=== PATIENT | female | born 1940 | race Caucasian/White ===

== ENCOUNTER 2018-02-16 17:36 | Emergency (ER) | payer MEDICARE, OTHER ==
--- NOTE | 2018-02-16 17:48 | EDM.PDOC ---
ED HPI GENERAL MEDICAL PROBLEM - General Chief Complaint: General Stated Complaint: FELL AND INJURED RT WRIST Time Seen by Provider: 02/16/18 17:40 Source of Information: Reports: Patient History Limitations: Reports: No Limitations - History of Present Illness INITIAL COMMENTS - FREE TEXT/NARRATIVE: Alicia comes into [facility] ED for examination of a painful R wrist following an injury this afternoon. She apparently slipped and fell onto outstretched L hand , injury to L wrist. There is minimal swelling, no discoloration, but some tenderness at the radial-carpal junction. There is no numbness or loss of function. She has taken no meds. - Related Data Allergies Allergy/AdvReac Type Severity Reaction Status Date / Time Sulfa (Sulfonamide Allergy Rash Verified 02/16/18 17:53 Antibiotics) Home Meds: Home Meds Acetaminophen [Tylenol] 325 mg PO ASDIRECTED PRN 06/23/13 [History] Aspirin [Halfprin] 81 mg PO BEDTIME 06/23/13 [History] Cyanocobalamin (Vitamin B-12) [Cyanocobalamin] 1 gm MC DAILY 06/23/13 [History] Flaxseed Oil [Flax Oil] 1,000 mg PO BID 06/23/13 [History] Gabapentin [Neurontin] 600 mg PO 14 06/23/13 [History] Lutein 20 mg PO DAILY 06/23/13 [History] Omeprazole [Prilosec] 20 mg PO BEDTIME 06/23/13 [History] Polyvinyl Alcohol/Povidone [Refresh] 1 each EYEBOTH ASDIRECTED PRN 06/23/13 [ History] Triamcinolone Acetonide [Kenalog 0.1% Crm] 15 gm TOP BID PRN 06/23/13 [History] cycloSPORINE [Restasis] 1 drop EYEBOTH BID PRN 06/23/13 [History] Ascorbic Acid [Vitamin C] 500 mg PO DAILY 06/24/13 [History] Cholecalciferol (Vitamin D3) [Vitamin D3] 1,000 units PO DAILY 06/24/13 [History ] Citalopram Hydrobromide [Celexa] 10 mg PO BEDTIME 06/24/13 [History] Fish Oil/[place]-3 Fatty Acids [Fish Oil 1,000 MG] 1 each PO BID 06/24/13 [History ] Multivitamin [Multi-Vitamin Daily] 1 each PO DAILY 06/24/13 [History] Ibuprofen 600 mg PO ASDIRECTED PRN 08/12/13 [History] Review of Systems - Review of Systems Review Of Systems: ROS reveals no pertinent complaints other than HPI. ED EXAM, GENERAL - Physical Exam Exam: See Below Exam Limited By: No Limitations General Appearance: Alert, WD/WN, No Apparent Distress Head: Atraumatic, Normocephalic Neck: Normal Inspection, Supple Respiratory/Chest: Lungs Clear Cardiovascular: Regular Rate, Rhythm Back Exam: Normal Inspection Extremities: Limited Range of Motion (L wrist: some guarding along radial carpal junction, no laine swelling some some limited tenderness near scaphoid; no deformity) Neurological: Alert, Oriented, CN II-XII Intact, Normal Gait, No Motor/Sensory Deficits Psychiatric: Normal Affect, Normal Mood Skin Exam: Warm, Dry, Intact Lymphatic: No Adenopathy Course - Vital Signs Text/Narrative:: Following assessment at the [facility] ED, I obtained x rays of the R wrist neg for fx. 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 A wrist splint was applied. - Orders/Labs/Meds Orders: Active Orders 24 hr Category Date Time Status Wrist Comp Min 3V Rt [CR] Stat Exams 02/16/18 17:43 Taken Departure - Departure Time of Disposition: 18:23 Disposition: Home, Self-Care 01 Condition: Fair Clinical Impression: Sprain of right wrist - Discharge Information Referrals: Isidoro Flores MD [Primary Care Provider] - Forms: ED Department Discharge - Problem List & Annotations (1) Sprain of right wrist SNOMED Code(s): 18328836 Code(s): S63.501A - UNSPECIFIED SPRAIN OF RIGHT WRIST, INITIAL ENCOUNTER Status: Acute Annotation/Comment:: Wrist splint for comfort, begin AROM in 2 days, and advance activity as tolerated; NSAIDs or Tylenol for analgesics. - Problem List Review Problem List Initiated/Reviewed/Updated: Yes - My Orders Last 24 Hours: My Active Orders 02/16/18 17:43 Wrist Comp Min 3V Rt [CR] Stat - Assessment/Plan Last 24 Hours: My Active Orders 02/16/18 17:43 Wrist Comp Min 3V Rt [CR] Stat Plan: Follow up with PCP if needed.
[2018-02-16 20:04] VITALS: BP 137/61
--- NOTE | 2018-02-18 12:17 | CR ---
INDICATION: Rule out wrist fracture, after falling on outstretched hand, tenderness with minimal swelling along radiocarpal junction near scaphoid. RIGHT WRIST: Three views of the right wrist were obtained. No comparisons were available. There is an irregular longitudinal fracture through the mediodorsal aspect of the distal radial metaphysis with approximately 2.5 to 3 mm dorsal offset of the large chip fracture fragment. It is comminuted with the fracture line extending more proximally into the metaphysis along the dorsal aspect of the radius. Additionally noted is very severe osteoarthritic change, most likely post traumatic type, at the first metacarpocarpal joint. Very minimal deviation of the volar fat pad is noted, suggesting a minimal wrist joint effusion. IMPRESSION: 1. Comminuted large chip fracture fragments off the dorsal aspect of the distal radial metaphysis, including only a small portion of the joint surface along its medial aspect for the most part. 2. 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 3. Small wrist joint effusion may be present. Report was called to Dr. Wilson for Dr. Guan at 1131 hours on 02/18/2018. JANE
== END 2018-02-16 18:50 | disposition home or self-care (01) ==
LOC: FB.ED 17:36
DX: S63.501A Unspecified sprain of right wrist, initial encounter (principal); Z88.2 Allergy status to sulfonamides; Z79.899 Other long term (current) drug therapy; W01.0XXA Fall on same level from slipping, tripping and stumbling without subsequent striking against object, initial encounter
CPT/HCPCS: 29125; 73110-RT; 99283

== ENCOUNTER 2019-05-07 08:09 | Day surgery (SDC) | payer MEDICARE, OTHER ==
[2019-05-07] MEDS ORDERED: Propofol 200 MG/20 ML SDV IV ONE (08:10)
[2019-05-07] MEDS ORDERED: Glycopyrrolate 0.2 MG/ML 5 ML MDV IV ONE (08:10)
[2019-05-07] MEDS ORDERED: Lidocaine 2% 5 ML SDV INJECT ONE ×2 (08:10)
[2019-05-07] MEDS ORDERED: Lactated Ringers 1,000 ML IV SCH (08:15)
[2019-05-07] MEDS ORDERED: Sodium Chloride 0.9% 10 ML Syringe FLUSH PRN (08:15)
--- NOTE | 2019-05-07 09:54 | PCM.OPNOTE ---
- General Post-Op/Procedure Note Date of Surgery/Procedure: 05/07/19 Operative Procedure(s): c scope with random biospies Findings: normal exam Pre Op Diagnosis: hx of colitis Post-Op Diagnosis: Same Anesthesia Technique: MAC Primary Surgeon: Tony Srivastava Anesthesia Provider: Ema Amaya Pathology: random colon biopsies Complications: None Condition: Good Free Text/Narrative:: see dictation
[2019-05-07 11:17] VITALS: BP 119/75
--- NOTE | 2019-05-07 11:21 | OR ---
DATE OF OPERATION: 05/07/2019 SURGEON: Tony Srivastava MD PROCEDURE PERFORMED: Colonoscopy with random biopsies. PREOPERATIVE DIAGNOSIS: Personal history of colitis. POSTOPERATIVE DIAGNOSIS: Grossly normal colon. INDICATIONS FOR PROCEDURE: This is a 79-year-old white female who presents for followup endoscopy. She has a personal history of colitis, really is without complaints. She was offered and accepted colonoscopy. DESCRIPTION OF OPERATION: After an excellent IV sedation was administered, digital rectal exam was performed. No marked abnormality was noted. Flexible colonoscope inserted, advanced to cecum. Prep was excellent. Following findings were noted. Ascending colon, unremarkable. Random biopsies were taken. Transverse colon, unremarkable. Random biopsies were taken. Descending colon, unremarkable. Random biopsies were taken. Sigmoid and rectum, unremarkable. Random biopsies were taken. Colon was deflated. The scope was removed. The patient tolerated the procedure well. Results by letter. /[id number] /MODL
== END 2019-05-07 11:16 | disposition home or self-care (01) ==
LOC: FB.SDS 08:09
PROVIDERS: ATTEND Surgery
DX: Z12.11 Encounter for screening for malignant neoplasm of colon (principal); K21.9 Gastro-esophageal reflux disease without esophagitis; F32.9 Major depressive disorder, single episode, unspecified; E66.9 Obesity, unspecified; Z90.49 Acquired absence of other specified parts of digestive tract; Z87.19 Personal history of other diseases of the digestive system; Z79.2 Long term (current) use of antibiotics; Z79.82 Long term (current) use of aspirin; Z88.2 Allergy status to sulfonamides; Z68.29 Body mass index [BMI] 29.0-29.9, adult
CPT/HCPCS: 45380; J2001; J2704; J3490; J7120; 88305; 88342

== ENCOUNTER 2019-11-14 11:20 | Inpatient (IN) | payer MEDICARE, OTHER ==
[2019-11-14] MEDS: Sodium Chloride 0.9% 1,000 ML IV SCH ×2 (11:45→17:39)
[2019-11-14] MEDS ORDERED: Iopamidol 755 Mg/ML 100 ML Bottle IV ONE (12:17)
[2019-11-14] MEDS: Sodium Chloride 0.9% 10 ML Syringe FLUSH PRN (12:26)
[2019-11-14] MEDS ORDERED: Morphine 2 MG/ML SYRINGE IVPUSH ONE (13:44)
--- NOTE | 2019-11-14 14:26 | CT ---
INDICATION: Right lower quadrant/left lower quadrant tenderness. CT ABDOMEN AND PELVIS WITH CONTRAST: Spiral 3.75 mm axial sections were obtained through the abdomen and pelvis with 75 mL Isovue 370 at 2 mL/sec, with sagittal and coronal reconstructions, 11/14/19 - no comparisons. Total exam DLP was 379.50 mGy-cm. The lower lung solis and pleural spaces visualized showed evidence of small bilateral pleural effusions with some mild emphysematous changes. Heavy markings at the lung bases make it difficult to entirely exclude minimal patchy bronchopneumonia and pleuritis with this appearance. The heart appears to be at the upper limits of normal in size to slightly enlarged. No pericardial effusion was seen. Coronary artery calcifications are suggested. The gallbladder is absent compatible with history of its removal. The liver is slightly prominent and decreased in density compatible with fatty liver. There are some areas of relative normal density suggesting areas of fatty sparing. No ductal dilatation was seen, including the common bile duct. Clips are noted at the cystic duct area compatible with cholecystectomy. The adrenal glands appeared normal. The kidneys appeared normal except for what looks like a tiny simple cyst in the lateral cortex of the midpole of the left kidney. The spleen and the pancreas appeared normal. No definite gastric abnormality was seen. There is thickening of the wall of the [id number] transverse colon, descending colon, and sigmoid colon, which is fairly redundant. Some thickening of the wall of the rectosigmoid and rectum may also be present. This appearance raises question of ulcerative colitis. These portions of the bowel are filled with fluid with air-fluid levels. This raises question of a paralytic ileus. There is fluid extending into the rectum suggesting that if an obstructive process of a mechanical nature is present, it is of partial nature. It certainly cannot be entirely excluded in the area of the distal sigmoid - rectosigmoid. The appendix appeared normal visualized on coronal images 22-31. The ascending colon appeared relatively normal as did the proximal transverse colon, although somewhat distended. No retroperitoneal mass was seen. The uterus is absent compatible with history of its removal. The urinary bladder was slightly distended but otherwise unremarkable with ureteral jets of contrast suggested bilaterally. No other organomegaly, mass lesions or definite free fluid collections were identified. However, there may be a very minimal amount of free fluid in the posterior cul-de-sac area. Hypertrophic degenerative changes and disk disease are noted in the lumbosacral spine with degenerative disk disease additionally felt to be present at L2-3, L3 -4. There also appears to be some bulging of disk centrally at L4-5 with very minimal anterolisthesis at that level. Calcifications are noted in the abdominal aorta, iliac and femoral arteries. No evidence of free air was identified. IMPRESSION: 1. Fluid-filled [id number] large bowel with thickened wall, the appearance raising question of colitis, possibly due to ulcerative colitis, although infection could also be present. This should be correlated clinically. The bowel is also somewhat dilated down to the level of the distal sigmoid - rectosigmoid where there is a relative prominent area of narrowing, which could be a contraction, or possibly a stricture, best seen on axial image 91. This could be producing a partially obstructive process as there is fluid in the more distal colon - distal rectosigmoid and rectum. Colonoscopy may be helpful for further evaluation in that regard. 2. Post hysterectomy. 3. Post appendectomy. 4. Degenerative changes and disk disease lumbosacral spine. 5. Appendix appears normal. 6. ASD/ASHD. 7. Fatty liver. 8. Bibasilar pleural parenchymal changes may represent minimal pneumonia and pleuritis. The report was called to Dr. Flores at 13:04 hours. [facility]
[2019-11-14] MEDS ORDERED: cefTRIAXone 1 GM Vial IM ONE (14:50)
--- NOTE | 2019-11-14 15:02 | CR ---
INDICATION: Cough. CHEST, 1 VIEW: A single, AP upright portable view of the chest was obtained - no comparisons except for CT of the abdomen and pelvis with contrast of 11/14/19, which does show the lower lung solis. There is blunting of the left costophrenic angle compatible with a small pleural effusion. There is indistinctness of the diaphragm leaves bilaterally, which could be on the basis of minimal pleural parenchymal change - pneumonia and pleuritis, which was suggested on the CT abdomen and pelvis, which included the lower chest area. No gross consolidating pneumonia was seen. The heart appears enlarged to a mild degree. Aorta is tortuous with calcification in the arch. The lungs appear to be somewhat hyperaerated raising question of COPD - correlate clinically. IMPRESSION: 1. Somewhat indistinct lung bases compatible with the findings on CT showing minimal infiltrate and effusion compatible with pneumonia and pleuritis at the lung bases. 2. Probable ASHD. 3. Probable COPD. MTDD
[2019-11-14] MEDS ORDERED: cefTRIAXone 1 GM in Sodium Chloride 0.9% 50 ML IV ONE (15:13)
[2019-11-14] MEDS ORDERED: Ondansetron 4 MG/2 ML SDV IVPUSH PRN (17:17)
[2019-11-14] MEDS ORDERED: Acetaminophen 325 MG Supp RECTAL PRN (17:19)
--- NOTE | 2019-11-14 17:32 | PCM.HP.2 ---
H&P History of Present Illness - General Date of Service: 11/14/19 Admit Problem/Dx: Admission Diagnosis/Problem Admission Diagnosis/Problem Partial bowel obstruction Source of Information: Patient, Family, Provider - History of Present Illness Initial Comments - Free Text/Narative: Alicia has been having abdominal pain for a few weeks, first had some diarrhea with bloody stools. She states the blood was present on the stool and not in the toilet. She started Iron and then became constipated so stopped and diarrhea started again. She states pain in mainly in the lower part of her belly , no nausea or vomiting. Has been more confused per her son from when he saw her on Sunday. She was seen at [facility] today by Dr Srivastava and he called and sent her to ER for evaluation. CT abdomen/pelvis showed sigmoid colitis, partial small bowel obstruction and UA showed UTI. She denies any fevers, chills, sore throat or cough. No shortness of breath, chest pain. No dysuria, frequency or hematuria. No joint pain. No edema. Patient denies any surgeries but chart notes hysterectomy, cholecystectomy, appy for abdominal surgeries, see below for full list. Complaining of dry mouth, licking her lips and they are sticking together making it difficult for her to talk. - Related Data Allergies/Adverse Reactions: Allergies Allergy/AdvReac Type Severity Reaction Status Date / Time Sulfa (Sulfonamide Allergy Rash Verified 11/14/19 11:45 Antibiotics) Home Medications: Home Meds Aspirin [Halfprin] 81 mg PO BEDTIME 06/23/13 [History] Cyanocobalamin (Vitamin B-12) [Cyanocobalamin] 1 gm PO DAILY 06/23/13 [History] Flaxseed Oil [Flax Oil] 1,000 mg PO DAILY 06/23/13 [History] Lutein 20 mg PO DAILY 06/23/13 [History] Omeprazole [Prilosec] 20 mg PO BEDTIME 06/23/13 [History] Polyvinyl Alcohol/Povidone [Refresh] 1 each EYEBOTH ASDIRECTED PRN 06/23/13 [ History] Triamcinolone Acetonide [Kenalog 0.1% Crm] 15 gm TOP BID PRN 06/23/13 [History] cycloSPORINE [Restasis] 1 drop EYEBOTH BID PRN 06/23/13 [History] Cholecalciferol (Vitamin D3) [Vitamin D3] 1,000 units PO DAILY 06/24/13 [History ] Citalopram Hydrobromide [Celexa] 10 mg PO BEDTIME 06/24/13 [History] Fish Oil/[place]-3 Fatty Acids [Fish Oil 1,000 MG] 1,000 mg PO BID 06/24/13 [ History] Multivitamin [Multi-Vitamin Daily] 1 each PO DAILY 06/24/13 [History] Alendronate Sodium [Fosamax] 70 mg PO Q7D 05/06/19 [History] Calcium Carbonate/Vitamin D3 [Os-Meng 500+D] 1 each PO BID 05/06/19 [History] Ferrous Sulfate [Iron] 325 mg PO DAILY 05/06/19 [History] Glucosamine Sulfate/Msm [Glucosamine-MSM 500-400 MG] 2 cap PO DAILY 05/06/19 [ History] Vitamin E 400 unit PO DAILY 05/06/19 [History] Past Medical History HEENT History: Reports: Cataract, Hard of Hearing, Impaired Vision, Other (See Below) Other HEENT History: dry eyes Cardiovascular History: Reports: None, Other (See Below) Other Cardiovascular History: 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 CARPAL TUNNEL SYNDROME Psychiatric History: Reports: Depression Endocrine/Metabolic History: Reports: Obesity/BMI 30+ Hematologic History: Reports: None Immunologic History: Reports: None Oncologic (Cancer) History: Reports: None Dermatologic History: Reports: Eczema, Other (See Below) Other Dermatologic History: CONTACT DERMATITIS - Infectious Disease History Infectious Disease History: Reports: Chicken Pox, Measles, Mumps - Past Surgical History Head Surgeries/Procedures: Reports: None HEENT Surgical History: Reports: Cataract Surgery Cardiovascular Surgical History: Reports: None Respiratory Surgical History: Reports: None GI Surgical History: Reports: Appendectomy, Cholecystectomy, Colonoscopy Female Surgical History: Reports: Hysterectomy Endocrine Surgical History: Reports: None Neurological Surgical History: Reports: Discectomy, Laminectomy, Other (See Below) Other Neurological Surgeries/Procedures: L3-4 Musculoskeletal Surgical History: Reports: Other (See Below) Other Musculoskeletal Surgeries/Procedures:: TRIGGER FINGER RELEASE, TRIGGER FINGER INJECTION Oncologic Surgical History: Reports: None Social & Family History - Family History Family Medical History: Noncontributory - Tobacco Use Smoking Status *Q: Never Smoker - Caffeine Use Caffeine Use: Reports: Coffee, Tea - Alcohol Use Alcohol Use History: Yes Alcohol Use Frequency: Monthly - Living Situation & Occupation Living situation: Reports: , Alone Occupation: Retired H&P Review of Systems - Review of Systems: Review Of Systems: Comprehensive ROS is negative, except as noted in HPI. Exam - Exam Exam: See Below - Exam General: Alert, Oriented (x3), Cooperative, Mild Distress, Lethargic HEENT: PERRLA, Conjunctiva Clear, EOMI, Hearing Intact, Nares Patent, Normal Nasal Septum, Posterior Pharynx Clear, TMs Clear, Other (very dry tacky mucus membranes) Neck: Supple, Trachea Midline. No: Lymphadenopathy Lungs: Clear to Auscultation, Normal Respiratory Effort Cardiovascular: Regular Rate, Regular Rhythm, Normal S1, Normal S2, Systolic Murmur GI/Abdominal Exam: Soft, Guarding, Tender (LLQ>RLQ), Abnormal Bowel Sounds ( hypoactive). No: Rigid, Rebound (Female) Exam: Deferred Rectal (Female) Exam: Deferred Extremities: Pedal Edema (trace) Peripheral Pulses: 2+: Radial (L), Radial (R), Posterior Tibial (L), Posterior Tibial (R), Dorsalis Pedis (L), Dorsalis Pedis (R) Skin: Warm, Dry, Intact - Patient Data Lab Results Last 24 hrs: Laboratory Results - last 24 hr 11/14/19 11/14/19 11/14/19 Range/Units 11:45 11:45 11:45 WBC 7.5 (4.5-12.0) X10-3/uL RBC 3.57 (3.23-5.20) x10(6)uL Hgb 11.0 L (11.5-15.5) g/dL Hct 32.7 (30.0-51.3) % MCV 91.6 (80-96) fL MCH 30.8 (27.7-33.6) pg MCHC 33.7 (32.2-35.4) g/dL RDW 12.6 (11.5-15.5) % Plt Count 373 H (125-369) X10(3)uL MPV 6.6 L (7.4-10.4) fL Add Manual Diff Yes Neutrophils % (Manual) 47 (46-82) % Band Neutrophils % 18 H* (0-6) % Lymphocytes % (Manual) 28 (13-37) % Monocytes % (Manual) 6 (4-12) % Eosinophils % (Manual) 1 (0-5) % Toxic Granulation Few H (NOT SEEN) Sodium 139 (135-145) mmol/L Potassium 2.3 L* (3.5-5.3) mmol/L Chloride 101 (100-110) mmol/L Carbon Dioxide 31 (21-32) mmol/L BUN 10 (7-18) mg/dL Creatinine 0.9 (0.55-1.02) mg/dL Est Cr Clr Drug Dosing TNP Estimated GFR (MDRD) > 60 (>60) BUN/Creatinine Ratio 11.1 (9-20) Glucose 102 (80-116) mg/dL Lactic Acid (0.4-2.0) mmol/L Calcium 7.5 L (8.6-10.2) mg/dL Total Bilirubin 0.7 (0.1-1.3) mg/dL AST 43 H (5-25) IU/L ALT 43 H (12-36) U/L Alkaline Phosphatase 124 H (56-112) IU/L Total Protein 5.7 L (6.0-8.0) g/dL Albumin 1.7 L* (3.2-4.6) g/dL Globulin 4.0 g/dL Albumin/Globulin Ratio 0.4 Amylase 15 L (25-115) U/L Lipase 35 L (73-393) U/L Urine Color (YELLOW) Urine Appearance (CLEAR) Urine pH (5.0-6.5) Ur Specific [place] (1.010-1.025) Urine Protein (NEGATIVE) mg/dL Urine Glucose (UA) (NORMAL) mg/dL Urine Ketones (NEGATIVE) mg/dL Urine Occult Blood (NEGATIVE) Urine Nitrite (NEGATIVE) Urine Bilirubin (NEGATIVE) Urine Urobilinogen (NEGATIVE) mg/dL Ur Leukocyte Esterase (NEGATIVE) Urine WBC (0-5) 11/14/19 11/14/19 Range/Units 13:29 13:50 WBC (4.5-12.0) X10-3/uL RBC (3.23-5.20) x10(6)uL Hgb (11.5-15.5) g/dL Hct (30.0-51.3) % MCV (80-96) fL MCH (27.7-33.6) pg MCHC (32.2-35.4) g/dL RDW (11.5-15.5) % Plt Count (125-369) X10(3)uL MPV (7.4-10.4) fL Add Manual Diff Neutrophils % (Manual) (46-82) % Band Neutrophils % (0-6) % Lymphocytes % (Manual) (13-37) % Monocytes % (Manual) (4-12) % Eosinophils % (Manual) (0-5) % Toxic Granulation (NOT SEEN) Sodium (135-145) mmol/L Potassium (3.5-5.3) mmol/L Chloride (100-110) mmol/L Carbon Dioxide (21-32) mmol/L BUN (7-18) mg/dL Creatinine (0.55-1.02) mg/dL Est Cr Clr Drug Dosing Estimated GFR (MDRD) (>60) BUN/Creatinine Ratio (9-20) Glucose (80-116) mg/dL Lactic Acid 1.4 (0.4-2.0) mmol/L Calcium (8.6-10.2) mg/dL Total Bilirubin (0.1-1.3) mg/dL AST (5-25) IU/L ALT (12-36) U/L Alkaline Phosphatase (56-112) IU/L Total Protein (6.0-8.0) g/dL Albumin (3.2-4.6) g/dL Globulin g/dL Albumin/Globulin Ratio Amylase (25-115) U/L Lipase (73-393) U/L Urine Color Yellow (YELLOW) Urine Appearance Cloudy (CLEAR) Urine pH 7.0 H (5.0-6.5) Ur Specific [place] 1.005 L (1.010-1.025) Urine Protein Trace (NEGATIVE) mg/dL Urine Glucose (UA) Normal (NORMAL) mg/dL Urine Ketones Negative (NEGATIVE) mg/dL Urine Occult Blood Moderate H (NEGATIVE) Urine Nitrite Positive H (NEGATIVE) Urine Bilirubin Negative (NEGATIVE) Urine Urobilinogen Normal (NEGATIVE) mg/dL Ur Leukocyte Esterase Large H (NEGATIVE) Urine WBC Packed H (0-5) Result Diagrams: 11/14/19 11:45 11/14/19 11:45 Sepsis Event Note - Evaluation Current Stage of Sepsis: Ruled Out Reason for Ruling Out Sepsis: Afebrile, normal white count, normal blood pressure, normal lactic acid. - Problem List (1) Partial bowel obstruction SNOMED Code(s): 99149402956395062 ICD Code: K56.600 - PARTIAL INTESTINAL OBSTRUCTION, UNSPECIFIED TO CAUSE Status: Acute Current Visit: Yes (2) Colitis SNOMED Code(s): 19546275 ICD Code: K52.9 - NONINFECTIVE GASTROENTERITIS AND COLITIS, UNSPECIFIED Status: Acute Current Visit: Yes (3) UTI (urinary tract infection) SNOMED Code(s): 96511395 ICD Code: N39.0 - URINARY TRACT INFECTION, SITE NOT SPECIFIED Status: Acute Current Visit: Yes (4) Dehydration SNOMED Code(s): 59619679 ICD Code: E86.0 - DEHYDRATION Status: Acute Current Visit: Yes (5) Hypokalemia SNOMED Code(s): 30414646 ICD Code: E87.6 - HYPOKALEMIA Status: Acute Current Visit: Yes (6) Osteoporosis SNOMED Code(s): 73239107 ICD Code: M81.0 - AGE-RELATED OSTEOPOROSIS W/O CURRENT PATHOLOGICAL FRACTURE Status: Chronic Current Visit: Yes (7) Depression SNOMED Code(s): 38447268 ICD Code: F32.9 - MAJOR DEPRESSIVE DISORDER, SINGLE EPISODE, UNSPECIFIED Status: Chronic Current Visit: Yes Problem List Initiated/Reviewed/Updated: Yes Orders Last 24hrs: Active Orders 24 hr Category Date Time Status Admission Status [Patient Status] [ADT] Routine ADT 11/14/19 17:02 Active Antiembolic Devices [RC] .Routine Care 11/14/19 17:24 Ordered Oxygen Therapy [RC] PRN Care 11/14/19 17:24 Ordered Up to Chair [RC] ASDIRECTED Care 11/14/19 17:24 Ordered VTE/DVT Education [RC] Per Unit Routine Care 11/14/19 17:24 Ordered Vital Signs [RC] Q4H Care 11/14/19 17:24 Ordered Nothing per Oral Now Diet [DIET] Diet 11/14/19 Dinner Ordered BASIC METABOLIC PANEL,BMP [CHEM] Routine Lab 11/15/19 06:00 Ordered CULTURE BLOOD [BC] Urgent Lab 11/14/19 13:50 Received CULTURE BLOOD [BC] Urgent Lab 11/14/19 13:50 Received CULTURE URINE [RM] Stat Lab 11/14/19 13:29 Received OCCULT BLOOD SCREEN [OP] Routine Lab 11/14/19 17:20 Ordered Acetaminophen [Tylenol] Med 11/14/19 17:19 Ordered 325 mg RECTAL Q4H PRN Morphine Med 11/14/19 17:18 Ordered 1 mg IVPUSH Q2H PRN Ondansetron [Zofran] Med 11/14/19 17:17 Ordered 4 mg IVPUSH Q6H PRN Potassium Chloride [KCL 20 MEQ in Water 100 ML] 100 ml Med 11/14/19 18:00 Active IV Q2H Potassium Chloride [KCL 20 MEQ in Water 100 ML] 20 meq Med 11/14/19 18:00 Ordered Premix Bag 2 bag IV Q2H Sodium Chloride 0.9% [Normal Saline] 1,000 ml Med 11/14/19 11:45 Active IV ASDIRECTED Sodium Chloride 0.9% [Saline Flush] Med 11/14/19 11:37 Active 10 ml FLUSH ASDIRECTED PRN cefTRIAXone [Rocephin] Med 11/15/19 15:15 Ordered 1 gm IVPUSH Q24H Antiembolic Hose [OM.PC] Per Unit Routine Oth 11/14/19 17:24 Ordered Blood Culture x2 Reflex Set [OM.PC] Urgent Oth 11/14/19 13:30 Ordered Oral Care [OM.PC] Routine Oth 11/14/19 17:19 Ordered Saline Lock Insert [OM.PC] Routine Oth 11/14/19 11:37 Ordered Code Status [Resuscitation Status] Routine Resus Stat 11/14/19 17:19 Ordered Medication Orders Acetaminophen (Tylenol) 325 mg RECTAL Q4H PRN PRN Reason: Fever Ceftriaxone Sodium (Rocephin) 1 gm IVPUSH Q24H [facility] Sodium Chloride (Normal Saline) 1,000 mls @ 100 mls/hr IV ASDIRECTED [facility] Last Admin: 11/14/19 11:45 Dose: 999 mls/hr Potassium Chloride 20 meq/ (Premix) 0 mls @ 50 mls/hr IV Q2H [facility] Morphine Sulfate (Morphine) 1 mg IVPUSH Q2H PRN PRN Reason: Pain Ondansetron HCl (Zofran) 4 mg IVPUSH Q6H PRN PRN Reason: Nausea/Vomiting Sodium Chloride (Saline Flush) 10 ml FLUSH ASDIRECTED PRN PRN Reason: Keep Vein Open Last Admin: 11/14/19 12:26 Dose: 10 ml Assessment/Plan Comment:: 1. Admit for inpatient for partial bowel obstruction, sigmoid colitis and UTI. 2. Rocephin 1 Gram IV q24h, Urine culture pending. BC pending. Normal WBC. 3. NPO except water and ice chips. Oral cares prn. 4. Morphine 1 mg IV q2h prn pain, Tylenol suppository 325 mg q4h prn fever. 5. Hold all home medications. 6. GI prophylaxis: Protonix 40 mg IV daily. 7. DVT prophylaxis: TEDS, ambulate. 8. Up to chair. 9. CODE STATUS: FULL, does have living will but doesn't remember and does not have it with her. - Mortality Measure Prognosis:: Good
[2019-11-14] MEDS: cefTRIAXone 1 GM Vial IVPUSH SCH (17:39)
[2019-11-14] MEDS: Potassium Chloride 100 ML IV SCH ×2 (17:43→20:06)
[2019-11-14] MEDS ORDERED: Potassium Chloride 20 MEQ in Premix Bag 2 BAG IV SCH (18:00)
[2019-11-15] MEDS: Sodium Chloride 0.9% 1,000 ML IV SCH ×2 (05:00→15:41)
[2019-11-15] MEDS: Morphine 2 MG/ML SYRINGE IVPUSH PRN ×2 (05:30→17:25)
--- NOTE | 2019-11-15 09:51 | PCM.PN ---
- General Info Date of Service: 11/15/19 Subjective Update: Alicia describes pain more achy, still a little sleepy this morning but not as lethargic as yesterday. Mouth states is dry but not as bad, wants to drink water. Advised she has water & ice chips ordered but she is also getting IV fluids. Has not received anything for pain overnight. Had diarrhea stool, fecal occult was negative, some blood when she wiped. Urine culture still pending. No nausea or vomiting. - Patient Data Vitals - Most Recent: Last Vital Signs Temp 98.1 F 11/15/19 03:30 Pulse 90 11/14/19 23:30 Resp 16 11/15/19 03:30 BP 115/60 11/15/19 03:30 Pulse Ox 88 L 11/15/19 03:30 Weight - Most Recent: 139 lb 1.6 oz I&O - Last 24 Hours: Intake & Output 11/14/19 11/15/19 11/15/19 22:59 06:59 14:59 Intake Total 946 Output Total 450 Balance 496 Lab Results Last 24 Hours: Laboratory Results - last 24 hr 11/14/19 11/14/19 11/14/19 Range/Units 11:45 11:45 11:45 WBC 7.5 (4.5-12.0) X10-3/uL RBC 3.57 (3.23-5.20) x10(6)uL Hgb 11.0 L (11.5-15.5) g/dL Hct 32.7 (30.0-51.3) % MCV 91.6 (80-96) fL MCH 30.8 (27.7-33.6) pg MCHC 33.7 (32.2-35.4) g/dL RDW 12.6 (11.5-15.5) % Plt Count 373 H (125-369) X10(3)uL MPV 6.6 L (7.4-10.4) fL Add Manual Diff Yes Neutrophils % (Manual) 47 (46-82) % Band Neutrophils % 18 H* (0-6) % Lymphocytes % (Manual) 28 (13-37) % Monocytes % (Manual) 6 (4-12) % Eosinophils % (Manual) 1 (0-5) % Toxic Granulation Few H (NOT SEEN) Sodium 139 (135-145) mmol/L Potassium 2.3 L* (3.5-5.3) mmol/L Chloride 101 (100-110) mmol/L Carbon Dioxide 31 (21-32) mmol/L BUN 10 (7-18) mg/dL Creatinine 0.9 (0.55-1.02) mg/dL Est Cr Clr Drug Dosing TNP Estimated GFR (MDRD) > 60 (>60) BUN/Creatinine Ratio 11.1 (9-20) Glucose 102 (80-116) mg/dL Lactic Acid (0.4-2.0) mmol/L Calcium 7.5 L (8.6-10.2) mg/dL Magnesium (1.8-2.5) mg/dL Total Bilirubin 0.7 (0.1-1.3) mg/dL AST 43 H (5-25) IU/L ALT 43 H (12-36) U/L Alkaline Phosphatase 124 H (56-112) IU/L Total Protein 5.7 L (6.0-8.0) g/dL Albumin 1.7 L* (3.2-4.6) g/dL Globulin 4.0 g/dL Albumin/Globulin Ratio 0.4 Amylase 15 L (25-115) U/L Lipase 35 L (73-393) U/L Urine Color (YELLOW) Urine Appearance (CLEAR) Urine pH (5.0-6.5) Ur Specific [place] (1.010-1.025) Urine Protein (NEGATIVE) mg/dL Urine Glucose (UA) (NORMAL) mg/dL Urine Ketones (NEGATIVE) mg/dL Urine Occult Blood (NEGATIVE) Urine Nitrite (NEGATIVE) Urine Bilirubin (NEGATIVE) Urine Urobilinogen (NEGATIVE) mg/dL Ur Leukocyte Esterase (NEGATIVE) Urine WBC (0-5) 11/14/19 11/14/19 11/15/19 Range/Units 13:29 13:50 06:25 WBC (4.5-12.0) X10-3/uL RBC (3.23-5.20) x10(6)uL Hgb (11.5-15.5) g/dL Hct (30.0-51.3) % MCV (80-96) fL MCH (27.7-33.6) pg MCHC (32.2-35.4) g/dL RDW (11.5-15.5) % Plt Count (125-369) X10(3)uL MPV (7.4-10.4) fL Add Manual Diff Neutrophils % (Manual) (46-82) % Band Neutrophils % (0-6) % Lymphocytes % (Manual) (13-37) % Monocytes % (Manual) (4-12) % Eosinophils % (Manual) (0-5) % Toxic Granulation (NOT SEEN) Sodium 143 (135-145) mmol/L Potassium 2.3 L* (3.5-5.3) mmol/L Chloride 107 D (100-110) mmol/L Carbon Dioxide 27 (21-32) mmol/L BUN 8 (7-18) mg/dL Creatinine 0.7 (0.55-1.02) mg/dL Est Cr Clr Drug Dosing 52.39 Estimated GFR (MDRD) > 60 (>60) BUN/Creatinine Ratio 11.4 (9-20) Glucose 84 (80-116) mg/dL Lactic Acid 1.4 (0.4-2.0) mmol/L Calcium 7.0 L (8.6-10.2) mg/dL Magnesium (1.8-2.5) mg/dL Total Bilirubin (0.1-1.3) mg/dL AST (5-25) IU/L ALT (12-36) U/L Alkaline Phosphatase (56-112) IU/L Total Protein (6.0-8.0) g/dL Albumin (3.2-4.6) g/dL Globulin g/dL Albumin/Globulin Ratio Amylase (25-115) U/L Lipase (73-393) U/L Urine Color Yellow (YELLOW) Urine Appearance Cloudy (CLEAR) Urine pH 7.0 H (5.0-6.5) Ur Specific [place] 1.005 L (1.010-1.025) Urine Protein Trace (NEGATIVE) mg/dL Urine Glucose (UA) Normal (NORMAL) mg/dL Urine Ketones Negative (NEGATIVE) mg/dL Urine Occult Blood Moderate H (NEGATIVE) Urine Nitrite Positive H (NEGATIVE) Urine Bilirubin Negative (NEGATIVE) Urine Urobilinogen Normal (NEGATIVE) mg/dL Ur Leukocyte Esterase Large H (NEGATIVE) Urine WBC Packed H (0-5) 11/14/ Range/Units 06:50 WBC (4.5-12.0) X10-3/uL RBC (3.23-5.20) x10(6)uL Hgb (11.5-15.5) g/dL Hct (30.0-51.3) % MCV (80-96) fL MCH (27.7-33.6) pg MCHC (32.2-35.4) g/dL RDW (11.5-15.5) % Plt Count (125-369) X10(3)uL MPV (7.4-10.4) fL Add Manual Diff Neutrophils % (Manual) (46-82) % Band Neutrophils % (0-6) % Lymphocytes % (Manual) (13-37) % Monocytes % (Manual) (4-12) % Eosinophils % (Manual) (0-5) % Toxic Granulation (NOT SEEN) Sodium (135-145) mmol/L Potassium (3.5-5.3) mmol/L Chloride (100-110) mmol/L Carbon Dioxide (21-32) mmol/L BUN (7-18) mg/dL Creatinine (0.55-1.02) mg/dL Est Cr Clr Drug Dosing Estimated GFR (MDRD) (>60) BUN/Creatinine Ratio (9-20) Glucose (80-116) mg/dL Lactic Acid (0.4-2.0) mmol/L Calcium (8.6-10.2) mg/dL Magnesium 1.7 L (1.8-2.5) mg/dL Total Bilirubin (0.1-1.3) mg/dL AST (5-25) IU/L ALT (12-36) U/L Alkaline Phosphatase (56-112) IU/L Total Protein (6.0-8.0) g/dL Albumin (3.2-4.6) g/dL Globulin g/dL Albumin/Globulin Ratio Amylase (25-115) U/L Lipase (73-393) U/L Urine Color (YELLOW) Urine Appearance (CLEAR) Urine pH (5.0-6.5) Ur Specific [place] (1.010-1.025) Urine Protein (NEGATIVE) mg/dL Urine Glucose (UA) (NORMAL) mg/dL Urine Ketones (NEGATIVE) mg/dL Urine Occult Blood (NEGATIVE) Urine Nitrite (NEGATIVE) Urine Bilirubin (NEGATIVE) Urine Urobilinogen (NEGATIVE) mg/dL Ur Leukocyte Esterase (NEGATIVE) Urine WBC (0-5) Rodolfo Results Last 24 Hours: Microbiology 11/14/19 11:35 Occult Blood - Final Stool / Feces Med Orders - Current: Current Medications Acetaminophen (Tylenol) 325 mg RECTAL Q4H PRN PRN Reason: Fever Ceftriaxone Sodium (Rocephin) 1 gm IVPUSH Q24H [facility] Last Admin: 11/14/19 17:39 Dose: 1 gm Hydrocortisone (Hydrocortisone 2.5% Crm) 0 gm TOP QID PRN PRN Reason: Hemorrhoids Sodium Chloride (Normal Saline) 1,000 mls @ 100 mls/hr IV ASDIRECTED [facility] Last Admin: 11/15/19 05:00 Dose: 100 mls/hr Potassium Chloride (Kcl 20 Meq In Water 100 Ml) 100 mls @ 50 mls/hr IV Q2H [facility] Stop: 11/15/19 12:59 Morphine Sulfate (Morphine) 1 mg IVPUSH Q2H PRN PRN Reason: Pain Last Admin: 11/15/19 05:30 Dose: 1 mg Ondansetron HCl (Zofran) 4 mg IVPUSH Q6H PRN PRN Reason: Nausea/Vomiting Sodium Chloride (Saline Flush) 10 ml FLUSH ASDIRECTED PRN PRN Reason: Keep Vein Open Last Admin: 11/14/19 12:26 Dose: 10 ml Discontinued Medications Ceftriaxone Sodium (Rocephin) 1 gm IM ONETIME ONE Stop: 11/14/19 14:51 Last Admin: 11/14/19 21:27 Dose: Not Given Ceftriaxone Sodium (Rocephin) 2 gm IVPUSH Q24H [facility] Potassium Chloride (Kcl 20 Meq In Water 100 Ml) 100 mls @ 50 mls/hr IV Q2H [facility] Stop: 11/14/19 21:59 Last Admin: 11/14/19 20:06 Dose: 50 mls/hr Magnesium Sulfate 1 gm/ (Dextrose/Water) 52 mls @ 100 mls/hr IV ONETIME ONE Stop: 11/15/19 09:18 Iopamidol (Isovue-370 (76%)) 75 ml IV . DIRECTED ONE Stop: 11/14/19 12:18 Last Admin: 11/14/19 12:35 Dose: 75 ml Morphine Sulfate (Morphine) 2 mg IVPUSH ONETIME ONE Stop: 11/14/19 13:45 Last Admin: 11/14/19 13:57 Dose: 2 mg - Exam General: Alert, Oriented, Cooperative, No Acute Distress Lungs: Clear to Auscultation, Normal Respiratory Effort Cardiovascular: Regular Rate, Regular Rhythm GI/Abdominal Exam: Soft, No Distention, Guarding, Tender, Abnormal Bowel Sounds (normal in upper quadrants, hypoactive in lower quadrants). No: Rigid, Rebound Sepsis Event Note - Evaluation Sepsis Screening Result: No Definite Risk - Focused Exam Vital Signs: Vital Signs Temp Pulse Resp BP Pulse Ox 11/15/19 03:30 98.1 F 16 115/60 88 L 11/14/19 23:30 98 F 90 16 111/56 L 96 Date Exam was Performed: 11/15/19 Time Exam was Performed: 09:45 - Problem List & Annotations (1) Partial bowel obstruction SNOMED Code(s): 46628106470322536 Code(s): K56.600 - PARTIAL INTESTINAL OBSTRUCTION, UNSPECIFIED TO CAUSE Status: Acute Current Visit: Yes (2) Colitis SNOMED Code(s): 02639766 Code(s): K52.9 - NONINFECTIVE GASTROENTERITIS AND COLITIS, UNSPECIFIED Status: Acute Current Visit: Yes (3) UTI (urinary tract infection) SNOMED Code(s): 54022179 Code(s): N39.0 - URINARY TRACT INFECTION, SITE NOT SPECIFIED Status: Acute Current Visit: Yes (4) Dehydration SNOMED Code(s): 74272615 Code(s): E86.0 - DEHYDRATION Status: Acute Current Visit: Yes (5) Hypokalemia SNOMED Code(s): 28705255 Code(s): E87.6 - HYPOKALEMIA Status: Acute Current Visit: Yes (6) Osteoporosis SNOMED Code(s): 63646708 Code(s): M81.0 - AGE-RELATED OSTEOPOROSIS W/O CURRENT PATHOLOGICAL FRACTURE Status: Chronic Current Visit: Yes (7) Depression SNOMED Code(s): 06925965 Code(s): F32.9 - MAJOR DEPRESSIVE DISORDER, SINGLE EPISODE, UNSPECIFIED Status: Chronic Current Visit: Yes - Problem List Review Problem List Initiated/Reviewed/Updated: Yes - My Orders Last 24 Hours: My Active Orders 11/14/19 17:02 Admission Status [Patient Status] [ADT] Routine 11/14/19 17:17 Ondansetron [Zofran] 4 mg IVPUSH Q6H PRN 11/14/19 17:18 Morphine 1 mg IVPUSH Q2H PRN 11/14/19 17:19 Acetaminophen [Tylenol] 325 mg RECTAL Q4H PRN Oral Care [OM.PC] Routine Code Status [Resuscitation Status] Routine 11/14/19 17:24 Antiembolic Devices [RC] .Routine Oxygen Therapy [RC] PRN Up to Chair [RC] ASDIRECTED Vital Signs [RC] 00,04,08,12,16,20 Antiembolic Hose [OM.PC] Per Unit Routine 11/14/19 18:00 cefTRIAXone [Rocephin] 1 gm IVPUSH Q24H 11/14/19 Dinner Nothing per Oral Now Diet [DIET] 11/15/19 08:14 Hydrocortisone [Hydrocortisone 2.5% Crm] 0 gm TOP QID PRN 11/15/19 09:00 Potassium Chloride [KCL 20 MEQ in Water 100 ML] 100 ml IV Q2H 11/16/19 06:00 COMPREHENSIVE METABOLIC PN,CMP [CHEM] Routine MAGNESIUM [CHEM] Routine - Plan Plan:: 1. Day 2 Rocephin 1 Gram IV q24h, Urine culture pending. BC pending. Normal WBC. 2. Potassium still same at 2.3, Magnesium came back at 1.7, magnesium 1 gram IV x 1 and repeat Potassium 20 mEq IV q2h x 2 bags, repeat labs in morning. 3. Continue bowel rest. NPO except water. Oral cares as needed. 4. Morphine 1 mg IV q2h as needed pain, Tylenol suppository 325 mg q4h as needed fever. 5. Hydrocortisone 2.5% to perianal area after each bowel movement up to 4 times a day as needed. 6. GI prophylaxis: Protonix 40 mg IV daily. 7. DVT prophylaxis: TEDS, ambulate. 8. Up to chair.
[2019-11-15] MEDS ORDERED: Magnesium Sulfate/Water 50 ML IV ONE (11:00)
[2019-11-15] MEDS: Potassium Chloride 100 ML IV SCH ×2 (12:33→15:41)
[2019-11-15] MEDS ORDERED: cefTRIAXone 2 GM Vial IVPUSH SCH (15:15)
[2019-11-15] MEDS ORDERED: Potassium Chloride 100 ML ONE (15:38)
[2019-11-15] MEDS: Sodium Chloride 0.9% 10 ML Syringe FLUSH PRN ×3 (17:26→18:09)
[2019-11-15] MEDS: cefTRIAXone 1 GM Vial IVPUSH SCH (18:07)
[2019-11-16] MEDS: Sodium Chloride 0.9% 1,000 ML IV SCH (02:17)
[2019-11-16] MEDS: Dextrose 5%-0.225% NaCl w/KCl 1,000 ML IV SCH ×2 (11:48→22:19)
--- NOTE | 2019-11-16 14:05 | PCM.PN ---
- General Info Date of Service: 11/16/19 Subjective Update: Alicia is up in the chair, seems more alert but states feels foggy. Is hungry and would like to try to eat. Has been having more loose stools. No blood in stool. Some blood initially when she wiped but nothing this morning. Seems tired , states she didn't sleep well. Pain is now when she moves, more achy. Not requesting anything for pain. No vomiting. Tolerated water and ice chips. No fevers. - Patient Data Vitals - Most Recent: Last Vital Signs Temp 97.8 F 11/16/19 12:00 Pulse 84 11/16/19 12:00 Resp 12 11/16/19 12:00 BP 126/66 11/16/19 12:00 Pulse Ox 96 11/16/19 12:00 Weight - Most Recent: 139 lb 1.6 oz I&O - Last 24 Hours: Intake & Output 11/15/19 11/16/19 11/16/19 22:59 06:59 14:59 Intake Total 1800 704 420 Output Total 525 400 Balance 1275 704 20 Lab Results Last 24 Hours: Laboratory Results - last 24 hr 11/16/19 Range/Units 06:30 Sodium 143 (135-145) mmol/L Potassium 2.3 L* (3.5-5.3) mmol/L Chloride 108 (100-110) mmol/L Carbon Dioxide 25 (21-32) mmol/L BUN 8 (7-18) mg/dL Creatinine 0.7 (0.55-1.02) mg/dL Est Cr Clr Drug Dosing 52.39 mL/min Estimated GFR (MDRD) > 60 (>60) BUN/Creatinine Ratio 11.4 (9-20) Glucose 76 L (80-116) mg/dL Calcium 6.6 L (8.6-10.2) mg/dL Magnesium 2.0 (1.8-2.5) mg/dL Total Bilirubin 0.5 (0.1-1.3) mg/dL AST 41 H (5-25) IU/L ALT 37 H D (12-36) U/L Alkaline Phosphatase 124 H (56-112) IU/L Total Protein 4.9 L (6.0-8.0) g/dL Albumin 1.3 L* (3.2-4.6) g/dL Globulin 3.6 g/dL Albumin/Globulin Ratio 0.4 Rodolfo Results Last 24 Hours: Microbiology 11/14/19 13:29 Urine Culture - Preliminary Urine, Clean Catch Gram Negative Rods 11/14/19 13:50 Aerobic Blood Culture - Preliminary Blood - Venous NO GROWTH AFTER 1 DAY Anaerobic Blood Culture - Preliminary NO GROWTH AFTER 1 DAY 11/14/19 13:50 Aerobic Blood Culture - Preliminary Blood - Venous - Lab Draw NO GROWTH AFTER 1 DAY Anaerobic Blood Culture - Preliminary NO GROWTH AFTER 1 DAY Med Orders - Current: Current Medications Acetaminophen (Tylenol) 325 mg RECTAL Q4H PRN PRN Reason: Fever Ceftriaxone Sodium (Rocephin) 1 gm IVPUSH Q24H [facility] Last Admin: 11/15/19 18:07 Dose: 1 gm Hydrocortisone (Hydrocortisone 2.5% Crm) 0 gm TOP QID PRN PRN Reason: Hemorrhoids Potassium Chloride/Dextrose/Sod Cl (D5 1/4 Ns With 20 Meq Kcl) 1,000 mls @ 100 mls/hr IV ASDIRECTED [facility] Last Admin: 11/16/19 11:48 Dose: 100 mls/hr Morphine Sulfate (Morphine) 1 mg IVPUSH Q2H PRN PRN Reason: Pain Last Admin: 11/15/19 17:25 Dose: 1 mg Ondansetron HCl (Zofran) 4 mg IVPUSH Q6H PRN PRN Reason: Nausea/Vomiting Sodium Chloride (Saline Flush) 10 ml FLUSH ASDIRECTED PRN PRN Reason: Keep Vein Open Last Admin: 11/15/19 18:09 Dose: 10 ml Discontinued Medications Ceftriaxone Sodium (Rocephin) 1 gm IM ONETIME ONE Stop: 11/14/19 14:51 Last Admin: 11/14/19 21:27 Dose: Not Given Ceftriaxone Sodium (Rocephin) 2 gm IVPUSH Q24H [facility] Sodium Chloride (Normal Saline) 1,000 mls @ 100 mls/hr IV ASDIRECTED [facility] Last Admin: 11/16/19 02:17 Dose: 100 mls/hr Potassium Chloride (Kcl 20 Meq In Water 100 Ml) 100 mls @ 50 mls/hr IV Q2H [facility] Stop: 11/14/19 21:59 Last Admin: 11/14/19 20:06 Dose: 50 mls/hr Potassium Chloride (Kcl 20 Meq In Water 100 Ml) 100 mls @ 50 mls/hr IV Q2H [facility] Stop: 11/15/19 12:59 Last Admin: 11/15/19 15:41 Dose: 50 mls/hr Magnesium Sulfate (Magnesium Sulfate In Water Premix) 25 mls @ 50 mls/hr IV ONETIME ONE Stop: 11/15/19 11:29 Last Admin: 11/15/19 11:08 Dose: 50 mls/hr Potassium Chloride (Kcl 20 Meq In Water 100 Ml) Confirm Administered Dose 100 mls @ as directed .ROUTE .STK-MED ONE Stop: 11/15/19 15:39 Last Admin: 11/15/19 15:41 Dose: Not Given Iopamidol (Isovue-370 (76%)) 75 ml IV . DIRECTED ONE Stop: 11/14/19 12:18 Last Admin: 11/14/19 12:35 Dose: 75 ml Morphine Sulfate (Morphine) 2 mg IVPUSH ONETIME ONE Stop: 11/14/19 13:45 Last Admin: 11/14/19 13:57 Dose: 2 mg - Exam General: Alert, Oriented, Cooperative, No Acute Distress (tired, almost falls asleep while talking to her in the chair.) Lungs: Clear to Auscultation, Normal Respiratory Effort Cardiovascular: Regular Rate, Regular Rhythm GI/Abdominal Exam: Normal Bowel Sounds (BUQ), Soft, No Distention, Guarding (LLL ), Tender, Abnormal Bowel Sounds (hypoactive BLQ). No: Rigid, Rebound Extremities: Pedal Edema (1+ Bilateral feet) Peripheral Pulses: 2+: Radial (L), Radial (R) Neurological: Normal Speech Sepsis Event Note - Evaluation Sepsis Screening Result: No Definite Risk - Focused Exam Vital Signs: Vital Signs Temp Pulse Resp BP Pulse Ox 11/16/19 12:00 97.8 F 84 12 126/66 96 11/16/19 04:00 98.5 F 89 18 125/68 99 Date Exam was Performed: 11/16/19 Time Exam was Performed: 14:00 - Problem List & Annotations (1) Partial bowel obstruction SNOMED Code(s): 39508481896743027 Code(s): K56.600 - PARTIAL INTESTINAL OBSTRUCTION, UNSPECIFIED TO CAUSE Status: Acute Current Visit: Yes (2) Colitis SNOMED Code(s): 11890684 Code(s): K52.9 - NONINFECTIVE GASTROENTERITIS AND COLITIS, UNSPECIFIED Status: Acute Current Visit: Yes (3) UTI (urinary tract infection) SNOMED Code(s): 51907855 Code(s): N39.0 - URINARY TRACT INFECTION, SITE NOT SPECIFIED Status: Acute Current Visit: Yes (4) Dehydration SNOMED Code(s): 22131200 Code(s): E86.0 - DEHYDRATION Status: Acute Current Visit: Yes (5) Hypokalemia SNOMED Code(s): 00098943 Code(s): E87.6 - HYPOKALEMIA Status: Acute Current Visit: Yes (6) Osteoporosis SNOMED Code(s): 35799063 Code(s): M81.0 - AGE-RELATED OSTEOPOROSIS W/O CURRENT PATHOLOGICAL FRACTURE Status: Chronic Current Visit: Yes (7) Depression SNOMED Code(s): 17471500 Code(s): F32.9 - MAJOR DEPRESSIVE DISORDER, SINGLE EPISODE, UNSPECIFIED Status: Chronic Current Visit: Yes (8) Hypomagnesemia SNOMED Code(s): 551262813 Code(s): E83.42 - HYPOMAGNESEMIA Status: Resolved Current Visit: Yes Annotation/Comment:: corrected. - Problem List Review Problem List Initiated/Reviewed/Updated: Yes - My Orders Last 24 Hours: My Active Orders 11/16/19 09:45 Dextrose 5%-0.225% NaCl w/KCl [D5 1/4 NS with 20 mEq KCl] 1,000 ml IV ASDIRECTED 11/16/19 Lunch Clear Liquid Diet [DIET] 11/17/19 06:00 CBC WITH AUTO DIFF [HEME] Routine COMPREHENSIVE METABOLIC PN,CMP [CHEM] Routine - Plan Plan:: 1. Day 3 Rocephin 1 Gram IV q24h, Urine culture gram negative rods. BC no growth to date. 2. Potassium still same at 2.3, Magnesium came back at 2.0, change fluids to D51 /4NS with KCL at 100 ml/hr. Most likely due to her persistent diarrhea. 3. Advance to clear liquids. Oral cares as needed. 4. Hydrocortisone 2.5% to perianal area after each bowel movement up to 4 times a day as needed. 5. GI prophylaxis: Protonix 40 mg IV daily. 6. DVT prophylaxis: TEDS, ambulate.
[2019-11-16] MEDS: Pantoprazole 40 MG Vial IVPUSH SCH (15:30)
--- NOTE | 2019-11-16 15:40 | EDM.PDOC ---
ED HPI GENERAL MEDICAL PROBLEM - General Chief Complaint: Gastrointestinal Problem Stated Complaint: DEHYDRATION Time Seen by Provider: 11/14/19 11:20 Source of Information: Reports: Patient, Family, Provider History Limitations: Reports: No Limitations - History of Present Illness INITIAL COMMENTS - FREE TEXT/NARRATIVE: Patient presented to the ED because of abdominal pain over the LLQ for 2-3 days and some dark looking stools which patient is not sure of whether it's bloody or not. The pain is sharp,6/10, denies having any N/V/. There is no fever or chills. she was referred to the ED by Dr Malone because of the abdominal pain. LOWER LEFT ABD Pain Score (Numeric/FACES): 9 - Related Data Allergies Allergy/AdvReac Type Severity Reaction Status Date / Time Sulfa (Sulfonamide Allergy Rash Verified 11/14/19 11:45 Antibiotics) Home Meds: Home Meds Aspirin [Halfprin] 81 mg PO BEDTIME 06/23/13 [History] Cyanocobalamin (Vitamin B-12) [Cyanocobalamin] 1 gm PO DAILY 06/23/13 [History] Flaxseed Oil [Flax Oil] 1,000 mg PO DAILY 06/23/13 [History] Lutein 20 mg PO DAILY 06/23/13 [History] Omeprazole [Prilosec] 20 mg PO BEDTIME 06/23/13 [History] Polyvinyl Alcohol/Povidone [Refresh] 1 each EYEBOTH ASDIRECTED PRN 06/23/13 [ History] Triamcinolone Acetonide [Kenalog 0.1% Crm] 15 gm TOP BID PRN 06/23/13 [History] cycloSPORINE [Restasis] 1 drop EYEBOTH BID PRN 06/23/13 [History] Cholecalciferol (Vitamin D3) [Vitamin D3] 1,000 units PO DAILY 06/24/13 [History ] Citalopram Hydrobromide [Celexa] 10 mg PO BEDTIME 06/24/13 [History] Fish Oil/[place]-3 Fatty Acids [Fish Oil 1,000 MG] 1,000 mg PO BID 06/24/13 [ History] Multivitamin [Multi-Vitamin Daily] 1 each PO DAILY 06/24/13 [History] Alendronate Sodium [Fosamax] 70 mg PO Q7D 05/06/19 [History] Calcium Carbonate/Vitamin D3 [Os-Meng 500+D] 1 each PO BID 05/06/19 [History] Ferrous Sulfate [Iron] 325 mg PO DAILY 05/06/19 [History] Glucosamine Sulfate/Msm [Glucosamine-MSM 500-400 MG] 2 cap PO DAILY 05/06/19 [ History] Vitamin E 400 unit PO DAILY 05/06/19 [History] Past Medical History HEENT History: Reports: Cataract, Hard of Hearing, Impaired Vision, Other (See Below) Other HEENT History: dry eyes Cardiovascular History: Reports: None, Other (See Below) Other Cardiovascular History: 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 CARPAL TUNNEL SYNDROME Psychiatric History: Reports: Depression Endocrine/Metabolic History: Reports: Obesity/BMI 30+ Hematologic History: Reports: None Immunologic History: Reports: None Oncologic (Cancer) History: Reports: None Dermatologic History: Reports: Eczema, Other (See Below) Other Dermatologic History: CONTACT DERMATITIS - Infectious Disease History Infectious Disease History: Reports: Chicken Pox, Measles, Mumps - Past Surgical History Head Surgeries/Procedures: Reports: None HEENT Surgical History: Reports: Cataract Surgery Cardiovascular Surgical History: Reports: None Respiratory Surgical History: Reports: None GI Surgical History: Reports: Appendectomy, Cholecystectomy, Colonoscopy Female Surgical History: Reports: Hysterectomy Endocrine Surgical History: Reports: None Neurological Surgical History: Reports: Discectomy, Laminectomy, Other (See Below) Other Neurological Surgeries/Procedures: L3-4 Musculoskeletal Surgical History: Reports: Other (See Below) Other Musculoskeletal Surgeries/Procedures:: TRIGGER FINGER RELEASE, TRIGGER FINGER INJECTION Oncologic Surgical History: Reports: None Social & Family History - Family History Family Medical History: Noncontributory - Tobacco Use Smoking Status *Q: Never Smoker - Caffeine Use Caffeine Use: Reports: Coffee, Tea - Recreational Drug Use Recreational Drug Use: No - Living Situation & Occupation Living situation: Reports: , Alone Occupation: Retired ED ROS GENERAL - Review of Systems Review Of Systems: See Below Constitutional: Reports: No Symptoms HEENT: Reports: No Symptoms Respiratory: Reports: No Symptoms Cardiovascular: Reports: No Symptoms Endocrine: Reports: No Symptoms GI/Abdominal: Reports: Abdominal Pain, Black Stool : Reports: No Symptoms Musculoskeletal: Reports: No Symptoms Skin: Reports: No Symptoms Neurological: Reports: No Symptoms, Change in Speech ED EXAM, GI/ABD - Physical Exam Exam: See Below Exam Limited By: No Limitations General Appearance: Alert, No Apparent Distress Ears: Normal External Exam, Normal Canal, Hearing Grossly Normal Nose: Normal Inspection, Normal Mucosa Throat/Mouth: Normal Inspection, Normal Lips Head: Atraumatic, Normocephalic Neck: Normal Inspection, Supple Respiratory/Chest: No Respiratory Distress Cardiovascular: Normal Peripheral Pulses, Regular Rate, Rhythm, No Edema GI/Abdominal Exam: Normal Bowel Sounds, Soft, Non-Tender, No Organomegaly, Other (tenderness over the LLQ) (Female) Exam: Normal External Exam, Normal Speculum Exam Course - Vital Signs Text/Narrative:: Labs/abd and pelvis CT was discussed with patient and verbalized full understanding. NS 1 L bolus zofran 4 mg IV Morphine 2 mg IV x1 Rocephine 1 gm IV x1 Case was discussed with Dr Santo and agreed with the above plan of care Last Recorded V/S: Last Vital Signs Temp 36.6 C 11/16/19 12:00 Pulse 84 11/16/19 12:00 Resp 12 11/16/19 12:00 BP 126/66 11/16/19 12:00 Pulse Ox 96 11/16/19 12:00 - Orders/Labs/Meds Orders: Medication Orders Acetaminophen (Tylenol) 325 mg RECTAL Q4H PRN PRN Reason: Fever Ceftriaxone Sodium (Rocephin) 1 gm IVPUSH Q24H [facility] Last Admin: 11/15/19 18:07 Dose: 1 gm Admin: 11/14/19 17:39 Dose: 1 gm Hydrocortisone (Hydrocortisone 2.5% Crm) 0 gm TOP QID PRN PRN Reason: Hemorrhoids Potassium Chloride/Dextrose/Sod Cl (D5 1/4 Ns With 20 Meq Kcl) 1,000 mls @ 100 mls/hr IV ASDIRECTED [facility] Last Admin: 11/16/19 11:48 Dose: 100 mls/hr Morphine Sulfate (Morphine) 1 mg IVPUSH Q2H PRN PRN Reason: Pain Last Admin: 11/15/19 17:25 Dose: 1 mg Admin: 11/15/19 05:30 Dose: 1 mg Ondansetron HCl (Zofran) 4 mg IVPUSH Q6H PRN PRN Reason: Nausea/Vomiting Pantoprazole Sodium (Protonix Iv) 40 mg IVPUSH DAILY [facility] Last Admin: 11/16/19 15:30 Dose: 40 mg Sodium Chloride (Saline Flush) 10 ml FLUSH ASDIRECTED PRN PRN Reason: Keep Vein Open Last Admin: 11/15/19 18:09 Dose: 10 ml Admin: 11/15/19 17:28 Dose: 10 ml Admin: 11/15/19 17:26 Dose: 10 ml Admin: 11/14/19 12:26 Dose: 10 ml Labs: Laboratory Tests 11/14/19 11/14/19 11/14/19 Range/Units 11:45 11:45 11:45 WBC 7.5 (4.5-12.0) X10-3/uL RBC 3.57 (3.23-5.20) x10(6)uL Hgb 11.0 L (11.5-15.5) g/dL Hct 32.7 (30.0-51.3) % MCV 91.6 (80-96) fL MCH 30.8 (27.7-33.6) pg MCHC 33.7 (32.2-35.4) g/dL RDW 12.6 (11.5-15.5) % Plt Count 373 H (125-369) X10(3)uL MPV 6.6 L (7.4-10.4) fL Add Manual Diff Yes Neutrophils % (Manual) 47 (46-82) % Band Neutrophils % 18 H* (0-6) % Lymphocytes % (Manual) 28 (13-37) % Monocytes % (Manual) 6 (4-12) % Eosinophils % (Manual) 1 (0-5) % Toxic Granulation Few H (NOT SEEN) Sodium 139 (135-145) mmol/L Potassium 2.3 L* (3.5-5.3) mmol/L Chloride 101 (100-110) mmol/L Carbon Dioxide 31 (21-32) mmol/L BUN 10 (7-18) mg/dL Creatinine 0.9 (0.55-1.02) mg/dL Est Cr Clr Drug Dosing TNP Estimated GFR (MDRD) > 60 (>60) BUN/Creatinine Ratio 11.1 (9-20) Glucose 102 (80-116) mg/dL Lactic Acid (0.4-2.0) mmol/L Calcium 7.5 L (8.6-10.2) mg/dL Total Bilirubin 0.7 (0.1-1.3) mg/dL AST 43 H (5-25) IU/L ALT 43 H (12-36) U/L Alkaline Phosphatase 124 H (56-112) IU/L Total Protein 5.7 L (6.0-8.0) g/dL Albumin 1.7 L* (3.2-4.6) g/dL Globulin 4.0 g/dL Albumin/Globulin Ratio 0.4 Amylase 15 L (25-115) U/L Lipase 35 L (73-393) U/L Urine Color (YELLOW) Urine Appearance (CLEAR) Urine pH (5.0-6.5) Ur Specific [place] (1.010-1.025) Urine Protein (NEGATIVE) mg/dL Urine Glucose (UA) (NORMAL) mg/dL Urine Ketones (NEGATIVE) mg/dL Urine Occult Blood (NEGATIVE) Urine Nitrite (NEGATIVE) Urine Bilirubin (NEGATIVE) Urine Urobilinogen (NEGATIVE) mg/dL Ur Leukocyte Esterase (NEGATIVE) Urine WBC (0-5) 11/14/19 11/14/19 Range/Units 13:29 13:50 WBC (4.5-12.0) X10-3/uL RBC (3.23-5.20) x10(6)uL Hgb (11.5-15.5) g/dL Hct (30.0-51.3) % MCV (80-96) fL MCH (27.7-33.6) pg MCHC (32.2-35.4) g/dL RDW (11.5-15.5) % Plt Count (125-369) X10(3)uL MPV (7.4-10.4) fL Add Manual Diff Neutrophils % (Manual) (46-82) % Band Neutrophils % (0-6) % Lymphocytes % (Manual) (13-37) % Monocytes % (Manual) (4-12) % Eosinophils % (Manual) (0-5) % Toxic Granulation (NOT SEEN) Sodium (135-145) mmol/L Potassium (3.5-5.3) mmol/L Chloride (100-110) mmol/L Carbon Dioxide (21-32) mmol/L BUN (7-18) mg/dL Creatinine (0.55-1.02) mg/dL Est Cr Clr Drug Dosing Estimated GFR (MDRD) (>60) BUN/Creatinine Ratio (9-20) Glucose (80-116) mg/dL Lactic Acid 1.4 (0.4-2.0) mmol/L Calcium (8.6-10.2) mg/dL Total Bilirubin (0.1-1.3) mg/dL AST (5-25) IU/L ALT (12-36) U/L Alkaline Phosphatase (56-112) IU/L Total Protein (6.0-8.0) g/dL Albumin (3.2-4.6) g/dL Globulin g/dL Albumin/Globulin Ratio Amylase (25-115) U/L Lipase (73-393) U/L Urine Color Yellow (YELLOW) Urine Appearance Cloudy (CLEAR) Urine pH 7.0 H (5.0-6.5) Ur Specific [place] 1.005 L (1.010-1.025) Urine Protein Trace (NEGATIVE) mg/dL Urine Glucose (UA) Normal (NORMAL) mg/dL Urine Ketones Negative (NEGATIVE) mg/dL Urine Occult Blood Moderate H (NEGATIVE) Urine Nitrite Positive H (NEGATIVE) Urine Bilirubin Negative (NEGATIVE) Urine Urobilinogen Normal (NEGATIVE) mg/dL Ur Leukocyte Esterase Large H (NEGATIVE) Urine WBC Packed H (0-5) Meds: Medications Generic Name Dose Route Start Last Admin Trade Name Freq PRN Reason Stop Dose Admin Acetaminophen 325 mg 11/14/19 17:19 Tylenol RECTAL Q4H PRN Fever Ceftriaxone Sodium 1 gm 11/14/19 18:00 11/15/19 18:07 Rocephin IVPUSH 1 gm Q24H [facility] Administration Hydrocortisone 0 gm 11/15/19 08:14 Hydrocortisone 2.5% Crm TOP QID PRN Hemorrhoids Potassium Chloride/Dextrose/Sod Cl 1,000 mls @ 100 mls/hr 11/16/19 09:45 11:48 D5 1/4 Ns With 20 Meq Kcl IV 100 mls/hr ASDIRECTED [facility] Administration Morphine Sulfate 1 mg 11/14/19 17:18 11/15/19 17:25 Morphine IVPUSH 1 mg Q2H PRN Administration Pain Ondansetron HCl 4 mg 11/14/19 17:17 Zofran IVPUSH Q6H PRN Nausea/Vomiting Pantoprazole Sodium 40 mg 11/16/19 14:08 11/16/19 15:30 Protonix Iv IVPUSH 40 mg DAILY [facility] Administration Sodium Chloride 10 ml 11/14/19 11:37 11/15/19 18:09 Saline Flush FLUSH 10 ml ASDIRECTED PRN Administration Keep Vein Open Discontinued Medications Generic Name Dose Route Start Last Admin Trade Name Freq PRN Reason Stop Dose Admin Ceftriaxone Sodium 1 gm 11/14/19 14:50 11/14/19 21:27 Rocephin IM 11/14/19 14:51 Not Given ONETIME ONE Ceftriaxone Sodium 2 gm 11/15/19 15:15 Rocephin IVPUSH Q24H [facility] Sodium Chloride 1,000 mls @ 100 mls/hr 11/14/19 11:45 11/16/19 02:17 Normal Saline IV 100 mls/hr ASDIRECTED [facility] Administration Potassium Chloride 100 mls @ 50 mls/hr 11/14/19 18:00 11/14/19 20:06 Kcl 20 Meq In Water 100 Ml IV 11/14/19 21:59 50 mls/hr Q2H [facility] Administration Potassium Chloride 100 mls @ 50 mls/hr 11/15/19 09:00 11/15/19 15:41 Kcl 20 Meq In Water 100 Ml IV 11/15/19 12:59 50 mls/hr Q2H [facility] Administration Magnesium Sulfate 25 mls @ 50 mls/hr 11/15/19 11:00 11/15/19 11:08 Magnesium Sulfate In Water Premix IV 11/15/19 11:29 50 mls/hr ONETIME ONE Administration Potassium Chloride Confirm 11/15/19 15:38 11/15/19 15:41 Kcl 20 Meq In Water 100 Ml Administered 11/15/19 15:39 Not Given Dose 100 mls @ as directed .ROUTE .STK-MED ONE Iopamidol 75 ml 11/14/19 12:17 11/14/19 12:35 Isovue-370 (76%) IV 11/14/19 12:18 75 ml . DIRECTED ONE Administration Morphine Sulfate 2 mg 11/14/19 13:44 11/14/19 13:57 Morphine IVPUSH 11/14/19 13:45 2 mg ONETIME ONE Administration Departure - Departure Time of Disposition: 08:00 Disposition: Admitted As Inpatient 67 Condition: Good (Colitis) Clinical Impression: Colitis, Dehydration, UTI (urinary tract infection), Partial bowel obstruction , Hypokalemia - Discharge Information Sepsis Event Note - Evaluation Sepsis Screening Result: No Definite Risk
[2019-11-16] MEDS: Morphine 2 MG/ML SYRINGE IVPUSH PRN (15:44)
[2019-11-16] MEDS: cefTRIAXone 1 GM Vial IVPUSH SCH (18:02)
[2019-11-17] MEDS: Morphine 2 MG/ML SYRINGE IVPUSH PRN ×3 (02:08→22:15)
[2019-11-17] MEDS: Dextrose 5%-0.225% NaCl w/KCl 1,000 ML IV SCH (07:58)
--- NOTE | 2019-11-17 09:12 | PCM.PN ---
- General Info Date of Service: 11/17/19 Subjective Update: Alicia slept better last night but had more loose stools. Achy pain on left lower abdomen this morning. Tried clear liquids yesterday and had worsening pain so back to NPO except ice chips & sips of water. NO fevers, chills, shortness of breath, chest pain. No nausea or vomiting. She doesn't feel like her thoughts are "foggy" today, much clearer cognition this morning. - Patient Data Vitals - Most Recent: Last Vital Signs Temp 97.4 F 11/17/19 04:00 Pulse 101 H 11/17/19 04:00 Resp 16 11/17/19 04:00 BP 118/63 11/17/19 04:00 Pulse Ox 97 11/17/19 04:00 Weight - Most Recent: 139 lb 1.6 oz I&O - Last 24 Hours: Intake & Output 11/16/19 11/17/19 11/17/19 22:59 06:59 14:59 Intake Total 742 795 Balance 742 795 Lab Results Last 24 Hours: Laboratory Results - last 24 hr 11/17/19 11/17/19 Range/Units 05:45 05:45 WBC 6.9 (4.5-12.0) X10-3/uL RBC 3.17 L (3.23-5.20) x10(6)uL Hgb 9.6 L (11.5-15.5) g/dL Hct 28.7 L (30.0-51.3) % MCV 90.6 (80-96) fL MCH 30.3 (27.7-33.6) pg MCHC 33.5 (32.2-35.4) g/dL RDW 13.1 (11.5-15.5) % Plt Count 288 (125-369) X10(3)uL MPV 6.6 L (7.4-10.4) fL Add Manual Diff Yes Neutrophils % (Manual) 66 (46-82) % Band Neutrophils % 8 H (0-6) % Lymphocytes % (Manual) 19 (13-37) % Monocytes % (Manual) 7 (4-12) % Toxic Granulation Few H (NOT SEEN) Sodium 139 (135-145) mmol/L Potassium 2.3 L* (3.5-5.3) mmol/L Chloride 105 (100-110) mmol/L Carbon Dioxide 26 (21-32) mmol/L BUN 4 L (7-18) mg/dL Creatinine 0.7 (0.55-1.02) mg/dL Est Cr Clr Drug Dosing 52.39 mL/min Estimated GFR (MDRD) > 60 (>60) BUN/Creatinine Ratio 5.7 L (9-20) Glucose 157 H D (80-116) mg/dL Calcium 6.4 L* (8.6-10.2) mg/dL Total Bilirubin 0.5 (0.1-1.3) mg/dL AST 31 H D (5-25) IU/L ALT 32 D (12-36) U/L Alkaline Phosphatase 113 H (56-112) IU/L Total Protein 4.5 L (6.0-8.0) g/dL Albumin 1.2 L* (3.2-4.6) g/dL Globulin 3.3 g/dL Albumin/Globulin Ratio 0.4 Rodolfo Results Last 24 Hours: Microbiology 11/14/19 13:29 Urine Culture - Final Urine, Clean Catch Escherichia Coli 11/14/19 13:50 Aerobic Blood Culture - Preliminary Blood - Venous - Lab Draw NO GROWTH AFTER 2 DAYS Anaerobic Blood Culture - Preliminary NO GROWTH AFTER 2 DAYS 11/14/19 13:50 Aerobic Blood Culture - Preliminary Blood - Venous NO GROWTH AFTER 2 DAYS Anaerobic Blood Culture - Preliminary NO GROWTH AFTER 2 DAYS Med Orders - Current: Current Medications Acetaminophen (Tylenol) 325 mg RECTAL Q4H PRN PRN Reason: Fever Ceftriaxone Sodium (Rocephin) 1 gm IVPUSH Q24H [facility] Last Admin: 11/16/19 18:02 Dose: 1 gm Hydrocortisone (Hydrocortisone 2.5% Crm) 0 gm TOP QID PRN PRN Reason: Hemorrhoids Potassium Chloride/Dextrose/Sod Cl (D5 1/4 Ns With 20 Meq Kcl) 1,000 mls @ 100 mls/hr IV ASDIRECTED [facility] Last Admin: 11/17/19 07:58 Dose: 100 mls/hr Morphine Sulfate (Morphine) 1 mg IVPUSH Q2H PRN PRN Reason: Pain Last Admin: 11/17/19 02:08 Dose: 1 mg Ondansetron HCl (Zofran) 4 mg IVPUSH Q6H PRN PRN Reason: Nausea/Vomiting Pantoprazole Sodium (Protonix Iv) 40 mg IVPUSH DAILY [facility] Last Admin: 11/16/19 15:30 Dose: 40 mg Sodium Chloride (Saline Flush) 10 ml FLUSH ASDIRECTED PRN PRN Reason: Keep Vein Open Last Admin: 11/15/19 18:09 Dose: 10 ml Discontinued Medications Ceftriaxone Sodium (Rocephin) 1 gm IM ONETIME ONE Stop: 11/14/19 14:51 Last Admin: 11/14/19 21:27 Dose: Not Given Ceftriaxone Sodium (Rocephin) 2 gm IVPUSH Q24H [facility] Sodium Chloride (Normal Saline) 1,000 mls @ 100 mls/hr IV ASDIRECTED [facility] Last Admin: 11/16/19 02:17 Dose: 100 mls/hr Potassium Chloride (Kcl 20 Meq In Water 100 Ml) 100 mls @ 50 mls/hr IV Q2H [facility] Stop: 11/14/19 21:59 Last Admin: 11/14/19 20:06 Dose: 50 mls/hr Potassium Chloride (Kcl 20 Meq In Water 100 Ml) 100 mls @ 50 mls/hr IV Q2H [facility] Stop: 11/15/19 12:59 Last Admin: 11/15/19 15:41 Dose: 50 mls/hr Magnesium Sulfate (Magnesium Sulfate In Water Premix) 25 mls @ 50 mls/hr IV ONETIME ONE Stop: 11/15/19 11:29 Last Admin: 11/15/19 11:08 Dose: 50 mls/hr Potassium Chloride (Kcl 20 Meq In Water 100 Ml) Confirm Administered Dose 100 mls @ as directed .ROUTE .STK-MED ONE Stop: 11/15/19 15:39 Last Admin: 11/15/19 15:41 Dose: Not Given Iopamidol (Isovue-370 (76%)) 75 ml IV . DIRECTED ONE Stop: 11/14/19 12:18 Last Admin: 11/14/19 12:35 Dose: 75 ml Morphine Sulfate (Morphine) 2 mg IVPUSH ONETIME ONE Stop: 11/14/19 13:45 Last Admin: 11/14/19 13:57 Dose: 2 mg - Exam General: Alert, Oriented, Cooperative, No Acute Distress Lungs: Clear to Auscultation, Normal Respiratory Effort Cardiovascular: Regular Rate, Regular Rhythm GI/Abdominal Exam: Normal Bowel Sounds (BUQ), Soft, Guarding, Tender (LLQ>RLQ), Abnormal Bowel Sounds (BLQ). No: Rigid, Rebound Extremities: Pedal Edema (1+ RLE, none LLE) Sepsis Event Note - Evaluation Sepsis Screening Result: No Definite Risk - Focused Exam Vital Signs: Vital Signs Temp Pulse Resp BP Pulse Ox 11/17/19 04:00 97.4 F 101 H 16 118/63 97 11/17/19 00:00 97.8 F 93 16 112/66 98 Date Exam was Performed: 11/17/19 Time Exam was Performed: 10:15 - Problem List & Annotations (1) Partial bowel obstruction SNOMED Code(s): 64482851005333284 Code(s): K56.600 - PARTIAL INTESTINAL OBSTRUCTION, UNSPECIFIED TO CAUSE Status: Acute Current Visit: Yes (2) Colitis SNOMED Code(s): 36650969 Code(s): K52.9 - NONINFECTIVE GASTROENTERITIS AND COLITIS, UNSPECIFIED Status: Acute Current Visit: Yes (3) UTI (urinary tract infection) SNOMED Code(s): 97966977 Code(s): N39.0 - URINARY TRACT INFECTION, SITE NOT SPECIFIED Status: Acute Current Visit: Yes (4) Dehydration SNOMED Code(s): 10342176 Code(s): E86.0 - DEHYDRATION Status: Acute Current Visit: Yes (5) Hypokalemia SNOMED Code(s): 72179080 Code(s): E87.6 - HYPOKALEMIA Status: Acute Current Visit: Yes (6) Osteoporosis SNOMED Code(s): 59112516 Code(s): M81.0 - AGE-RELATED OSTEOPOROSIS W/O CURRENT PATHOLOGICAL FRACTURE Status: Chronic Current Visit: Yes (7) Depression SNOMED Code(s): 32427511 Code(s): F32.9 - MAJOR DEPRESSIVE DISORDER, SINGLE EPISODE, UNSPECIFIED Status: Chronic Current Visit: Yes (8) Hypomagnesemia SNOMED Code(s): 197772677 Code(s): E83.42 - HYPOMAGNESEMIA Status: Resolved Current Visit: Yes Annotation/Comment:: corrected. - Problem List Review Problem List Initiated/Reviewed/Updated: Yes - My Orders Last 24 Hours: My Active Orders 11/16/19 09:45 Dextrose 5%-0.225% NaCl w/KCl [D5 1/4 NS with 20 mEq KCl] 1,000 ml IV ASDIRECTED 11/16/19 14:08 Pantoprazole [ProTONIX IV] 40 mg IVPUSH DAILY 11/16/19 14:09 Ambulate [RC] PER UNIT ROUTINE 11/16/19 Lunch Clear Liquid Diet [DIET] 11/17/19 08:20 Abdomen 2V AP Flat Upright [CR] Routine 11/18/19 06:00 BASIC METABOLIC PANEL,BMP [CHEM] Routine - Plan Plan:: 1. Day 3 Rocephin 1 Gram IV q24h, Urine culture gram negative rods. BC no growth to date. 2. Potassium still same at 2.3, D51/4NS with KCL at 40 ml/hr. Most likely due to her persistent diarrhea. 3. AXR to reassess her partial SBO. Had more stools, improved pain. If no improvement of obstruction, will consult Dr Srivastava. 4. NPO except ice with sips of water. Oral cares as needed. 5. Hydrocortisone 2.5% to perianal area after each bowel movement up to 4 times a day as needed. 6. GI prophylaxis: Protonix 40 mg IV daily. 7. DVT prophylaxis: TEDS, ambulate.
[2019-11-17] MEDS: Pantoprazole 40 MG Vial IVPUSH SCH (10:39)
--- NOTE | 2019-11-17 12:37 | CR ---
INDICATION: Followup small bowel obstruction/ileus. ABDOMEN, 2 VIEWS: Four images of the abdomen in supine and upright projections were obtained 11/17/[address] of the abdomen and pelvis dated . There remains distention of the proximal colon - proximal to the descending and mid-transverse colon, with air-fluid level in the area of the ascending colon. There are also some air-fluid levels now in loops of distal ileum. Findings remain compatible with either a paralytic ileus or a partially obstructive process or possibly even an early complete obstructive process in the more distal colon. No other organomegaly or mass lesions were identified. No free air was seen. There appear to be some pleural parenchymal changes at the left lung base, which could be on the basis of pneumonia and pleuritis, but should be correlated clinically. Bibasilar pneumonia and pleuritis was suggested on the previous CT scan. There remains gas in the more distal colon - sigmoid and rectosigmoid area, although no gas is seen at this time in the rectum. IMPRESSION: Findings may be compatible with at least a partially obstructive process in the distal transverse colon with fusiform narrowing at the area of the splenic flexure. Findings could also be on the basis of a paralytic ileus but should be correlated clinically. MTDD
[2019-11-17] MEDS ORDERED: Lidocaine 2% HCl 6 ML JEL.PF.APP SCH (17:00)
[2019-11-17] MEDS: Potassium Chloride 10% 20 MEQ/15 ML Soln 15 ML UD Cup NGTUBE SCH ×2 (17:41→22:16)
[2019-11-17] MEDS: cefTRIAXone 1 GM Vial IVPUSH SCH (18:14)
[2019-11-17] MEDS: Dextrose 5%-Lactated Ringers 1,000 ML IV SCH (18:22)
[2019-11-17] MEDS: Sodium Chloride 0.9% 10 ML Syringe FLUSH PRN (22:17)
[2019-11-18] MEDS: Dextrose 5%-Lactated Ringers 1,000 ML IV SCH ×2 (04:35→17:15)
[2019-11-18] MEDS: Hydrocortisone 2.5% Crm 30 GM Tube TOP PRN (05:02)
[2019-11-18] MEDS ORDERED: Morphine 2 MG/ML SYRINGE IVPUSH PRN (08:08)
[2019-11-18] MEDS: Potassium Chloride 10% 20 MEQ/15 ML Soln 15 ML UD Cup NGTUBE SCH ×3 (09:26→20:42)
[2019-11-18] MEDS: Pantoprazole 40 MG Vial IVPUSH SCH (09:29)
--- NOTE | 2019-11-18 10:56 | PCM.PN ---
- General Info Date of Service: 11/18/19 Subjective Update: Alicia is not liking the NG tube but states her abdomen is feeling better, about 2/10 but pain mostly in upper abdomen, belching more. Potassium has come up with oral replacement down the NG tube. Her weight is up 8 lbs though, decrease rate to 60 ml/hr. NG output little over 300 ml overnight, spoke with Dr Srivastava, would like to leave NG in for another 24 hours and repeat Abdominal x -ray tomorrow. Quite a few loose stools overnight. Has abrasion on right elbow that is tender. Had tape there after blood draw. Bruising on right forearm for IV site that infiltrated, non-tender. No fevers or chills. WBC normal. - Patient Data Vitals - Most Recent: Last Vital Signs Temp 97.0 F 11/18/19 04:48 Pulse 91 11/18/19 04:48 Resp 16 11/18/19 04:48 BP 109/68 11/18/19 04:48 Pulse Ox 96 11/18/19 04:48 Weight - Most Recent: 147 lb 8 oz I&O - Last 24 Hours: Intake & Output 11/17/19 11/18/19 11/18/19 22:59 06:59 14:59 Intake Total 532 752 Output Total 450 600 Balance 82 152 Lab Results Last 24 Hours: Laboratory Results - last 24 hr 11/18/19 11/18/19 Range/Units 06:05 06:05 WBC 6.5 (4.5-12.0) X10-3/uL RBC 3.25 (3.23-5.20) x10(6)uL Hgb 9.7 L (11.5-15.5) g/dL Hct 29.5 L (30.0-51.3) % MCV 90.9 (80-96) fL MCH 30.0 (27.7-33.6) pg MCHC 33.0 (32.2-35.4) g/dL RDW 13.1 (11.5-15.5) % Plt Count 259 (125-369) X10(3)uL MPV 6.6 L (7.4-10.4) fL Neut % (Auto) 72.3 (46-82) % Lymph % (Auto) 23.0 (13-37) % [place] % (Auto) 4.1 (4-12) % Eos % (Auto) 0 L (1.0-5.0) % Baso % (Auto) 0 (0-2) % Neut # (Auto) 4.7 (1.6-8.3) # Lymph # (Auto) 1.5 (0.6-5.0) # [place] # (Auto) 0.3 (0.0-1.3) # Eos # (Auto) 0.0 (0.0-0.8) # Baso # (Auto) 0.0 (0.0-0.2) # Sodium 140 (135-145) mmol/L Potassium 2.5 L* (3.5-5.3) mmol/L Chloride 107 (100-110) mmol/L Carbon Dioxide 26 (21-32) mmol/L BUN 2 L (7-18) mg/dL Creatinine 0.8 (0.55-1.02) mg/dL Est Cr Clr Drug Dosing 45.84 mL/min Estimated GFR (MDRD) > 60 (>60) BUN/Creatinine Ratio 2.5 L (9-20) Glucose 134 H (80-116) mg/dL Calcium 6.6 L (8.6-10.2) mg/dL Rodolfo Results Last 24 Hours: Microbiology 11/14/19 13:50 Aerobic Blood Culture - Preliminary Blood - Venous - Lab Draw NO GROWTH AFTER 3 DAYS Anaerobic Blood Culture - Preliminary NO GROWTH AFTER 3 DAYS 11/14/19 13:50 Aerobic Blood Culture - Preliminary Blood - Venous NO GROWTH AFTER 3 DAYS Anaerobic Blood Culture - Preliminary NO GROWTH AFTER 3 DAYS Med Orders - Current: Current Medications Acetaminophen (Tylenol) 325 mg RECTAL Q4H PRN PRN Reason: Fever Ceftriaxone Sodium (Rocephin) 1 gm IVPUSH Q24H [facility] Stop: 11/18/19 18:01 Last Admin: 11/17/19 18:14 Dose: 1 gm Hydrocortisone (Hydrocortisone 2.5% Crm) 0 gm TOP QID PRN PRN Reason: Hemorrhoids Last Admin: 11/18/19 05:02 Dose: 1 applic Dextrose/Lactated Ringer's (Dextrose 5%-Lactated Ringers) 1,000 mls @ 75 mls/ hr IV ASDIRECTED [facility] Last Admin: 11/18/19 04:35 Dose: 100 mls/hr Lidocaine HCl (Glydo) 10 ml .XX ASDIRECTED [facility] Last Admin: 11/17/19 18:16 Dose: 6 ml Morphine Sulfate (Morphine) 0.5 mg IVPUSH Q2H PRN PRN Reason: Pain Ondansetron HCl (Zofran) 4 mg IVPUSH Q6H PRN PRN Reason: Nausea/Vomiting Pantoprazole Sodium (Protonix Iv) 40 mg IVPUSH DAILY [facility] Last Admin: 11/18/19 09:29 Dose: 40 mg Potassium Chloride (Potassium Chloride Solution) 20 meq NGTUBE TID [facility] Last Admin: 11/18/19 09:26 Dose: 20 meq Sodium Chloride (Saline Flush) 10 ml FLUSH ASDIRECTED PRN PRN Reason: Keep Vein Open Last Admin: 11/17/19 22:17 Dose: 10 ml Discontinued Medications Ceftriaxone Sodium (Rocephin) 1 gm IM ONETIME ONE Stop: 11/14/19 14:51 Last Admin: 11/14/19 21:27 Dose: Not Given Ceftriaxone Sodium (Rocephin) 2 gm IVPUSH Q24H [facility] Sodium Chloride (Normal Saline) 1,000 mls @ 100 mls/hr IV ASDIRECTED [facility] Last Admin: 11/16/19 02:17 Dose: 100 mls/hr Potassium Chloride (Kcl 20 Meq In Water 100 Ml) 100 mls @ 50 mls/hr IV Q2H [facility] Stop: 11/14/19 21:59 Last Admin: 11/14/19 20:06 Dose: 50 mls/hr Potassium Chloride (Kcl 20 Meq In Water 100 Ml) 100 mls @ 50 mls/hr IV Q2H [facility] Stop: 11/15/19 12:59 Last Admin: 11/15/19 15:41 Dose: 50 mls/hr Magnesium Sulfate (Magnesium Sulfate In Water Premix) 25 mls @ 50 mls/hr IV ONETIME ONE Stop: 11/15/19 11:29 Last Admin: 11/15/19 11:08 Dose: 50 mls/hr Potassium Chloride (Kcl 20 Meq In Water 100 Ml) Confirm Administered Dose 100 mls @ as directed .ROUTE .STK-MED ONE Stop: 11/15/19 15:39 Last Admin: 11/15/19 15:41 Dose: Not Given Potassium Chloride/Dextrose/Sod Cl (D5 1/4 Ns With 20 Meq Kcl) 1,000 mls @ 100 mls/hr IV ASDIRECTED [facility] Last Admin: 11/17/19 07:58 Dose: 100 mls/hr Iopamidol (Isovue-370 (76%)) 75 ml IV . DIRECTED ONE Stop: 11/14/19 12:18 Last Admin: 11/14/19 12:35 Dose: 75 ml Morphine Sulfate (Morphine) 2 mg IVPUSH ONETIME ONE Stop: 11/14/19 13:45 Last Admin: 11/14/19 13:57 Dose: 2 mg Morphine Sulfate (Morphine) 1 mg IVPUSH Q2H PRN PRN Reason: Pain Last Admin: 11/17/19 22:15 Dose: 1 mg - Exam General: Alert, Oriented, Cooperative, No Acute Distress Lungs: Clear to Auscultation, Normal Respiratory Effort Cardiovascular: Regular Rate, Regular Rhythm GI/Abdominal Exam: Soft, Tender (BUQ), Abnormal Bowel Sounds (hyperactive BUQ, improved in BLQ). No: Guarding, Rigid, Rebound Extremities: Pedal Edema (1+ BLE) Peripheral Pulses: 2+: Radial (L), Radial (R) Skin: Ecchymosis (right forearm, NT; small abrasion right antecubital fossa.) Sepsis Event Note - Evaluation Sepsis Screening Result: No Definite Risk - Focused Exam Vital Signs: Vital Signs Temp Pulse Resp BP Pulse Ox Pulse Ox 11/18/19 04:48 97.0 F 91 16 109/68 96 11/18/19 01:20 97.4 F 99 16 94/60 96 96 Date Exam was Performed: 11/18/19 Time Exam was Performed: 10:46 - Problem List & Annotations (1) Partial bowel obstruction SNOMED Code(s): 92309410132334251 Code(s): K56.600 - PARTIAL INTESTINAL OBSTRUCTION, UNSPECIFIED TO CAUSE Status: Acute Current Visit: Yes (2) Colitis SNOMED Code(s): 52217252 Code(s): K52.9 - NONINFECTIVE GASTROENTERITIS AND COLITIS, UNSPECIFIED Status: Acute Current Visit: Yes (3) UTI (urinary tract infection) SNOMED Code(s): 66892554 Code(s): N39.0 - URINARY TRACT INFECTION, SITE NOT SPECIFIED Status: Acute Current Visit: Yes Annotation/Comment:: Day 5 rocephin, will get last dose of Rocephin tonight then discontinue. (4) Dehydration SNOMED Code(s): 05239371 Code(s): E86.0 - DEHYDRATION Status: Resolved Current Visit: Yes (5) Hypokalemia SNOMED Code(s): 47376163 Code(s): E87.6 - HYPOKALEMIA Status: Acute Current Visit: Yes Annotation/Comment:: slowly improving. (6) Osteoporosis SNOMED Code(s): 81121716 Code(s): M81.0 - AGE-RELATED OSTEOPOROSIS W/O CURRENT PATHOLOGICAL FRACTURE Status: Chronic Current Visit: Yes (7) Depression SNOMED Code(s): 80467364 Code(s): F32.9 - MAJOR DEPRESSIVE DISORDER, SINGLE EPISODE, UNSPECIFIED Status: Chronic Current Visit: Yes (8) Hypomagnesemia SNOMED Code(s): 149484311 Code(s): E83.42 - HYPOMAGNESEMIA Status: Resolved Current Visit: Yes Annotation/Comment:: corrected. - Problem List Review Problem List Initiated/Reviewed/Updated: Yes - My Orders Last 24 Hours: My Active Orders 11/17/19 14:17 Consult to Physician [CONS] Routine 11/17/19 14:18 Notify Provider Consults [RC] ASDIRECTED 11/17/19 16:38 NG [Gastrointestinal Tube Mgmt] [RC] QSHIFT NG [Nasogastric Orogastric Tube Insertion] [OM.PC] Routine 11/17/19 16:45 Dextrose 5%-Lactated Ringers 1,000 ml IV ASDIRECTED 11/17/19 17:00 Potassium Chloride [Potassium Chloride Solution] 20 meq NGTUBE TID lidocaine HCL [Glydo] 10 ml .XX ASDIRECTED 11/17/19 Lunch NPO [Nothing Per Oral Diet] [DIET] 11/18/19 08:08 Morphine 0.5 mg IVPUSH Q2H PRN 11/18/19 09:26 MAGNESIUM [CHEM] Routine 11/19/19 06:00 BASIC METABOLIC PANEL,BMP [CHEM] Routine 11/19/19 08:00 Abdomen 2V AP Flat Upright [CR] Routine - Plan Plan:: 1. Day 5 Rocephin 1 Gram IV q24h, Urine culture E coli. BC no growth to date. 2. Potassium at 2.5, D5LR @ 40 ml/hr. Liquid KCL 20mEq NG tid. Most likely due to her persistent diarrhea. 3. NG tube keep in place for 24 hours, repeat AXR tomorrow am. Dr Srivastava consulted yesterday. 4. NPO except ice with sips of water. Oral cares as needed. 5. Decrease Morphine 0.5 mg IV q2h as needed, as she gets a little disoriented with 1 mg dose. 6. GI prophylaxis: Protonix 40 mg IV daily. 7. DVT prophylaxis: TEDS, ambulate.
[2019-11-18] MEDS: Magnesium Oxide 400 MG Tab NGTUBE SCH ×2 (12:35→20:35)
[2019-11-18] MEDS: cefTRIAXone 1 GM Vial IVPUSH SCH (17:30)
--- NOTE | 2019-11-19 05:40 | PCM.SN ---
- Free Text/Narrative Note: [facility] Date: 11/19/2019 Time: 0509 to 0515 Dx: Partial SBO - Poor Venous Access Rx: Obtain Peripheral Venous Access Procedure: Placement of Peripheral Venous Access I was called by the floor RN and was asked to obtain a peripheral venous access site. There was numerous attempts by nursing without success. I found a very superficial peripheral vein on her medial lower upper arm. I prepped the area with alcohol wipes X 3. I then inserted and advanced 22 Ga. X 1 In. BD Insyte Autoguard Catheter X 1 attempt. It passed up the vein easily and I could flush it without problems with 20 ml's of normal saline. An Op-Site dressing was applied and she tolerated this very well. Isidoro Bailey CRNA, A
[2019-11-19] MEDS: Potassium Chloride 10% 20 MEQ/15 ML Soln 15 ML UD Cup NGTUBE SCH (08:37)
[2019-11-19] MEDS: Magnesium Oxide 400 MG Tab NGTUBE SCH (08:38)
[2019-11-19] MEDS: Pantoprazole 40 MG Vial IVPUSH SCH (08:49)
[2019-11-19] MEDS: Hydrocortisone 2.5% Crm 30 GM Tube TOP PRN ×2 (09:23→20:48)
--- NOTE | 2019-11-19 09:55 | CR ---
INDICATION: Followup bowel obstruction. NG tube in place. ABDOMEN, TWO VIEW: Four images of the abdomen in supine and upright projections were obtained 11/19/2019 and compared with 11/17/2019. A nasogastric tube is now noted with its tip in the area of the gastric body. The pattern of gas and feces appears almost unchanged from 11/17/2019. No definite free air was identified. Greatest distension of the bowel is in the ascending and transverse colon but there remains gas in the more distal colon including the rectosigmoid area. There is again no gas in the area of the rectum. This would raise suspicion somewhat for either severe paralytic ileus or possibility of a mechanically obstructive process at the level of the distal rectosigmoid or rectum. Findings should be correlated clinically. Additional examination such as barium enema or colonoscopy, may be helpful as felt to be clinically necessary. An appearance of increased density in the pelvis likely is on the basis of distended urinary bladder. MTDD
--- NOTE | 2019-11-19 11:27 | PCM.CONS ---
H&P History of Present Illness - General Date of Service: 11/19/19 Admit Problem/Dx: Admission Diagnosis/Problem Admission Diagnosis/Problem Partial bowel obstruction - History of Present Illness Initial Comments - Free Text/Narative: Pt well known to me as I had been following for what appeared to be a flair up of lymphocytic colitis. Having multiple bowel movements a day. Denies flatus. K been consistently down around 2.5 though did have a level of 2.7 today. NGT was placed several days ago. She has had very minimal output. 30 ml clear with yellow tinge. KUB pattern partial obstruction vs. ileus. She notes that she is hungry. In addition to the low K, she has a low albumin. LOWER LEFT ABD Pain Score (Numeric/FACES): 2 - Related Data Allergies/Adverse Reactions: Allergies Allergy/AdvReac Type Severity Reaction Status Date / Time Sulfa (Sulfonamide Allergy Rash Verified 11/14/19 11:45 Antibiotics) Home Medications: Home Meds Aspirin [Halfprin] 81 mg PO BEDTIME 06/23/13 [History] Cyanocobalamin (Vitamin B-12) [Cyanocobalamin] 1 gm PO DAILY 06/23/13 [History] Flaxseed Oil [Flax Oil] 1,000 mg PO DAILY 06/23/13 [History] Lutein 20 mg PO DAILY 06/23/13 [History] Omeprazole [Prilosec] 20 mg PO BEDTIME 06/23/13 [History] Polyvinyl Alcohol/Povidone [Refresh] 1 each EYEBOTH ASDIRECTED PRN 06/23/13 [ History] Triamcinolone Acetonide [Kenalog 0.1% Crm] 15 gm TOP BID PRN 06/23/13 [History] cycloSPORINE [Restasis] 1 drop EYEBOTH BID PRN 06/23/13 [History] Cholecalciferol (Vitamin D3) [Vitamin D3] 1,000 units PO DAILY 06/24/13 [History ] Citalopram Hydrobromide [Celexa] 10 mg PO BEDTIME 06/24/13 [History] Fish Oil/[place]-3 Fatty Acids [Fish Oil 1,000 MG] 1,000 mg PO BID 06/24/13 [ History] Multivitamin [Multi-Vitamin Daily] 1 each PO DAILY 06/24/13 [History] Alendronate Sodium [Fosamax] 70 mg PO Q7D 05/06/19 [History] Calcium Carbonate/Vitamin D3 [Os-Meng 500+D] 1 each PO BID 05/06/19 [History] Ferrous Sulfate [Iron] 325 mg PO DAILY 05/06/19 [History] Glucosamine Sulfate/Msm [Glucosamine-MSM 500-400 MG] 2 cap PO DAILY 05/06/19 [ History] Vitamin E 400 unit PO DAILY 05/06/19 [History] Past Medical History HEENT History: Reports: Cataract, Hard of Hearing, Impaired Vision, Other (See Below) Other HEENT History: dry eyes Cardiovascular History: Reports: None, Other (See Below) Other Cardiovascular History: 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 CARPAL TUNNEL SYNDROME Psychiatric History: Reports: Depression Endocrine/Metabolic History: Reports: Obesity/BMI 30+ Hematologic History: Reports: None Immunologic History: Reports: None Oncologic (Cancer) History: Reports: None Dermatologic History: Reports: Eczema, Other (See Below) Other Dermatologic History: CONTACT DERMATITIS - Infectious Disease History Infectious Disease History: Reports: Chicken Pox, Measles, Mumps - Past Surgical History Head Surgeries/Procedures: Reports: None HEENT Surgical History: Reports: Cataract Surgery Cardiovascular Surgical History: Reports: None Respiratory Surgical History: Reports: None GI Surgical History: Reports: Appendectomy, Cholecystectomy, Colonoscopy Female Surgical History: Reports: Hysterectomy Endocrine Surgical History: Reports: None Neurological Surgical History: Reports: Discectomy, Laminectomy, Other (See Below) Other Neurological Surgeries/Procedures: L3-4 Musculoskeletal Surgical History: Reports: Other (See Below) Other Musculoskeletal Surgeries/Procedures:: TRIGGER FINGER RELEASE, TRIGGER FINGER INJECTION Oncologic Surgical History: Reports: None Social & Family History - Family History Family Medical History: Noncontributory - Tobacco Use Smoking Status *Q: Never Smoker - Caffeine Use Caffeine Use: Reports: Coffee, Tea - Recreational Drug Use Recreational Drug Use: No - Living Situation & Occupation Living situation: Reports: , Alone Occupation: Retired H&P Review of Systems - Review of Systems: Review Of Systems: See Below General: Reports: No Symptoms Pulmonary: Reports: No Symptoms Cardiovascular: Reports: No Symptoms Gastrointestinal: Reports: Diarrhea. Denies: Flatus Exam - Exam Exam: See Below - Vital Signs Vital Signs: Last Vital Signs Temp 98.1 F 11/19/19 04:00 Pulse 93 11/19/19 04:00 Resp 16 11/19/19 04:00 BP 107/62 11/19/19 04:00 Pulse Ox 97 11/19/19 04:00 Weight: 66.769 kg - Exam General: Alert, Lethargic Lungs: Clear to Auscultation, Normal Respiratory Effort Cardiovascular: Regular Rate, Regular Rhythm GI/Abdominal Exam: Normal Bowel Sounds, Soft, Non-Tender, No Distention - Patient Data Lab Results Last 24 hrs: Laboratory Results - last 24 hr 11/18/19 11/19/19 Range/Units 09:26 07:55 Sodium 142 (135-145) mmol/L Potassium 2.7 L* (3.5-5.3) mmol/L Chloride 109 (100-110) mmol/L Carbon Dioxide 26 (21-32) mmol/L BUN 5 L (7-18) mg/dL Creatinine 0.7 (0.55-1.02) mg/dL Est Cr Clr Drug Dosing 52.39 mL/min Estimated GFR (MDRD) > 60 (>60) BUN/Creatinine Ratio 7.1 L (9-20) Glucose 119 H (80-116) mg/dL Calcium 6.7 L (8.6-10.2) mg/dL Magnesium 1.7 L 1.7 L (1.8-2.5) mg/dL Result Diagrams: 11/18/19 06:05 11/19/19 07:55 Rodolfo Results Last 24 hrs: Microbiology 11/14/19 13:50 Aerobic Blood Culture - Preliminary Blood - Venous NO GROWTH AFTER 4 DAYS Anaerobic Blood Culture - Preliminary NO GROWTH AFTER 4 DAYS 11/14/19 13:50 Aerobic Blood Culture - Preliminary Blood - Venous - Lab Draw NO GROWTH AFTER 4 DAYS Anaerobic Blood Culture - Preliminary NO GROWTH AFTER 4 DAYS Sepsis Event Note - Evaluation Sepsis Screening Result: No Definite Risk - Focused Exam Vital Signs: Vital Signs Temp Pulse Resp BP Pulse Ox Pulse Ox 11/19/19 04:00 98.1 F 93 16 107/62 97 11/19/19 01:30 97.8 F 90 16 113/65 97 97 Date Exam was Performed: 11/19/19 Time Exam was Performed: 11:19 Consult PN Assessment/Plan Procedures: Procedures APPLY FOREARM SPLINT (02/16/18) COLONOSCOPY AND BIOPSY (05/07/19) EGD BIOPSY SINGLE/MULTIPLE (08/12/13) EMERGENCY DEPT VISIT (02/16/18) EXTREMITY STUDY (06/16/14) IMMUNOHISTO ANTB 1ST STAIN (08/12/13) KNEE ARTHROSCOPY/SURGERY (06/23/14) MRI JNT OF LWR EXTRE W/O DYE (05/23/13) SPECIAL STAINS GROUP 1 (08/12/13) SPECIAL STAINS GROUP 2 (08/12/13) TISSUE EXAM BY PATHOLOGIST (08/12/13) X-RAY EXAM OF WRIST (02/16/18) XCAPSL CTRC RMVL W/O ECP (06/24/13) (1) Paralytic ileus SNOMED Code(s): 54094649 Code(s): K56.0 - PARALYTIC ILEUS Current Visit: Yes (2) Colitis SNOMED Code(s): 59064800 Code(s): K52.9 - NONINFECTIVE GASTROENTERITIS AND COLITIS, UNSPECIFIED Current Visit: Yes Problem List Initiated/Reviewed/Updated: Yes Plan: recommendations. agree with need for TPN as oral intake has not been and may not be good. could d/c NGT consider flex sig for tissue dx of colitis.
--- NOTE | 2019-11-19 12:11 | PCM.PN ---
- General Info Date of Service: 11/19/19 Subjective Update: Alicia stated she fell last night but nurses heard a noise and ran down to her room but she was already up. No injuries noted. Minimal output from NG tube, clear. Pain in left lower side, 3-4 bowel movements overnight. AXR unchanged from Sunday. Dr Srivastava saw patient today, refer to his note. - Patient Data Vitals - Most Recent: Last Vital Signs Temp 98.1 F 11/19/19 04:00 Pulse 93 11/19/19 04:00 Resp 16 11/19/19 04:00 BP 107/62 11/19/19 04:00 Pulse Ox 97 11/19/19 04:00 Weight - Most Recent: 147 lb 3.2 oz I&O - Last 24 Hours: Intake & Output 11/18/19 11/19/19 11/19/19 22:59 06:59 14:59 Intake Total 468 368 Output Total 50 Balance 468 318 Lab Results Last 24 Hours: Laboratory Results - last 24 hr 11/19/19 Range/Units 07:55 Sodium 142 (135-145) mmol/L Potassium 2.7 L* (3.5-5.3) mmol/L Chloride 109 (100-110) mmol/L Carbon Dioxide 26 (21-32) mmol/L BUN 5 L (7-18) mg/dL Creatinine 0.7 (0.55-1.02) mg/dL Est Cr Clr Drug Dosing 52.39 mL/min Estimated GFR (MDRD) > 60 (>60) BUN/Creatinine Ratio 7.1 L (9-20) Glucose 119 H (80-116) mg/dL Calcium 6.7 L (8.6-10.2) mg/dL Magnesium 1.7 L (1.8-2.5) mg/dL Rodolfo Results Last 24 Hours: Microbiology 11/14/19 13:50 Aerobic Blood Culture - Preliminary Blood - Venous NO GROWTH AFTER 4 DAYS Anaerobic Blood Culture - Preliminary NO GROWTH AFTER 4 DAYS 11/14/19 13:50 Aerobic Blood Culture - Preliminary Blood - Venous - Lab Draw NO GROWTH AFTER 4 DAYS Anaerobic Blood Culture - Preliminary NO GROWTH AFTER 4 DAYS Med Orders - Current: Current Medications Acetaminophen (Tylenol) 325 mg RECTAL Q4H PRN PRN Reason: Fever Hydrocortisone (Hydrocortisone 2.5% Crm) 0 gm TOP QID PRN PRN Reason: Hemorrhoids Last Admin: 11/19/19 09:23 Dose: 1 applic Dextrose/Lactated Ringer's (Dextrose 5%-Lactated Ringers) 1,000 mls @ 60 mls/ hr IV ASDIRECTED [facility] Last Admin: 11/18/19 17:15 Dose: 60 mls/hr Lidocaine HCl (Glydo) 10 ml .XX ASDIRECTED [facility] Last Admin: 11/17/19 18:16 Dose: 6 ml Morphine Sulfate (Morphine) 0.5 mg IVPUSH Q2H PRN PRN Reason: Pain Ondansetron HCl (Zofran) 4 mg IVPUSH Q6H PRN PRN Reason: Nausea/Vomiting Pantoprazole Sodium (Protonix Iv) 40 mg IVPUSH DAILY [facility] Last Admin: 11/19/19 08:49 Dose: 40 mg Potassium Chloride (Potassium Chloride Solution) 20 meq PO TID [facility] Sodium Chloride (Saline Flush) 10 ml FLUSH ASDIRECTED PRN PRN Reason: Keep Vein Open Last Admin: 11/17/19 22:17 Dose: 10 ml Discontinued Medications Ceftriaxone Sodium (Rocephin) 1 gm IM ONETIME ONE Stop: 11/14/19 14:51 Last Admin: 11/14/19 21:27 Dose: Not Given Ceftriaxone Sodium (Rocephin) 2 gm IVPUSH Q24H [facility] Ceftriaxone Sodium (Rocephin) 1 gm IVPUSH Q24H [facility] Stop: 11/18/19 18:01 Last Admin: 11/18/19 17:30 Dose: 1 gm Sodium Chloride (Normal Saline) 1,000 mls @ 100 mls/hr IV ASDIRECTED [facility] Last Admin: 11/16/19 02:17 Dose: 100 mls/hr Potassium Chloride (Kcl 20 Meq In Water 100 Ml) 100 mls @ 50 mls/hr IV Q2H [facility] Stop: 11/14/19 21:59 Last Admin: 11/14/19 20:06 Dose: 50 mls/hr Potassium Chloride (Kcl 20 Meq In Water 100 Ml) 100 mls @ 50 mls/hr IV Q2H [facility] Stop: 11/15/19 12:59 Last Admin: 11/15/19 15:41 Dose: 50 mls/hr Magnesium Sulfate (Magnesium Sulfate In Water Premix) 25 mls @ 50 mls/hr IV ONETIME ONE Stop: 11/15/19 11:29 Last Admin: 11/15/19 11:08 Dose: 50 mls/hr Potassium Chloride (Kcl 20 Meq In Water 100 Ml) Confirm Administered Dose 100 mls @ as directed .ROUTE .STK-MED ONE Stop: 11/15/19 15:39 Last Admin: 11/15/19 15:41 Dose: Not Given Potassium Chloride/Dextrose/Sod Cl (D5 1/4 Ns With 20 Meq Kcl) 1,000 mls @ 100 mls/hr IV ASDIRECTED [facility] Last Admin: 11/17/19 07:58 Dose: 100 mls/hr Magnesium Sulfate 1 gm/ Sodium (Chloride) 52 mls @ 50 mls/hr IV ONETIME ONE Stop: 11/19/19 09:47 Last Admin: 11/19/19 09:24 Dose: 50 mls/hr Iopamidol (Isovue-370 (76%)) 75 ml IV . DIRECTED ONE Stop: 11/14/19 12:18 Last Admin: 11/14/19 12:35 Dose: 75 ml Magnesium Oxide (Magnesium Oxide) 400 mg NGTUBE BID [facility] Last Admin: 11/19/19 08:38 Dose: 400 mg Morphine Sulfate (Morphine) 2 mg IVPUSH ONETIME ONE Stop: 11/14/19 13:45 Last Admin: 11/14/19 13:57 Dose: 2 mg Morphine Sulfate (Morphine) 1 mg IVPUSH Q2H PRN PRN Reason: Pain Last Admin: 11/17/19 22:15 Dose: 1 mg Potassium Chloride (Potassium Chloride Solution) 20 meq NGTUBE TID [facility] Last Admin: 11/19/19 08:37 Dose: 20 meq - Exam General: Alert, Cooperative, No Acute Distress Lungs: Clear to Auscultation, Normal Respiratory Effort Cardiovascular: Regular Rate, Regular Rhythm GI/Abdominal Exam: Soft, No Distention, Guarding, Tender (LLQ), Abnormal Bowel Sounds (hypoactive x 4). No: Rigid, Rebound Extremities: Pedal Edema (2+ BLE) Peripheral Pulses: 2+: Radial (L), Radial (R) Sepsis Event Note - Evaluation Sepsis Screening Result: No Definite Risk - Focused Exam Vital Signs: Vital Signs Temp Pulse Resp BP Pulse Ox Pulse Ox 11/19/19 04:00 98.1 F 93 16 107/62 97 11/19/19 01:30 97.8 F 90 16 113/65 97 97 Date Exam was Performed: 11/19/19 Time Exam was Performed: 12:06 - Problem List & Annotations (1) Partial bowel obstruction SNOMED Code(s): 02107347790153905 Code(s): K56.600 - PARTIAL INTESTINAL OBSTRUCTION, UNSPECIFIED TO CAUSE Status: Acute Current Visit: Yes (2) Colitis SNOMED Code(s): 56482765 Code(s): K52.9 - NONINFECTIVE GASTROENTERITIS AND COLITIS, UNSPECIFIED Status: Acute Current Visit: Yes (3) Hypokalemia SNOMED Code(s): 58891634 Code(s): E87.6 - HYPOKALEMIA Status: Acute Current Visit: Yes Annotation/Comment:: slowly improving. (4) Hypoalbuminemia due to protein-calorie malnutrition SNOMED Code(s): 60287775778426 Code(s): E88.09 - OTH DISORDERS OF PLASMA-PROTEIN METABOLISM, NEC; E46 - UNSPECIFIED PROTEIN-CALORIE MALNUTRITION Status: Acute Current Visit: Yes (5) Edema due to hypoalbuminemia SNOMED Code(s): 954844561 Code(s): R60.9 - EDEMA, UNSPECIFIED; E88.09 - OTH DISORDERS OF PLASMA- PROTEIN METABOLISM, NEC Status: Acute Current Visit: Yes (6) Hypomagnesemia SNOMED Code(s): 019080593 Code(s): E83.42 - HYPOMAGNESEMIA Status: Resolved Current Visit: Yes Annotation/Comment:: Dropped to 1.7 yesterday, did oral supplementation but stayed at 1.7 so Magnesium sulfate 1 Gram given. (7) Dehydration SNOMED Code(s): 89222051 Code(s): E86.0 - DEHYDRATION Status: Resolved Current Visit: Yes (8) UTI (urinary tract infection) SNOMED Code(s): 21181185 Code(s): N39.0 - URINARY TRACT INFECTION, SITE NOT SPECIFIED Status: Resolved Current Visit: Yes Annotation/Comment:: Completed abx course. (9) Osteoporosis SNOMED Code(s): 98118600 Code(s): M81.0 - AGE-RELATED OSTEOPOROSIS W/O CURRENT PATHOLOGICAL FRACTURE Status: Chronic Current Visit: Yes (10) Depression SNOMED Code(s): 31549590 Code(s): F32.9 - MAJOR DEPRESSIVE DISORDER, SINGLE EPISODE, UNSPECIFIED Status: Chronic Current Visit: Yes - Problem List Review Problem List Initiated/Reviewed/Updated: Yes - My Orders Last 24 Hours: My Active Orders 11/19/19 10:48 NG [Nasogastric Orogastric Tube Removal] [OM.PC] Routine 11/19/19 11:40 PICC Line Insertion [CR] Routine 11/19/19 14:00 Potassium Chloride [Potassium Chloride Solution] 20 meq PO TID 11/21/19 06:00 BASIC METABOLIC PANEL,BMP [CHEM] Routine MAGNESIUM [CHEM] Routine - Plan Plan:: 1. PICC insertion with dual lumen for TPN & blood draws. Flex sig for tomorrow with Dr Srivastava, to assess colitis. Not a complete obstruction. 2. Potassium at 2.7, D5LR @ 40 ml/hr until we get TPN started. Liquid KCL 20mEq NG tid. 3. NG tube discontinue, AXR unchanged. Flex sig for tomorrow. 4. NPO except ice with sips of water. Oral cares as needed. 5. Decrease Morphine 0.5 mg IV q2h as needed. 6. GI prophylaxis: Protonix 40 mg IV daily. 7. DVT prophylaxis: TEDS, ambulate.
[2019-11-19] MEDS: Dextrose 5%-Lactated Ringers 1,000 ML IV SCH (13:00)
[2019-11-19] MEDS: Potassium Chloride 10% 20 MEQ/15 ML Soln 15 ML UD Cup PO SCH ×2 (14:37→20:48)
--- NOTE | 2019-11-19 16:32 | PCM.OPNOTE ---
- General Post-Op/Procedure Note Date of Surgery/Procedure: 11/19/19 Operative Procedure(s): triple lumen central line placement Findings: cxr good placement no pneumo Pre Op Diagnosis: paralytic ileus. poor po intake Post-Op Diagnosis: Same Anesthesia Technique: Local (8 ml 1 % lido with epi) Primary Surgeon: Tony Srivastava Complications: None Condition: Good Free Text/Narrative:: Intake & Output 11/19/19 11/19/19 11/19/19 06:59 14:59 22:59 Intake Total 368 Output Total 50 Balance 318
--- NOTE | 2019-11-19 16:58 | PCM.SN ---
- Free Text/Narrative Note: Informed consent obtained for both a central line and a flex sig. Procedure and risks explained to the pt to include bleeding, infection, injury to bowel, blood vessel as well a pneumothorax. Expressed understanding and asks us to proceed.
--- NOTE | 2019-11-19 16:58 | OR ---
DATE OF OPERATION: 11/19/2019 SURGEON: Tony Srivastava MD PROCEDURE PERFORMED: Left subclavian triple-lumen central line placement. PREOPERATIVE DIAGNOSIS: Paralytic ileus with need for central line access. POSTOPERATIVE DIAGNOSIS: Paralytic ileus with need for central line access. INDICATIONS FOR PROCEDURE: This is a 79-year-old white female. She has issues with what appears to be a paralytic ileus, has poor p.o. intake, and has a low albumin. TPN was thought to be indicated, so central line was requested. DESCRIPTION OF OPERATION: After the area was prepped and draped in the usual sterile manner, grand total of 8 mL was used to infiltrate our area. This area was infiltrated below the left clavicle. The patient was placed in Trendelenburg position. The left subclavian vein was accessed, and using a Seldinger technique, the vein was accessed and a guidewire was applied. Triple- lumen catheter was inserted. All three ports were noted to aspirate and flush freely. It was then sewn into position. It was flushed with heparinized saline. Dressing was applied. Postoperative chest x-ray demonstrated no pneumothorax. The tip of the catheter was in the superior vena cava. /[id number] /KIATL
[2019-11-19] MEDS ORDERED: MVI, Adult with Vitamin K 10 ML in AA 5%/Calcium/D15W/Lytes 1,000 ML IV ONE ×2 (18:00)
[2019-11-19] MEDS: Fat Emulsion 250 ML IV SCH (20:48)
[2019-11-20] MEDS ORDERED: Sodium Phosphate,Monobasic/Sodium Phosphate,Dibasic Enema 133 ML Bottle RECTAL ONE (08:00)
[2019-11-20] MEDS: Sodium Chloride 0.9% 10 ML Syringe FLUSH PRN ×6 (08:20→21:03)
[2019-11-20] MEDS: Heparin Sodium 10 Units/ML 5 ML Syringe FLUSH SCH ×3 (08:29→09:15)
--- NOTE | 2019-11-20 08:33 | PCM.PN ---
- General Info Date of Service: 11/20/19 Subjective Update: Patient had 1 bowel movement overnight, had fleets enema this morning, didn't retain all of it, mostly irritated her skin. Hydrocortisone & Barrier are ordered. Schedule for flex sig today. TPN started last night due to nutritional status, most likely has not been eating well for past couple of months. Family reported she had been doing liquid diet prior to her visit with Dr Srivastava last Sunday without improvement of her symptoms. Slept well. Pain same. Functional Status: Reports: Pain Controlled - Patient Data Vitals - Most Recent: Last Vital Signs Temp 98.0 F 11/20/19 00:00 Pulse 90 11/20/19 00:00 Resp 18 11/20/19 00:00 BP 114/63 11/20/19 00:00 Pulse Ox 97 11/20/19 00:00 Weight - Most Recent: 147 lb 8 oz I&O - Last 24 Hours: Intake & Output 11/19/19 11/20/19 11/20/19 22:59 06:59 14:59 Intake Total 231 487 Balance 231 487 Rodolfo Results Last 24 Hours: Microbiology 11/14/19 13:50 Aerobic Blood Culture - Final Blood - Venous NO GROWTH AFTER 5 DAYS Anaerobic Blood Culture - Final NO GROWTH AFTER 5 DAYS 11/14/19 13:50 Aerobic Blood Culture - Final Blood - Venous - Lab Draw NO GROWTH AFTER 5 DAYS Anaerobic Blood Culture - Final NO GROWTH AFTER 5 DAYS Med Orders - Current: Current Medications Acetaminophen (Tylenol) 325 mg RECTAL Q4H PRN PRN Reason: Fever Heparin Sodium (Porcine) (Heparin Lock Flush 10 Units/Ml) 50 unit FLUSH ASDIRECTED [facility] Hydrocortisone (Hydrocortisone 2.5% Crm) 0 gm TOP QID PRN PRN Reason: Hemorrhoids Last Admin: 11/19/19 20:48 Dose: 1 applic Multivitamins/Minerals 10 ml/Amino Ac/Electrol/Dextrose/Calcium 1,010 mls @ 42 mls/hr IV ONETIME ONE Stop: 11/20/19 18:02 Last Admin: 11/19/19 17:27 Dose: 42 mls/hr Multivitamins/Minerals 10 ml/Amino Ac/Electrol/Dextrose/Calcium 1,010 mls @ 84 mls/hr IV .BY DURATION [facility] Amino Ac/Electrol/Dextrose/Calcium (Clinimix E 01/15) 1,000 mls @ 84 mls/hr IV .BY DURATION [facility] Fat Emulsion Intravenous (Intralipid 20%) 250 mls @ 20 mls/hr IV MoWeFr@2100 [facility] Last Admin: 11/19/19 20:48 Dose: 20 mls/hr Lidocaine HCl (Glydo) 10 ml .XX ASDIRECTED [facility] Last Admin: 11/17/19 18:16 Dose: 6 ml Morphine Sulfate (Morphine) 0.5 mg IVPUSH Q2H PRN PRN Reason: Pain Ondansetron HCl (Zofran) 4 mg IVPUSH Q6H PRN PRN Reason: Nausea/Vomiting Pantoprazole Sodium (Protonix Iv) 40 mg IVPUSH DAILY [facility] Last Admin: 11/19/19 08:49 Dose: 40 mg Potassium Chloride (Potassium Chloride Solution) 20 meq PO TID [facility] Last Admin: 11/19/19 20:48 Dose: 20 meq Sodium Chloride (Saline Flush) 10 ml FLUSH ASDIRECTED PRN PRN Reason: Keep Vein Open Last Admin: 11/17/19 22:17 Dose: 10 ml Discontinued Medications Ceftriaxone Sodium (Rocephin) 1 gm IM ONETIME ONE Stop: 11/14/19 14:51 Last Admin: 11/14/19 21:27 Dose: Not Given Ceftriaxone Sodium (Rocephin) 2 gm IVPUSH Q24H [facility] Ceftriaxone Sodium (Rocephin) 1 gm IVPUSH Q24H [facility] Stop: 11/18/19 18:01 Last Admin: 11/18/19 17:30 Dose: 1 gm Heparin Sodium (Porcine) (Heparin Lock Flush 100 Units/Ml) Confirm Administered Dose 1,500 units .ROUTE .STK-MED ONE Stop: 11/19/19 15:56 Last Admin: 11/19/19 17:12 Dose: Not Given Heparin Sodium (Porcine) (Heparin Lock Flush 100 Units/Ml) 500 units FLUSH ONETIME ONE Stop: 11/19/19 16:01 Last Admin: 11/19/19 17:26 Dose: 500 units Heparin Sodium (Porcine) (Heparin Lock Flush 100 Units/Ml) 500 units FLUSH ONETIME ONE Stop: 11/19/19 16:01 Last Admin: 11/19/19 17:27 Dose: 500 units Heparin Sodium (Porcine) (Heparin Lock Flush 100 Units/Ml) 500 units FLUSH ONETIME ONE Stop: 11/19/19 16:01 Last Admin: 11/19/19 17:27 Dose: 500 units Sodium Chloride (Normal Saline) 1,000 mls @ 100 mls/hr IV ASDIRECTED [facility] Last Admin: 11/16/19 02:17 Dose: 100 mls/hr Potassium Chloride (Kcl 20 Meq In Water 100 Ml) 100 mls @ 50 mls/hr IV Q2H [facility] Stop: 11/14/19 21:59 Last Admin: 11/14/19 20:06 Dose: 50 mls/hr Potassium Chloride (Kcl 20 Meq In Water 100 Ml) 100 mls @ 50 mls/hr IV Q2H [facility] Stop: 11/15/19 12:59 Last Admin: 11/15/19 15:41 Dose: 50 mls/hr Magnesium Sulfate (Magnesium Sulfate In Water Premix) 25 mls @ 50 mls/hr IV ONETIME ONE Stop: 11/15/19 11:29 Last Admin: 11/15/19 11:08 Dose: 50 mls/hr Potassium Chloride (Kcl 20 Meq In Water 100 Ml) Confirm Administered Dose 100 mls @ as directed .ROUTE .STK-MED ONE Stop: 11/15/19 15:39 Last Admin: 11/15/19 15:41 Dose: Not Given Potassium Chloride/Dextrose/Sod Cl (D5 1/4 Ns With 20 Meq Kcl) 1,000 mls @ 100 [facility] Last Admin: 11/17/19 07:58 Dose: 100 mls/hr Dextrose/Lactated Ringer's (Dextrose 5%-Lactated Ringers) 1,000 mls @ 60 mls/ [facility] Last Admin: 11/19/19 13:00 Dose: 60 mls/hr Magnesium Sulfate 1 gm/ Sodium (Chloride) 52 mls @ 50 mls/hr IV ONETIME ONE Stop: 11/19/19 09:47 Last Admin: 11/19/19 09:24 Dose: 50 mls/hr Iopamidol (Isovue-370 (76%)) 75 ml IV . DIRECTED ONE Stop: 11/14/19 12:18 Last Admin: 11/14/19 12:35 Dose: 75 ml Magnesium Oxide (Magnesium Oxide) 400 mg NGTUBE BID [facility] Last Admin: 11/19/19 08:38 Dose: 400 mg Morphine Sulfate (Morphine) 2 mg IVPUSH ONETIME ONE Stop: 11/14/19 13:45 Last Admin: 11/14/19 13:57 Dose: 2 mg Morphine Sulfate (Morphine) 1 mg IVPUSH Q2H PRN PRN Reason: Pain Last Admin: 11/17/19 22:15 Dose: 1 mg Potassium Chloride (Potassium Chloride Solution) 20 meq NGTUBE TID [facility] Last Admin: 11/19/19 08:37 Dose: 20 meq Sodium Biphosphate/Sodium Phosphate (Fleet Enema) 133 ml RECTAL ONETIME ONE Stop: 11/20/19 08:01 Last Admin: 11/20/19 08:04 Dose: 1 enema - Exam General: Alert, Oriented, Cooperative, No Acute Distress Lungs: Clear to Auscultation, Normal Respiratory Effort Cardiovascular: Regular Rate, Regular Rhythm GI/Abdominal Exam: Soft, Guarding, Tender (LLQ), Abnormal Bowel Sounds (high pitched upper quadrants, hypoactive lower quadrants). No: Rigid, Rebound Skin: Other (Pale) Sepsis Event Note - Evaluation Sepsis Screening Result: No Definite Risk - Focused Exam Vital Signs: Vital Signs Temp Pulse Resp BP Pulse Ox Pulse Ox 11/20/19 00:00 98.0 F 90 18 114/63 97 97 Date Exam was Performed: 11/20/19 Time Exam was Performed: 08:28 - Problem List & Annotations (1) Partial bowel obstruction SNOMED Code(s): 96920335909382882 Code(s): K56.600 - PARTIAL INTESTINAL OBSTRUCTION, UNSPECIFIED TO CAUSE Status: Acute Current Visit: Yes Annotation/Comment:: Flex sig for this morning. (2) Colitis SNOMED Code(s): 53319218 Code(s): K52.9 - NONINFECTIVE GASTROENTERITIS AND COLITIS, UNSPECIFIED Status: Acute Current Visit: Yes (3) Hypokalemia SNOMED Code(s): 89420446 Code(s): E87.6 - HYPOKALEMIA Status: Acute Current Visit: Yes Annotation/Comment:: slowly improving. (4) Hypoalbuminemia due to protein-calorie malnutrition SNOMED Code(s): 44843755408107 Code(s): E88.09 - OTH DISORDERS OF PLASMA-PROTEIN METABOLISM, NEC; E46 - UNSPECIFIED PROTEIN-CALORIE MALNUTRITION Status: Acute Current Visit: Yes Annotation/Comment:: TPN started last night, anticipate at least a week. (5) Edema due to hypoalbuminemia SNOMED Code(s): 401872804 Code(s): R60.9 - EDEMA, UNSPECIFIED; E88.09 - OTH DISORDERS OF PLASMA- PROTEIN METABOLISM, NEC Status: Acute Current Visit: Yes (6) Hypomagnesemia SNOMED Code(s): 175996121 Code(s): E83.42 - HYPOMAGNESEMIA Status: Resolved Current Visit: Yes (7) Dehydration SNOMED Code(s): 26070274 Code(s): E86.0 - DEHYDRATION Status: Resolved Current Visit: Yes (8) UTI (urinary tract infection) SNOMED Code(s): 97089310 Code(s): N39.0 - URINARY TRACT INFECTION, SITE NOT SPECIFIED Status: Resolved Current Visit: Yes Annotation/Comment:: Completed abx course. (9) Osteoporosis SNOMED Code(s): 52702845 Code(s): M81.0 - AGE-RELATED OSTEOPOROSIS W/O CURRENT PATHOLOGICAL FRACTURE Status: Chronic Current Visit: Yes (10) Depression SNOMED Code(s): 18935643 Code(s): F32.9 - MAJOR DEPRESSIVE DISORDER, SINGLE EPISODE, UNSPECIFIED Status: Chronic Current Visit: Yes - Problem List Review Problem List Initiated/Reviewed/Updated: Yes - My Orders Last 24 Hours: My Active Orders 11/19/19 10:48 NG [Nasogastric Orogastric Tube Removal] [OM.PC] Routine 11/19/19 14:00 Potassium Chloride [Potassium Chloride Solution] 20 meq PO TID 11/19/19 18:00 MVI, Adult with Vitamin K [Infuvite Adult] 10 ml AA 5%/Calcium/D15W/Lytes [ Clinimix E 5/15] 1,000 ml IV ONETIME 11/19/19 21:00 Fat Emulsion [Intralipid 20%] 250 ml IV MoWeFr@2100 11/20/19 07:54 CBC WITH AUTO DIFF [HEME] Routine 11/20/19 07:55 COMPREHENSIVE METABOLIC PN,CMP [CHEM] Routine 11/20/19 08:01 INR,PT,PROTHROMBIN TIME [COAG] Routine MAGNESIUM [CHEM] Routine 11/20/19 18:00 ALT Order 11/24/19 15:28 COMPREHENSIVE METABOLIC PN,CMP [CHEM] MOTU 11/24/19 15:29 CBC WITH AUTO DIFF [HEME] MO MAGNESIUM [CHEM] MOTH 11/24/19 15:30 INR,PT,PROTHROMBIN TIME [COAG] MO 11/25/19 15:28 COMPREHENSIVE METABOLIC PN,CMP [CHEM] MOTU 11/27/19 15:29 MAGNESIUM [CHEM] MOTH 12/01/19 15:28 COMPREHENSIVE METABOLIC PN,CMP [CHEM] MOTU 12/01/19 15:29 CBC WITH AUTO DIFF [HEME] MO MAGNESIUM [CHEM] MOTH 12/01/19 15:30 INR,PT,PROTHROMBIN TIME [COAG] MO 12/02/19 15:28 COMPREHENSIVE METABOLIC PN,CMP [CHEM] MOTU 12/04/19 15:29 MAGNESIUM [CHEM] MOTH 12/08/19 15:28 COMPREHENSIVE METABOLIC PN,CMP [CHEM] MOTU 12/08/19 15:29 CBC WITH AUTO DIFF [HEME] MO MAGNESIUM [CHEM] MOTH 12/08/19 15:30 INR,PT,PROTHROMBIN TIME [COAG] MO 12/09/19 15:28 COMPREHENSIVE METABOLIC PN,CMP [CHEM] MOTU 12/11/19 15:29 MAGNESIUM [CHEM] MOTH 12/15/19 15:28 COMPREHENSIVE METABOLIC PN,CMP [CHEM] MOTU 12/15/19 15:29 CBC WITH AUTO DIFF [HEME] MO MAGNESIUM [CHEM] MOTH 12/15/19 15:30 INR,PT,PROTHROMBIN TIME [COAG] MO 12/18/19 15:29 MAGNESIUM [CHEM] 12/22/19 15:29 MAGNESIUM [CHEM] 12/22/19 15:30 INR,PT,PROTHROMBIN TIME [COAG] MO 12/29/19 15:30 INR,PT,PROTHROMBIN TIME [COAG] MO 01/05/20 15:30 INR,PT,PROTHROMBIN TIME [COAG] MO - Plan Plan:: 1. Central line for TPN & blood draws. Flex sig for today with Dr Srivastava, to assess colitis. Partial obstruction. 2. CBC, CMP, magnesium, & INR pending. Liquid KCL 20mEq NG tid. 3. Oral cares as needed. 4. Morphine 0.5 mg IV q2h as needed. 6. GI prophylaxis: Protonix 40 mg IV daily. 7. DVT prophylaxis: TEDS, ambulate.
[2019-11-20] MEDS: Pantoprazole 40 MG Vial IVPUSH SCH (09:06)
--- NOTE | 2019-11-20 10:56 | PCM.OPNOTE ---
- General Post-Op/Procedure Note Date of Surgery/Procedure: 11/20/19 Operative Procedure(s): flex sig with bx Findings: colitis in sigmoid and rectum Pre Op Diagnosis: colitis Post-Op Diagnosis: colitis Anesthesia Technique: MAC Primary Surgeon: Tony Srivastava Pathology: biopsy of rectum and sigmoid Complications: None Condition: Good Free Text/Narrative:: Intake & Output 11/19/19 11/20/19 11/20/19 22:59 06:59 14:59 Intake Total 231 487 Balance 231 487 see dictation
[2019-11-20] MEDS: Hydrocortisone 2.5% Crm 30 GM Tube TOP SCH ×4 (11:08→20:03)
[2019-11-20] MEDS: Potassium Chloride 10% 20 MEQ/15 ML Soln 15 ML UD Cup PO SCH (11:16)
[2019-11-20] MEDS ORDERED: cycloSPORINE Ophth Drops U/D Box of 30 EYEBOTH PRN (11:27)
[2019-11-20] MEDS ORDERED: Polyvinyl Alcohol 1.4%/Povidone 0.6% Ophth Soln 0.4 ML Box of 30 EYEBOTH PRN (11:27)
--- NOTE | 2019-11-20 11:31 | CR ---
INDICATION: Central line placement. CHEST: An AP, portable upright view of the chest, 11/19/19, was compared with 11/14/19, now revealing a central line placement from the area of the left subclavian with its tip in the area of the superior vena cava at the level of the wesley. A complicating process was not suggested. There remains some blunting of the left costophrenic angle and heavy markings at the left lung base and, to a lesser extent, the right lung base raising question of minimal pneumonia and possibly pleuritis bilaterally. MTDD
[2019-11-20] MEDS ORDERED: Carboxymethylcellulose Sodium 1% Ophth Gel 0.4 ML UD Box of 30 EYEBOTH PRN (12:15)
[2019-11-20] MEDS: Citalopram 10 MG Tab PO SCH (13:13)
--- NOTE | 2019-11-20 15:18 | OR ---
DATE OF OPERATION: 11/20/2019 SURGEON: Tony Srivastava MD PROCEDURE PERFORMED: Flexible sigmoidoscopy. PREOPERATIVE DIAGNOSIS: Colitis. POSTOPERATIVE DIAGNOSIS: Colitis. INDICATIONS FOR PROCEDURE: This is a 79-year-old white female who has had an issue with loose stools. She has had a previous history of lymphocytic colitis, however, the treatment for this has not been successful. She was offered and accepted a flexible sigmoidoscopy as part of the workup. DESCRIPTION OF OPERATION: After a digital rectal exam was performed with the patient in left lateral position, the flexible colonoscope was inserted and advanced at 30 cm. At this point, we encountered marked inflammation and colitis most severe in the area of the sigmoid, but also involving the rectum. Random biopsies were taken. Specimen was sent to the lab for expeditious processing and pathologic evaluation. The patient tolerated the procedure well, was returned to her room without incident. /[id number] /MODL
[2019-11-20] MEDS: [UNRECOGNIZED DRUG - OTHER] IV SCH ×2 (17:48)
[2019-11-20] MEDS: CALCIUM IV SCH ×2 (17:48)
[2019-11-20] MEDS: MVI IV SCH ×2 (17:48)
[2019-11-20] MEDS: LYTES IV SCH ×2 (17:48)
[2019-11-20] MEDS: CALC IV SCH ×2 (17:48)
[2019-11-21] MEDS: MVI IV SCH ×4 (05:55→18:38)
[2019-11-21] MEDS: LYTES IV SCH ×4 (05:55→18:38)
[2019-11-21] MEDS: CALC IV SCH ×4 (05:55→18:38)
[2019-11-21] MEDS: [UNRECOGNIZED DRUG - OTHER] IV SCH ×4 (05:55→18:38)
[2019-11-21] MEDS: CALCIUM IV SCH ×4 (05:55→18:38)
--- NOTE | 2019-11-21 08:39 | PCM.PN ---
- General Info Date of Service: 11/21/19 Subjective Update: Patient had flex sig yesterday, showed marked inflammation of rectum and sigmoid , pathology pending. Dr Srivastava feels she will need steroids but does not want to start them until we get pathology report. She is wanting to eat, still many loose stools. Left lower quadrant pain. Complains of dry mouth, nothing by mouth except ice chips, & meds. Moisture spray is at bedside but she doesn't like it. Discussed that she is getting nutrition and fluids through her TPN, and that eating right now will make things worse, voiced understanding of this. NO fevers, chills, shortness of breath. No vomiting. - Patient Data Vitals - Most Recent: Last Vital Signs Temp 98.1 F 11/21/19 07:51 Pulse 101 H 11/21/19 07:51 Resp 18 11/21/19 07:51 BP 96/59 L 11/21/19 07:51 Pulse Ox 97 11/21/19 07:51 Weight - Most Recent: 147 lb 4.8 oz I&O - Last 24 Hours: Intake & Output 11/20/19 11/21/19 11/21/19 22:59 06:59 14:59 Intake Total 384 789 Output Total 300 Balance 384 489 Lab Results Last 24 Hours: Laboratory Results - last 24 hr 11/20/19 11/20/19 11/20/19 Range/Units 08:25 08:25 08:25 WBC 6.0 (4.5-12.0) X10-3/uL RBC 3.10 L (3.23-5.20) x10(6)uL Hgb 9.2 L (11.5-15.5) g/dL Hct 27.9 L (30.0-51.3) % MCV 90.0 (80-96) fL MCH 29.6 (27.7-33.6) pg MCHC 32.9 (32.2-35.4) g/dL RDW 13.5 (11.5-15.5) % Plt Count 235 (125-369) X10(3)uL MPV 6.7 L (7.4-10.4) fL Add Manual Diff Yes Neutrophils % (Manual) 68 (46-82) % Band Neutrophils % 3 (0-6) % Lymphocytes % (Manual) 24 (13-37) % Monocytes % (Manual) 5 (4-12) % Toxic Granulation Few H (NOT SEEN) PT 13.1 H (9.0-11.1) sec INR 1.38 H (1.00-1.24) Sodium 140 (135-145) mmol/L Potassium 3.1 L (3.5-5.3) mmol/L Chloride 107 (100-110) mmol/L Carbon Dioxide 27 (21-32) mmol/L BUN 6 L (7-18) mg/dL Creatinine 0.8 (0.55-1.02) mg/dL Est Cr Clr Drug Dosing 45.84 mL/min Estimated GFR (MDRD) > 60 (>60) BUN/Creatinine Ratio 7.5 L (9-20) Glucose 155 H (80-116) mg/dL Calcium 6.6 L (8.6-10.2) mg/dL Magnesium (1.8-2.5) mg/dL Total Bilirubin 0.5 (0.1-1.3) mg/dL AST 35 H D (5-25) IU/L ALT 32 (12-36) U/L Alkaline Phosphatase 106 (56-112) IU/L Total Protein 4.2 L (6.0-8.0) g/dL Albumin 1.1 L* (3.2-4.6) g/dL Globulin 3.1 g/dL Albumin/Globulin Ratio 0.4 // Range/Units 08:25 WBC (4.5-12.0) X10-3/uL RBC (3.23-5.20) x10(6)uL Hgb (11.5-15.5) g/dL Hct (30.0-51.3) % MCV (80-96) fL MCH (27.7-33.6) pg MCHC (32.2-35.4) g/dL RDW (11.5-15.5) % Plt Count (125-369) X10(3)uL MPV (7.4-10.4) fL Add Manual Diff Neutrophils % (Manual) (46-82) % Band Neutrophils % (0-6) % Lymphocytes % (Manual) (13-37) % Monocytes % (Manual) (4-12) % Toxic Granulation (NOT SEEN) PT (9.0-11.1) sec INR (1.00-1.24) Sodium (135-145) mmol/L Potassium (3.5-5.3) mmol/L Chloride (100-110) mmol/L Carbon Dioxide (21-32) mmol/L BUN (7-18) mg/dL Creatinine (0.55-1.02) mg/dL Est Cr Clr Drug Dosing mL/min Estimated GFR (MDRD) (>60) BUN/Creatinine Ratio (9-20) Glucose (80-116) mg/dL Calcium (8.6-10.2) mg/dL Magnesium 1.9 (1.8-2.5) mg/dL Total Bilirubin (0.1-1.3) mg/dL AST (5-25) IU/L ALT (12-36) U/L Alkaline Phosphatase (56-112) IU/L Total Protein (6.0-8.0) g/dL Albumin (3.2-4.6) g/dL Globulin g/dL Albumin/Globulin Ratio Med Orders - Current: Current Medications Acetaminophen (Tylenol) 325 mg RECTAL Q4H PRN PRN Reason: Fever Artificial Tears (Refresh Celluvisc) 1 each EYEBOTH QID PRN PRN Reason: DRY EYES Citalopram Hydrobromide (Celexa) 10 mg PO DAILY [facility] Last Admin: 11/20/19 13:13 Dose: 10 mg Heparin Sodium (Porcine) (Heparin Lock Flush 10 Units/Ml) 50 unit FLUSH ASDIRECTED [facility] Last Admin: 11/20/19 09:15 Dose: 50 unit Hydrocortisone (Hydrocortisone 2.5% Crm) 0 gm TOP QID [facility] Last Admin: 11/20/19 20:03 Dose: 1 applic Multivitamins/Minerals 10 ml/Amino Ac/Electrol/Dextrose/Calcium 1,010 mls @ 84 mls/hr IV .BY DURATION [facility] Last Admin: 11/21/19 05:55 Dose: 84 mls/hr Amino Ac/Electrol/Dextrose/Calcium (Clinimix E 01/15) 1,000 mls @ 84 mls/hr IV .BY DURATION [facility] Last Admin: 11/20/19 17:48 Dose: 84 mls/hr Fat Emulsion Intravenous (Intralipid 20%) 250 mls @ 20 mls/hr IV [id number]@2100 [facility] Last Admin: 11/19/19 20:48 Dose: 20 mls/hr Lidocaine HCl (Glydo) 10 ml .XX ASDIRECTED [facility] Last Admin: 11/17/19 18:16 Dose: 6 ml Morphine Sulfate (Morphine) 0.5 mg IVPUSH Q2H PRN PRN Reason: Pain Last Admin: 11/20/19 21:00 Dose: 0.5 mg Ondansetron HCl (Zofran) 4 mg IVPUSH Q6H PRN PRN Reason: Nausea/Vomiting Pantoprazole Sodium (Protonix Iv) 40 mg IVPUSH DAILY [facility] Last Admin: 11/20/19 09:06 Dose: 40 mg Sodium Chloride (Saline Flush) 10 ml FLUSH ASDIRECTED PRN PRN Reason: Keep Vein Open Last Admin: 11/20/19 21:03 Dose: 10 ml Discontinued Medications Artificial Tears (Refresh) 1 each EYEBOTH QID PRN PRN Reason: Dry Eyes Ceftriaxone Sodium (Rocephin) 1 gm IM ONETIME ONE Stop: 11/14/19 14:51 Last Admin: 11/14/19 21:27 Dose: Not Given Ceftriaxone Sodium (Rocephin) 2 gm IVPUSH Q24H [facility] Ceftriaxone Sodium (Rocephin) 1 gm IVPUSH Q24H [facility] Stop: 11/18/19 18:01 Last Admin: 11/18/19 17:30 Dose: 1 gm Cyclosporine (Restasis) 1 each EYEBOTH BID PRN PRN Reason: Dry Eyes Heparin Sodium (Porcine) (Heparin Lock Flush 100 Units/Ml) Confirm Administered Dose 1,500 units .ROUTE .STK-MED ONE Stop: 11/19/19 15:56 Last Admin: 11/19/19 17:12 Dose: Not Given Heparin Sodium (Porcine) (Heparin Lock Flush 100 Units/Ml) 500 units FLUSH ONETIME ONE Stop: 11/19/19 16:01 Last Admin: 11/19/19 17:26 Dose: 500 units Heparin Sodium (Porcine) (Heparin Lock Flush 100 Units/Ml) 500 units FLUSH ONETIME ONE Stop: 11/19/19 16:01 Last Admin: 11/19/19 17:27 Dose: 500 units Heparin Sodium (Porcine) (Heparin Lock Flush 100 Units/Ml) 500 units FLUSH ONETIME ONE Stop: 11/19/19 16:01 Last Admin: 11/19/19 17:27 Dose: 500 units Hydrocortisone (Hydrocortisone 2.5% Crm) 0 gm TOP QID PRN PRN Reason: Hemorrhoids Last Admin: 11/19/19 20:48 Dose: 1 applic Sodium Chloride (Normal Saline) 1,000 mls @ 100 [facility] Last Admin: 11/16/19 02:17 Dose: 100 mls/hr Potassium Chloride (Kcl 20 Meq In Water 100 Ml) 100 mls @ 50 mls/hr IV Q2H BRANDYN Stop: 11/14/19 21:59 Last Admin: 11/14/19 20:06 Dose: 50 mls/hr Potassium Chloride (Kcl 20 Meq In Water 100 Ml) 100 mls @ 50 mls/hr IV Q2H [facility] Stop: 11/15/19 12:59 Last Admin: 11/15/19 15:41 Dose: 50 mls/hr Magnesium Sulfate (Magnesium Sulfate In Water Premix) 25 mls @ 50 mls/hr IV ONETIME ONE Stop: 11/15/19 11:29 Last Admin: 11/15/19 11:08 Dose: 50 mls/hr Potassium Chloride (Kcl 20 Meq In Water 100 Ml) Confirm Administered Dose 100 mls @ as directed .ROUTE .STK-MED ONE Stop: 11/15/19 15:39 Last Admin: 11/15/19 15:41 Dose: Not Given Potassium Chloride/Dextrose/Sod Cl (D5 1/4 Ns With 20 Meq Kcl) 1,000 mls @ 100 [facility]ls[facility] Last Admin: 11/17/19 07:58 Dose: 100 mls/hr Dextrose/Lactated Ringer's (Dextrose 5%-Lactated Ringers) 1,000 mls @ 60 mls/ [facility] Last Admin: 11/19/19 13:00 Dose: 60 mls/hr Magnesium Sulfate 1 gm/ Sodium (Chloride) 52 mls @ 50 mls/hr IV ONETIME ONE Stop: 11/19/19 09:47 Last Admin: 11/19/19 09:24 Dose: 50 mls/hr Multivitamins/Minerals 10 ml/Amino Ac/Electrol/Dextrose/Calcium 1,010 mls @ 42 mls/hr IV ONETIME ONE Stop: 11/20/19 18:02 Last Admin: 11/19/19 17:27 Dose: 42 mls/hr Iopamidol (Isovue-370 (76%)) 75 ml IV . DIRECTED ONE Stop: 11/14/19 12:18 Last Admin: 11/14/19 12:35 Dose: 75 ml Magnesium Oxide (Magnesium Oxide) 400 mg NGTUBE BID [facility] Last Admin: 11/19/19 08:38 Dose: 400 mg Morphine Sulfate (Morphine) 2 mg IVPUSH ONETIME ONE Stop: 11/14/19 13:45 Last Admin: 11/14/19 13:57 Dose: 2 mg Morphine Sulfate (Morphine) 1 mg IVPUSH Q2H PRN PRN Reason: Pain Last Admin: 11/17/19 22:15 Dose: 1 mg Potassium Chloride (Potassium Chloride Solution) 20 meq NGTUBE TID [facility] Last Admin: 11/19/19 08:37 Dose: 20 meq Potassium Chloride (Potassium Chloride Solution) 20 meq PO TID [facility] Last Admin: 11/20/19 11:16 Dose: Not Given Sodium Biphosphate/Sodium Phosphate (Fleet Enema) 133 ml RECTAL ONETIME ONE Stop: 11/20/19 08:01 Last Admin: 11/20/19 08:04 Dose: 1 enema - Exam General: Alert, Oriented, Cooperative, No Acute Distress HEENT: Other (Mucous membranes dry.) Lungs: Clear to Auscultation, Normal Respiratory Effort Cardiovascular: Regular Rate, Regular Rhythm GI/Abdominal Exam: Normal Bowel Sounds (BUQ), Soft, No Distention, Guarding, Tender (LLQ), Abnormal Bowel Sounds (BLQ). No: Rigid, Rebound Extremities: Pedal Edema (trace) Skin: Ecchymosis (right forearm & antecubital fossa(previous iv sites)) Sepsis Event Note - Evaluation Sepsis Screening Result: No Definite Risk - Focused Exam Vital Signs: Vital Signs Temp Pulse Resp BP Pulse Ox 11/21/19 07:51 98.1 F 101 H 18 96/59 L 97 11/21/19 00:00 16 Date Exam was Performed: 11/21/19 Time Exam was Performed: 08:34 - Problem List & Annotations (1) Partial bowel obstruction SNOMED Code(s): 67140327837451741 Code(s): K56.600 - PARTIAL INTESTINAL OBSTRUCTION, UNSPECIFIED TO CAUSE Status: Acute Current Visit: Yes Annotation/Comment:: Flex sig yesterday showed inflammation of rectum & sigmoid, pathology pending. (2) Colitis SNOMED Code(s): 09442289 Code(s): K52.9 - NONINFECTIVE GASTROENTERITIS AND COLITIS, UNSPECIFIED Status: Acute Current Visit: Yes (3) Hypokalemia SNOMED Code(s): 61595131 Code(s): E87.6 - HYPOKALEMIA Status: Acute Current Visit: Yes Annotation/Comment:: improving. (4) Hypoalbuminemia due to protein-calorie malnutrition SNOMED Code(s): 76778037110094 Code(s): E88.09 - OTH DISORDERS OF PLASMA-PROTEIN METABOLISM, NEC; E46 - UNSPECIFIED PROTEIN-CALORIE MALNUTRITION Status: Acute Current Visit: Yes Annotation/Comment:: TPN started 11/18, repeat labs on Sunday. (5) Edema due to hypoalbuminemia SNOMED Code(s): 424128024 Code(s): R60.9 - EDEMA, UNSPECIFIED; E88.09 - OT DISORDERS OF PLASMA- PROTEIN METABOLISM, NEC Status: Acute Current Visit: Yes (6) Hypomagnesemia SNOMED Code(s): 395786049 Code(s): E83.42 - HYPOMAGNESEMIA Status: Resolved Current Visit: Yes (7) Dehydration SNOMED Code(s): 90807879 Code(s): E86.0 - DEHYDRATION Status: Resolved Current Visit: Yes (8) UTI (urinary tract infection) SNOMED Code(s): 90432429 Code(s): N39.0 - URINARY TRACT INFECTION, SITE NOT SPECIFIED Status: Resolved Current Visit: Yes Annotation/Comment:: Completed abx course. (9) Osteoporosis SNOMED Code(s): 06942459 Code(s): M81.0 - AGE-RELATED OSTEOPOROSIS W/O CURRENT PATHOLOGICAL FRACTURE Status: Chronic Current Visit: Yes (10) Depression SNOMED Code(s): 86864193 Code(s): F32.9 - MAJOR DEPRESSIVE DISORDER, SINGLE EPISODE, UNSPECIFIED Status: Chronic Current Visit: Yes (11) Iron deficiency anemia SNOMED Code(s): 53637513 Code(s): D50.9 - IRON DEFICIENCY ANEMIA, UNSPECIFIED Status: Chronic Current Visit: Yes Qualifiers: Iron deficiency anemia type: inadequate dietary iron intake Qualified Code( s): D50.8 - Other iron deficiency anemias - Problem List Review Problem List Initiated/Reviewed/Updated: Yes - My Orders Last 24 Hours: My Active Orders 11/20/19 09:00 Hydrocortisone [Hydrocortisone 2.5% Crm] 0 gm TOP QID 11/20/19 12:00 Citalopram [Celexa] 10 mg PO DAILY 11/20/19 12:15 Carboxymethylcellulose Sodium [Refresh Celluvisc] 1 each EYEBOTH QID PRN 11/20/19 18:00 ALT Order 11/21/19 07:54 Accu Check [Blood Glucose Check, Bedside] [RC] TIDMEALS 11/24/19 15:28 COMPREHENSIVE METABOLIC PN,CMP [CHEM] MOTU 11/24/19 15:29 CBC WITH AUTO DIFF [HEME] MO MAGNESIUM [CHEM] MOTH 11/24/19 15:30 INR,PT,PROTHROMBIN TIME [COAG] MO 11/25/19 15:28 COMPREHENSIVE METABOLIC PN,CMP [CHEM] MOTU 11/27/19 15:29 MAGNESIUM [CHEM] MOTH 12/01/19 15:28 COMPREHENSIVE METABOLIC PN,CMP [CHEM] MOTU 12/01/19 15:29 CBC WITH AUTO DIFF [HEME] MO MAGNESIUM [CHEM] MOTH 12/01/19 15:30 INR,PT,PROTHROMBIN TIME [COAG] MO 12/02/19 15:28 COMPREHENSIVE METABOLIC PN,CMP [CHEM] MOTU 12/04/19 15:29 MAGNESIUM [CHEM] MOTH 12/08/19 15:28 COMPREHENSIVE METABOLIC PN,CMP [CHEM] MOTU 12/08/19 15:29 CBC WITH AUTO DIFF [HEME] MO MAGNESIUM [CHEM] MOTH 12/08/19 15:30 INR,PT,PROTHROMBIN TIME [COAG] MO 12/09/19 15:28 COMPREHENSIVE METABOLIC PN,CMP [CHEM] MOTU 12/11/19 15:29 MAGNESIUM [CHEM] MOTH 12/15/19 15:28 COMPREHENSIVE METABOLIC PN,CMP [CHEM] MOTU 12/15/19 15:29 CBC WITH AUTO DIFF [HEME] MO MAGNESIUM [CHEM] MOTH 12/15/19 15:30 INR,PT,PROTHROMBIN TIME [COAG] MO 12/18/19 15:29 MAGNESIUM [CHEM] MOTH 12/22/19 15:29 MAGNESIUM [CHEM] MOTH 12/22/19 15:30 INR,PT,PROTHROMBIN TIME [COAG] MO 12/29/19 15:30 INR,PT,PROTHROMBIN TIME [COAG] MO 01/05/20 15:30 INR,PT,PROTHROMBIN TIME [COAG] MO - Plan Plan:: 1. Colitis with secondary partial bowel obstruction. Flex sig yesterday with Dr Srivastava, marked inflammation of rectum & sigmoid. Pathology pending. 2. CBC, CMP, magnesium & INR Sunday. 3. NPO with ice chips. Oral cares as needed. 4. Morphine 0.5 mg IV q2h as needed. 6. GI prophylaxis: Protonix 40 mg IV daily. 7. DVT prophylaxis: TEDS, ambulate. INR 1.38, hold off anticoagulants.
[2019-11-21] MEDS: Hydrocortisone 2.5% Crm 30 GM Tube TOP SCH ×4 (09:26→21:08)
[2019-11-21] MEDS: Citalopram 10 MG Tab PO SCH (09:26)
[2019-11-21] MEDS: Pantoprazole 40 MG Vial IVPUSH SCH (09:26)
[2019-11-21] MEDS: Sodium Chloride 0.9% 10 ML Syringe FLUSH PRN ×2 (09:26→17:50)
--- NOTE | 2019-11-21 12:04 | PCM.SURGPN ---
- General Info Date of Service: 11/21/19 POD#: 1 Functional Status: Reports: Pain Controlled, Ambulating - Review of Systems General: Reports: No Symptoms Gastrointestinal: Reports: No Symptoms - Patient Data Vitals - Most Recent: Last Vital Signs Temp 98.1 F 11/21/19 07:51 Pulse 101 H 11/21/19 07:51 Resp 18 11/21/19 07:51 BP 96/59 L 11/21/19 07:51 Pulse Ox 97 11/21/19 07:51 Weight - Most Recent: 66.814 kg I&O - Last 24 Hours: Intake & Output 11/20/19 11/21/19 11/21/19 22:59 06:59 14:59 Intake Total 384 789 Output Total 300 Balance 384 489 Med Orders - Current: Current Medications Acetaminophen (Tylenol) 325 mg RECTAL Q4H PRN PRN Reason: Fever Artificial Tears (Refresh Celluvisc) 1 each EYEBOTH QID PRN PRN Reason: DRY EYES Citalopram Hydrobromide (Celexa) 10 mg PO DAILY [facility] Last Admin: 11/21/19 09:26 Dose: 10 mg Heparin Sodium (Porcine) (Heparin Lock Flush 10 Units/Ml) 50 unit FLUSH ASDIRECTED [facility] Last Admin: 11/20/19 09:15 Dose: 50 unit Hydrocortisone (Hydrocortisone 2.5% Crm) 0 gm TOP QID [facility] Last Admin: 11/21/19 09:26 Dose: 1 applic Multivitamins/Minerals 10 ml/Amino Ac/Electrol/Dextrose/Calcium 1,010 mls @ 84 mls/hr IV .BY DURATION [facility] Last Admin: 11/21/19 05:55 Dose: 84 mls/hr Amino Ac/Electrol/Dextrose/Calcium (Clinimix E 5/15) 1,000 mls @ 84 mls/hr IV .BY DURATION [facility] Last Admin: 11/20/19 17:48 Dose: 84 mls/hr Fat Emulsion Intravenous (Intralipid 20%) 250 mls @ 20 mls/hr IV [id number] [facility] Last Admin: 11/19/19 20:48 Dose: 20 mls/hr Lidocaine HCl (Glydo) 10 ml .XX ASDIRECTED [facility] Last Admin: 11/17/19 18:16 Dose: 6 ml Morphine Sulfate (Morphine) 0.5 mg IVPUSH Q2H PRN PRN Reason: Pain Last Admin: 11/20/19 21:00 Dose: 0.5 mg Ondansetron HCl (Zofran) 4 mg IVPUSH Q6H PRN PRN Reason: Nausea/Vomiting Pantoprazole Sodium (Protonix Iv) 40 mg IVPUSH DAILY [facility] Last Admin: 11/21/19 09:26 Dose: 40 mg Sodium Chloride (Saline Flush) 10 ml FLUSH ASDIRECTED PRN PRN Reason: Keep Vein Open Last Admin: 11/21/19 09:26 Dose: 10 ml Discontinued Medications Artificial Tears (Refresh) 1 each EYEBOTH QID PRN PRN Reason: Dry Eyes Ceftriaxone Sodium (Rocephin) 1 gm IM ONETIME ONE Stop: 11/14/19 14:51 Last Admin: 11/14/19 21:27 Dose: Not Given Ceftriaxone Sodium (Rocephin) 2 gm IVPUSH Q24H [facility] Ceftriaxone Sodium (Rocephin) 1 gm IVPUSH Q24H [facility] Stop: 11/18/19 18:01 Last Admin: 11/18/19 17:30 Dose: 1 gm Cyclosporine (Restasis) 1 each EYEBOTH BID PRN PRN Reason: Dry Eyes Heparin Sodium (Porcine) (Heparin Lock Flush 100 Units/Ml) Confirm Administered Dose 1,500 units .ROUTE .STK-MED ONE Stop: 11/19/19 15:56 Last Admin: 11/19/19 17:12 Dose: Not Given Heparin Sodium (Porcine) (Heparin Lock Flush 100 Units/Ml) 500 units FLUSH ONETIME ONE Stop: 11/19/19 16:01 Last Admin: 11/19/19 17:26 Dose: 500 units Heparin Sodium (Porcine) (Heparin Lock Flush 100 Units/Ml) 500 units FLUSH ONETIME ONE Stop: 11/19/19 16:01 Last Admin: 11/19/19 17:27 Dose: 500 units Heparin Sodium (Porcine) (Heparin Lock Flush 100 Units/Ml) 500 units FLUSH ONETIME ONE Stop: 11/19/19 16:01 Last Admin: 11/19/19 17:27 Dose: 500 units Hydrocortisone (Hydrocortisone 2.5% Crm) 0 gm TOP QID PRN PRN Reason: Hemorrhoids Last Admin: 11/19/19 20:48 Dose: 1 applic Sodium Chloride (Normal Saline) 1,000 mls @ 100 mls/hr IV ASDIRECTED [facility] Last Admin: 11/16/19 02:17 Dose: 100 mls/hr Potassium Chloride (Kcl 20 Meq In Water 100 Ml) 100 mls @ 50 mls/hr IV Q2H [facility] Stop: 11/14/19 21:59 Last Admin: 11/14/19 20:06 Dose: 50 mls/hr Potassium Chloride (Kcl 20 Meq In Water 100 Ml) 100 mls @ 50 mls/hr IV Q2H [facility] Stop: 11/15/19 12:59 Last Admin: 11/15/19 15:41 Dose: 50 mls/hr Magnesium Sulfate (Magnesium Sulfate In Water Premix) 25 mls @ 50 mls/hr IV ONETIME ONE Stop: 11/15/19 11:29 Last Admin: 11/15/19 11:08 Dose: 50 mls/hr Potassium Chloride (Kcl 20 Meq In Water 100 Ml) Confirm Administered Dose 100 mls @ as directed .ROUTE .STK-MED ONE Stop: 11/15/19 15:39 Last Admin: 11/15/19 15:41 Dose: Not Given Potassium Chloride/Dextrose/Sod Cl (D5 1/4 Ns With 20 Meq Kcl) 1,000 mls @ [facility] Admin: 11/17/19 07:58 Dose: 100 mls/hr Dextrose/Lactated Ringer's (Dextrose 5%-Lactated Ringers) 1,000 mls @ 60 mls/ [facility] Last Admin: 11/19/19 13:00 Dose: 60 mls/hr Magnesium Sulfate 1 gm/ Sodium (Chloride) 52 mls @ 50 mls/hr IV ONETIME ONE Stop: 11/19/19 09:47 Last Admin: 11/19/19 09:24 Dose: 50 mls/hr Multivitamins/Minerals 10 ml/Amino Ac/Electrol/Dextrose/Calcium 1,010 mls @ 42 mls/hr IV ONETIME ONE Stop: 11/20/19 18:02 Last Admin: 11/19/19 17:27 Dose: 42 mls/hr Iopamidol (Isovue-370 (76%)) 75 ml IV . DIRECTED ONE Stop: 11/14/19 12:18 Last Admin: 11/14/19 12:35 Dose: 75 ml Magnesium Oxide (Magnesium Oxide) 400 mg NGTUBE BID [facility] Last Admin: 11/19/19 08:38 Dose: 400 mg Morphine Sulfate (Morphine) 2 mg IVPUSH ONETIME ONE Stop: 11/14/19 13:45 Last Admin: 11/14/19 13:57 Dose: 2 mg Morphine Sulfate (Morphine) 1 mg IVPUSH Q2H PRN PRN Reason: Pain Last Admin: 11/17/19 22:15 Dose: 1 mg Potassium Chloride (Potassium Chloride Solution) 20 meq NGTUBE TID [facility] Last Admin: 11/19/19 08:37 Dose: 20 meq Potassium Chloride (Potassium Chloride Solution) 20 meq PO TID [facility] Last Admin: 11/20/19 11:16 Dose: Not Given Sodium Biphosphate/Sodium Phosphate (Fleet Enema) 133 ml RECTAL ONETIME ONE Stop: 11/20/19 08:01 Last Admin: 11/20/19 08:04 Dose: 1 enema - Exam Lungs: Clear to Auscultation, Normal Respiratory Effort Cardiovascular: Regular Rate, Regular Rhythm GI/Abdominal Exam: Normal Bowel Sounds, Soft, Non-Tender Sepsis Event Note - Evaluation Sepsis Screening Result: No Definite Risk - Focused Exam Vital Signs: Vital Signs Temp Pulse Resp BP Pulse Ox 11/21/19 07:51 98.1 F 101 H 18 96/59 L 97 Date Exam was Performed: 11/21/19 Time Exam was Performed: 12:01 - Problem List & Annotations (1) Paralytic ileus SNOMED Code(s): 55503532 Code(s): K56.0 - PARALYTIC ILEUS Status: Acute Current Visit: Yes (2) Colitis SNOMED Code(s): 52352475 Code(s): K52.9 - NONINFECTIVE GASTROENTERITIS AND COLITIS, UNSPECIFIED Status: Acute Current Visit: Yes - Problem List Review Problem List Initiated/Reviewed/Updated: Yes - My Orders Last 24 Hours: Active Orders 24 hr Category Date Time Status Accu Check [Blood Glucose Check, Bedside] [RC] TIDMEALS Care 11/21/19 07:54 Active CBC WITH AUTO DIFF [HEME] MO Lab 11/24/19 15:29 Ordered CBC WITH AUTO DIFF [HEME] MO Lab 12/01/19 15:29 Ordered CBC WITH AUTO DIFF [HEME] MO Lab 12/08/19 15:29 Ordered CBC WITH AUTO DIFF [HEME] MO Lab 12/15/19 15:29 Ordered COMPREHENSIVE METABOLIC PN,CMP [CHEM] [facility] Lab 11/24/19 15:28 Ordered COMPREHENSIVE METABOLIC PN,CMP [CHEM] [facility] Lab 11/25/19 15:28 Ordered COMPREHENSIVE METABOLIC PN,CMP [CHEM] [facility] Lab 12/01/19 15:28 Ordered COMPREHENSIVE METABOLIC PN,CMP [CHEM] [facility] Lab 12/02/19 15:28 Ordered COMPREHENSIVE METABOLIC PN,CMP [CHEM] [facility] Lab 12/08/19 15:28 Ordered COMPREHENSIVE METABOLIC PN,CMP [CHEM] [facility] Lab 12/09/19 15:28 Ordered COMPREHENSIVE METABOLIC PN,CMP [CHEM] [facility] Lab 12/15/19 15:28 Ordered INR,PT,PROTHROMBIN TIME [COAG] MO Lab 11/24/19 15:30 Ordered INR,PT,PROTHROMBIN TIME [COAG] MO Lab 12/01/19 15:30 Ordered INR,PT,PROTHROMBIN TIME [COAG] MO Lab 12/08/19 15:30 Ordered INR,PT,PROTHROMBIN TIME [COAG] MO Lab 12/15/19 15:30 Ordered INR,PT,PROTHROMBIN TIME [COAG] MO Lab 12/22/19 15:30 Ordered INR,PT,PROTHROMBIN TIME [COAG] MO Lab 12/29/19 15:30 Ordered INR,PT,PROTHROMBIN TIME [COAG] MO Lab 01/05/20 15:30 Ordered MAGNESIUM [CHEM] MOTH Lab 11/24/19 15:29 Ordered MAGNESIUM [CHEM] MOTH Lab 11/27/19 15:29 Ordered MAGNESIUM [CHEM] MOTH Lab 12/01/19 15:29 Ordered MAGNESIUM [CHEM] MOTH Lab 12/04/19 15:29 Ordered MAGNESIUM [CHEM] MOTH Lab 12/08/19 15:29 Ordered MAGNESIUM [CHEM] MOTH Lab 12/11/19 15:29 Ordered MAGNESIUM [CHEM] MOTH Lab 12/15/19 15:29 Ordered MAGNESIUM [CHEM] MOTH Lab 12/18/19 15:29 Ordered MAGNESIUM [CHEM] MOTH Lab 12/22/19 15:29 Ordered ALT Order Med 11/20/19 18:00 Active Carboxymethylcellulose Sodium [Refresh Celluvisc] Med 11/20/19 12:15 Active 1 each EYEBOTH QID PRN Citalopram [Celexa] Med 11/20/19 12:00 Active 10 mg PO DAILY Medication Orders Acetaminophen (Tylenol) 325 mg RECTAL Q4H PRN PRN Reason: Fever Artificial Tears (Refresh Celluvisc) 1 each EYEBOTH QID PRN PRN Reason: DRY EYES Citalopram Hydrobromide (Celexa) 10 mg PO DAILY [facility] Last Admin: 11/21/19 09:26 Dose: 10 mg Admin: 11/20/19 13:13 Dose: 10 mg Heparin Sodium (Porcine) (Heparin Lock Flush 10 Units/Ml) 50 unit FLUSH ASDIRECTED [facility] Last Admin: 11/20/19 09:15 Dose: 50 unit Admin: 11/20/19 08:33 Dose: 50 unit Admin: 11/20/19 08:29 Dose: 50 unit Hydrocortisone (Hydrocortisone 2.5% Crm) 0 gm TOP QID [facility] Last Admin: 11/21/19 09:26 Dose: 1 applic Admin: 11/20/19 20:03 Dose: 1 applic Admin: 11/20/19 17:47 Dose: 1 applic Admin: 11/20/19 13:18 Dose: 1 applic Admin: 11/20/19 11:08 Dose: 1 applic Multivitamins/Minerals 10 ml/Amino Ac/Electrol/Dextrose/Calcium 1,010 mls @ 84 mls/hr IV .BY DURATION [facility] Last Admin: 11/21/19 05:55 Dose: 84 mls/hr Amino Ac/Electrol/Dextrose/Calcium (Clinimix E 5/15) 1,000 mls @ 84 mls/hr IV .BY DURATION [facility] Last Admin: 11/20/19 17:48 Dose: 84 mls/hr Fat Emulsion Intravenous (Intralipid 20%) 250 mls @ 20 mls/hr IV [id number]@2100 [facility] Last Admin: 11/19/19 20:48 Dose: 20 mls/hr Lidocaine HCl (Glydo) 10 ml .XX ASDIRECTED [facility] Last Admin: 11/17/19 18:16 Dose: 6 ml Morphine Sulfate (Morphine) 0.5 mg IVPUSH Q2H PRN PRN Reason: Pain Last Admin: 11/20/19 21:00 Dose: 0.5 mg Ondansetron HCl (Zofran) 4 mg IVPUSH Q6H PRN PRN Reason: Nausea/Vomiting Pantoprazole Sodium (Protonix Iv) 40 mg IVPUSH DAILY [facility] Last Admin: 11/21/19 09:26 Dose: 40 mg Admin: 11/20/19 09:06 Dose: 40 mg Admin: 11/19/19 08:49 Dose: 40 mg Admin: 11/18/19 09:29 Dose: 40 mg Admin: 11/17/19 10:39 Dose: 40 mg Admin: 11/16/19 15:30 Dose: 40 mg Sodium Chloride (Saline Flush) 10 ml FLUSH ASDIRECTED PRN PRN Reason: Keep Vein Open Last Admin: 11/21/19 09:26 Dose: 10 ml Admin: 11/20/19 21:03 Dose: 10 ml Admin: 11/20/19 21:00 Dose: 10 ml Admin: 11/20/19 09:10 Dose: 10 ml Admin: 11/20/19 08:35 Dose: 10 ml Admin: 11/20/19 08:30 Dose: 10 ml Admin: 11/20/19 08:20 Dose: 10 ml Admin: 11/17/19 22:17 Dose: 10 ml Admin: 11/15/19 18:09 Dose: 10 ml Admin: 11/15/19 17:28 Dose: 10 ml Admin: 11/15/19 17:26 Dose: 10 ml Admin: 11/14/19 12:26 Dose: 10 ml - Assessment Assessment (Free Text/Narrative):: stable exam non surgical abdomen - Plan Plan (Free Text/Narrative):: await path results. would continue current rx.
[2019-11-21] MEDS ORDERED: Melatonin 3 MG Tab PO PRN (16:51)
[2019-11-21] MEDS: methylPREDNISolone Sodium Succinate 125 MG/2 ML SDV IVPUSH SCH (17:50)
[2019-11-21] MEDS: Insulin Lispro 100 Unit/ML 3 ML KwikPen SUBCUT SCH (18:38)
[2019-11-21] MEDS: Fat Emulsion 250 ML IV SCH (21:09)
[2019-11-22] MEDS: CALC IV SCH ×4 (06:39→19:17)
[2019-11-22] MEDS: CALCIUM IV SCH ×4 (06:39→19:17)
[2019-11-22] MEDS: MVI IV SCH ×4 (06:39→19:17)
[2019-11-22] MEDS: [UNRECOGNIZED DRUG - OTHER] IV SCH ×4 (06:39→19:17)
[2019-11-22] MEDS: LYTES IV SCH ×4 (06:39→19:17)
[2019-11-22] MEDS: Citalopram 10 MG Tab PO SCH (08:06)
[2019-11-22] MEDS: Pantoprazole 40 MG Vial IVPUSH SCH (08:06)
[2019-11-22] MEDS: methylPREDNISolone Sodium Succinate 125 MG/2 ML SDV IVPUSH SCH (08:06)
[2019-11-22] MEDS: Hydrocortisone 2.5% Crm 30 GM Tube TOP SCH ×4 (08:07→20:57)
[2019-11-22] MEDS: Insulin Lispro 100 Unit/ML 3 ML KwikPen SUBCUT SCH ×3 (08:08→18:26)
[2019-11-22] MEDS ORDERED: Simethicone 80 MG Tab.Chew PO PRN (08:08)
--- NOTE | 2019-11-22 08:17 | PCM.PN ---
- General Info Date of Service: 11/22/19 Subjective Update: Rosaura is feeling better this morning, getting hungry. Having belching but not passing much gas distally. Pathology came back leukocytic colitis. C. diff was negative. SoluMedrol 125 mg IV given yesterday and second dose this morning. Pain is about the same in the left lower side, still having small loose stools. Feeling a little bloated today. More alert and up in the chair today. Slept ok overnight. Not lightheaded or weak when she got up to the bathroom this morning , feeling stronger. Functional Status: Reports: Pain Controlled - Patient Data Vitals - Most Recent: Last Vital Signs Temp 97.7 F 11/22/19 02:30 Pulse 105 H 11/22/19 02:30 Resp 20 11/22/19 02:30 BP 92/65 11/22/19 02:30 Pulse Ox 98 11/22/19 02:30 Weight - Most Recent: 149 lb 12.8 oz I&O - Last 24 Hours: Intake & Output 11/21/19 11/22/19 11/22/19 22:59 06:59 14:59 Intake Total 1287 838 Output Total 200 500 Balance 1087 338 Lab Results Last 24 Hours: Laboratory Results - last 24 hr 11/21/19 11/21/19 11/22/19 Range/Units 12:48 17:50 05:22 POC Glucose 139 H 137 H 253 H D (80-116) mg/dL Rodolfo Results Last 24 Hours: Microbiology 11/21/19 15:50 C. difficile Antigen & Toxins A,B - Final Stool / Feces Med Orders - Current: Current Medications Acetaminophen (Tylenol) 325 mg RECTAL Q4H PRN PRN Reason: Fever Artificial Tears (Refresh Celluvisc) 1 each EYEBOTH QID PRN PRN Reason: DRY EYES Citalopram Hydrobromide (Celexa) 10 mg PO DAILY [facility] Last Admin: 11/22/19 08:06 Dose: 10 mg Heparin Sodium (Porcine) (Heparin Lock Flush 10 Units/Ml) 50 unit FLUSH ASDIRECTED [facility] Last Admin: 11/20/19 09:15 Dose: 50 unit Hydrocortisone (Hydrocortisone 2.5% Crm) 0 gm TOP QID [facility] Last Admin: 11/22/19 08:07 Dose: 1 applic Multivitamins/Minerals 10 ml/Amino Ac/Electrol/Dextrose/Calcium 1,010 mls @ 84 mls/hr IV .BY DURATION [facility] Last Admin: 11/22/19 06:39 Dose: 84 mls/hr Amino Ac/Electrol/Dextrose/Calcium (Clinimix E 5/15) 1,000 mls @ 84 mls/hr IV .BY DURATION [facility] Last Admin: 11/21/19 18:38 Dose: 84 mls/hr Fat Emulsion Intravenous (Intralipid 20%) 250 mls @ 20 mls/hr IV [id number]@2100 [facility] Last Admin: 11/21/19 21:09 Dose: 20 mls/hr Insulin Human Lispro (Humalog) 0 unit SUBCUT TIDMEALS [facility]; Protocol Last Admin: 11/22/19 08:08 Dose: 6 units Lidocaine HCl (Glydo) 10 ml .XX ASDIRECTED [facility] Last Admin: 11/17/19 18:16 Dose: 6 ml Melatonin (Melatonin) 6 mg PO BEDTIME PRN PRN Reason: Insomnia Methylprednisolone Sodium Succinate (Solu-Medrol) 125 mg IVPUSH DAILY [facility] Last Admin: 11/22/19 08:06 Dose: 125 mg Morphine Sulfate (Morphine) 0.5 mg IVPUSH Q2H PRN PRN Reason: Pain Last Admin: 11/20/19 21:00 Dose: 0.5 mg Ondansetron HCl (Zofran) 4 mg IVPUSH Q6H PRN PRN Reason: Nausea/Vomiting Pantoprazole Sodium (Protonix Iv) 40 mg IVPUSH DAILY [facility] Last Admin: 11/22/19 08:06 Dose: 40 mg Simethicone (Simethicone) 80 mg PO TIDPC PRN PRN Reason: Gas Sodium Chloride (Saline Flush) 10 ml FLUSH ASDIRECTED PRN PRN Reason: Keep Vein Open Last Admin: 11/21/19 17:50 Dose: 10 ml Discontinued Medications Artificial Tears (Refresh) 1 each EYEBOTH QID PRN PRN Reason: Dry Eyes Ceftriaxone Sodium (Rocephin) 1 gm IM ONETIME ONE Stop: 11/14/19 14:51 Last Admin: 11/14/19 21:27 Dose: Not Given Ceftriaxone Sodium (Rocephin) 2 gm IVPUSH Q24H [facility] Ceftriaxone Sodium (Rocephin) 1 gm IVPUSH Q24H [facility] Stop: 11/18/19 18:01 Last Admin: 11/18/19 17:30 Dose: 1 gm Cyclosporine (Restasis) 1 each EYEBOTH BID PRN PRN Reason: Dry Eyes Heparin Sodium (Porcine) (Heparin Lock Flush 100 Units/Ml) Confirm Administered Dose 1,500 units .ROUTE .STK-MED ONE Stop: 11/19/19 15:56 Last Admin: 11/19/19 17:12 Dose: Not Given Heparin Sodium (Porcine) (Heparin Lock Flush 100 Units/Ml) 500 units FLUSH ONETIME ONE Stop: 11/19/19 16:01 Last Admin: 11/19/19 17:26 Dose: 500 units Heparin Sodium (Porcine) (Heparin Lock Flush 100 Units/Ml) 500 units FLUSH ONETIME ONE Stop: 11/19/19 16:01 Last Admin: 11/19/19 17:27 Dose: 500 units Heparin Sodium (Porcine) (Heparin Lock Flush 100 Units/Ml) 500 units FLUSH ONETIME ONE Stop: 11/19/19 16:01 Last Admin: 11/19/19 17:27 Dose: 500 units Hydrocortisone (Hydrocortisone 2.5% Crm) 0 gm TOP QID PRN PRN Reason: Hemorrhoids Last Admin: 11/19/19 20:48 Dose: 1 applic Sodium Chloride (Normal Saline) 1,000 mls @ 100 mls/hr IV ASDIRECTED [facility] Last Admin: 11/16/19 02:17 Dose: 100 mls/hr Potassium Chloride (Kcl 20 Meq In Water 100 Ml) 100 mls @ 50 mls/hr IV Q2H [facility] Stop: 11/14/19 21:59 Last Admin: 11/14/19 20:06 Dose: 50 mls/hr Potassium Chloride (Kcl 20 Meq In Water 100 Ml) 100 mls @ 50 mls/hr IV Q2H [facility] Stop: 11/15/19 12:59 Last Admin: 11/15/19 15:41 Dose: 50 mls/hr Magnesium Sulfate (Magnesium Sulfate In Water Premix) 25 mls @ 50 mls/hr IV ONETIME ONE Stop: 11/15/19 11:29 Last Admin: 11/15/19 11:08 Dose: 50 mls/hr Potassium Chloride (Kcl 20 Meq In Water 100 Ml) Confirm Administered Dose 100 mls @ as directed .ROUTE .STK-MED ONE Stop: 11/15/19 15:39 Last Admin: 11/15/19 15:41 Dose: Not Given Potassium Chloride/Dextrose/Sod Cl (D5 1/4 Ns With 20 Meq Kcl) 1,000 mls @ 100 mls/hr IV ASDIRECTED [facility] Last Admin: 11/17/19 07:58 Dose: 100 mls/hr Dextrose/Lactated Ringer's (Dextrose 5%-Lactated Ringers) 1,000 mls @ 60 mls/ hr IV ASDIRECTED [facility] Last Admin: 11/19/19 13:00 Dose: 60 mls/hr Magnesium Sulfate 1 gm/ Sodium (Chloride) 52 mls @ 50 mls/hr IV ONETIME ONE Stop: 11/19/19 09:47 Last Admin: 11/19/19 09:24 Dose: 50 mls/hr Multivitamins/Minerals 10 ml/Amino Ac/Electrol/Dextrose/Calcium 1,010 mls @ 42 mls/hr IV ONETIME ONE Stop: 11/20/19 18:02 Last Admin: 11/19/19 17:27 Dose: 42 mls/hr Iopamidol (Isovue-370 (76%)) 75 ml IV . DIRECTED ONE Stop: 11/14/19 12:18 Last Admin: 11/14/19 12:35 Dose: 75 ml Magnesium Oxide (Magnesium Oxide) 400 mg NGTUBE BID [facility] Last Admin: 11/19/19 08:38 Dose: 400 mg Morphine Sulfate (Morphine) 2 mg IVPUSH ONETIME ONE Stop: 11/14/19 13:45 Last Admin: 11/14/19 13:57 Dose: 2 mg Morphine Sulfate (Morphine) 1 mg IVPUSH Q2H PRN PRN Reason: Pain Last Admin: 11/17/19 22:15 Dose: 1 mg Potassium Chloride (Potassium Chloride Solution) 20 meq NGTUBE TID [facility] Last Admin: 11/19/19 08:37 Dose: 20 meq Potassium Chloride (Potassium Chloride Solution) 20 meq PO TID [facility] Last Admin: 11/20/19 11:16 Dose: Not Given Sodium Biphosphate/Sodium Phosphate (Fleet Enema) 133 ml RECTAL ONETIME ONE Stop: 11/20/19 08:01 Last Admin: 11/20/19 08:04 Dose: 1 enema - Exam General: Alert, Oriented, Cooperative, No Acute Distress Lungs: Clear to Auscultation, Normal Respiratory Effort Cardiovascular: Regular Rate, Regular Rhythm GI/Abdominal Exam: Soft, Distended (upper quadrants), Guarding, Tender (LUQ & LLQ), Abnormal Bowel Sounds (hypoactive). No: Rigid, Rebound Sepsis Event Note - Evaluation Sepsis Screening Result: No Definite Risk - Focused Exam Vital Signs: Vital Signs Temp Pulse Resp BP Pulse Ox 11/22/19 02:30 97.7 F 105 H 20 92/65 98 Date Exam was Performed: 11/22/19 Time Exam was Performed: 08:11 - Problem List & Annotations (1) Partial bowel obstruction SNOMED Code(s): 03068968394716804 Code(s): K56.600 - PARTIAL INTESTINAL OBSTRUCTION, UNSPECIFIED TO CAUSE Status: Acute Current Visit: Yes Annotation/Comment:: Flex sig yesterday showed inflammation of rectum & sigmoid, pathology leukocytic colitis with ulcerations. C. Diff negative. (2) Colitis SNOMED Code(s): 80595661 Code(s): K52.9 - NONINFECTIVE GASTROENTERITIS AND COLITIS, UNSPECIFIED Status: Acute Current Visit: Yes (3) Hypokalemia SNOMED Code(s): 46159093 Code(s): E87.6 - HYPOKALEMIA Status: Acute Current Visit: Yes Annotation/Comment:: improving. (4) Hypoalbuminemia due to protein-calorie malnutrition SNOMED Code(s): 24845954887925 Code(s): E88.09 - OTH DISORDERS OF PLASMA-PROTEIN METABOLISM, NEC; E46 - UNSPECIFIED PROTEIN-CALORIE MALNUTRITION Status: Acute Current Visit: Yes Annotation/Comment:: TPN started 11/18, repeat labs on Sunday. (5) Edema due to hypoalbuminemia SNOMED Code(s): 540212295 Code(s): R60.9 - EDEMA, UNSPECIFIED; E88.09 - OTH DISORDERS OF PLASMA- PROTEIN METABOLISM, NEC Status: Acute Current Visit: Yes (6) Hypomagnesemia SNOMED Code(s): 358733217 Code(s): E83.42 - HYPOMAGNESEMIA Status: Resolved Current Visit: Yes (7) Dehydration SNOMED Code(s): 86169593 Code(s): E86.0 - DEHYDRATION Status: Resolved Current Visit: Yes (8) UTI (urinary tract infection) SNOMED Code(s): 34307262 Code(s): N39.0 - URINARY TRACT INFECTION, SITE NOT SPECIFIED Status: Resolved Current Visit: Yes Annotation/Comment:: Completed abx course. (9) Osteoporosis SNOMED Code(s): 18247047 Code(s): M81.0 - AGE-RELATED OSTEOPOROSIS W/O CURRENT PATHOLOGICAL FRACTURE Status: Chronic Current Visit: Yes (10) Depression SNOMED Code(s): 73994664 Code(s): F32.9 - MAJOR DEPRESSIVE DISORDER, SINGLE EPISODE, UNSPECIFIED Status: Chronic Current Visit: Yes (11) Iron deficiency anemia SNOMED Code(s): 04833510 Code(s): D50.9 - IRON DEFICIENCY ANEMIA, UNSPECIFIED Status: Chronic Current Visit: Yes Qualifiers: Iron deficiency anemia type: inadequate dietary iron intake Qualified Code( s): D50.8 - Other iron deficiency anemias - Problem List Review Problem List Initiated/Reviewed/Updated: Yes - My Orders Last 24 Hours: My Active Orders 11/21/19 07:54 Accu Check [Blood Glucose Check, Bedside] [RC] TIDMEALS 11/21/19 16:45 methylPREDNISolone Sod Succ [Solu-MEDROL] 125 mg IVPUSH DAILY 11/21/19 16:51 Melatonin 6 mg PO BEDTIME PRN 11/21/19 18:00 Insulin Lispro [HumaLOG] See Protocol SUBCUT TIDMEALS 11/22/19 08:08 Simethicone 80 mg PO TIDPC PRN 11/24/19 15:28 COMPREHENSIVE METABOLIC PN,CMP [CHEM] [facility] 11/24/19 15:29 CBC WITH AUTO DIFF [HEME] MO MAGNESIUM [CHEM] MOTH 11/24/19 15:30 INR,PT,PROTHROMBIN TIME [COAG] MO 11/25/19 15:28 COMPREHENSIVE METABOLIC PN,CMP [CHEM] MOTU 11/27/19 15:29 MAGNESIUM [CHEM] MOTH 12/01/19 15:28 COMPREHENSIVE METABOLIC PN,CMP [CHEM] MOTU 12/01/19 15:29 CBC WITH AUTO DIFF [HEME] MO MAGNESIUM [CHEM] MOTH 12/01/19 15:30 INR,PT,PROTHROMBIN TIME [COAG] MO 12/02/19 15:28 COMPREHENSIVE METABOLIC PN,CMP [CHEM] MOTU 12/04/19 15:29 MAGNESIUM [CHEM] MOTH 12/08/19 15:28 COMPREHENSIVE METABOLIC PN,CMP [CHEM] MOTU 12/08/19 15:29 CBC WITH AUTO DIFF [HEME] MO MAGNESIUM [CHEM] MOTH 12/08/19 15:30 INR,PT,PROTHROMBIN TIME [COAG] MO 12/09/19 15:28 COMPREHENSIVE METABOLIC PN,CMP [CHEM] MOTU 12/11/19 15:29 MAGNESIUM [CHEM] 12/15/19 15:28 COMPREHENSIVE METABOLIC PN,CMP [CHEM] MOTU 12/15/19 15:29 CBC WITH AUTO DIFF [HEME] MO MAGNESIUM [CHEM] 12/15/19 15:30 INR,PT,PROTHROMBIN TIME [COAG] MO 12/18/19 15:29 MAGNESIUM [CHEM] 12/22/19 15:29 MAGNESIUM [CHEM] 12/22/19 15:30 INR,PT,PROTHROMBIN TIME [COAG] MO 12/29/19 15:30 INR,PT,PROTHROMBIN TIME [COAG] MO 01/05/20 15:30 INR,PT,PROTHROMBIN TIME [COAG] MO - Plan Plan:: 1. Colitis with secondary partial bowel obstruction. Flex sig with Dr Srivastava, marked inflammation of rectum & sigmoid. Pathology leukocytic colitis. C. Diff negative. SoluMedrol 125 mg IV daily, second dose today. Will continue to monitor and adjust diet based on her response to steroids. Simethicone tid as needed gas. 2. CBC, CMP, magnesium & INR Sunday. 3. NPO with ice chips. Oral cares as needed. 4. Morphine 0.5 mg IV q2h as needed. 6. GI prophylaxis: Protonix 40 mg IV daily. 7. DVT prophylaxis: TEDS, ambulate. INR 1.38, hold off anticoagulants.
--- NOTE | 2019-11-22 09:53 | PCM.SURGPN ---
- General Info Date of Service: 11/22/19 - Review of Systems General: Reports: No Symptoms, Other (hungry, feels energized ) Pulmonary: Reports: No Symptoms Cardiovascular: Reports: No Symptoms Gastrointestinal: Reports: No Symptoms - Patient Data Vitals - Most Recent: Last Vital Signs Temp 97.7 F 11/22/19 02:30 Pulse 105 H 11/22/19 02:30 Resp 20 11/22/19 02:30 BP 92/65 11/22/19 02:30 Pulse Ox 98 11/22/19 02:30 Weight - Most Recent: 67.948 kg I&O - Last 24 Hours: Intake & Output 11/21/19 11/22/19 11/22/19 22:59 06:59 14:59 Intake Total 1287 838 Output Total 200 500 Balance 1087 338 Lab Results Last 24 Hrs: Laboratory Results - last 24 hr 11/21/19 11/21/19 11/22/19 Range/Units 12:48 17:50 05:22 POC Glucose 139 H 137 H 253 H D (80-116) mg/dL Rodolfo Results Last 24 Hrs: Microbiology 11/21/19 15:50 C. difficile Antigen & Toxins A,B - Final Stool / Feces Med Orders - Current: Current Medications Acetaminophen (Tylenol) 325 mg RECTAL Q4H PRN PRN Reason: Fever Artificial Tears (Refresh Celluvisc) 1 each EYEBOTH QID PRN PRN Reason: DRY EYES Citalopram Hydrobromide (Celexa) 10 mg PO DAILY [facility] Last Admin: 11/22/19 08:06 Dose: 10 mg Heparin Sodium (Porcine) (Heparin Lock Flush 10 Units/Ml) 50 unit FLUSH ASDIRECTED [facility] Last Admin: 11/20/19 09:15 Dose: 50 unit Hydrocortisone (Hydrocortisone 2.5% Crm) 0 gm TOP QID [facility] Last Admin: 11/22/19 08:07 Dose: 1 applic Multivitamins/Minerals 10 ml/Amino Ac/Electrol/Dextrose/Calcium 1,010 mls @ 84 mls/hr IV .BY DURATION [facility] Last Admin: 11/22/19 06:39 Dose: 84 mls/hr Amino Ac/Electrol/Dextrose/Calcium (Clinimix E 15) 1,000 mls @ 84 mls/hr IV .BY DURATION [facility] Last Admin: 11/21/19 18:38 Dose: 84 mls/hr Fat Emulsion Intravenous (Intralipid 20%) 250 mls @ 20 mls/hr IV [id number] [facility] Last Admin: 11/21/19 21:09 Dose: 20 mls/hr Insulin Human Lispro (Humalog) 0 unit SUBCUT TIDMEALS [facility]; Protocol Last Admin: 11/22/19 08:08 Dose: 6 units Lidocaine HCl (Glydo) 10 ml .XX ASDIRECTED [facility] Last Admin: 11/17/19 18:16 Dose: 6 ml Melatonin (Melatonin) 6 mg PO BEDTIME PRN PRN Reason: Insomnia Methylprednisolone Sodium Succinate (Solu-Medrol) 125 mg IVPUSH DAILY [facility] Last Admin: 11/22/19 08:06 Dose: 125 mg Morphine Sulfate (Morphine) 0.5 mg IVPUSH Q2H PRN PRN Reason: Pain Last Admin: 11/20/19 21:00 Dose: 0.5 mg Ondansetron HCl (Zofran) 4 mg IVPUSH Q6H PRN PRN Reason: Nausea/Vomiting Pantoprazole Sodium (Protonix Iv) 40 mg IVPUSH DAILY [facility] Last Admin: 11/22/19 08:06 Dose: 40 mg Simethicone (Simethicone) 80 mg PO TIDPC PRN PRN Reason: Gas Sodium Chloride (Saline Flush) 10 ml FLUSH ASDIRECTED PRN PRN Reason: Keep Vein Open Last Admin: 11/21/19 17:50 Dose: 10 ml Discontinued Medications Artificial Tears (Refresh) 1 each EYEBOTH QID PRN PRN Reason: Dry Eyes Ceftriaxone Sodium (Rocephin) 1 gm IM ONETIME ONE Stop: 11/14/19 14:51 Last Admin: 11/14/19 21:27 Dose: Not Given Ceftriaxone Sodium (Rocephin) 2 gm IVPUSH Q24H [facility] Ceftriaxone Sodium (Rocephin) 1 gm IVPUSH Q24H [facility] Stop: 11/18/19 18:01 Last Admin: 11/18/19 17:30 Dose: 1 gm Cyclosporine (Restasis) 1 each EYEBOTH BID PRN PRN Reason: Dry Eyes Heparin Sodium (Porcine) (Heparin Lock Flush 100 Units/Ml) Confirm Administered Dose 1,500 units .ROUTE .STK-MED ONE Stop: 11/19/19 15:56 Last Admin: 11/19/19 17:12 Dose: Not Given Heparin Sodium (Porcine) (Heparin Lock Flush 100 Units/Ml) 500 units FLUSH ONETIME ONE Stop: 11/19/19 16:01 Last Admin: 11/19/19 17:26 Dose: 500 units Heparin Sodium (Porcine) (Heparin Lock Flush 100 Units/Ml) 500 units FLUSH ONETIME ONE Stop: 11/19/19 16:01 Last Admin: 11/19/19 17:27 Dose: 500 units Heparin Sodium (Porcine) (Heparin Lock Flush 100 Units/Ml) 500 units FLUSH ONETIME ONE Stop: 11/19/19 16:01 Last Admin: 11/19/19 17:27 Dose: 500 units Hydrocortisone (Hydrocortisone 2.5% Crm) 0 gm TOP QID PRN PRN Reason: Hemorrhoids Last Admin: 11/19/19 20:48 Dose: 1 applic Sodium Chloride (Normal Saline) 1,000 mls @ 100 mls/hr IV ASDIRECTED [facility] Last Admin: 11/16/19 02:17 Dose: 100 mls/hr Potassium Chloride (Kcl 20 Meq In Water 100 Ml) 100 mls @ 50 mls/hr IV Q2H [facility] Stop: 11/14/19 21:59 Last Admin: 11/14/19 20:06 Dose: 50 mls/hr Potassium Chloride (Kcl 20 Meq In Water 100 Ml) 100 mls @ 50 mls/hr IV Q2H [facility] Stop: 11/15/19 12:59 Last Admin: 11/15/19 15:41 Dose: 50 mls/hr Magnesium Sulfate (Magnesium Sulfate In Water Premix) 25 mls @ 50 mls/hr IV ONETIME ONE Stop: 11/15/19 11:29 Last Admin: 11/15/19 11:08 Dose: 50 mls/hr Potassium Chloride (Kcl 20 Meq In Water 100 Ml) Confirm Administered Dose 100 mls @ as directed .ROUTE .STK-MED ONE Stop: 11/15/19 15:39 Last Admin: 11/15/19 15:41 Dose: Not Given Potassium Chloride/Dextrose/Sod Cl (D5 1/4 Ns With 20 Meq Kcl) 1,000 mls @ 100 mls/hr IV ASDIRECTED [facility] Last Admin: 11/17/19 07:58 Dose: 100 mls/hr Dextrose/Lactated Ringer's (Dextrose 5%-Lactated Ringers) 1,000 mls @ 60 mls/ hr IV ASDIRECTED [facility] Last Admin: 11/19/19 13:00 Dose: 60 mls/hr Magnesium Sulfate 1 gm/ Sodium (Chloride) 52 mls @ 50 mls/hr IV ONETIME ONE Stop: 11/19/19 09:47 Last Admin: 11/19/19 09:24 Dose: 50 mls/hr Multivitamins/Minerals 10 ml/Amino Ac/Electrol/Dextrose/Calcium 1,010 mls @ 42 mls/hr IV ONETIME ONE Stop: 11/20/19 18:02 Last Admin: 11/19/19 17:27 Dose: 42 mls/hr Iopamidol (Isovue-370 (76%)) 75 ml IV . DIRECTED ONE Stop: 11/14/19 12:18 Last Admin: 11/14/19 12:35 Dose: 75 ml Magnesium Oxide (Magnesium Oxide) 400 mg NGTUBE BID [facility] Last Admin: 11/19/19 08:38 Dose: 400 mg Morphine Sulfate (Morphine) 2 mg IVPUSH ONETIME ONE Stop: 11/14/19 13:45 Last Admin: 11/14/19 13:57 Dose: 2 mg Morphine Sulfate (Morphine) 1 mg IVPUSH Q2H PRN PRN Reason: Pain Last Admin: 11/17/19 22:15 Dose: 1 mg Potassium Chloride (Potassium Chloride Solution) 20 meq NGTUBE TID [facility] Last Admin: 11/19/19 08:37 Dose: 20 meq Potassium Chloride (Potassium Chloride Solution) 20 meq PO TID [facility] Last Admin: 11/20/19 11:16 Dose: Not Given Sodium Biphosphate/Sodium Phosphate (Fleet Enema) 133 ml RECTAL ONETIME ONE Stop: 11/20/19 08:01 Last Admin: 11/20/19 08:04 Dose: 1 enema - Exam General: Alert, Oriented, Cooperative, No Acute Distress Lungs: Clear to Auscultation, Normal Respiratory Effort Cardiovascular: Regular Rate, Regular Rhythm GI/Abdominal Exam: Normal Bowel Sounds, Soft, Non-Tender, No Distention Sepsis Event Note - Evaluation Sepsis Screening Result: No Definite Risk - Focused Exam Vital Signs: Vital Signs Temp Pulse Resp BP Pulse Ox 11/22/19 02:30 97.7 F 105 H 20 92/65 98 Date Exam was Performed: 11/22/19 Time Exam was Performed: 09:50 - Problem List & Annotations (1) Paralytic ileus SNOMED Code(s): 46033094 Code(s): K56.0 - PARALYTIC ILEUS Status: Acute Current Visit: Yes (2) Colitis SNOMED Code(s): 01554055 Code(s): K52.9 - NONINFECTIVE GASTROENTERITIS AND COLITIS, UNSPECIFIED Status: Acute Current Visit: Yes - Problem List Review Problem List Initiated/Reviewed/Updated: Yes - My Orders Last 24 Hours: Active Orders 24 hr Category Date Time Status CBC WITH AUTO DIFF [HEME] [facility] 11/24/19 15:29 Ordered CBC WITH AUTO DIFF [HEME] [facility] 12/01/19 15:29 Ordered CBC WITH AUTO DIFF [HEME] [facility] 12/08/19 15:29 Ordered CBC WITH AUTO DIFF [HEME] [facility] 12/15/19 15:29 Ordered COMPREHENSIVE METABOLIC PN,CMP [CHEM] [facility] 11/24/19 15:28 Ordered COMPREHENSIVE METABOLIC PN,CMP [CHEM] [facility] 11/25/19 15:28 Ordered COMPREHENSIVE METABOLIC PN,CMP [CHEM] [facility] 12/01/19 15:28 Ordered COMPREHENSIVE METABOLIC PN,CMP [CHEM] [facility] 12/02/19 15:28 Ordered COMPREHENSIVE METABOLIC PN,CMP [CHEM] [facility] 12/08/19 15:28 Ordered COMPREHENSIVE METABOLIC PN,CMP [CHEM] [facility] 12/09/19 15:28 Ordered COMPREHENSIVE METABOLIC PN,CMP [CHEM] [facility] 12/15/19 15:28 Ordered INR,PT,PROTHROMBIN TIME [COAG] [facility] 11/24/19 15:30 Ordered INR,PT,PROTHROMBIN TIME [COAG] [facility] Lab 12/01/19 15:30 Ordered INR,PT,PROTHROMBIN TIME [COAG] MO Lab 12/08/19 15:30 Ordered INR,PT,PROTHROMBIN TIME [COAG] MO Lab 12/15/19 15:30 Ordered INR,PT,PROTHROMBIN TIME [COAG] MO Lab 12/22/19 15:30 Ordered INR,PT,PROTHROMBIN TIME [COAG] MO Lab 12/29/19 15:30 Ordered INR,PT,PROTHROMBIN TIME [COAG] MO Lab 01/05/20 15:30 Ordered MAGNESIUM [CHEM] [facility] Lab 11/24/19 15:29 Ordered MAGNESIUM [CHEM] MOTH Lab 11/27/19 15:29 Ordered MAGNESIUM [CHEM] MOTH Lab 12/01/19 15:29 Ordered MAGNESIUM [CHEM] MOTH Lab 12/04/19 15:29 Ordered MAGNESIUM [CHEM] MOTH Lab 12/08/19 15:29 Ordered MAGNESIUM [CHEM] MOTH Lab 12/11/19 15:29 Ordered MAGNESIUM [CHEM] MOTH Lab 12/15/19 15:29 Ordered MAGNESIUM [CHEM] MOTH Lab 12/18/19 15:29 Ordered MAGNESIUM [CHEM] MOTH Lab 12/22/19 15:29 Ordered Insulin Lispro [HumaLOG] Med 11/21/19 18:00 Active See Protocol SUBCUT TIDMEALS Melatonin Med 11/21/19 16:51 Active 6 mg PO BEDTIME PRN Simethicone Med 11/22/19 08:08 Active 80 mg PO TIDPC PRN methylPREDNISolone Sod Succ [Solu-MEDROL] Med 11/21/19 16:45 Active 125 mg IVPUSH DAILY Medication Orders Acetaminophen (Tylenol) 325 mg RECTAL Q4H PRN PRN Reason: Fever Artificial Tears (Refresh Celluvisc) 1 each EYEBOTH QID PRN PRN Reason: DRY EYES Citalopram Hydrobromide (Celexa) 10 mg PO DAILY [facility] Last Admin: 11/22/19 08:06 Dose: 10 mg Admin: 11/21/19 09:26 Dose: 10 mg Admin: 11/20/19 13:13 Dose: 10 mg Heparin Sodium (Porcine) (Heparin Lock Flush 10 Units/Ml) 50 unit FLUSH ASDIRECTED [facility] Last Admin: 11/20/19 09:15 Dose: 50 unit Admin: 11/20/19 08:33 Dose: 50 unit Admin: 11/20/19 08:29 Dose: 50 unit Hydrocortisone (Hydrocortisone 2.5% Crm) 0 gm TOP QID [facility] Last Admin: 11/22/19 08:07 Dose: 1 applic Admin: 11/21/19 21:08 Dose: 1 applic Admin: 11/21/19 17:30 Dose: 1 applic Admin: 11/21/19 13:25 Dose: 1 applic Admin: 11/21/19 09:26 Dose: 1 applic Admin: 11/20/19 20:03 Dose: 1 applic Admin: 11/20/19 17:47 Dose: 1 applic Admin: 11/20/19 13:18 Dose: 1 applic Admin: 11/20/19 11:08 Dose: 1 applic Multivitamins/Minerals 10 ml/Amino Ac/Electrol/Dextrose/Calcium 1,010 mls @ 84 mls/hr IV .BY DURATION [facility] Last Admin: 11/22/19 06:39 Dose: 84 mls/hr Infusion: 11/21/19 17:57 Dose: 84 mls/hr Admin: 11/21/19 05:55 Dose: 84 mls/hr Amino Ac/Electrol/Dextrose/Calcium (Clinimix E 01/15) 1,000 mls @ 84 mls/hr IV .BY DURATION [facility] Last Admin: 11/21/19 18:38 Dose: 84 mls/hr Infusion: 11/21/19 05:43 Dose: 84 mls/hr Admin: 11/20/19 17:48 Dose: 84 mls/hr Fat Emulsion Intravenous (Intralipid 20%) 250 mls @ 20 mls/hr IV [id number] [facility] Last Admin: 11/21/19 21:09 Dose: 20 mls/hr Infusion: 11/20/19 09:18 Dose: 20 mls/hr Admin: 11/19/19 20:48 Dose: 20 mls/hr Insulin Human Lispro (Humalog) 0 unit SUBCUT TIDMEALS [facility]; Protocol Last Admin: 11/22/19 08:08 Dose: 6 units Admin: 11/21/19 18:38 Dose: Not Given Lidocaine HCl (Glydo) 10 ml .XX ASDIRECTED [facility] Last Admin: 11/17/19 18:16 Dose: 6 ml Melatonin (Melatonin) 6 mg PO BEDTIME PRN PRN Reason: Insomnia Methylprednisolone Sodium Succinate (Solu-Medrol) 125 mg IVPUSH DAILY [facility] Last Admin: 11/22/19 08:06 Dose: 125 mg Admin: 11/21/19 17:50 Dose: 125 mg Morphine Sulfate (Morphine) 0.5 mg IVPUSH Q2H PRN PRN Reason: Pain Last Admin: 11/20/19 21:00 Dose: 0.5 mg Ondansetron HCl (Zofran) 4 mg IVPUSH Q6H PRN PRN Reason: Nausea/Vomiting Pantoprazole Sodium (Protonix Iv) 40 mg IVPUSH DAILY [facility] Last Admin: 11/22/19 08:06 Dose: 40 mg Admin: 11/21/19 09:26 Dose: 40 mg Admin: 11/20/19 09:06 Dose: 40 mg Admin: 11/19/19 08:49 Dose: 40 mg Admin: 11/18/19 09:29 Dose: 40 mg Admin: 11/17/19 10:39 Dose: 40 mg Admin: 11/16/19 15:30 Dose: 40 mg Simethicone (Simethicone) 80 mg PO TIDPC PRN PRN Reason: Gas Sodium Chloride (Saline Flush) 10 ml FLUSH ASDIRECTED PRN PRN Reason: Keep Vein Open Last Admin: 11/21/19 17:50 Dose: 10 ml Admin: 11/21/19 09:26 Dose: 10 ml Admin: 11/20/19 21:03 Dose: 10 ml Admin: 11/20/19 21:00 Dose: 10 ml Admin: 11/20/19 09:10 Dose: 10 ml Admin: 11/20/19 08:35 Dose: 10 ml Admin: 11/20/19 08:30 Dose: 10 ml Admin: 11/20/19 08:20 Dose: 10 ml Admin: 11/17/19 22:17 Dose: 10 ml Admin: 11/15/19 18:09 Dose: 10 ml Admin: 11/15/19 17:28 Dose: 10 ml Admin: 11/15/19 17:26 Dose: 10 ml Admin: 11/14/19 12:26 Dose: 10 ml - Assessment Assessment (Free Text/Narrative):: clinically stable exam - Plan Plan (Free Text/Narrative):: At this point would considers starting liquid diet on 11/23/19. Otherwise no other recommendations at this time.
[2019-11-23] MEDS: LYTES IV SCH ×4 (07:28→20:06)
[2019-11-23] MEDS: CALCIUM IV SCH ×4 (07:28→20:06)
[2019-11-23] MEDS: MVI IV SCH ×4 (07:28→20:06)
[2019-11-23] MEDS: CALC IV SCH ×4 (07:28→20:06)
[2019-11-23] MEDS: [UNRECOGNIZED DRUG - OTHER] IV SCH ×4 (07:28→20:06)
[2019-11-23] MEDS: Citalopram 10 MG Tab PO SCH (08:11)
[2019-11-23] MEDS: Insulin Lispro 100 Unit/ML 3 ML KwikPen SUBCUT SCH ×3 (08:11→18:45)
[2019-11-23] MEDS: Pantoprazole 40 MG Vial IVPUSH SCH (08:12)
[2019-11-23] MEDS: Hydrocortisone 2.5% Crm 30 GM Tube TOP SCH ×4 (08:12→20:04)
[2019-11-23] MEDS: methylPREDNISolone Sodium Succinate 125 MG/2 ML SDV IVPUSH SCH (08:12)
[2019-11-23] MEDS: Sodium Chloride 0.9% 10 ML Syringe FLUSH PRN (08:16)
--- NOTE | 2019-11-23 08:45 | PCM.SURGPN ---
- General Info Date of Service: 11/23/19 - Review of Systems General: Reports: Other (reports that the pain is getting better. ) Pulmonary: Reports: No Symptoms Cardiovascular: Reports: No Symptoms Gastrointestinal: Reports: Flatus - Patient Data Vitals - Most Recent: Last Vital Signs Temp 97.4 F 11/23/19 00:45 Pulse 84 11/23/19 00:45 Resp 20 11/23/19 00:45 BP 108/70 11/23/19 00:45 Pulse Ox 100 11/23/19 00:45 Weight - Most Recent: 68.447 kg I&O - Last 24 Hours: Intake & Output 11/22/19 11/23/19 11/23/19 22:59 06:59 14:59 Intake Total 137 661 Output Total 100 1000 Balance 37 -339 Lab Results Last 24 Hrs: Laboratory Results - last 24 hr 11/22/19 11/22/19 11/23/19 Range/Units 11:16 17:18 05:53 POC Glucose 205 H 171 H 177 H (80-116) mg/dL Med Orders - Current: Current Medications Acetaminophen (Tylenol) 325 mg RECTAL Q4H PRN PRN Reason: Fever Artificial Tears (Refresh Celluvisc) 1 each EYEBOTH QID PRN PRN Reason: DRY EYES Citalopram Hydrobromide (Celexa) 10 mg PO DAILY [facility] Last Admin: 11/23/19 08:11 Dose: 10 mg Heparin Sodium (Porcine) (Heparin Lock Flush 10 Units/Ml) 50 unit FLUSH ASDIRECTED [facility] Last Admin: 11/20/19 09:15 Dose: 50 unit Hydrocortisone (Hydrocortisone 2.5% Crm) 0 gm TOP QID [facility] Last Admin: 11/23/19 08:12 Dose: 1 applic Multivitamins/Minerals 10 ml/Amino Ac/Electrol/Dextrose/Calcium 1,010 mls @ 84 mls/hr IV .BY DURATION [facility] Last Admin: 11/23/19 07:28 Dose: 84 mls/hr Amino Ac/Electrol/Dextrose/Calcium (Clinimix E 5/15) 1,000 mls @ 84 mls/hr IV .BY DURATION [facility] Last Admin: 11/22/19 19:17 Dose: 84 mls/hr Fat Emulsion Intravenous (Intralipid 20%) 250 mls @ 20 mls/hr IV [id number] [facility] Last Admin: 11/21/19 21:09 Dose: 20 mls/hr Insulin Human Lispro (Humalog) 0 unit SUBCUT TIDMEALS [facility]; Protocol Last Admin: 11/23/19 08:11 Dose: 2 units Lidocaine HCl (Glydo) 10 ml .XX ASDIRECTED [facility] Last Admin: 11/17/19 18:16 Dose: 6 ml Melatonin (Melatonin) 6 mg PO BEDTIME PRN PRN Reason: Insomnia Methylprednisolone Sodium Succinate (Solu-Medrol) 125 mg IVPUSH DAILY [facility] Last Admin: 11/23/19 08:12 Dose: 125 mg Morphine Sulfate (Morphine) 0.5 mg IVPUSH Q2H PRN PRN Reason: Pain Last Admin: 11/20/19 21:00 Dose: 0.5 mg Ondansetron HCl (Zofran) 4 mg IVPUSH Q6H PRN PRN Reason: Nausea/Vomiting Pantoprazole Sodium (Protonix Iv) 40 mg IVPUSH DAILY [facility] Last Admin: 11/23/19 08:12 Dose: 40 mg Simethicone (Simethicone) 80 mg PO TIDPC PRN PRN Reason: Gas Last Admin: 11/23/19 08:12 Dose: 80 mg Sodium Chloride (Saline Flush) 10 ml FLUSH ASDIRECTED PRN PRN Reason: Keep Vein Open Last Admin: 11/23/19 08:16 Dose: 10 ml Discontinued Medications Artificial Tears (Refresh) 1 each EYEBOTH QID PRN PRN Reason: Dry Eyes Ceftriaxone Sodium (Rocephin) 1 gm IM ONETIME ONE Stop: 11/14/19 14:51 Last Admin: 11/14/19 21:27 Dose: Not Given Ceftriaxone Sodium (Rocephin) 2 gm IVPUSH Q24H [facility] Ceftriaxone Sodium (Rocephin) 1 gm IVPUSH Q24H [facility] Stop: 11/18/19 18:01 Last Admin: 11/18/19 17:30 Dose: 1 gm Cyclosporine (Restasis) 1 each EYEBOTH BID PRN PRN Reason: Dry Eyes Heparin Sodium (Porcine) (Heparin Lock Flush 100 Units/Ml) Confirm Administered Dose 1,500 units .ROUTE .STK-MED ONE Stop: 11/19/19 15:56 Last Admin: 03/18/20 17:12 Dose: Not Given Heparin Sodium (Porcine) (Heparin Lock Flush 100 Units/Ml) 500 units FLUSH ONETIME ONE Stop: 11/19/19 16:01 Last Admin: 11/19/19 17:26 Dose: 500 units Heparin Sodium (Porcine) (Heparin Lock Flush 100 Units/Ml) 500 units FLUSH ONETIME ONE Stop: 11/19/19 16:01 Last Admin: 11/19/19 17:27 Dose: 500 units Heparin Sodium (Porcine) (Heparin Lock Flush 100 Units/Ml) 500 units FLUSH ONETIME ONE Stop: 11/19/19 16:01 Last Admin: 11/19/19 17:27 Dose: 500 units Hydrocortisone (Hydrocortisone 2.5% Crm) 0 gm TOP QID PRN PRN Reason: Hemorrhoids Last Admin: 11/19/19 20:48 Dose: 1 applic Sodium Chloride (Normal Saline) 1,000 mls @ 100 mls/hr IV ASDIRECTED [facility] Last Admin: 11/16/19 02:17 Dose: 100 mls/hr Potassium Chloride (Kcl 20 Meq In Water 100 Ml) 100 mls @ 50 mls/hr IV Q2H [facility] Stop: 11/14/19 21:59 Last Admin: 11/14/19 20:06 Dose: 50 mls/hr Potassium Chloride (Kcl 20 Meq In Water 100 Ml) 100 mls @ 50 mls/hr IV Q2H [facility] Stop: 11/15/19 12:59 Last Admin: 11/15/19 15:41 Dose: 50 mls/hr Magnesium Sulfate (Magnesium Sulfate In Water Premix) 25 mls @ 50 mls/hr IV ONETIME ONE Stop: 11/15/19 11:29 Last Admin: 11/15/19 11:08 Dose: 50 mls/hr Potassium Chloride (Kcl 20 Meq In Water 100 Ml) Confirm Administered Dose 100 mls @ as directed .ROUTE .STK-MED ONE Stop: 11/15/19 15:39 Last Admin: 11/15/19 15:41 Dose: Not Given Potassium Chloride/Dextrose/Sod Cl (D5 1/4 Ns With 20 Meq Kcl) 1,000 mls @ 100 mls/hr IV ASDIRECTED [facility] Last Admin: 11/17/19 07:58 Dose: 100 mls/hr Dextrose/Lactated Ringer's (Dextrose 5%-Lactated Ringers) 1,000 mls @ 60 mls/ hr IV ASDIRECTED [facility] Last Admin: 11/19/19 13:00 Dose: 60 mls/hr Magnesium Sulfate 1 gm/ Sodium (Chloride) 52 mls @ 50 mls/hr IV ONETIME ONE Stop: 11/19/19 09:47 Last Admin: 11/19/19 09:24 Dose: 50 mls/hr Multivitamins/Minerals 10 ml/Amino Ac/Electrol/Dextrose/Calcium 1,010 mls @ 42 mls/hr IV ONETIME ONE Stop: 11/20/19 18:02 Last Admin: 11/19/19 17:27 Dose: 42 mls/hr Iopamidol (Isovue-370 (76%)) 75 ml IV . DIRECTED ONE Stop: 11/14/19 12:18 Last Admin: 11/14/19 12:35 Dose: 75 ml Magnesium Oxide (Magnesium Oxide) 400 mg NGTUBE BID [facility] Last Admin: 11/19/19 08:38 Dose: 400 mg Morphine Sulfate (Morphine) 2 mg IVPUSH ONETIME ONE Stop: 11/14/19 13:45 Last Admin: 11/14/19 13:57 Dose: 2 mg Morphine Sulfate (Morphine) 1 mg IVPUSH Q2H PRN PRN Reason: Pain Last Admin: 11/17/19 22:15 Dose: 1 mg Potassium Chloride (Potassium Chloride Solution) 20 meq NGTUBE TID [facility] Last Admin: 11/19/19 08:37 Dose: 20 meq Potassium Chloride (Potassium Chloride Solution) 20 meq PO TID [facility] Last Admin: 11/20/19 11:16 Dose: Not Given Sodium Biphosphate/Sodium Phosphate (Fleet Enema) 133 ml RECTAL ONETIME ONE Stop: 11/20/19 08:01 Last Admin: 11/20/19 08:04 Dose: 1 enema - Exam General: Alert, Oriented, Cooperative Lungs: Clear to Auscultation, Normal Respiratory Effort Cardiovascular: Regular Rate, Regular Rhythm GI/Abdominal Exam: Normal Bowel Sounds, Soft, Non-Tender Sepsis Event Note - Evaluation Sepsis Screening Result: No Definite Risk - Focused Exam Vital Signs: Vital Signs Temp Pulse Resp BP Pulse Ox 11/23/19 00:45 97.4 F 84 20 108/70 100 Date Exam was Performed: 11/23/19 Time Exam was Performed: 08:43 - Problem List & Annotations (1) Paralytic ileus SNOMED Code(s): 13727953 Code(s): K56.0 - PARALYTIC ILEUS Status: Acute Current Visit: Yes (2) Colitis SNOMED Code(s): 68319296 Code(s): K52.9 - NONINFECTIVE GASTROENTERITIS AND COLITIS, UNSPECIFIED Status: Acute Current Visit: Yes - Problem List Review Problem List Initiated/Reviewed/Updated: Yes - My Orders Last 24 Hours: Active Orders 24 hr Category Date Time Status CBC WITH AUTO DIFF [HEME] [facility] 11/24/19 15:29 Ordered CBC WITH AUTO DIFF [HEME] [facility] 12/01/19 15:29 Ordered CBC WITH AUTO DIFF [HEME] [facility] 12/08/19 15:29 Ordered CBC WITH AUTO DIFF [HEME] [facility] 12/15/19 15:29 Ordered COMPREHENSIVE METABOLIC PN,CMP [CHEM] [facility] 11/24/19 15:28 Ordered COMPREHENSIVE METABOLIC PN,CMP [CHEM] [facility] 11/25/19 15:28 Ordered COMPREHENSIVE METABOLIC PN,CMP [CHEM] [facility] 12/01/19 15:28 Ordered COMPREHENSIVE METABOLIC PN,CMP [CHEM] [facility] 12/02/19 15:28 Ordered COMPREHENSIVE METABOLIC PN,CMP [CHEM] [facility] 12/08/19 15:28 Ordered COMPREHENSIVE METABOLIC PN,CMP [CHEM] [facility] 12/09/19 15:28 Ordered COMPREHENSIVE METABOLIC PN,CMP [CHEM] [facility] 12/15/19 15:28 Ordered INR,PT,PROTHROMBIN TIME [COAG] [facility] Lab 11/24/19 15:30 Ordered INR,PT,PROTHROMBIN TIME [COAG] MO Lab 12/01/19 15:30 Ordered INR,PT,PROTHROMBIN TIME [COAG] MO Lab 12/08/19 15:30 Ordered INR,PT,PROTHROMBIN TIME [COAG] MO Lab 12/15/19 15:30 Ordered INR,PT,PROTHROMBIN TIME [COAG] MO Lab 12/22/19 15:30 Ordered INR,PT,PROTHROMBIN TIME [COAG] MO Lab 12/29/19 15:30 Ordered INR,PT,PROTHROMBIN TIME [COAG] MO Lab 01/05/20 15:30 Ordered MAGNESIUM [CHEM] [facility]OTH Lab 11/24/19 15:29 Ordered MAGNESIUM [CHEM] MOTH Lab 11/27/19 15:29 Ordered MAGNESIUM [CHEM] MOTH Lab 12/01/19 15:29 Ordered MAGNESIUM [CHEM] MOTH Lab 12/04/19 15:29 Ordered MAGNESIUM [CHEM] MOTH Lab 12/08/19 15:29 Ordered MAGNESIUM [CHEM] MOTH Lab 12/11/19 15:29 Ordered MAGNESIUM [CHEM] MOTH Lab 12/15/19 15:29 Ordered MAGNESIUM [CHEM] MOTH Lab 12/18/19 15:29 Ordered MAGNESIUM [CHEM] MOTH Lab 12/22/19 15:29 Ordered Simethicone Med 11/22/19 08:08 Active 80 mg PO TIDPC PRN Medication Orders Acetaminophen (Tylenol) 325 mg RECTAL Q4H PRN PRN Reason: Fever Artificial Tears (Refresh Celluvisc) 1 each EYEBOTH QID PRN PRN Reason: DRY EYES Citalopram Hydrobromide (Celexa) 10 mg PO DAILY [facility] Last Admin: 11/23/19 08:11 Dose: 10 mg Admin: 11/22/19 08:06 Dose: 10 mg Admin: 11/21/19 09:26 Dose: 10 mg Admin: 11/20/19 13:13 Dose: 10 mg Heparin Sodium (Porcine) (Heparin Lock Flush 10 Units/Ml) 50 unit FLUSH ASDIRECTED [facility] Last Admin: 11/20/19 09:15 Dose: 50 unit Admin: 11/20/19 08:33 Dose: 50 unit Admin: 11/20/19 08:29 Dose: 50 unit Hydrocortisone (Hydrocortisone 2.5% Crm) 0 gm TOP QID [facility] Last Admin: 11/23/19 08:12 Dose: 1 applic Admin: 11/22/19 20:57 Dose: 1 applic Admin: 11/22/19 17:28 Dose: 1 applic Admin: 11/22/19 13:06 Dose: 1 applic Admin: 11/22/19 08:07 Dose: 1 applic Admin: 11/21/19 21:08 Dose: 1 applic Admin: 11/21/19 17:30 Dose: 1 applic Admin: 11/21/19 13:25 Dose: 1 applic Admin: 11/21/19 09:26 Dose: 1 applic Admin: 11/20/19 20:03 Dose: 1 applic Admin: 11/20/19 17:47 Dose: 1 applic Admin: 11/20/19 13:18 Dose: 1 applic Admin: 11/20/19 11:08 Dose: 1 applic Multivitamins/Minerals 10 ml/Amino Ac/Electrol/Dextrose/Calcium 1,010 mls @ 84 mls/hr IV .BY DURATION [facility] Last Admin: 11/23/19 07:28 Dose: 84 mls/hr Infusion: 11/22/19 18:41 Dose: 84 mls/hr Admin: 11/22/19 06:39 Dose: 84 mls/hr Infusion: 11/21/19 17:57 Dose: 84 mls/hr Admin: 11/21/19 05:55 Dose: 84 mls/hr Amino Ac/Electrol/Dextrose/Calcium (Clinimix E 01/15) 1,000 mls @ 84 mls/hr IV .BY DURATION [facility] Last Admin: 11/22/19 19:17 Dose: 84 mls/hr Infusion: 11/22/19 06:33 Dose: 84 mls/hr Admin: 11/21/19 18:38 Dose: 84 mls/hr Infusion: 11/21/19 05:43 Dose: 84 mls/hr Admin: 11/20/19 17:48 Dose: 84 mls/hr Fat Emulsion Intravenous (Intralipid 20%) 250 mls @ 20 mls/hr IV [id number] [facility] Last Admin: 11/21/19 21:09 Dose: 20 mls/hr Infusion: 11/20/19 09:18 Dose: 20 mls/hr Admin: 11/19/19 20:48 Dose: 20 mls/hr Insulin Human Lispro (Humalog) 0 unit SUBCUT TIDMEALS [facility]; Protocol Last Admin: 11/23/19 08:11 Dose: 2 units Admin: 11/22/19 18:26 Dose: 2 units Admin: 11/22/19 13:04 Dose: 4 units Admin: 11/22/19 08:08 Dose: 6 units Admin: 11/21/19 18:38 Dose: Not Given Lidocaine HCl (Glydo) 10 ml .XX ASDIRECTED [facility] Last Admin: 11/17/19 18:16 Dose: 6 ml Melatonin (Melatonin) 6 mg PO BEDTIME PRN PRN Reason: Insomnia Methylprednisolone Sodium Succinate (Solu-Medrol) 125 mg IVPUSH DAILY [facility] Last Admin: 11/23/19 08:12 Dose: 125 mg Admin: 11/22/19 08:06 Dose: 125 mg Admin: 11/21/19 17:50 Dose: 125 mg Morphine Sulfate (Morphine) 0.5 mg IVPUSH Q2H PRN PRN Reason: Pain Last Admin: 11/20/19 21:00 Dose: 0.5 mg Ondansetron HCl (Zofran) 4 mg IVPUSH Q6H PRN PRN Reason: Nausea/Vomiting Pantoprazole Sodium (Protonix Iv) 40 mg IVPUSH DAILY [facility] Last Admin: 11/23/19 08:12 Dose: 40 mg Admin: 11/22/19 08:06 Dose: 40 mg Admin: 11/21/19 09:26 Dose: 40 mg Admin: 11/20/19 09:06 Dose: 40 mg Admin: 11/19/19 08:49 Dose: 40 mg Admin: 11/18/19 09:29 Dose: 40 mg Admin: 11/17/19 10:39 Dose: 40 mg Admin: 11/16/19 15:30 Dose: 40 mg Simethicone (Simethicone) 80 mg PO TIDPC PRN PRN Reason: Gas Last Admin: 11/23/19 08:12 Dose: 80 mg Sodium Chloride (Saline Flush) 10 ml FLUSH ASDIRECTED PRN PRN Reason: Keep Vein Open Last Admin: 11/23/19 08:16 Dose: 10 ml Admin: 11/21/19 17:50 Dose: 10 ml Admin: 11/21/19 09:26 Dose: 10 ml Admin: 11/20/19 21:03 Dose: 10 ml Admin: 11/20/19 21:00 Dose: 10 ml Admin: 11/20/19 09:10 Dose: 10 ml Admin: 11/20/19 08:35 Dose: 10 ml Admin: 11/20/19 08:30 Dose: 10 ml Admin: 11/20/19 08:20 Dose: 10 ml Admin: 11/17/19 22:17 Dose: 10 ml Admin: 11/15/19 18:09 Dose: 10 ml Admin: 11/15/19 17:28 Dose: 10 ml Admin: 11/15/19 17:26 Dose: 10 ml Admin: 11/14/19 12:26 Dose: 10 ml - Assessment Assessment (Free Text/Narrative):: clinically better exam - Plan Plan (Free Text/Narrative):: Would start clear liquids today.
--- NOTE | 2019-11-23 09:25 | PCM.PN ---
- General Info Date of Service: 11/23/19 Subjective Update: Had a few larger stools yesterday afternoon/evening, this morning more flecks and watery. Pain is improved. No nausea or vomiting. Hungry. - Patient Data Vitals - Most Recent: Last Vital Signs Temp 97.4 F 11/23/19 00:45 Pulse 84 11/23/19 00:45 Resp 20 11/23/19 00:45 BP 108/70 11/23/19 00:45 Pulse Ox 100 11/23/19 00:45 Weight - Most Recent: 150 lb 14.4 oz I&O - Last 24 Hours: Intake & Output 11/22/19 11/23/19 11/23/19 22:59 06:59 14:59 Intake Total 137 661 Output Total 100 1000 Balance 37 -339 Lab Results Last 24 Hours: Laboratory Results - last 24 hr 11/22/19 11/22/19 11/23/19 Range/Units 11:16 17:18 05:53 POC Glucose 205 H 171 H 177 H (80-116) mg/dL Med Orders - Current: Current Medications Acetaminophen (Tylenol) 325 mg RECTAL Q4H PRN PRN Reason: Fever Artificial Tears (Refresh Celluvisc) 1 each EYEBOTH QID PRN PRN Reason: DRY EYES Citalopram Hydrobromide (Celexa) 10 mg PO DAILY [facility] Last Admin: 11/23/19 08:11 Dose: 10 mg Heparin Sodium (Porcine) (Heparin Lock Flush 10 Units/Ml) 50 unit FLUSH ASDIRECTED [facility] Last Admin: 11/20/19 09:15 Dose: 50 unit Hydrocortisone (Hydrocortisone 2.5% Crm) 0 gm TOP QID [facility] Last Admin: 11/23/19 08:12 Dose: 1 applic Multivitamins/Minerals 10 ml/Amino Ac/Electrol/Dextrose/Calcium 1,010 mls @ 84 mls/hr IV .BY DURATION [facility] Last Admin: 11/23/19 07:28 Dose: 84 mls/hr Amino Ac/Electrol/Dextrose/Calcium (Clinimix E 5/15) 1,000 mls @ 84 mls/hr IV .BY DURATION [facility] Last Admin: 11/22/19 19:17 Dose: 84 mls/hr Fat Emulsion Intravenous (Intralipid 20%) 250 mls @ 20 mls/hr IV [id number] [facility] Last Admin: 11/21/19 21:09 Dose: 20 mls/hr Insulin Human Lispro (Humalog) 0 unit SUBCUT TIDMEALS [facility]; Protocol Last Admin: 11/23/19 08:11 Dose: 2 units Lidocaine HCl (Glydo) 10 ml .XX ASDIRECTED [facility] Last Admin: 11/17/19 18:16 Dose: 6 ml Melatonin (Melatonin) 6 mg PO BEDTIME PRN PRN Reason: Insomnia Methylprednisolone Sodium Succinate (Solu-Medrol) 125 mg IVPUSH DAILY [facility] Last Admin: 11/23/19 08:12 Dose: 125 mg Morphine Sulfate (Morphine) 0.5 mg IVPUSH Q2H PRN PRN Reason: Pain Last Admin: 11/20/19 21:00 Dose: 0.5 mg Ondansetron HCl (Zofran) 4 mg IVPUSH Q6H PRN PRN Reason: Nausea/Vomiting Pantoprazole Sodium (Protonix Iv) 40 mg IVPUSH DAILY [facility] Last Admin: 11/23/19 08:12 Dose: 40 mg Simethicone (Simethicone) 80 mg PO TIDPC PRN PRN Reason: Gas Last Admin: 11/23/19 08:12 Dose: 80 mg Sodium Chloride (Saline Flush) 10 ml FLUSH ASDIRECTED PRN PRN Reason: Keep Vein Open Last Admin: 11/23/19 08:16 Dose: 10 ml Discontinued Medications Artificial Tears (Refresh) 1 each EYEBOTH QID PRN PRN Reason: Dry Eyes Ceftriaxone Sodium (Rocephin) 1 gm IM ONETIME ONE Stop: 11/14/19 14:51 Last Admin: 11/14/19 21:27 Dose: Not Given Ceftriaxone Sodium (Rocephin) 2 gm IVPUSH Q24H [facility] Ceftriaxone Sodium (Rocephin) 1 gm IVPUSH Q24H [facility] Stop: 11/18/19 18:01 Last Admin: 11/18/19 17:30 Dose: 1 gm Cyclosporine (Restasis) 1 each EYEBOTH BID PRN PRN Reason: Dry Eyes Heparin Sodium (Porcine) (Heparin Lock Flush 100 Units/Ml) Confirm Administered Dose 1,500 units .ROUTE .STK-MED ONE Stop: 11/19/19 15:56 Last Admin: 11/19/19 17:12 Dose: Not Given Heparin Sodium (Porcine) (Heparin Lock Flush 100 Units/Ml) 500 units FLUSH ONETIME ONE Stop: 11/19/19 16:01 Last Admin: 11/19/19 17:26 Dose: 500 units Heparin Sodium (Porcine) (Heparin Lock Flush 100 Units/Ml) 500 units FLUSH ONETIME ONE Stop: 11/19/19 16:01 Last Admin: 11/19/19 17:27 Dose: 500 units Heparin Sodium (Porcine) (Heparin Lock Flush 100 Units/Ml) 500 units FLUSH ONETIME ONE Stop: 11/19/19 16:01 Last Admin: 11/19/19 17:27 Dose: 500 units Hydrocortisone (Hydrocortisone 2.5% Crm) 0 gm TOP QID PRN PRN Reason: Hemorrhoids Last Admin: 11/19/19 20:48 Dose: 1 applic Sodium Chloride (Normal Saline) 1,000 mls @ 100 mls/hr IV ASDIRECTED [facility] Last Admin: 11/16/19 02:17 Dose: 100 mls/hr Potassium Chloride (Kcl 20 Meq In Water 100 Ml) 100 mls @ 50 mls/hr IV Q2H [facility] Stop: 11/14/19 21:59 Last Admin: 11/14/19 20:06 Dose: 50 mls/hr Potassium Chloride (Kcl 20 Meq In Water 100 Ml) 100 mls @ 50 mls/hr IV Q2H [facility] Stop: 11/15/19 12:59 Last Admin: 11/15/19 15:41 Dose: 50 mls/hr Magnesium Sulfate (Magnesium Sulfate In Water Premix) 25 mls @ 50 mls/hr IV ONETIME ONE Stop: 11/15/19 11:29 Last Admin: 11/15/19 11:08 Dose: 50 mls/hr Potassium Chloride (Kcl 20 Meq In Water 100 Ml) Confirm Administered Dose 100 mls @ as directed .ROUTE .STK-MED ONE Stop: 11/15/19 15:39 Last Admin: 11/15/19 15:41 Dose: Not Given Potassium Chloride/Dextrose/Sod Cl (D5 1/4 Ns With 20 Meq Kcl) 1,000 mls @ 100 mls/hr IV ASDIRECTED [facility] Last Admin: 11/17/19 07:58 Dose: 100 mls/hr Dextrose/Lactated Ringer's (Dextrose 5%-Lactated Ringers) 1,000 mls @ 60 mls/ hr IV ASDIRECTED [facility] Last Admin: 11/19/19 13:00 Dose: 60 mls/hr Magnesium Sulfate 1 gm/ Sodium (Chloride) 52 mls @ 50 mls/hr IV ONETIME ONE Stop: 11/19/19 09:47 Last Admin: 11/19/19 09:24 Dose: 50 mls/hr Multivitamins/Minerals 10 ml/Amino Ac/Electrol/Dextrose/Calcium 1,010 mls @ 42 mls/hr IV ONETIME ONE Stop: 11/20/19 18:02 Last Admin: 11/19/19 17:27 Dose: 42 mls/hr Iopamidol (Isovue-370 (76%)) 75 ml IV . DIRECTED ONE Stop: 11/14/19 12:18 Last Admin: 11/14/19 12:35 Dose: 75 ml Magnesium Oxide (Magnesium Oxide) 400 mg NGTUBE BID [facility] Last Admin: 11/19/19 08:38 Dose: 400 mg Morphine Sulfate (Morphine) 2 mg IVPUSH ONETIME ONE Stop: 11/14/19 13:45 Last Admin: 11/14/19 13:57 Dose: 2 mg Morphine Sulfate (Morphine) 1 mg IVPUSH Q2H PRN PRN Reason: Pain Last Admin: 11/17/19 22:15 Dose: 1 mg Potassium Chloride (Potassium Chloride Solution) 20 meq NGTUBE TID [facility] Last Admin: 11/19/19 08:37 Dose: 20 meq Potassium Chloride (Potassium Chloride Solution) 20 meq PO TID [facility] Last Admin: 11/20/19 11:16 Dose: Not Given Sodium Biphosphate/Sodium Phosphate (Fleet Enema) 133 ml RECTAL ONETIME ONE Stop: 11/20/19 08:01 Last Admin: 11/20/19 08:04 Dose: 1 enema - Exam General: Alert, Oriented, Cooperative, No Acute Distress Lungs: Clear to Auscultation, Normal Respiratory Effort Cardiovascular: Regular Rate, Regular Rhythm GI/Abdominal Exam: Normal Bowel Sounds (improved), Soft, Non-Tender, No Distention Extremities: Pedal Edema (1+ BLE) Sepsis Event Note - Evaluation Sepsis Screening Result: No Definite Risk - Focused Exam Vital Signs: Vital Signs Temp Pulse Resp BP Pulse Ox 11/23/19 00:45 97.4 F 84 20 108/70 100 Date Exam was Performed: 11/23/19 Time Exam was Performed: 09:20 - Problem List & Annotations (1) Partial bowel obstruction SNOMED Code(s): 03170331563409991 Code(s): K56.600 - PARTIAL INTESTINAL OBSTRUCTION, UNSPECIFIED TO CAUSE Status: Acute Current Visit: Yes Annotation/Comment:: Flex sig Thurs showed inflammation of rectum & sigmoid, pathology leukocytic(lymphocytic) colitis with ulcerations. C. Diff negative. SoluMedrol 125 mg daily, day 3 of 7, discussed with Dr Srivastava, would need a slow taper over the next month at least. (2) Colitis SNOMED Code(s): 39699061 Code(s): K52.9 - NONINFECTIVE GASTROENTERITIS AND COLITIS, UNSPECIFIED Status: Acute Current Visit: Yes (3) Hypokalemia SNOMED Code(s): 85746157 Code(s): E87.6 - HYPOKALEMIA Status: Acute Current Visit: Yes Annotation/Comment:: improving. (4) Hypoalbuminemia due to protein-calorie malnutrition SNOMED Code(s): 63377348999518 Code(s): E88.09 - OTH DISORDERS OF PLASMA-PROTEIN METABOLISM, NEC; E46 - UNSPECIFIED PROTEIN-CALORIE MALNUTRITION Status: Acute Current Visit: Yes Annotation/Comment:: TPN started 11/18, repeat labs on Sunday. (5) Edema due to hypoalbuminemia SNOMED Code(s): 536040043 Code(s): R60.9 - EDEMA, UNSPECIFIED; E88.09 - OTH DISORDERS OF PLASMA- PROTEIN METABOLISM, NEC Status: Acute Current Visit: Yes (6) Hypomagnesemia SNOMED Code(s): 462771229 Code(s): E83.42 - HYPOMAGNESEMIA Status: Resolved Current Visit: Yes (7) Dehydration SNOMED Code(s): 39197489 Code(s): E86.0 - DEHYDRATION Status: Resolved Current Visit: Yes (8) UTI (urinary tract infection) SNOMED Code(s): 48589268 Code(s): N39.0 - URINARY TRACT INFECTION, SITE NOT SPECIFIED Status: Resolved Current Visit: Yes Annotation/Comment:: Completed abx course. (9) Osteoporosis SNOMED Code(s): 86317768 Code(s): M81.0 - AGE-RELATED OSTEOPOROSIS W/O CURRENT PATHOLOGICAL FRACTURE Status: Chronic Current Visit: Yes (10) Depression SNOMED Code(s): 64914426 Code(s): F32.9 - MAJOR DEPRESSIVE DISORDER, SINGLE EPISODE, UNSPECIFIED Status: Chronic Current Visit: Yes (11) Iron deficiency anemia SNOMED Code(s): 38072326 Code(s): D50.9 - IRON DEFICIENCY ANEMIA, UNSPECIFIED Status: Chronic Current Visit: Yes Qualifiers: Iron deficiency anemia type: inadequate dietary iron intake Qualified Code( s): D50.8 - Other iron deficiency anemias - Problem List Review Problem List Initiated/Reviewed/Updated: Yes - My Orders Last 24 Hours: My Active Orders 11/24/19 15:28 COMPREHENSIVE METABOLIC PN,CMP [CHEM] MOTU 11/24/19 15:29 CBC WITH AUTO DIFF [HEME] MO MAGNESIUM [CHEM] MOTH 11/24/19 15:30 INR,PT,PROTHROMBIN TIME [COAG] MO 11/25/19 15:28 COMPREHENSIVE METABOLIC PN,CMP [CHEM] MOTU 11/27/19 15:29 MAGNESIUM [CHEM] MOTH 12/01/19 15:28 COMPREHENSIVE METABOLIC PN,CMP [CHEM] MOTU 12/01/19 15:29 CBC WITH AUTO DIFF [HEME] MO MAGNESIUM [CHEM] MOTH 12/01/19 15:30 INR,PT,PROTHROMBIN TIME [COAG] MO 12/02/19 15:28 COMPREHENSIVE METABOLIC PN,CMP [CHEM] MOTU 12/04/19 15:29 MAGNESIUM [CHEM] MOTH 12/08/19 15:28 COMPREHENSIVE METABOLIC PN,CMP [CHEM] MOTU 12/08/19 15:29 CBC WITH AUTO DIFF [HEME] MO MAGNESIUM [CHEM] MOTH 12/08/19 15:30 INR,PT,PROTHROMBIN TIME [COAG] MO 12/09/19 15:28 COMPREHENSIVE METABOLIC PN,CMP [CHEM] MOTU 12/11/19 15:29 MAGNESIUM [CHEM] MOTH 12/15/19 15:28 COMPREHENSIVE METABOLIC PN,CMP [CHEM] MOTU 12/15/19 15:29 CBC WITH AUTO DIFF [HEME] MO MAGNESIUM [CHEM] MOTH 12/15/19 15:30 INR,PT,PROTHROMBIN TIME [COAG] MO 12/18/19 15:29 MAGNESIUM [CHEM] MOTH 12/22/19 15:29 MAGNESIUM [CHEM] MOTH 12/22/19 15:30 INR,PT,PROTHROMBIN TIME [COAG] MO 12/29/19 15:30 INR,PT,PROTHROMBIN TIME [COAG] MO 01/05/20 15:30 INR,PT,PROTHROMBIN TIME [COAG] MO - Plan Plan:: 1. Colitis with secondary partial bowel obstruction. Flex sig with Dr Srivastava, marked inflammation of rectum & sigmoid. Pathology leukocytic colitis. C. Diff negative. SoluMedrol 125 mg IV daily, day 3 of 7, then will switch to oral and do slow taper over next month. Simethicone tid as needed gas. 2. CBC, CMP, magnesium & INR Sunday. 3. Clears. Oral cares as needed. 4. Morphine 0.5 mg IV q2h as needed. 6. GI prophylaxis: Protonix 40 mg IV daily. 7. Plan to transfer to swing bed tomorrow for continued TPN, and PT/OT for strengthening.
[2019-11-24] MEDS: [UNRECOGNIZED DRUG - OTHER] IV SCH ×2 (08:17)
[2019-11-24] MEDS: CALC IV SCH ×2 (08:17)
[2019-11-24] MEDS: LYTES IV SCH ×2 (08:17)
[2019-11-24] MEDS: MVI IV SCH ×2 (08:17)
[2019-11-24] MEDS: CALCIUM IV SCH ×2 (08:17)
[2019-11-24] MEDS: Sodium Chloride 0.9% 10 ML Syringe FLUSH PRN (08:18)
[2019-11-24] MEDS: Citalopram 10 MG Tab PO SCH (08:18)
[2019-11-24] MEDS: Pantoprazole 40 MG Vial IVPUSH SCH (08:18)
[2019-11-24] MEDS: methylPREDNISolone Sodium Succinate 125 MG/2 ML SDV IVPUSH SCH (08:18)
[2019-11-24] MEDS: Hydrocortisone 2.5% Crm 30 GM Tube TOP SCH ×2 (08:18→13:18)
--- NOTE | 2019-11-24 09:29 | PCM.SURGPN ---
- General Info Date of Service: 11/24/19 Functional Status: Reports: Tolerating Diet, Ambulating - Review of Systems Pulmonary: Reports: No Symptoms Cardiovascular: Reports: No Symptoms Gastrointestinal: Reports: No Symptoms - Patient Data Vitals - Most Recent: Last Vital Signs Temp 98 F 11/24/19 02:30 Pulse 72 11/24/19 02:30 Resp 20 11/24/19 02:30 BP 107/53 L 11/24/19 02:30 Pulse Ox 98 11/24/19 02:30 Weight - Most Recent: 69.4 kg I&O - Last 24 Hours: Intake & Output 11/23/19 11/24/19 11/24/19 22:59 06:59 14:59 Intake Total 520 688 Output Total 400 1200 Balance 120 -512 Lab Results Last 24 Hrs: Laboratory Results - last 24 hr 11/23/19 11/23/19 11/24/19 Range/Units 11:49 17:00 07:45 WBC (4.5-12.0) X10-3/uL RBC (3.23-5.20) x10(6)uL Hgb (11.5-15.5) g/dL Hct (30.0-51.3) % MCV (80-96) fL MCH (27.7-33.6) pg MCHC (32.2-35.4) g/dL RDW (11.5-15.5) % Plt Count (125-369) X10(3)uL MPV (7.4-10.4) fL Add Manual Diff Neutrophils % (Manual) (46-82) % Band Neutrophils % (0-6) % Lymphocytes % (Manual) (13-37) % Monocytes % (Manual) (4-12) % PT (9.0-11.1) sec INR (1.00-1.24) Sodium 142 (135-145) mmol/L Potassium 3.3 L (3.5-5.3) mmol/L Chloride 106 (100-110) mmol/L Carbon Dioxide 31 (21-32) mmol/L BUN 17 D (7-18) mg/dL Creatinine 0.6 (0.55-1.02) mg/dL Est Cr Clr Drug Dosing 60.59 mL/min Estimated GFR (MDRD) > 60 (>60) BUN/Creatinine Ratio 28.3 H (9-20) Glucose 138 H (80-116) mg/dL POC Glucose 194 H 172 H (80-116) mg/dL Calcium 7.1 L (8.6-10.2) mg/dL Magnesium (1.8-2.5) mg/dL Total Bilirubin 0.3 (0.1-1.3) mg/dL AST 73 H D (5-25) IU/L ALT 83 H D (12-36) U/L Alkaline Phosphatase 206 H (56-112) IU/L Total Protein 5.3 L (6.0-8.0) g/dL Albumin 1.5 L* (3.2-4.6) g/dL Globulin 3.8 g/dL Albumin/Globulin Ratio 0.4 11/24/19 11/24/19 11/24/19 Range/Units 07:45 07:45 07:45 WBC 6.7 (4.5-12.0) X10-3/uL RBC 3.00 L (3.23-5.20) x10(6)uL Hgb 9.2 L (11.5-15.5) g/dL Hct 27.6 L (30.0-51.3) % MCV 91.9 (80-96) fL MCH 30.6 (27.7-33.6) pg MCHC 33.3 (32.2-35.4) g/dL RDW 14.0 (11.5-15.5) % Plt Count 322 (125-369) X10(3)uL MPV 7.0 L (7.4-10.4) fL Add Manual Diff Yes Neutrophils % (Manual) 68 (46-82) % Band Neutrophils % 2 (0-6) % Lymphocytes % (Manual) 26 (13-37) % Monocytes % (Manual) 4 (4-12) % PT 11.6 H (9.0-11.1) sec INR 1.22 (1.00-1.24) Sodium (135-145) mmol/L Potassium (3.5-5.3) mmol/L Chloride (100-110) mmol/L Carbon Dioxide (21-32) mmol/L BUN (7-18) mg/dL Creatinine (0.55-1.02) mg/dL Est Cr Clr Drug Dosing mL/min Estimated GFR (MDRD) (>60) BUN/Creatinine Ratio (9-20) Glucose (80-116) mg/dL POC Glucose (80-116) mg/dL Calcium (8.6-10.2) mg/dL Magnesium 1.9 (1.8-2.5) mg/dL Total Bilirubin (0.1-1.3) mg/dL AST (5-25) IU/L ALT (12-36) U/L Alkaline Phosphatase (56-112) IU/L Total Protein (6.0-8.0) g/dL Albumin (3.2-4.6) g/dL Globulin g/dL Albumin/Globulin Ratio Med Orders - Current: Current Medications Acetaminophen (Tylenol) 325 mg RECTAL Q4H PRN PRN Reason: Fever Artificial Tears (Refresh Celluvisc) 1 each EYEBOTH QID PRN PRN Reason: DRY EYES Citalopram Hydrobromide (Celexa) 10 mg PO DAILY [facility] Last Admin: 11/24/19 08:18 Dose: 10 mg Heparin Sodium (Porcine) (Heparin Lock Flush 10 Units/Ml) 50 unit FLUSH ASDIRECTED [facility] Last Admin: 11/20/19 09:15 Dose: 50 unit Hydrocortisone (Hydrocortisone 2.5% Crm) 0 gm TOP QID [facility] Last Admin: 11/24/19 08:18 Dose: 1 applic Multivitamins/Minerals 10 ml/Amino Ac/Electrol/Dextrose/Calcium 1,010 mls @ 84 mls/hr IV .BY DURATION [facility] Last Admin: 11/24/19 08:17 Dose: 84 mls/hr Amino Ac/Electrol/Dextrose/Calcium (Clinimix E 15) 1,000 mls @ 84 mls/hr IV .BY DURATION [facility] Last Admin: 11/23/19 20:06 Dose: 84 mls/hr Fat Emulsion Intravenous (Intralipid 20%) 250 mls @ 20 mls/hr IV [id number] [facility] Last Admin: 11/21/19 21:09 Dose: 20 mls/hr Insulin Human Lispro (Humalog) 0 unit SUBCUT TIDMEALS [facility]; Protocol Last Admin: 11/23/19 18:45 Dose: 2 units Lidocaine HCl (Glydo) 10 ml .XX ASDIRECTED [facility] Last Admin: 03/16/20 18:16 Dose: 6 ml Melatonin (Melatonin) 6 mg PO BEDTIME PRN PRN Reason: Insomnia Methylprednisolone Sodium Succinate (Solu-Medrol) 125 mg IVPUSH DAILY [facility] Last Admin: 11/24/19 08:18 Dose: 125 mg Morphine Sulfate (Morphine) 0.5 mg IVPUSH Q2H PRN PRN Reason: Pain Last Admin: 11/20/19 21:00 Dose: 0.5 mg Ondansetron HCl (Zofran) 4 mg IVPUSH Q6H PRN PRN Reason: Nausea/Vomiting Pantoprazole Sodium (Protonix Iv) 40 mg IVPUSH DAILY [facility] Last Admin: 11/24/19 08:18 Dose: 40 mg Simethicone (Simethicone) 80 mg PO TIDPC PRN PRN Reason: Gas Last Admin: 11/23/19 08:12 Dose: 80 mg Sodium Chloride (Saline Flush) 10 ml FLUSH ASDIRECTED PRN PRN Reason: Keep Vein Open Last Admin: 11/24/19 08:18 Dose: 10 ml Discontinued Medications Artificial Tears (Refresh) 1 each EYEBOTH QID PRN PRN Reason: Dry Eyes Ceftriaxone Sodium (Rocephin) 1 gm IM ONETIME ONE Stop: 11/14/19 14:51 Last Admin: 11/14/19 21:27 Dose: Not Given Ceftriaxone Sodium (Rocephin) 2 gm IVPUSH Q24H [facility] Ceftriaxone Sodium (Rocephin) 1 gm IVPUSH Q24H [facility] Stop: 11/18/19 18:01 Last Admin: 11/18/19 17:30 Dose: 1 gm Cyclosporine (Restasis) 1 each EYEBOTH BID PRN PRN Reason: Dry Eyes Heparin Sodium (Porcine) (Heparin Lock Flush 100 Units/Ml) Confirm Administered Dose 1,500 units .ROUTE .STK-MED ONE Stop: 11/19/19 15:56 Last Admin: 11/19/19 17:12 Dose: Not Given Heparin Sodium (Porcine) (Heparin Lock Flush 100 Units/Ml) 500 units FLUSH ONETIME ONE Stop: 11/19/19 16:01 Last Admin: 11/19/19 17:26 Dose: 500 units Heparin Sodium (Porcine) (Heparin Lock Flush 100 Units/Ml) 500 units FLUSH ONETIME ONE Stop: 11/19/19 16:01 Last Admin: 11/19/19 17:27 Dose: 500 units Heparin Sodium (Porcine) (Heparin Lock Flush 100 Units/Ml) 500 units FLUSH ONETIME ONE Stop: 11/19/19 16:01 Last Admin: 11/19/19 17:27 Dose: 500 units Hydrocortisone (Hydrocortisone 2.5% Crm) 0 gm TOP QID PRN PRN Reason: Hemorrhoids Last Admin: 11/19/19 20:48 Dose: 1 applic Sodium Chloride (Normal Saline) 1,000 mls @ 100 mls/hr IV ASDIRECTED [facility] Last Admin: 11/16/19 02:17 Dose: 100 mls/hr Potassium Chloride (Kcl 20 Meq In Water 100 Ml) 100 mls @ 50 mls/hr IV Q2H [facility] Stop: 11/14/19 21:59 Last Admin: 11/14/19 20:06 Dose: 50 mls/hr Potassium Chloride (Kcl 20 Meq In Water 100 Ml) 100 mls @ 50 mls/hr IV Q2H [facility] Stop: 11/15/19 12:59 Last Admin: 11/15/19 15:41 Dose: 50 mls/hr Magnesium Sulfate (Magnesium Sulfate In Water Premix) 25 mls @ 50 mls/hr IV ONETIME ONE Stop: 11/15/19 11:29 Last Admin: 11/15/19 11:08 Dose: 50 mls/hr Potassium Chloride (Kcl 20 Meq In Water 100 Ml) Confirm Administered Dose 100 mls @ as directed .ROUTE .STK-MED ONE Stop: 11/15/19 15:39 Last Admin: 11/15/19 15:41 Dose: Not Given Potassium Chloride/Dextrose/Sod Cl (D5 1/4 Ns With 20 Meq Kcl) 1,000 mls @ 100 mls/hr IV ASDIRECTED [facility] Last Admin: 11/17/19 07:58 Dose: 100 mls/hr Dextrose/Lactated Ringer's (Dextrose 5%-Lactated Ringers) 1,000 mls @ 60 mls/ hr IV ASDIRECTED [facility] Last Admin: 11/19/19 13:00 Dose: 60 mls/hr Magnesium Sulfate 1 gm/ Sodium (Chloride) 52 mls @ 50 mls/hr IV ONETIME ONE Stop: 11/19/19 09:47 Last Admin: 11/19/19 09:24 Dose: 50 mls/hr Multivitamins/Minerals 10 ml/Amino Ac/Electrol/Dextrose/Calcium 1,010 mls @ 42 mls/hr IV ONETIME ONE Stop: 11/20/19 18:02 Last Admin: 11/19/19 17:27 Dose: 42 mls/hr Iopamidol (Isovue-370 (76%)) 75 ml IV . DIRECTED ONE Stop: 11/14/19 12:18 Last Admin: 11/14/19 12:35 Dose: 75 ml Magnesium Oxide (Magnesium Oxide) 400 mg NGTUBE BID [facility] Last Admin: 11/19/19 08:38 Dose: 400 mg Morphine Sulfate (Morphine) 2 mg IVPUSH ONETIME ONE Stop: 11/14/19 13:45 Last Admin: 11/14/19 13:57 Dose: 2 mg Morphine Sulfate (Morphine) 1 mg IVPUSH Q2H PRN PRN Reason: Pain Last Admin: 11/17/19 22:15 Dose: 1 mg Potassium Chloride (Potassium Chloride Solution) 20 meq NGTUBE TID [facility] Last Admin: 11/19/19 08:37 Dose: 20 meq Potassium Chloride (Potassium Chloride Solution) 20 meq PO TID [facility] Last Admin: 11/20/19 11:16 Dose: Not Given Sodium Biphosphate/Sodium Phosphate (Fleet Enema) 133 ml RECTAL ONETIME ONE Stop: 11/20/19 08:01 Last Admin: 11/20/19 08:04 Dose: 1 enema - Exam Lungs: Clear to Auscultation, Normal Respiratory Effort Cardiovascular: Regular Rate, Regular Rhythm GI/Abdominal Exam: Normal Bowel Sounds, Soft, Non-Tender Sepsis Event Note - Evaluation Sepsis Screening Result: No Definite Risk - Focused Exam Vital Signs: Vital Signs Temp Pulse Resp BP Pulse Ox 11/24/19 02:30 98 F 72 20 107/53 L 98 Date Exam was Performed: 11/24/19 Time Exam was Performed: 09:26 - Problem List & Annotations (1) Paralytic ileus SNOMED Code(s): 82171625 Code(s): K56.0 - PARALYTIC ILEUS Status: Acute Current Visit: Yes (2) Colitis SNOMED Code(s): 46702448 Code(s): K52.9 - NONINFECTIVE GASTROENTERITIS AND COLITIS, UNSPECIFIED Status: Acute Current Visit: Yes - Problem List Review Problem List Initiated/Reviewed/Updated: Yes - My Orders Last 24 Hours: Active Orders 24 hr Category Date Time Status OT Evaluation and Treatment [CONS] Routine Cons 11/23/19 16:34 Active PT Evaluation and Treatment [CONS] Routine Cons 11/24/19 16:33 Active Clear Liquid Diet [DIET] Diet 11/23/19 Lunch Active CBC WITH AUTO DIFF [HEME] [facility] 12/01/19 15:29 Ordered CBC WITH AUTO DIFF [HEME] [facility] 12/08/19 15:29 Ordered CBC WITH AUTO DIFF [HEME] [facility] 12/15/19 15:29 Ordered COMPREHENSIVE METABOLIC PN,CMP [CHEM] [facility] 11/25/19 15:28 Ordered COMPREHENSIVE METABOLIC PN,CMP [CHEM] [facility] 12/01/19 15:28 Ordered COMPREHENSIVE METABOLIC PN,CMP [CHEM] [facility] 12/02/19 15:28 Ordered COMPREHENSIVE METABOLIC PN,CMP [CHEM] [facility] 12/08/19 15:28 Ordered COMPREHENSIVE METABOLIC PN,CMP [CHEM] [facility] 12/09/19 15:28 Ordered COMPREHENSIVE METABOLIC PN,CMP [CHEM] [facility] 12/15/19 15:28 Ordered INR,PT,PROTHROMBIN TIME [COAG] [facility] 12/01/19 15:30 Ordered INR,PT,PROTHROMBIN TIME [COAG] [facility] 12/08/19 15:30 Ordered INR,PT,PROTHROMBIN TIME [COAG] [facility] 12/15/19 15:30 Ordered INR,PT,PROTHROMBIN TIME [COAG] [facility] 12/22/19 15:30 Ordered INR,PT,PROTHROMBIN TIME [COAG] [facility] 12/29/19 15:30 Ordered INR,PT,PROTHROMBIN TIME [COAG] [facility] 01/05/20 15:30 Ordered MAGNESIUM [CHEM] [facility] 11/27/19 15:29 Ordered MAGNESIUM [CHEM] [facility] Lab 12/01/19 15:29 Ordered MAGNESIUM [CHEM] [facility] Lab 12/04/19 15:29 Ordered MAGNESIUM [CHEM] MOTH Lab 12/08/19 15:29 Ordered MAGNESIUM [CHEM] MOTH Lab 12/11/19 15:29 Ordered MAGNESIUM [CHEM] MOTH Lab 12/15/19 15:29 Ordered MAGNESIUM [CHEM] MOTH Lab 12/18/19 15:29 Ordered MAGNESIUM [CHEM] [facility] 12/22/19 15:29 Ordered Medication Orders Acetaminophen (Tylenol) 325 mg RECTAL Q4H PRN PRN Reason: Fever Artificial Tears (Refresh Celluvisc) 1 each EYEBOTH QID PRN PRN Reason: DRY EYES Citalopram Hydrobromide (Celexa) 10 mg PO DAILY [facility] Last Admin: 11/24/19 08:18 Dose: 10 mg Admin: 11/23/19 08:11 Dose: 10 mg Admin: 11/22/19 08:06 Dose: 10 mg Admin: 11/21/19 09:26 Dose: 10 mg Admin: 11/20/19 13:13 Dose: 10 mg Heparin Sodium (Porcine) (Heparin Lock Flush 10 Units/Ml) 50 unit FLUSH ASDIRECTED [facility] Last Admin: 11/20/19 09:15 Dose: 50 unit Admin: 11/20/19 08:33 Dose: 50 unit Admin: 11/20/19 08:29 Dose: 50 unit Hydrocortisone (Hydrocortisone 2.5% Crm) 0 gm TOP QID [facility] Last Admin: 11/24/19 08:18 Dose: 1 applic Admin: 11/23/19 20:04 Dose: 1 applic Admin: 11/23/19 18:45 Dose: 1 applic Admin: 11/23/19 14:00 Dose: 1 applic Admin: 11/23/19 08:12 Dose: 1 applic Admin: 11/22/19 20:57 Dose: 1 applic Admin: 11/22/19 17:28 Dose: 1 applic Admin: 11/22/19 13:06 Dose: 1 applic Admin: 11/22/19 08:07 Dose: 1 applic Admin: 11/21/19 21:08 Dose: 1 applic Admin: 11/21/19 17:30 Dose: 1 applic Admin: 11/21/19 13:25 Dose: 1 applic Admin: 11/21/19 09:26 Dose: 1 applic Admin: 11/20/19 20:03 Dose: 1 applic Admin: 11/20/19 17:47 Dose: 1 applic Admin: 11/20/19 13:18 Dose: 1 applic Admin: 11/20/19 11:08 Dose: 1 applic Multivitamins/Minerals 10 ml/Amino Ac/Electrol/Dextrose/Calcium 1,010 mls @ 84 mls/hr IV .BY DURATION [facility] Last Admin: 11/24/19 08:17 Dose: 84 mls/hr Infusion: 11/23/19 19:30 Dose: 84 mls/hr Admin: 11/23/19 07:28 Dose: 84 mls/hr Infusion: 11/22/19 18:41 Dose: 84 mls/hr Admin: 11/22/19 06:39 Dose: 84 mls/hr Infusion: 11/21/19 17:57 Dose: 84 mls/hr Admin: 11/21/19 05:55 Dose: 84 mls/hr Amino Ac/Electrol/Dextrose/Calcium (Clinimix E 01/15) 1,000 mls @ 84 mls/hr IV .BY DURATION [facility] Last Admin: 11/23/19 20:06 Dose: 84 mls/hr Infusion: 11/23/19 07:12 Dose: 84 mls/hr Admin: 11/22/19 19:17 Dose: 84 mls/hr Infusion: 11/22/19 06:33 Dose: 84 mls/hr Admin: 11/21/19 18:38 Dose: 84 mls/hr Infusion: 11/21/19 05:43 Dose: 84 mls/hr Admin: 11/20/19 17:48 Dose: 84 mls/hr Fat Emulsion Intravenous (Intralipid 20%) 250 mls @ 20 mls/hr IV [id number] [facility] Last Admin: 11/21/19 21:09 Dose: 20 mls/hr Infusion: 11/20/19 09:18 Dose: 20 mls/hr Admin: 11/19/19 20:48 Dose: 20 mls/hr Insulin Human Lispro (Humalog) 0 unit SUBCUT TIDMEALS [facility]; Protocol Last Admin: 11/23/19 18:45 Dose: 2 units Admin: 11/23/19 12:43 Dose: 2 units Admin: 11/23/19 08:11 Dose: 2 units Admin: 11/22/19 18:26 Dose: 2 units Admin: 11/22/19 13:04 Dose: 4 units Admin: 11/22/19 08:08 Dose: 6 units Admin: 11/21/19 18:38 Dose: Not Given Lidocaine HCl (Glydo) 10 ml .XX ASDIRECTED [facility] Last Admin: 11/17/19 18:16 Dose: 6 ml Melatonin (Melatonin) 6 mg PO BEDTIME PRN PRN Reason: Insomnia Methylprednisolone Sodium Succinate (Solu-Medrol) 125 mg IVPUSH DAILY [facility] Last Admin: 11/24/19 08:18 Dose: 125 mg Admin: 11/23/19 08:12 Dose: 125 mg Admin: 11/22/19 08:06 Dose: 125 mg Admin: 11/21/19 17:50 Dose: 125 mg Morphine Sulfate (Morphine) 0.5 mg IVPUSH Q2H PRN PRN Reason: Pain Last Admin: 11/20/19 21:00 Dose: 0.5 mg Ondansetron HCl (Zofran) 4 mg IVPUSH Q6H PRN PRN Reason: Nausea/Vomiting Pantoprazole Sodium (Protonix Iv) 40 mg IVPUSH DAILY [facility] Last Admin: 11/24/19 08:18 Dose: 40 mg Admin: 11/23/19 08:12 Dose: 40 mg Admin: 11/22/19 08:06 Dose: 40 mg Admin: 11/21/19 09:26 Dose: 40 mg Admin: 11/20/19 09:06 Dose: 40 mg Admin: 11/19/19 08:49 Dose: 40 mg Admin: 11/18/19 09:29 Dose: 40 mg Admin: 11/17/19 10:39 Dose: 40 mg Admin: 11/16/19 15:30 Dose: 40 mg Simethicone (Simethicone) 80 mg PO TIDPC PRN PRN Reason: Gas Last Admin: 11/23/19 08:12 Dose: 80 mg Sodium Chloride (Saline Flush) 10 ml FLUSH ASDIRECTED PRN PRN Reason: Keep Vein Open Last Admin: 11/24/19 08:18 Dose: 10 ml Admin: 11/23/19 08:16 Dose: 10 ml Admin: 11/21/19 17:50 Dose: 10 ml Admin: 11/21/19 09:26 Dose: 10 ml Admin: 11/20/19 21:03 Dose: 10 ml Admin: 11/20/19 21:00 Dose: 10 ml Admin: 11/20/19 09:10 Dose: 10 ml Admin: 11/20/19 08:35 Dose: 10 ml Admin: 11/20/19 08:30 Dose: 10 ml Admin: 11/20/19 08:20 Dose: 10 ml Admin: 11/17/19 22:17 Dose: 10 ml Admin: 11/15/19 18:09 Dose: 10 ml Admin: 11/15/19 17:28 Dose: 10 ml Admin: 11/15/19 17:26 Dose: 10 ml Admin: 11/14/19 12:26 Dose: 10 ml - Assessment Assessment (Free Text/Narrative):: colitis appears to be resolving - Plan Plan (Free Text/Narrative):: would advance diet.
[2019-11-24] MEDS: Insulin Lispro 100 Unit/ML 3 ML KwikPen SUBCUT SCH ×2 (09:31→13:16)
[2019-11-24 13:33] VITALS: BP 105/69; PULSE 75
--- NOTE | 2019-11-24 14:08 | PCM.DCSUM1 ---
Discharge Summary - Hospital Course HPI Initial Comments: Alicia has been having abdominal pain for a few weeks, first had some diarrhea with bloody stools. She states the blood was present on the stool and not in the toilet. She started Iron and then became constipated so stopped and diarrhea started again. She states pain in mainly in the lower part of her belly , no nausea or vomiting. Has been more confused per her son from when he saw her on Sunday. She was seen at [facility] today by Dr Srivastava and he called and sent her to ER for evaluation. CT abdomen/pelvis showed sigmoid colitis, partial small bowel obstruction and UA showed UTI. She denies any fevers, chills, sore throat or cough. No shortness of breath, chest pain. No dysuria, frequency or hematuria. No joint pain. No edema. Patient denies any surgeries but chart notes hysterectomy, cholecystectomy, appy for abdominal surgeries, see below for full list. Complaining of dry mouth, licking her lips and they are sticking together making it difficult for her to talk. Diagnosis: Stroke: No - Discharge Data Discharge Date: 11/24/19 Discharge Disposition: DC/Tfer W/I Hosp To Swing 61 Condition: Good - Referral to Home Health Primary Care Physician: Isidoro Flores MD - Discharge Diagnosis/Problem(s) (1) Partial bowel obstruction SNOMED Code(s): 85143228546618245 ICD Code: K56.600 - PARTIAL INTESTINAL OBSTRUCTION, UNSPECIFIED TO CAUSE Status: Acute Current Visit: Yes Problem Details: Flex sig Thurs showed inflammation of rectum & sigmoid, pathology leukocytic(lymphocytic) colitis with ulcerations. C. Diff negative. SoluMedrol 125 mg daily, day 4 of 7, discussed with Dr Srivastava, would need a slow taper over the next month at least. (2) Colitis SNOMED Code(s): 74404822 ICD Code: K52.9 - NONINFECTIVE GASTROENTERITIS AND COLITIS, UNSPECIFIED Status: Acute Current Visit: Yes (3) Hypokalemia SNOMED Code(s): 24854895 ICD Code: E87.6 - HYPOKALEMIA Status: Acute Current Visit: Yes Problem Details: improving. (4) Hypoalbuminemia due to protein-calorie malnutrition SNOMED Code(s): 38881212539370 ICD Code: E88.09 - OTH DISORDERS OF PLASMA-PROTEIN METABOLISM, NEC; E46 - UNSPECIFIED PROTEIN-CALORIE MALNUTRITION Status: Acute Current Visit: Yes Problem Details: TPN started 11/18, repeat labs on Sunday. (5) Edema due to hypoalbuminemia SNOMED Code(s): 413352375 ICD Code: R60.9 - EDEMA, UNSPECIFIED; E88.09 - OTH DISORDERS OF PLASMA- PROTEIN METABOLISM, NEC Status: Acute Current Visit: Yes (6) Hypomagnesemia SNOMED Code(s): 661808446 ICD Code: E83.42 - HYPOMAGNESEMIA Status: Resolved Current Visit: Yes (7) Dehydration SNOMED Code(s): 96272864 ICD Code: E86.0 - DEHYDRATION Status: Resolved Current Visit: Yes (8) UTI (urinary tract infection) SNOMED Code(s): 51644062 ICD Code: N39.0 - URINARY TRACT INFECTION, SITE NOT SPECIFIED Status: Resolved Current Visit: Yes Problem Details: Completed abx course. (9) Osteoporosis SNOMED Code(s): 00535456 ICD Code: M81.0 - AGE-RELATED OSTEOPOROSIS W/O CURRENT PATHOLOGICAL FRACTURE Status: Chronic Current Visit: Yes (10) Depression SNOMED Code(s): 33398169 ICD Code: F32.9 - MAJOR DEPRESSIVE DISORDER, SINGLE EPISODE, UNSPECIFIED Status: Chronic Current Visit: Yes (11) Iron deficiency anemia SNOMED Code(s): 51781642 ICD Code: D50.9 - IRON DEFICIENCY ANEMIA, UNSPECIFIED Status: Chronic Current Visit: Yes Qualifiers: Iron deficiency anemia type: inadequate dietary iron intake Qualified Code( s): D50.8 - Other iron deficiency anemias - Patient Summary/Data Operative Procedure(s) Performed: flex sig with bx Consults: Consultations 11/17/19 14:17 Consult to Physician [CONS] Routine Consulting Provider: Tony Srivastava Courtesy Call Completed to Consulting Physician: Yes Reason for Consult: Partial small bowel obstruction vs early complete obstruction Person Notified: yes Date Notified: 11/17/19 Time Notified: 14:16 11/23/19 16:34 OT Evaluation and Treatment [CONS] Routine Please Evaluate and Treat. OT Reason for Consult: ADL's This query below is only for informational purposes and is not editable. Admission Diagnosis/Problem: Partial bowel obstruction 11/24/19 16:33 PT Evaluation and Treatment [CONS] Routine Please Evaluate and Treat. PT Reason for Consult: Strengthening This query below is only for informational purposes and is not editable. Admission Diagnosis/Problem: Partial bowel obstruction Hospital Course: UTI found on admission, received Rocephin daily for 5 days. Had potassium at 2.3 stayed at 2.3 in spite of IV replacement. Checked magnesium this was low so replaced with Magnesium Sulfate IV x 2 and oral through NG x 1. Partial small bowel obstruction: bowel rest, NPO with Ice chips through , attempted to advance to clears, her pain worsened and went back to NPO with ice chips. Discussed with Dr Srivastava on admission had agreed with bowel rest, consulted on Sunday and orders for NG with oral potassium and magnesium. Potassium came up a little bit with NG. Abdominal x-ray on prior to NG and on after 48 hours did not show any change in her x-ray. Patient was becoming more edematous , CMP showed albumin was down to 1.3 then 1.1. Discuss[address] with Dr Srivastava and both agreed that she needed TPN started. PICC insertion ordered, they were unsuccessful so Dr Srivastava put in a central line and TPN was started evening of . Her potassium came up on to 3.1 and 3.3 today. Magnesium has stayed in the normal range. Albumin is up to 1.5. Dr Srivastava performed flex sig on , found extensive inflammation and ulceration at 30 cm(see his dictation). Biopsies were expedited, came back on Sunday with lymphocytic colitis. C. Diff was negative. SoluMedrol 125 mg IV started on Sunday evening and has received 4 doses. She had a couple large bowel movements on Sunday and pain greatly improved after the bowel movements. Started clear liquids on Sunday, which she tolerated well. No pain this morning after breakfast. Diet advanced for lunch. PT/OT seen, see reports. Will transfer to swing bed for continued TPN due to her hypoalbuminemia due to protein calorie malnutrition. Anticipate at least a week of TPN as her diet is resumed as her nutrition was greatly depleted prior to admission. - Patient Instructions Diet: Regular Diet as Tolerated Diet, Other: TPN Activity: As Tolerated Showering/Bathing: May Shower Other/Special Instructions: Transfer to Swing bed for TPN. - Discharge Plan *PRESCRIPTION DRUG MONITORING PROGRAM REVIEWED*: Not Applicable *COPY OF PRESCRIPTION DRUG MONITORING REPORT IN PATIENT KATI: Not Applicable Home Medications: Home Meds Aspirin [Halfprin] 81 mg PO BEDTIME 06/23/13 [History] Cyanocobalamin (Vitamin B-12) [Cyanocobalamin] 1 gm PO DAILY 06/23/13 [History] Flaxseed Oil [Flax Oil] 1,000 mg PO DAILY 06/23/13 [History] Lutein 20 mg PO DAILY 06/23/13 [History] Omeprazole [Prilosec] 20 mg PO BEDTIME 06/23/13 [History] Polyvinyl Alcohol/Povidone [Refresh] 1 each EYEBOTH ASDIRECTED PRN 06/23/13 [ History] Triamcinolone Acetonide [Kenalog 0.1% Crm] 15 gm TOP BID PRN 06/23/13 [History] cycloSPORINE [Restasis] 1 drop EYEBOTH BID PRN 06/23/13 [History] Cholecalciferol (Vitamin D3) [Vitamin D3] 1,000 units PO DAILY 06/24/13 [History ] Citalopram Hydrobromide [Celexa] 10 mg PO BEDTIME 06/24/13 [History] Fish Oil/[place]-3 Fatty Acids [Fish Oil 1,000 MG] 1,000 mg PO BID 06/24/13 [ History] Multivitamin [Multi-Vitamin Daily] 1 each PO DAILY 06/24/13 [History] Alendronate Sodium [Fosamax] 70 mg PO Q7D 05/06/19 [History] Calcium Carbonate/Vitamin D3 [Os-Meng 500+D] 1 each PO BID 05/06/19 [History] Ferrous Sulfate [Iron] 325 mg PO DAILY 05/06/19 [History] Glucosamine Sulfate/Msm [Glucosamine-MSM 500-400 MG] 2 cap PO DAILY 05/06/19 [ History] Vitamin E 400 unit PO DAILY 05/06/19 [History] Patient Handouts: Colitis Forms: ED Department Discharge Referrals: Isidoro Flores MD [Primary Care Provider] - - Discharge Summary/Plan Comment DC Time >30 min.: Yes - General Info Date of Service: 11/24/19 Subjective Update: Rosaura is doing much better this morning. She was started on clear liquids yesterday, had no worsening of pain and tolerated well. Diet advanced by Dr Srivastava for lunch. No fevers, or chills. Ambulated 4 times yesterday. Functional Status: Reports: Pain Controlled, Tolerating Diet - Patient Data Vitals - Most Recent: Last Vital Signs Temp 97.4 F 11/24/19 08:00 Pulse 75 11/24/19 08:00 Resp 20 11/24/19 08:00 BP 105/69 11/24/19 08:00 Pulse Ox 98 11/24/19 08:00 Weight - Most Recent: 153 lb I&O - Last 24 hours: Intake & Output 11/23/19 11/24/19 11/24/19 22:59 06:59 14:59 Intake Total 520 688 Output Total 400 1200 Balance 120 -512 Lab Results - Last 24 hrs: Laboratory Results - last 24 hr 11/23/19 11/24/19 11/24/19 Range/Units 17:00 07:45 07:45 WBC 6.7 (4.5-12.0) X10-3/uL RBC 3.00 L (3.23-5.20) x10(6)uL Hgb 9.2 L (11.5-15.5) g/dL Hct 27.6 L (30.0-51.3) % MCV 91.9 (80-96) fL MCH 30.6 (27.7-33.6) pg MCHC 33.3 (32.2-35.4) g/dL RDW 14.0 (11.5-15.5) % Plt Count 322 (125-369) X10(3)uL MPV 7.0 L (7.4-10.4) fL Add Manual Diff Yes Neutrophils % (Manual) 68 (46-82) % Band Neutrophils % 2 (0-6) % Lymphocytes % (Manual) 26 (13-37) % Monocytes % (Manual) 4 (4-12) % PT (9.0-11.1) sec INR (1.00-1.24) Sodium 142 (135-145) mmol/L Potassium 3.3 L (3.5-5.3) mmol/L Chloride 106 (100-110) mmol/L Carbon Dioxide 31 (21-32) mmol/L BUN 17 D (7-18) mg/dL Creatinine 0.6 (0.55-1.02) mg/dL Est Cr Clr Drug Dosing 60.59 mL/min Estimated GFR (MDRD) > 60 (>60) BUN/Creatinine Ratio 28.3 H (9-20) Glucose 138 H (80-116) mg/dL POC Glucose 172 H (80-116) mg/dL Calcium 7.1 L (8.6-10.2) mg/dL Magnesium (1.8-2.5) mg/dL Total Bilirubin 0.3 (0.1-1.3) mg/dL AST 73 H D (5-25) IU/L ALT 83 H D (12-36) U/L Alkaline Phosphatase 206 H (56-112) IU/L Total Protein 5.3 L (6.0-8.0) g/dL Albumin 1.5 L* (3.2-4.6) g/dL Globulin 3.8 g/dL Albumin/Globulin Ratio 0.4 11/24/19 11/24/19 11/24/19 Range/Units 07:45 07:45 11:35 WBC (4.5-12.0) X10-3/uL RBC (3.23-5.20) x10(6)uL Hgb (11.5-15.5) g/dL Hct (30.0-51.3) % MCV (80-96) fL MCH (27.7-33.6) pg MCHC (32.2-35.4) g/dL RDW (11.5-15.5) % Plt Count (125-369) X10(3)uL MPV (7.4-10.4) fL Add Manual Diff Neutrophils % (Manual) (46-82) % Band Neutrophils % (0-6) % Lymphocytes % (Manual) (13-37) % Monocytes % (Manual) (4-12) % PT 11.6 H (9.0-11.1) sec INR 1.22 (1.00-1.24) Sodium (135-145) mmol/L Potassium (3.5-5.3) mmol/L Chloride (100-110) mmol/L Carbon Dioxide (21-32) mmol/L BUN (7-18) mg/dL Creatinine (0.55-1.02) mg/dL Est Cr Clr Drug Dosing mL/min Estimated GFR (MDRD) (>60) BUN/Creatinine Ratio (9-20) Glucose (80-116) mg/dL POC Glucose 153 H (80-116) mg/dL Calcium (8.6-10.2) mg/dL Magnesium 1.9 (1.8-2.5) mg/dL Total Bilirubin (0.1-1.3) mg/dL AST (5-25) IU/L ALT (12-36) U/L Alkaline Phosphatase (56-112) IU/L Total Protein (6.0-8.0) g/dL Albumin (3.2-4.6) g/dL Globulin g/dL Albumin/Globulin Ratio Med Orders - Current: Current Medications Acetaminophen (Tylenol) 325 mg RECTAL Q4H PRN PRN Reason: Fever Artificial Tears (Refresh Celluvisc) 1 each EYEBOTH QID PRN PRN Reason: DRY EYES Citalopram Hydrobromide (Celexa) 10 mg PO DAILY [facility] Last Admin: 11/24/19 08:18 Dose: 10 mg Heparin Sodium (Porcine) (Heparin Lock Flush 10 Units/Ml) 50 unit FLUSH ASDIRECTED [facility] Last Admin: 11/20/19 09:15 Dose: 50 unit Hydrocortisone (Hydrocortisone 2.5% Crm) 0 gm TOP QID [facility] Last Admin: 11/24/19 13:18 Dose: 1 applic Multivitamins/Minerals 10 ml/Amino Ac/Electrol/Dextrose/Calcium 1,010 mls @ 84 mls/hr IV .BY DURATION [facility] Last Admin: 11/24/19 08:17 Dose: 84 mls/hr Amino Ac/Electrol/Dextrose/Calcium (Clinimix E /15) 1,000 mls @ 84 mls/hr IV .BY DURATION [facility] Last Admin: 11/23/19 20:06 Dose: 84 mls/hr Fat Emulsion Intravenous (Intralipid 20%) 250 mls @ 20 mls/hr IV [id number] [facility] Last Admin: 11/21/19 21:09 Dose: 20 mls/hr Insulin Human Lispro (Humalog) 0 unit SUBCUT TIDMEALS [facility]; Protocol Last Admin: 11/24/19 13:16 Dose: 2 units Lidocaine HCl (Glydo) 10 ml .XX ASDIRECTED [facility] Last Admin: 11/17/19 18:16 Dose: 6 ml Melatonin (Melatonin) 6 mg PO BEDTIME PRN PRN Reason: Insomnia Methylprednisolone Sodium Succinate (Solu-Medrol) 125 mg IVPUSH DAILY [facility] Last Admin: 11/24/19 08:18 Dose: 125 mg Morphine Sulfate (Morphine) 0.5 mg IVPUSH Q2H PRN PRN Reason: Pain Last Admin: 11/20/19 21:00 Dose: 0.5 mg Ondansetron HCl (Zofran) 4 mg IVPUSH Q6H PRN PRN Reason: Nausea/Vomiting Pantoprazole Sodium (Protonix Iv) 40 mg IVPUSH DAILY [facility] Last Admin: 11/24/19 08:18 Dose: 40 mg Simethicone (Simethicone) 80 mg PO TIDPC PRN PRN Reason: Gas Last Admin: 11/23/19 08:12 Dose: 80 mg Sodium Chloride (Saline Flush) 10 ml FLUSH ASDIRECTED PRN PRN Reason: Keep Vein Open Last Admin: 11/24/19 08:18 Dose: 10 ml Discontinued Medications Artificial Tears (Refresh) 1 each EYEBOTH QID PRN PRN Reason: Dry Eyes Ceftriaxone Sodium (Rocephin) 1 gm IM ONETIME ONE Stop: 11/14/19 14:51 Last Admin: 11/14/19 21:27 Dose: Not Given Ceftriaxone Sodium (Rocephin) 2 gm IVPUSH Q24H [facility] Ceftriaxone Sodium (Rocephin) 1 gm IVPUSH Q24H [facility] Stop: 11/18/19 18:01 Last Admin: 11/18/19 17:30 Dose: 1 gm Cyclosporine (Restasis) 1 each EYEBOTH BID PRN PRN Reason: Dry Eyes Heparin Sodium (Porcine) (Heparin Lock Flush 100 Units/Ml) Confirm Administered Dose 1,500 units .ROUTE .STK-MED ONE Stop: 11/19/19 15:56 Last Admin: 11/19/19 17:12 Dose: Not Given Heparin Sodium (Porcine) (Heparin Lock Flush 100 Units/Ml) 500 units FLUSH ONETIME ONE Stop: 11/19/19 16:01 Last Admin: 11/19/19 17:26 Dose: 500 units Heparin Sodium (Porcine) (Heparin Lock Flush 100 Units/Ml) 500 units FLUSH ONETIME ONE Stop: 11/19/19 16:01 Last Admin: 11/19/19 17:27 Dose: 500 units Heparin Sodium (Porcine) (Heparin Lock Flush 100 Units/Ml) 500 units FLUSH ONETIME ONE Stop: 11/19/19 16:01 Last Admin: 11/19/19 17:27 Dose: 500 units Hydrocortisone (Hydrocortisone 2.5% Crm) 0 gm TOP QID PRN PRN Reason: Hemorrhoids Last Admin: 11/19/19 20:48 Dose: 1 applic Sodium Chloride (Normal Saline) 1,000 mls @ 100 mls/hr IV ASDIRECTED [facility] Last Admin: 11/16/19 02:17 Dose: 100 mls/hr Potassium Chloride (Kcl 20 Meq In Water 100 Ml) 100 mls @ 50 mls/hr IV Q2H [facility] Stop: 11/14/19 21:59 Last Admin: 11/14/19 20:06 Dose: 50 mls/hr Potassium Chloride (Kcl 20 Meq In Water 100 Ml) 100 mls @ 50 mls/hr IV Q2H [facility] Stop: 11/15/19 12:59 Last Admin: 11/15/19 15:41 Dose: 50 mls/hr Magnesium Sulfate (Magnesium Sulfate In Water Premix) 25 mls @ 50 mls/hr IV ONETIME ONE Stop: 11/15/19 11:29 Last Admin: 11/15/19 11:08 Dose: 50 mls/hr Potassium Chloride (Kcl 20 Meq In Water 100 Ml) Confirm Administered Dose 100 mls @ as directed .ROUTE .STK-MED ONE Stop: 11/15/19 15:39 Last Admin: 11/15/19 15:41 Dose: Not Given Potassium Chloride/Dextrose/Sod Cl (D5 1/4 Ns With 20 Meq Kcl) 1,000 mls @ 100 mls/hr IV ASDIRECTED [facility] Last Admin: 11/17/19 07:58 Dose: 100 mls/hr Dextrose/Lactated Ringer's (Dextrose 5%-Lactated Ringers) 1,000 mls @ 60 mls/ hr IV ASDIRECTED [facility] Last Admin: 11/19/19 13:00 Dose: 60 mls/hr Magnesium Sulfate 1 gm/ Sodium (Chloride) 52 mls @ 50 mls/hr IV ONETIME ONE Stop: 11/19/19 09:47 Last Admin: 11/19/19 09:24 Dose: 50 mls/hr Multivitamins/Minerals 10 ml/Amino Ac/Electrol/Dextrose/Calcium 1,010 mls @ 42 mls/hr IV ONETIME ONE Stop: 11/20/19 18:02 Last Admin: 11/19/19 17:27 Dose: 42 mls/hr Iopamidol (Isovue-370 (76%)) 75 ml IV . DIRECTED ONE Stop: 11/14/19 12:18 Last Admin: 11/14/19 12:35 Dose: 75 ml Magnesium Oxide (Magnesium Oxide) 400 mg NGTUBE BID [facility] Last Admin: 11/19/19 08:38 Dose: 400 mg Morphine Sulfate (Morphine) 2 mg IVPUSH ONETIME ONE Stop: 11/14/19 13:45 Last Admin: 11/14/19 13:57 Dose: 2 mg Morphine Sulfate (Morphine) 1 mg IVPUSH Q2H PRN PRN Reason: Pain Last Admin: 11/17/19 22:15 Dose: 1 mg Potassium Chloride (Potassium Chloride Solution) 20 meq NGTUBE TID [facility] Last Admin: 11/19/19 08:37 Dose: 20 meq Potassium Chloride (Potassium Chloride Solution) 20 meq PO TID [facility] Last Admin: 11/20/19 11:16 Dose: Not Given Sodium Biphosphate/Sodium Phosphate (Fleet Enema) 133 ml RECTAL ONETIME ONE Stop: 11/20/19 08:01 Last Admin: 11/20/19 08:04 Dose: 1 enema - Exam General: Reports: Alert, Oriented, Cooperative, No Acute Distress Lungs: Reports: Clear to Auscultation, Normal Respiratory Effort Cardiovascular: Reports: Regular Rate, Regular Rhythm GI/Abdominal Exam: Normal Bowel Sounds, Soft, Non-Tender, No Distention Extremities: Pedal Edema (1+ BLE up to knees)
== END 2019-11-24 13:30 | disposition swing bed (61) | DRG 389 ==
LOC: FB.ED 11:20 → FB.MS 17:02
PROVIDERS: ADMIT Family Medicine; ATTEND Family Medicine
PROC: 02HV33Z Insertion of Infusion Device into Superior Vena Cava, Percutaneous Approach (ICD-10-PCS; principal; 2019-11-19)
PROC: 3E0436Z Introduction of Nutritional Substance into Central Vein, Percutaneous Approach (ICD-10-PCS; 2019-11-19)
PROC: 0DBP8ZX Excision of Rectum, Via Natural or Artificial Opening Endoscopic, Diagnostic (ICD-10-PCS; 2019-11-20)
PROC: 0DBN8ZX Excision of Sigmoid Colon, Via Natural or Artificial Opening Endoscopic, Diagnostic (ICD-10-PCS; 2019-11-20)
DX: K52.9 Noninfective gastroenteritis and colitis, unspecified (principal); K56.600 Partial intestinal obstruction, unspecified as to cause; N39.0 Urinary tract infection, site not specified; E46 Unspecified protein-calorie malnutrition; K56.0 Paralytic ileus; K52.832 Lymphocytic colitis; E87.6 Hypokalemia; H04.129 Dry eye syndrome of unspecified lacrimal gland; E83.42 Hypomagnesemia; E86.0 Dehydration; M81.0 Age-related osteoporosis without current pathological fracture; F32.9 Major depressive disorder, single episode, unspecified; Z98.49 Cataract extraction status, unspecified eye; D50.8 Other iron deficiency anemias; Z90.710 Acquired absence of both cervix and uterus; Z90.49 Acquired absence of other specified parts of digestive tract; Z79.82 Long term (current) use of aspirin; Z79.899 Other long term (current) drug therapy; Z88.2 Allergy status to sulfonamides; H91.90 Unspecified hearing loss, unspecified ear; H54.7 Unspecified visual loss; I87.8 Other specified disorders of veins; K21.9 Gastro-esophageal reflux disease without esophagitis; R32 Unspecified urinary incontinence; E66.9 Obesity, unspecified; Z98.890 Other specified postprocedural states; Z68.28 Body mass index [BMI] 28.0-28.9, adult
CPT/HCPCS: 36415; 71045; 74177; 80053; 81001; 82150; 82270; 83605; 83690; 85025; 87040 ×2; 87086; 87088; 87186; 96361; 96374; 99284; 99285; J2270; J7030; Q9967; 74019; 80048; 82962; 83735; 85610; 87230; 88305; 97161-GP; 97165-GO; A9270-GY; C9113; J0696; J1642; J1815; J2930; J3475; J3480; J3490; J7050; J7121

== ENCOUNTER 2019-11-24 13:30 | Inpatient (IN) | payer MEDICARE, OTHER ==
[2019-11-24] MEDS ORDERED: Acetaminophen 325 MG Tab PO PRN (14:09)
[2019-11-24] MEDS ORDERED: Carboxymethylcellulose Sodium 0.5% Ophth Soln 15 ML Bottle EYEBOTH PRN (14:09)
[2019-11-24] MEDS ORDERED: Heparin Sodium 10 Units/ML 5 ML Syringe FLUSH SCH (14:15)
[2019-11-24] MEDS ORDERED: Acetaminophen 650 MG Tab.ER PO PRN (14:15)
[2019-11-24] MEDS ORDERED: Simethicone 80 MG Tab.Chew PO PRN (14:17)
[2019-11-24] MEDS ORDERED: Carboxymethylcellulose Sodium 1% Ophth Gel 0.4 ML UD Box of 30 EYEBOTH PRN (14:22)
--- NOTE | 2019-11-24 14:27 | PCM.HP.2 ---
H&P History of Present Illness - General Date of Service: 11/24/19 Admit Problem/Dx: Admission Diagnosis/Problem Admission Diagnosis/Problem Malnutrition, Lymphocytic Colitis Source of Information: Patient, Provider - History of Present Illness Initial Comments - Free Text/Narative: ACUTE HPI: Alicia has been having abdominal pain for a few weeks, first had some diarrhea with bloody stools. She states the blood was present on the stool and not in the toilet. She started Iron and then became constipated so stopped and diarrhea started again. She states pain in mainly in the lower part of her belly, no nausea or vomiting. Has been more confused per her son from when he saw her on Sunday. She was seen at [facility] today by Dr Srivastava and he called and sent her to ER for evaluation. CT abdomen/pelvis showed sigmoid colitis, partial small bowel obstruction and UA showed UTI. She denies any fevers, chills, sore throat or cough. No shortness of breath, chest pain. No dysuria, frequency or hematuria. No joint pain. No edema. Patient denies any surgeries but chart notes hysterectomy, cholecystectomy, appy for abdominal surgeries, see below for full list. Complaining of dry mouth, licking her lips and they are sticking together making it difficult for her to talk ACUTE HOSPITAL COURSE: UTI found on admission, received Rocephin daily for 5 days. Had potassium at 2.3 stayed at 2.3 in spite of IV replacement. Checked magnesium this was low so replaced with Magnesium Sulfate IV x 2 and oral through NG x 1. Partial small bowel obstruction: bowel rest, NPO with Ice chips through , attempted to advance to clears, her pain worsened and went back to NPO with ice chips. Discussed with Dr Srivastava on admission had agreed with bowel rest, consulted on Sunday and orders for NG with oral potassium and magnesium. Potassium came up a little bit with NG. Abdominal x-ray on prior to NG and on after 48 hours did not show any change in her x-ray. Patient was becoming more edematous, CMP showed albumin was down to 1.3 then 1.1. Discuss[address] with Dr Srivastava and both agreed that she needed TPN started. PICC insertion ordered, they were unsuccessful so Dr Srivastava put in a central line and TPN was started evening of . Her potassium came up on to 3.1 and 3.3 today. Magnesium has stayed in the normal range. Albumin is up to 1.5. Dr Srivastava performed flex sig on , found extensive inflammation and ulceration at 30 cm(see his dictation). Biopsies were expedited, came back on Sunday with lymphocytic colitis. C. Diff was negative. SoluMedrol 125 mg IV started on Sunday evening and has received 4 doses. She had a couple large bowel movements on Sunday and pain greatly improved after the bowel movements. Started clear liquids on Sunday, which she tolerated well. No pain this morning after breakfast. Diet advanced for lunch. PT/OT seen, see reports. Will transfer to swing bed for continued TPN due to her hypoalbuminemia due to protein calorie malnutrition. Anticipate at least a week of TPN as her diet is resumed as her nutrition was greatly depleted prior to admission. - Related Data Allergies/Adverse Reactions: Allergies Allergy/AdvReac Type Severity Reaction Status Date / Time Sulfa (Sulfonamide Allergy Rash Verified 11/14/19 11:45 Antibiotics) Home Medications: Home Meds Aspirin [Halfprin] 81 mg PO BEDTIME 06/23/13 [History] Cyanocobalamin (Vitamin B-12) [Cyanocobalamin] 1 gm PO DAILY 06/23/13 [History] Flaxseed Oil [Flax Oil] 1,000 mg PO DAILY 06/23/13 [History] Lutein 20 mg PO DAILY 06/23/13 [History] Omeprazole [Prilosec] 20 mg PO BEDTIME 06/23/13 [History] Polyvinyl Alcohol/Povidone [Refresh] 1 each EYEBOTH ASDIRECTED PRN 06/23/13 [ History] Triamcinolone Acetonide [Kenalog 0.1% Crm] 15 gm TOP BID PRN 06/23/13 [History] cycloSPORINE [Restasis] 1 drop EYEBOTH BID PRN 06/23/13 [History] Cholecalciferol (Vitamin D3) [Vitamin D3] 1,000 units PO DAILY 06/24/13 [History ] Citalopram Hydrobromide [Celexa] 10 mg PO BEDTIME 06/24/13 [History] Fish Oil/Sligo-3 Fatty Acids [Fish Oil 1,000 MG] 1,000 mg PO BID 06/24/13 [ History] Multivitamin [Multi-Vitamin Daily] 1 each PO DAILY 06/24/13 [History] Alendronate Sodium [Fosamax] 70 mg PO Q7D 05/06/19 [History] Calcium Carbonate/Vitamin D3 [Os-Meng 500+D] 1 each PO BID 05/06/19 [History] Ferrous Sulfate [Iron] 325 mg PO DAILY 05/06/19 [History] Glucosamine Sulfate/Msm [Glucosamine-MSM 500-400 MG] 2 cap PO DAILY 05/06/19 [ History] Vitamin E 400 unit PO DAILY 05/06/19 [History] Past Medical History HEENT History: Reports: Cataract, Hard of Hearing, Impaired Vision, Other (See Below) Other HEENT History: dry eyes Cardiovascular History: Reports: None, Other (See Below) Other Cardiovascular History: VENOUS STASIS AND INSUFFICIENCY OF LOWER EXTREMITIES Respiratory History: Reports: None Gastrointestinal History: Reports: GERD, Hemorrhoids Genitourinary History: Reports: Urinary Incontinence [employer] History: Reports: Musculoskeletal History: Reports: Fracture, Other (See Below) Other Musculoskeletal History: TRIGGER FINGER. CARPAL TUNNEL SYNDROME Psychiatric History: Reports: Depression Endocrine/Metabolic History: Reports: Obesity/BMI 30+ Hematologic History: Reports: None Immunologic History: Reports: None Oncologic (Cancer) History: Reports: None Dermatologic History: Reports: Eczema, Other (See Below) Other Dermatologic History: CONTACT DERMATITIS - Infectious Disease History Infectious Disease History: Reports: Chicken Pox, Measles, Mumps - Past Surgical History Head Surgeries/Procedures: Reports: None HEENT Surgical History: Reports: Cataract Surgery Cardiovascular Surgical History: Reports: None Respiratory Surgical History: Reports: None GI Surgical History: Reports: Appendectomy, Cholecystectomy, Colonoscopy Female Surgical History: Reports: Hysterectomy Endocrine Surgical History: Reports: None Neurological Surgical History: Reports: Discectomy, Laminectomy, Other (See Below) Other Neurological Surgeries/Procedures: L3-4 Musculoskeletal Surgical History: Reports: Other (See Below) Other Musculoskeletal Surgeries/Procedures:: TRIGGER FINGER RELEASE, TRIGGER FINGER INJECTION Oncologic Surgical History: Reports: None Social & Family History - Family History Family Medical History: Noncontributory - Caffeine Use Caffeine Use: Reports: Coffee, Tea - Living Situation & Occupation Living situation: Reports: , Alone Occupation: Retired H&P Review of Systems - Review of Systems: Review Of Systems: See Below General: Reports: No Symptoms HEENT: Reports: No Symptoms Pulmonary: Reports: No Symptoms Cardiovascular: Reports: No Symptoms Gastrointestinal: Reports: Diarrhea. Denies: Abdominal Pain, Constipation, Decreased Appetite, Difficulty Swallowing, Nausea, Vomiting Genitourinary: Reports: No Symptoms Musculoskeletal: Reports: No Symptoms Skin: Reports: Pallor Psychiatric: Reports: No Symptoms Neurological: Reports: No Symptoms Hematologic/Lymphatic: Reports: Anemia (iron) Immunologic: Reports: No Symptoms Exam - Exam Exam: See Below - Exam General: Alert, Oriented, Cooperative. No: Mild Distress Lungs: Clear to Auscultation, Normal Respiratory Effort Cardiovascular: Regular Rate, Regular Rhythm GI/Abdominal Exam: Normal Bowel Sounds, Soft, Non-Tender, No Distention Extremities: Pedal Edema (1+ BLE up to knees) Skin: Warm, Dry, Intact, Ecchymosis (right forearm, pallor) - Problem List (1) Colitis SNOMED Code(s): 73545335 ICD Code: K52.9 - NONINFECTIVE GASTROENTERITIS AND COLITIS, UNSPECIFIED Status: Acute Current Visit: No Problem Details: Lymphocytic colitis found on flex sig on November 19, Day 4 of 7 SoluMedrol 125 mg IV daily then taper slowly over next 4 weeks, prednisone 60 mg daily x 7 days then 40 mg daily x 7 days then 20 mg daily x 7 days then 10 mg daily x 7 days. Follow up with Dr Sriavstava in 4 weeks. (2) Hypoalbuminemia due to protein-calorie malnutrition SNOMED Code(s): 69555139190413 ICD Code: E88.09 - OTH DISORDERS OF PLASMA-PROTEIN METABOLISM, NEC; E46 - UNSPECIFIED PROTEIN-CALORIE MALNUTRITION Status: Acute Current Visit: No Problem Details: TPN started 11/18, repeat labs on Sunday. (3) Edema due to hypoalbuminemia SNOMED Code(s): 785992262 ICD Code: R60.9 - EDEMA, UNSPECIFIED; E88.09 - OTH DISORDERS OF PLASMA- PROTEIN METABOLISM, NEC Status: Acute Current Visit: No (4) Partial bowel obstruction SNOMED Code(s): 71841000762510127 ICD Code: K56.600 - PARTIAL INTESTINAL OBSTRUCTION, UNSPECIFIED TO CAUSE Status: Acute Current Visit: No Problem Details: Resolved. Diet advanced will continue TPN to improve nutrition. (5) Depression SNOMED Code(s): 79848507 ICD Code: F32.9 - MAJOR DEPRESSIVE DISORDER, SINGLE EPISODE, UNSPECIFIED Status: Chronic Current Visit: No (6) Iron deficiency anemia SNOMED Code(s): 24046352 ICD Code: D50.9 - IRON DEFICIENCY ANEMIA, UNSPECIFIED Status: Chronic Current Visit: No Qualifiers: Iron deficiency anemia type: inadequate dietary iron intake Qualified Code( s): D50.8 - Other iron deficiency anemias Problem List Initiated/Reviewed/Updated: Yes Orders Last 24hrs: Active Orders 24 hr Category Date Time Status Patient Status [ADT] Routine ADT 11/24/19 14:09 Active Ambulate [RC] ASDIRECTED Care 11/24/19 14:09 Active Antiembolic Devices [RC] .Routine Care 11/24/19 14:09 Active Blood Glucose Check, Bedside [RC] TIDMEALS Care 11/24/19 14:09 Active Central Line Assessment [RC] Q8H Care 11/24/19 14:20 Active Height and Weight [RC] WEEKLY Care 11/24/19 14:09 Active Oxygen Therapy [RC] PRN Care 11/24/19 14:09 Active Up to Chair [RC] ASDIRECTED Care 11/24/19 14:09 Active VTE/DVT Education [RC] Per Unit Routine Care 11/24/19 14:09 Active Vital Signs [RC] PER UNIT ROUTINE Care 11/24/19 14:09 Active Consult to Webbing Weaver [CONS] Routine Cons 11/24/19 14:09 Active Regular Diet [DIET] Diet 11/24/19 Dinner Active ALT Order Med 11/24/19 20:00 Active Acetaminophen [Tylenol] Med 11/24/19 14:09 Active 650 mg PO Q4H PRN Carboxymethylcellulose Sodium [Refresh Celluvisc] Med 11/24/19 14:22 Active 1 each EYEBOTH QID PRN Citalopram [Celexa] Med 11/24/19 21:00 Ordered 10 mg PO BEDTIME Enoxaparin [Lovenox] Med 11/24/19 14:15 Ordered 30 mg SUBCUT Q24H Fat Emulsion [Intralipid 20%] 250 ml Med 11/24/19 21:00 Active IV [id number] Ferrous Sulfate Med 11/25/19 09:00 Ordered 325 mg PO DAILY Heparin Sodium [Heparin Lock Flush 10 Units/ML] Med 11/24/19 14:30 Ordered 50 unit FLUSH ASDIRECTED Hydrocortisone [Hydrocortisone 2.5% Crm] Med 11/24/19 17:00 Ordered 1 gm TOP QID Insulin Lispro [HumaLOG] Med 11/24/19 18:00 Ordered See Protocol SUBCUT TIDMEALS Melatonin Med 11/24/19 14:17 Ordered 3 mg PO BEDTIME PRN Simethicone Med 11/24/19 14:17 Ordered 80 mg PO QIDPCANDBED PRN Antiembolic Hose [OM.PC] Per Unit Routine Oth 11/24/19 14:11 Ordered Resuscitation Status Routine Resus Stat 11/24/19 14:09 Ordered Medication Orders Acetaminophen (Tylenol) 650 mg PO Q4H PRN PRN Reason: Pain (Mild 1-3)/fever Artificial Tears (Refresh Celluvisc) 1 each EYEBOTH QID PRN PRN Reason: DRY EYES Citalopram Hydrobromide (Celexa) 10 mg PO BEDTIME [facility] Enoxaparin Sodium (Lovenox) 30 mg SUBCUT Q24H [facility] Ferrous Sulfate (Ferrous Sulfate) 325 mg PO DAILY [facility] Heparin Sodium (Porcine) (Heparin Lock Flush 10 Units/Ml) 50 unit FLUSH ASDIRECTED BRANDYN Hydrocortisone (Hydrocortisone 2.5% Crm) 1 gm TOP QID [facility] Multivitamins/Minerals 10 ml/Amino Ac/Electrol/Dextrose/Calcium 1,010 mls @ 84 mls/hr IV .BY DURATION [facility] Amino Ac/Electrol/Dextrose/Calcium (Clinimix E 5/15) 1,000 mls @ 84 mls/hr IV .BY DURATION [facility] Fat Emulsion Intravenous (Intralipid 20%) 250 mls @ 20 mls/hr IV [id number] [facility] Insulin Human Lispro (Humalog) 0 unit SUBCUT TIDMEALS [facility]; Protocol Melatonin (Melatonin) 3 mg PO BEDTIME PRN PRN Reason: Insomnia Simethicone (Simethicone) 80 mg PO QIDPCANDBED PRN PRN Reason: Heartburn Assessment/Plan Comment:: 1. Admit to Swing Bed for TPN for protein calorie malnutrition secondary to Lymphocytic colitis and partial small bowel obstruction(resolved). 2. TPN per pharmacy. CBC, CMP, INR on Sunday & . Magnesium weekly on Sunday. Dietary following. Regular diet started today. 3. SoluMedrol 125 mg IV daily 4/7 days then prednisone 60 mg daily for 7 days, 40 mg daily for 7 days then 20 mg daily for 7 days then 10 mg daily for 7 days. 4. Up to chair and ambulate, does not require PT/OT services. Needs motivation to get up and moving. 5. Humalog Sliding scale TID while on steroids & TPN. 6. DVT prophylaxis: Lovenox 30 mg SQ daily. 7. Protonix 40 mg IV daily. 8. TEDs bilateral knee-high. 9. FULL CODE. 10. Follow up with Dr Srivastava as outpatient in 4 weeks. - Mortality Measure Prognosis:: Good
[2019-11-24] MEDS: Enoxaparin 30 MG/0.3 ML Syringe SUBCUT SCH (15:20)
[2019-11-24] MEDS: Hydrocortisone 2.5% Crm 30 GM Tube TOP SCH ×2 (18:21→21:00)
[2019-11-24] MEDS: Insulin Lispro 100 Unit/ML 3 ML KwikPen SUBCUT SCH (18:23)
[2019-11-24] MEDS: CALCIUM IV SCH ×2 (20:25)
[2019-11-24] MEDS: LYTES IV SCH ×2 (20:25)
[2019-11-24] MEDS: [UNRECOGNIZED DRUG - OTHER] IV SCH ×2 (20:25)
[2019-11-24] MEDS: MVI IV SCH ×2 (20:25)
[2019-11-24] MEDS: CALC IV SCH ×2 (20:25)
[2019-11-24] MEDS: Heparin Sodium 10 Units/ML 5 ML Syringe FLUSH SCH ×2 (20:45→20:47)
[2019-11-24] MEDS: Fat Emulsion 250 ML IV SCH (21:45)
[2019-11-25] MEDS: Insulin Lispro 100 Unit/ML 3 ML KwikPen SUBCUT SCH ×3 (08:37→17:30)
[2019-11-25] MEDS: Ferrous Sulfate 325 MG Tab PO SCH (08:37)
[2019-11-25] MEDS: MVI IV SCH ×4 (08:40→20:40)
[2019-11-25] MEDS: LYTES IV SCH ×4 (08:40→20:40)
[2019-11-25] MEDS: Hydrocortisone 2.5% Crm 30 GM Tube TOP SCH ×4 (08:40→21:04)
[2019-11-25] MEDS: [UNRECOGNIZED DRUG - OTHER] IV SCH ×4 (08:40→20:40)
[2019-11-25] MEDS: CALCIUM IV SCH ×4 (08:40→20:40)
[2019-11-25] MEDS: CALC IV SCH ×4 (08:40→20:40)
[2019-11-25] MEDS: Sodium Chloride 0.9% 10 ML Syringe FLUSH PRN (09:22)
[2019-11-25] MEDS: methylPREDNISolone Sodium Succinate 125 MG/2 ML SDV IVPUSH SCH (09:23)
[2019-11-25] MEDS: Pantoprazole 40 MG Vial IVPUSH SCH (09:24)
[2019-11-25] MEDS: Heparin Sodium 10 Units/ML 5 ML Syringe FLUSH SCH ×2 (09:28→09:29)
[2019-11-25] MEDS: Enoxaparin 30 MG/0.3 ML Syringe SUBCUT SCH (14:30)
[2019-11-25] MEDS: Citalopram 10 MG Tab PO SCH (21:04)
[2019-11-26] MEDS: Insulin Lispro 100 Unit/ML 3 ML KwikPen SUBCUT SCH ×3 (08:11→17:07)
[2019-11-26] MEDS: CALCIUM IV SCH ×4 (08:36→20:50)
[2019-11-26] MEDS: CALC IV SCH ×4 (08:36→20:50)
[2019-11-26] MEDS: MVI IV SCH ×4 (08:36→20:50)
[2019-11-26] MEDS: [UNRECOGNIZED DRUG - OTHER] IV SCH ×4 (08:36→20:50)
[2019-11-26] MEDS: LYTES IV SCH ×4 (08:36→20:50)
[2019-11-26] MEDS: Ferrous Sulfate 325 MG Tab PO SCH (08:38)
[2019-11-26] MEDS: Pantoprazole 40 MG Vial IVPUSH SCH (08:39)
[2019-11-26] MEDS: methylPREDNISolone Sodium Succinate 125 MG/2 ML SDV IVPUSH SCH (08:39)
[2019-11-26] MEDS: Heparin Sodium 10 Units/ML 5 ML Syringe FLUSH SCH ×2 (08:41→08:42)
[2019-11-26] MEDS: Hydrocortisone 2.5% Crm 30 GM Tube TOP SCH ×4 (08:43→20:37)
[2019-11-26] MEDS: Sodium Chloride 0.9% 10 ML Syringe FLUSH PRN (08:44)
[2019-11-26] MEDS: Enoxaparin 30 MG/0.3 ML Syringe SUBCUT SCH (14:21)
[2019-11-26] MEDS: Citalopram 10 MG Tab PO SCH (20:38)
[2019-11-26] MEDS: Fat Emulsion 250 ML IV SCH (20:43)
[2019-11-27] MEDS: Sodium Chloride 0.9% 10 ML Syringe FLUSH PRN ×4 (05:18→20:16)
[2019-11-27] MEDS: Heparin Sodium 10 Units/ML 5 ML Syringe FLUSH SCH ×3 (05:19→08:36)
[2019-11-27] MEDS: methylPREDNISolone Sodium Succinate 125 MG/2 ML SDV IVPUSH SCH (08:15)
[2019-11-27] MEDS: Pantoprazole 40 MG Vial IVPUSH SCH (08:21)
[2019-11-27] MEDS: Ferrous Sulfate 325 MG Tab PO SCH (08:24)
[2019-11-27] MEDS: Insulin Lispro 100 Unit/ML 3 ML KwikPen SUBCUT SCH ×3 (08:25→17:24)
[2019-11-27] MEDS: [UNRECOGNIZED DRUG - OTHER] IV SCH ×4 (08:41→21:07)
[2019-11-27] MEDS: MVI IV SCH ×4 (08:41→21:07)
[2019-11-27] MEDS: CALC IV SCH ×4 (08:41→21:07)
[2019-11-27] MEDS: CALCIUM IV SCH ×4 (08:41→21:07)
[2019-11-27] MEDS: LYTES IV SCH ×4 (08:41→21:07)
[2019-11-27] MEDS: Hydrocortisone 2.5% Crm 30 GM Tube TOP SCH ×4 (08:42→21:08)
[2019-11-27] MEDS ORDERED: Ondansetron 4 MG Tab.DIS PO PRN (08:53)
[2019-11-27] MEDS: Enoxaparin 30 MG/0.3 ML Syringe SUBCUT SCH (14:55)
[2019-11-27] MEDS: Citalopram 10 MG Tab PO SCH (21:04)
[2019-11-28] MEDS: Pantoprazole 40 MG Tab.CR PO SCH (06:03)
[2019-11-28] MEDS: Insulin Lispro 100 Unit/ML 3 ML KwikPen SUBCUT SCH ×3 (08:28→17:10)
[2019-11-28] MEDS: Hydrocortisone 2.5% Crm 30 GM Tube TOP SCH ×4 (08:29→20:06)
[2019-11-28] MEDS: predniSONE 20 MG Tab PO SCH (08:29)
[2019-11-28] MEDS: Ferrous Sulfate 325 MG Tab PO SCH (08:29)
[2019-11-28] MEDS: Heparin Sodium 10 Units/ML 5 ML Syringe FLUSH SCH ×2 (08:32)
[2019-11-28] MEDS: CALC IV SCH ×4 (09:15→21:18)
[2019-11-28] MEDS: CALCIUM IV SCH ×4 (09:15→21:18)
[2019-11-28] MEDS: MVI IV SCH ×4 (09:15→21:18)
[2019-11-28] MEDS: LYTES IV SCH ×4 (09:15→21:18)
[2019-11-28] MEDS: [UNRECOGNIZED DRUG - OTHER] IV SCH ×4 (09:15→21:18)
--- NOTE | 2019-11-28 11:45 | PN ---
DATE SEEN: 11/28/2019 SUBJECTIVE: Alicia Bear is a 79-year-old female, presently in swing bed. Had a complicated acute care stay. Small bowel obstruction. She is now on nutritional supplements TPN, aggressive steroidal therapy for lymphocytic colitis. Switching from IV Solu-Medrol to oral prednisone 60 mg. Appetite is about 40%. Pain generally controlled. LABORATORY STUDIES: On 11/28/2019; hemoglobin 8.2, hematocrit 25.1, white count 5400, normal differential. Glucose 137. OBJECTIVE: VITAL SIGNS: 36.8, 82, 131/54, 18, and 97% on room air. GENERAL: Appears comfortable. Soft spoken. NECK: Benign. Thyroid small. CHEST: On auscultation, clear in all lung solis. HEART: No ectopy or murmur. ABDOMEN: Pretty benign. ASSESSMENT: Small bowel obstruction, resolved; lymphocytic colitis. PLAN: Continue transfer from IV to oral steroids, nutrition on board, plans in place for duration. /[id number] 1141 SHOAIB/JOCELYN
[2019-11-28] MEDS: Enoxaparin 30 MG/0.3 ML Syringe SUBCUT SCH (13:35)
[2019-11-28] MEDS: Mupirocin Oint 22 GM Tube TOP SCH ×2 (17:09→20:05)
[2019-11-28] MEDS: Citalopram 10 MG Tab PO SCH (20:05)
[2019-11-28] MEDS: Fat Emulsion 250 ML IV SCH (21:18)
[2019-11-29] MEDS: Pantoprazole 40 MG Tab.CR PO SCH (06:09)
[2019-11-29] MEDS: Insulin Lispro 100 Unit/ML 3 ML KwikPen SUBCUT SCH ×3 (07:58→17:28)
[2019-11-29] MEDS: Hydrocortisone 2.5% Crm 30 GM Tube TOP SCH (07:59)
[2019-11-29] MEDS: Heparin Sodium 10 Units/ML 5 ML Syringe FLUSH SCH ×3 (08:42→14:31)
[2019-11-29] MEDS: Mupirocin Oint 22 GM Tube TOP SCH ×4 (08:42→20:10)
[2019-11-29] MEDS: Ferrous Sulfate 325 MG Tab PO SCH (08:42)
[2019-11-29] MEDS: predniSONE 20 MG Tab PO SCH (08:42)
[2019-11-29] MEDS: CALCIUM IV SCH ×4 (09:13→21:42)
[2019-11-29] MEDS: CALC IV SCH ×4 (09:13→21:42)
[2019-11-29] MEDS: LYTES IV SCH ×4 (09:13→21:42)
[2019-11-29] MEDS: MVI IV SCH ×4 (09:13→21:42)
[2019-11-29] MEDS: [UNRECOGNIZED DRUG - OTHER] IV SCH ×4 (09:13→21:42)
[2019-11-29] MEDS ORDERED: Hydrocortisone 2.5% Crm 30 GM Tube TOP PRN (11:17)
[2019-11-29] MEDS: Enoxaparin 30 MG/0.3 ML Syringe SUBCUT SCH (13:16)
[2019-11-29] MEDS ORDERED: Prochlorperazine 10 MG in Sodium Chloride 0.9% 50 ML IV PRN (13:25)
[2019-11-29] MEDS: Sodium Chloride 0.9% 10 ML Syringe FLUSH PRN ×2 (14:01→14:31)
[2019-11-29] MEDS: Citalopram 10 MG Tab PO SCH (20:10)
[2019-11-30] MEDS: Pantoprazole 40 MG Tab.CR PO SCH (06:25)
[2019-11-30] MEDS: Insulin Lispro 100 Unit/ML 3 ML KwikPen SUBCUT SCH ×3 (07:21→17:16)
[2019-11-30] MEDS: Heparin Sodium 10 Units/ML 5 ML Syringe FLUSH SCH ×3 (08:54→10:44)
[2019-11-30] MEDS: Mupirocin Oint 22 GM Tube TOP SCH ×4 (08:54→20:00)
[2019-11-30] MEDS: Ferrous Sulfate 325 MG Tab PO SCH (08:54)
[2019-11-30] MEDS: predniSONE 20 MG Tab PO SCH (08:54)
[2019-11-30] MEDS: Sodium Chloride 0.9% 10 ML Syringe FLUSH PRN ×2 (09:01→10:44)
[2019-11-30] MEDS: MVI IV SCH ×4 (09:50→22:03)
[2019-11-30] MEDS: CALCIUM IV SCH ×4 (09:50→22:03)
[2019-11-30] MEDS: LYTES IV SCH ×4 (09:50→22:03)
[2019-11-30] MEDS: [UNRECOGNIZED DRUG - OTHER] IV SCH ×4 (09:50→22:03)
[2019-11-30] MEDS: CALC IV SCH ×4 (09:50→22:03)
[2019-11-30] MEDS: Enoxaparin 30 MG/0.3 ML Syringe SUBCUT SCH (13:24)
[2019-11-30] MEDS: Nitrofurantoin Monohydrate/Macrocrystalline 100 MG Cap PO SCH ×2 (13:26→20:01)
[2019-11-30] MEDS: Citalopram 10 MG Tab PO SCH (20:01)
[2019-12-01] MEDS: Pantoprazole 40 MG Tab.CR PO SCH (05:35)
[2019-12-01] MEDS: Sodium Chloride 0.9% 10 ML Syringe FLUSH PRN (07:21)
[2019-12-01] MEDS: Heparin Sodium 10 Units/ML 5 ML Syringe FLUSH SCH ×3 (07:22→10:12)
--- NOTE | 2019-12-01 08:08 | PN ---
DATE SEEN: 11/29/2019 Alicia Bear is a delightful 79-year-old female. Had a recent bout of complicated abdominal pain, bowel obstruction, lymphocytic colitis, is on aggressive therapy. She is weaned from IV steroids to oral prednisone 60 mg daily with declining doses planned. Hyperalimentation in place. LABORATORY STUDIES: Glucose today 148. PHYSICAL EXAMINATION: VITAL SIGNS: 36.9, 96, 114/60, 16, 96% on room air. GENERAL: Soft-spoken, a little bit unsettled, but okay. HEENT: Impetiginous lesion, right lower lip, healing eschar. NECK: Benign. Thyroid small. CHEST: Clear in all lung solis. No adventitious sounds. HEART: No ectopy or murmur. ABDOMEN: Benign. ASSESSMENT: Complicated abdominal pain, inflammatory issues. PLAN: Continue hyperalimentation, IV site in place, left central line, impetigo healing well. Home care. Home topical treatment in place. /[id number] [id number] /JOCELYN
--- NOTE | 2019-12-01 08:15 | PN ---
DATE SEEN: 11/30/2019 SUBJECTIVE: Rosaura Bear is a 79-year-old, female in a swing bed. Had a complicated bout of abdominal pain, was found to have colitis and is on aggressive hyperalimentation and steroid therapy. Had kind of a fussy day yesterday. A little tired. Similarly today. No other constitutional symptoms, complicated cough, bowel difficulties. Stooling normally, voiding without difficulty or symptoms. No cough or shortness of breath. Recent reports, none. Laboratory studies, glucoses 178 and 118 the last 2 days. OBJECTIVE: VITAL SIGNS: 36.7, pulse is 90, 121/64, 96 on room air. GENERAL: A little withdrawn but appropriate. Speech is fluent. NECK: Benign. CHEST: Clear in all lung solis. No adventitious sounds. HEART: No ectopy or murmur. ABDOMEN: Pretty benign, a little tender lower abdomen. ASSESSMENT: Low-grade fever. PLAN: CBC, chest x-ray, electrolytes and blood cultures. Reports to follow. /[id number] /JOCELYN
[2019-12-01] MEDS: Insulin Lispro 100 Unit/ML 3 ML KwikPen SUBCUT SCH ×3 (09:07→17:54)
[2019-12-01] MEDS: Mupirocin Oint 22 GM Tube TOP SCH ×4 (09:08→20:12)
[2019-12-01] MEDS: Ferrous Sulfate 325 MG Tab PO SCH ×3 (09:08→17:53)
[2019-12-01] MEDS: predniSONE 20 MG Tab PO SCH (09:09)
[2019-12-01] MEDS: Nitrofurantoin Monohydrate/Macrocrystalline 100 MG Cap PO SCH ×2 (09:11→20:12)
[2019-12-01] MEDS: MVI, Adult with Vitamin K 10 ML in AA 5%/Calcium/D15W/Lytes 1,000 ML IV SCH ×2 (10:12)
--- NOTE | 2019-12-01 14:37 | PN ---
DATE SEEN: 12/01/2019 SUBJECTIVE: Alicia Bear is a 79-year-old female, in swing bed for restorative therapy, hyperalimentation, nutritional improvement, treatment for inflammatory colitis. Appears to be stable. LABORATORY STUDIES: Albumin has gone from 1.6 to 1.7, globulin 3.2 to 3.3, total protein 4.8 to 5.0. Continues to be anemic. Hemoglobin is stable 7.9 and 7.9 with normochromic normocytic indices. Blood loss is still a suspected origin. Did have some bloody stools last , but none since that time. Reviewed case with Dr. Srivastava, who felt treatment in place, increasing iron pills appropriate. 11/30/2017; hemoglobin 7.9, white count 3700, hematocrit 23.9, normal indices. Chemistries as noted above. Calcium 7.1 to 7.3. OBJECTIVE: VITAL SIGNS: 36.5, 103/58, 96 on room air. GENERAL: Appears comfortable. Soft-spoken. NECK: Benign. Thyroid small. CHEST: On auscultation, clear in all lung solis. HEART: No ectopy or murmur. ABDOMEN: A bit distended but satisfactory. Complicated colitis. PLAN: IV steroids on board, IV nutrition on board with hyperalimentation. We will increase her ferrous sulfate from 325 one daily to 325 t.i.d. Complementary care and well-being. /[id number] [id number] /JOCELYN
[2019-12-01] MEDS: Enoxaparin 30 MG/0.3 ML Syringe SUBCUT SCH (16:34)
[2019-12-01] MEDS: Citalopram 10 MG Tab PO SCH (20:12)
[2019-12-01] MEDS: Fat Emulsion 250 ML IV SCH (20:15)
[2019-12-02] MEDS: Pantoprazole 40 MG Tab.CR PO SCH (06:09)
[2019-12-02] MEDS: predniSONE 20 MG Tab PO SCH (08:04)
[2019-12-02] MEDS: Ferrous Sulfate 325 MG Tab PO SCH ×3 (08:04→17:59)
[2019-12-02] MEDS: Nitrofurantoin Monohydrate/Macrocrystalline 100 MG Cap PO SCH ×2 (08:04→20:08)
[2019-12-02] MEDS: Mupirocin Oint 22 GM Tube TOP SCH ×4 (08:05→20:08)
[2019-12-02] MEDS: Insulin Lispro 100 Unit/ML 3 ML KwikPen SUBCUT SCH ×3 (08:05→18:00)
[2019-12-02] MEDS: Heparin Sodium 10 Units/ML 5 ML Syringe FLUSH SCH ×2 (09:00)
[2019-12-02] MEDS: MVI, Adult with Vitamin K 10 ML in AA 5%/Calcium/D15W/Lytes 1,000 ML IV SCH ×2 (13:26)
[2019-12-02] MEDS: Enoxaparin 30 MG/0.3 ML Syringe SUBCUT SCH (14:19)
--- NOTE | 2019-12-02 15:24 | PN ---
DATE SEEN: 12/02/2019 SUBJECTIVE: Alicia Bear is a 79-year-old female in swing bed. Getting hyperalimentation and high-dose prednisone for an active colitis. Hyperalimentation is going well. Being monitored by Pharmacy. Prednisone at present 30 mg daily, reducing doses in place. Appetite is about 50%. LABORATORY STUDIES: Hemoglobin 7.9 and 8.0, white count 3,700 and 3,500, platelets_391,000, inflammatory marker. Glucose continued to be reasonable at 171, 118, and 128. Albumin 1.7. Protein 5.0, globulin 3.3. PHYSICAL EXAMINATION: VITAL SIGNS: 36.9, 84, 86/52, 18, and 98. GENERAL: Soft spoken. Little bit withdrawn, but appropriate. NECK: Benign. Thyroid small. CHEST: Clear in all lung solis. HEART: No ectopy or murmur. ABDOMEN: Generalized tenderness. ASSESSMENT: Complicated inflammatory bowel changes. PLAN: Medications on board, hyperalimentation, prednisone, and care. /[id number] [id number] /JOCELYN
[2019-12-02] MEDS: Citalopram 10 MG Tab PO SCH (20:09)
[2019-12-03] MEDS: Pantoprazole 40 MG Tab.CR PO SCH (05:27)
[2019-12-03] MEDS: MVI, Adult with Vitamin K 10 ML in AA 5%/Calcium/D15W/Lytes 1,000 ML IV SCH ×2 (06:46)
[2019-12-03] MEDS: Sodium Chloride 0.9% 10 ML Syringe FLUSH PRN ×2 (06:48→20:55)
[2019-12-03] MEDS: Heparin Sodium 10 Units/ML 5 ML Syringe FLUSH SCH ×4 (06:49→10:17)
[2019-12-03] MEDS: Mupirocin Oint 22 GM Tube TOP SCH ×4 (08:00→20:57)
[2019-12-03] MEDS: Ferrous Sulfate 325 MG Tab PO SCH ×3 (10:13→21:01)
[2019-12-03] MEDS: Insulin Lispro 100 Unit/ML 3 ML KwikPen SUBCUT SCH ×3 (10:15→18:26)
[2019-12-03] MEDS: Nitrofurantoin Monohydrate/Macrocrystalline 100 MG Cap PO SCH ×2 (10:15→21:01)
[2019-12-03] MEDS: predniSONE 20 MG Tab PO SCH (10:16)
--- NOTE | 2019-12-03 11:59 | PN ---
DATE SEEN: 12/03/2019 SUBJECTIVE: Alicia Baer is a 79-year-old female, seen today for swing bed care. Hyperalimentation has been reduced in half. Appetite quite poor. Eating less than 50%. Dietary will instruct with increasing caloric intake. Tolerating her hyperalimentation without difficulty. Laboratory studies have remained satisfactory. Her albumin has gone up moderately 1.8, 1.6 on 11/27/2019. OBJECTIVE: VITAL SIGNS: 37.1, 105 is the pulse, 94/58, 70 is the mean blood pressure, 16, 98%. GENERAL: Soft spoken with little bit withdrawn. HEENT: Mouth and oropharynx clear. NECK: Benign. Thyroid small. CHEST: Clear in all lung solis. HEART: No ectopy or murmur. ABDOMEN: Benign. Little distention. ASSESSMENT: Complicated colitis. PLAN: Reducing dose, now down to 10 mg, observation and care. We will ask Dr. Srivastava just to do a re-review given his early intervention and care. /[id number] /JOCELYN
[2019-12-03] MEDS: Enoxaparin 30 MG/0.3 ML Syringe SUBCUT SCH (17:10)
[2019-12-03] MEDS: Citalopram 10 MG Tab PO SCH (21:01)
[2019-12-03] MEDS: Fat Emulsion 250 ML IV SCH (21:04)
[2019-12-04] MEDS: Pantoprazole 40 MG Tab.CR PO SCH (05:12)
[2019-12-04] MEDS: Sodium Chloride 0.9% 10 ML Syringe FLUSH PRN ×3 (06:24→06:51)
[2019-12-04] MEDS: Heparin Sodium 10 Units/ML 5 ML Syringe FLUSH SCH ×4 (06:25→11:07)
[2019-12-04] MEDS: MVI, Adult with Vitamin K 10 ML in AA 5%/Calcium/D15W/Lytes 1,000 ML IV SCH ×2 (06:29)
[2019-12-04] MEDS ORDERED: predniSONE 10 MG Tab PO SCH (09:00)
[2019-12-04] MEDS: Mupirocin Oint 22 GM Tube TOP SCH ×4 (09:35→20:41)
[2019-12-04] MEDS: Ferrous Sulfate 325 MG Tab PO SCH ×3 (09:35→17:30)
[2019-12-04] MEDS: Nitrofurantoin Monohydrate/Macrocrystalline 100 MG Cap PO SCH ×2 (09:36→20:42)
[2019-12-04] MEDS: Insulin Lispro 100 Unit/ML 3 ML KwikPen SUBCUT SCH ×3 (09:36→17:31)
--- NOTE | 2019-12-04 09:52 | PCM.SURGPN ---
- General Info Date of Service: 12/04/19 - Review of Systems Systems Review Comment:: asked to see pt in swing bed status. found to have an exacerbation of lymphocytic colitis. still having issue with some diarrhea. had been on a steroid taper but is down to a day. - Patient Data Vitals - Most Recent: Last Vital Signs Temp 97.8 F 12/04/19 08:00 Pulse 101 H 12/04/19 08:00 Resp 18 12/04/19 08:00 BP 94/59 L 12/04/19 08:00 Pulse Ox 97 12/04/19 08:00 Weight - Most Recent: 61.348 kg I&O - Last 24 Hours: Intake & Output 12/03/19 12/04/19 12/04/19 22:59 06:59 14:59 Intake Total 614 464 Balance 614 464 Lab Results Last 24 Hrs: Laboratory Results - last 24 hr 12/03/19 12/03/19 12/03/19 Range/Units 10:31 11:12 18:24 WBC 3.4 L (4.5-12.0) X10-3/uL RBC 2.66 L (3.23-5.20) x10(6)uL Hgb 8.3 L (11.5-15.5) g/dL Hct 25.0 L (30.0-51.3) % MCV 94.0 (80-96) fL MCH 31.1 (27.7-33.6) pg MCHC 33.0 (32.2-35.4) g/dL RDW 17.7 H (11.5-15.5) % Plt Count 421 H (125-369) X10(3)uL Sodium (135-145) mmol/L Potassium (3.5-5.3) mmol/L Chloride (100-110) mmol/L Carbon Dioxide (21-32) mmol/L BUN (7-18) mg/dL Creatinine (0.55-1.02) mg/dL Est Cr Clr Drug Dosing mL/min Estimated GFR (MDRD) (>60) BUN/Creatinine Ratio (9-20) Glucose (80-116) mg/dL POC Glucose 108 150 H (80-116) mg/dL Calcium (8.6-10.2) mg/dL Total Bilirubin (0.1-1.3) mg/dL AST (5-25) IU/L ALT (12-36) U/L Alkaline Phosphatase (56-112) IU/L Total Protein (6.0-8.0) g/dL Albumin (3.2-4.6) g/dL Globulin g/dL Albumin/Globulin Ratio 12/04/19 Range/Units 06:50 WBC (4.5-12.0) X10-3/uL RBC (3.23-5.20) x10(6)uL Hgb (11.5-15.5) g/dL Hct (30.0-51.3) % MCV (80-96) fL MCH (27.7-33.6) pg MCHC (32.2-35.4) g/dL RDW (11.5-15.5) % Plt Count (125-369) X10(3)uL Sodium 135 (135-145) mmol/L Potassium 4.0 (3.5-5.3) mmol/L Chloride 102 (100-110) mmol/L Carbon Dioxide 28 (21-32) mmol/L BUN 16 (7-18) mg/dL Creatinine 0.7 (0.55-1.02) mg/dL Est Cr Clr Drug Dosing 49.98 mL/min Estimated GFR (MDRD) > 60 (>60) BUN/Creatinine Ratio 22.9 H (9-20) Glucose 116 (80-116) mg/dL POC Glucose (80-116) mg/dL Calcium 7.1 L (8.6-10.2) mg/dL Total Bilirubin 0.3 (0.1-1.3) mg/dL AST 28 H (5-25) IU/L ALT 70 H D (12-36) U/L Alkaline Phosphatase 100 (56-112) IU/L Total Protein 5.3 L (6.0-8.0) g/dL Albumin 1.8 L (3.2-4.6) g/dL Globulin 3.5 g/dL Albumin/Globulin Ratio 0.5 Rodolfo Results Last 24 Hrs: Microbiology 11/30/19 10:40 Aerobic Blood Culture - Preliminary Blood - Port-A-Cath NO GROWTH AFTER 3 DAYS Anaerobic Blood Culture - Preliminary NO GROWTH AFTER 3 DAYS 11/30/19 10:35 Aerobic Blood Culture - Preliminary Blood - Venous NO GROWTH AFTER 3 DAYS Anaerobic Blood Culture - Preliminary NO GROWTH AFTER 3 DAYS Med Orders - Current: Current Medications Acetaminophen (Tylenol) 650 mg PO Q4H PRN PRN Reason: Pain (Mild 1-3)/fever Last Admin: 11/30/19 08:54 Dose: 650 mg Artificial Tears (Refresh Celluvisc) 1 each EYEBOTH QID PRN PRN Reason: DRY EYES Citalopram Hydrobromide (Celexa) 10 mg PO BEDTIME [facility] Last Admin: 12/03/19 21:01 Dose: 10 mg Enoxaparin Sodium (Lovenox) 30 mg SUBCUT Q24H [facility] Last Admin: 12/03/19 17:10 Dose: 30 mg Ferrous Sulfate (Ferrous Sulfate) 325 mg PO TIDMEALS [facility] Last Admin: 12/04/19 09:35 Dose: 325 mg Heparin Sodium (Porcine) (Heparin Lock Flush 10 Units/Ml) 50 unit FLUSH ASDIRECTED [facility] Last Admin: 12/04/19 06:42 Dose: 50 unit Heparin Sodium (Porcine) (Heparin Lock Flush 10 Units/Ml) 50 unit FLUSH DAILY@ 0930 [facility] Last Admin: 12/03/19 10:08 Dose: Not Given Heparin Sodium (Porcine) (Heparin Lock Flush 10 Units/Ml) 50 unit FLUSH DAILY@ 0930 [facility] Last Admin: 12/03/19 10:17 Dose: Not Given Hydrocortisone (Hydrocortisone 2.5% Crm) 0 gm TOP QID PRN PRN Reason: Red Buttock Fat Emulsion Intravenous (Intralipid 20%) 250 mls @ 20 mls/hr IV MoWeFr@2100 [facility] Last Admin: 12/03/19 21:04 Dose: 20 mls/hr Multivitamins/Minerals 10 ml/Amino Ac/Electrol/Dextrose/Calcium 1,010 mls @ 42.42 mls/hr IV Q24H [facility] Last Admin: 12/04/19 06:29 Dose: 42.42 mls/hr Prochlorperazine Edisylate 10 (mg/ Sodium Chloride) 52 mls @ 150 mls/hr IV Q6H PRN PRN Reason: Nausea/Vomiting Last Admin: 11/29/19 14:00 Dose: 150 mls/hr Insulin Human Lispro (Humalog) 0 unit SUBCUT TIDMEALS [facility]; Protocol Last Admin: 12/04/19 09:36 Dose: Not Given Melatonin (Melatonin) 3 mg PO BEDTIME PRN PRN Reason: Insomnia Mupirocin (Bactroban Oint) 0 gm TOP QID [facility] Last Admin: 12/04/19 09:35 Dose: 1 applic Nitrofurantoin Macrocrystals (Macrobid) 100 mg PO BID [facility] Stop: 12/04/19 21:01 Last Admin: 12/04/19 09:36 Dose: 100 mg Pantoprazole Sodium (Protonix) 40 mg PO DAILY@0600 [facility] Last Admin: 12/04/19 05:12 Dose: 40 mg Prednisone (Prednisone) 10 mg PO DAILY [facility] Stop: 12/06/19 09:01 Last Admin: 12/04/19 09:38 Dose: 10 mg Simethicone (Simethicone) 80 mg PO QIDPCANDBED PRN PRN Reason: Heartburn Sodium Chloride (Saline Flush) 10 ml FLUSH ASDIRECTED PRN PRN Reason: Keep Vein Open Last Admin: 12/04/19 06:51 Dose: 10 ml Discontinued Medications Ferrous Sulfate (Ferrous Sulfate) 325 mg PO DAILY [facility] Last Admin: 12/01/19 09:08 Dose: 325 mg Heparin Sodium (Porcine) (Heparin Lock Flush 10 Units/Ml) 50 unit FLUSH Q8HR [facility] Hydrocortisone (Hydrocortisone 2.5% Crm) 0 gm TOP QID [facility] Last Admin: 11/29/19 07:59 Dose: Not Given Multivitamins/Minerals 10 ml/Amino Ac/Electrol/Dextrose/Calcium 1,010 mls @ 84 mls/hr IV .BY DURATION [facility] Stop: 12/01/19 07:30 Last Admin: 11/30/19 09:50 Dose: 84 mls/hr Amino Ac/Electrol/Dextrose/Calcium (Clinimix E 5/15) 1,000 mls @ 84 mls/hr IV .BY DURATION [facility] Stop: 12/01/19 07:30 Last Admin: 11/30/19 22:03 Dose: 84 mls/hr Methylprednisolone Sodium Succinate (Solu-Medrol) 125 mg IVPUSH DAILY [facility] Last Admin: 11/27/19 08:15 Dose: 125 mg Ondansetron HCl (Zofran Odt) 4 mg PO Q6H PRN PRN Reason: Nausea/Vomiting Last Admin: 11/27/19 09:23 Dose: 4 mg Pantoprazole Sodium (Protonix Iv) 40 mg IVPUSH DAILY [facility] Last Admin: 11/27/19 08:21 Dose: 40 mg Prednisone (Prednisone) 40 mg PO DAILY [facility] Stop: 11/30/19 09:01 Last Admin: 11/30/19 08:54 Dose: 40 mg Prednisone (Prednisone) 20 mg PO DAILY [facility] Stop: 12/03/19 09:01 Last Admin: 12/03/19 10:16 Dose: 20 mg - Exam General: Alert, Oriented, Cooperative, No Acute Distress Lungs: Clear to Auscultation, Normal Respiratory Effort Cardiovascular: Regular Rate, Regular Rhythm GI/Abdominal Exam: Normal Bowel Sounds, Soft, Non-Tender Sepsis Event Note - Evaluation Sepsis Screening Result: No Definite Risk - Focused Exam Vital Signs: Vital Signs Temp Pulse Resp BP Pulse Ox 12/04/19 08:00 97.8 F 101 H 18 94/59 L 97 Date Exam was Performed: 12/04/19 Time Exam was Performed: 09:48 - Problem List & Annotations (1) Lymphocytic colitis SNOMED Code(s): 40968735 Code(s): K52.832 - LYMPHOCYTIC COLITIS Status: Acute Current Visit: Yes - Problem List Review Problem List Initiated/Reviewed/Updated: Yes - My Orders Last 24 Hours: Active Orders 24 hr Category Date Time Status Notify Provider Consults [RC] ASDIRECTED Care 12/03/19 17:57 Active Consult to Physician [CONS] Routine Cons 12/03/19 17:56 Ordered CBC WITH AUTO DIFF [HEME] Q7D Lab 12/08/19 06:00 Ordered CBC WITH AUTO DIFF [HEME] Q7D Lab 12/15/19 06:00 Ordered COMPREHENSIVE METABOLIC PN,CMP [CHEM] MOTH Lab 12/08/19 06:00 Ordered COMPREHENSIVE METABOLIC PN,CMP [CHEM] MOTH Lab 12/11/19 06:00 Ordered COMPREHENSIVE METABOLIC PN,CMP [CHEM] MOTH Lab 12/15/19 06:00 Ordered COMPREHENSIVE METABOLIC PN,CMP [CHEM] MOTH Lab 12/18/19 06:00 Ordered COMPREHENSIVE METABOLIC PN,CMP [CHEM] MOTH Lab 12/22/19 06:00 Ordered INR,PT,PROTHROMBIN TIME [COAG] Q7D Lab 12/08/19 06:00 Ordered INR,PT,PROTHROMBIN TIME [COAG] Q7D Lab 12/15/19 06:00 Ordered INR,PT,PROTHROMBIN TIME [COAG] Q7D Lab 12/22/19 06:00 Ordered MAGNESIUM [CHEM] Q7D Lab 12/08/19 06:00 Ordered MAGNESIUM [CHEM] Q7D Lab 12/15/19 06:00 Ordered MAGNESIUM [CHEM] Q7D Lab 12/22/19 06:00 Ordered predniSONE Med 12/04/19 09:00 Active 10 mg PO DAILY Medication Orders Acetaminophen (Tylenol) 650 mg PO Q4H PRN PRN Reason: Pain (Mild 1-3)/fever Last Admin: 11/30/19 08:54 Dose: 650 mg Artificial Tears (Refresh Celluvisc) 1 each EYEBOTH QID PRN PRN Reason: DRY EYES Citalopram Hydrobromide (Celexa) 10 mg PO BEDTIME [facility] Last Admin: 12/03/19 21:01 Dose: 10 mg Admin: 12/02/19 20:09 Dose: 10 mg Admin: 12/01/19 20:12 Dose: 10 mg Admin: 11/30/19 20:01 Dose: 10 mg Admin: 11/29/19 20:10 Dose: 10 mg Admin: 11/28/19 20:05 Dose: 10 mg Admin: 11/27/19 21:04 Dose: 10 mg Admin: 11/26/19 20:38 Dose: 10 mg Admin: 11/25/19 21:04 Dose: 10 mg Enoxaparin Sodium (Lovenox) 30 mg SUBCUT Q24H [facility] Last Admin: 12/03/19 17:10 Dose: 30 mg Admin: 12/02/19 14:19 Dose: 30 mg Admin: 12/01/19 16:34 Dose: 30 mg Admin: 11/30/19 13:24 Dose: 30 mg Admin: 11/29/19 13:16 Dose: 30 mg Admin: 11/28/19 13:35 Dose: 30 mg Admin: 11/27/19 14:55 Dose: 30 mg Admin: 11/26/19 14:21 Dose: 30 mg Admin: 11/25/19 14:30 Dose: 30 mg Admin: 11/24/19 15:20 Dose: 30 mg Ferrous Sulfate (Ferrous Sulfate) 325 mg PO TIDMEALS [facility] Last Admin: 12/04/19 09:35 Dose: 325 mg Admin: 12/03/19 21:01 Dose: 325 mg Admin: 12/03/19 17:06 Dose: 325 mg Admin: 12/03/19 10:13 Dose: 325 mg Admin: 12/02/19 17:59 Dose: 325 mg Admin: 12/02/19 12:38 Dose: 325 mg Admin: 12/02/19 08:04 Dose: 325 mg Admin: 12/01/19 17:53 Dose: 325 mg Admin: 12/01/19 12:30 Dose: 325 mg Heparin Sodium (Porcine) (Heparin Lock Flush 10 Units/Ml) 50 unit FLUSH ASDIRECTED [facility] Last Admin: 12/04/19 06:42 Dose: 50 unit Admin: 12/04/19 06:25 Dose: 50 unit Admin: 12/01/19 07:22 Dose: 50 unit Admin: 11/30/19 10:44 Dose: 50 unit Admin: 11/29/19 14:31 Dose: 50 unit Admin: 11/27/19 05:19 Dose: 50 unit Admin: 11/24/19 20:47 Dose: 50 unit Admin: 11/24/19 20:45 Dose: 50 unit Heparin Sodium (Porcine) (Heparin Lock Flush 10 Units/Ml) 50 unit FLUSH DAILY@ 929 [facility] Last Admin: 12/03/19 10:08 Dose: Admin: 12/03/19 06:49 Dose: 50 unit Admin: 12/02/19 09:00 Dose: 50 unit Admin: 12/01/19 10:12 Dose: 50 unit Admin: 11/30/19 08:54 Dose: 50 unit Admin: 11/29/19 08:42 Dose: 50 unit Admin: 11/28/19 08:32 Dose: 50 unit Admin: 11/27/19 08:36 Dose: 50 unit Admin: 11/26/19 08:41 Dose: 50 unit Admin: 11/25/19 09:28 Dose: 50 unit Heparin Sodium (Porcine) (Heparin Lock Flush 10 Units/Ml) 50 unit FLUSH DAILY@ 929 [facility] Last Admin: 12/03/19 10:17 Dose: Admin: 12/03/19 06:50 Dose: 50 unit Admin: 12/02/19 09:00 Dose: 50 unit Admin: 12/01/19 10:12 Dose: 50 unit Admin: 11/30/19 08:54 Dose: 50 unit Admin: 11/29/19 08:42 Dose: 50 unit Admin: 11/28/19 08:32 Dose: 50 unit Admin: 11/27/19 08:35 Dose: 50 unit Admin: 11/26/19 08:42 Dose: 50 unit Admin: 11/25/19 09:29 Dose: 50 unit Hydrocortisone (Hydrocortisone 2.5% Crm) 0 gm TOP QID PRN PRN Reason: Red Buttock Fat Emulsion Intravenous (Intralipid 20%) 250 mls @ 20 mls/hr IV MoWeFr@2100 [facility] Last Admin: 12/03/19 21:04 Dose: 20 mls/hr Infusion: 12/02/19 08:45 Dose: 20 mls/hr Admin: 12/01/19 20:15 Dose: 20 mls/hr Infusion: 11/29/19 09:48 Dose: 20 mls/hr Admin: 11/28/19 21:18 Dose: 20 mls/hr Infusion: 11/27/19 09:13 Dose: 20 mls/hr Admin: 11/26/19 20:43 Dose: 20 mls/hr Infusion: 11/25/19 10:15 Dose: 20 mls/hr Admin: 11/24/19 21:45 Dose: 20 mls/hr Multivitamins/Minerals 10 ml/Amino Ac/Electrol/Dextrose/Calcium 1,010 mls @ 42.42 mls/hr IV Q24H [facility] Last Admin: 12/04/19 06:29 Dose: 42.42 mls/hr Infusion: 12/04/19 06:29 Dose: 42.42 mls/hr Admin: 12/03/19 06:46 Dose: 42.42 mls/hr Infusion: 12/03/19 06:46 Dose: 42.42 mls/hr Admin: 12/02/19 13:26 Dose: 42.42 mls/hr Infusion: 12/02/19 10:01 Dose: 42.42 mls/hr Admin: 12/01/19 10:12 Dose: 42.42 mls/hr Prochlorperazine Edisylate 10 (mg/ Sodium Chloride) 52 mls @ 150 mls/hr IV Q6H PRN PRN Reason: Nausea/Vomiting Last Admin: 11/29/19 14:00 Dose: 150 mls/hr Insulin Human Lispro (Humalog) 0 unit SUBCUT TIDMEALS [facility]; Protocol Last Admin: 12/04/19 09:36 Dose: Admin: 12/03/19 18:26 Dose: Admin: 12/03/19 17:07 Dose: Admin: 12/03/19 10:15 Dose: Admin: 12/02/19 18:00 Dose: Admin: 12/02/19 12:39 Dose: Admin: 12/02/19 08:05 Dose: Admin: 12/01/19 17:54 Dose: Admin: 12/01/19 12:30 Dose: Admin: 12/01/19 09:07 Dose: Admin: 11/30/19 17:16 Dose: 2 unit Admin: 11/30/19 11:12 Dose: Admin: 11/30/19 07:21 Dose: Admin: 11/29/19 17:28 Dose: 2 unit Admin: 11/29/19 11:15 Dose: Admin: 11/29/19 07:58 Dose: Admin: 11/28/19 17:10 Dose: 2 unit Admin: 11/28/19 12:13 Dose: Not Given Admin: 11/28/19 08:28 Dose: Admin: 11/27/19 17:24 Dose: 2 unit Admin: 11/27/19 12:41 Dose: 4 unit Admin: 11/27/19 08:25 Dose: 2 unit Admin: 11/26/19 17:07 Dose: 2 unit Admin: 11/26/19 12:13 Dose: 2 unit Admin: 11/26/19 08:11 Dose: Admin: 11/25/19 17:30 Dose: 2 unit Admin: 11/25/19 11:19 Dose: Not Given Admin: 11/25/19 08:37 Dose: Not Given Admin: 11/24/19 18:23 Dose: 2 unit Melatonin (Melatonin) 3 mg PO BEDTIME PRN PRN Reason: Insomnia Mupirocin (Bactroban Oint) 0 gm TOP QID [facility] Last Admin: 12/04/19 09:35 Dose: 1 applic Admin: 12/03/19 20:57 Dose: 1 applic Admin: 12/03/19 17:09 Dose: 1 applic Admin: 12/03/19 13:00 Dose: 1 applic Admin: 12/03/19 08:00 Dose: 1 applic Admin: 12/02/19 20:08 Dose: 1 applic Admin: 12/02/19 17:59 Dose: 1 applic Admin: 12/02/19 12:40 Dose: 1 applic Admin: 12/02/19 08:05 Dose: 1 applic Admin: 12/01/19 20:12 Dose: 1 applic Admin: 12/01/19 16:34 Dose: 1 applic Admin: 12/01/19 12:31 Dose: 1 applic Admin: 12/01/19 09:08 Dose: 1 applic Admin: 11/30/19 20:00 Dose: 1 applic Admin: 11/30/19 17:15 Dose: 1 applic Admin: 11/30/19 13:24 Dose: 1 applic Admin: 11/30/19 08:54 Dose: 1 applic Admin: 11/29/19 20:10 Dose: 1 applic Admin: 11/29/19 17:28 Dose: 1 applic Admin: 11/29/19 13:09 Dose: 1 applic Admin: 11/29/19 08:42 Dose: 1 applic Admin: 11/28/19 20:05 Dose: 1 applic Admin: 11/28/19 17:09 Dose: 1 applic Nitrofurantoin Macrocrystals (Macrobid) 100 mg PO BID [facility] Stop: 12/04/19 21:01 Last Admin: 12/04/19 09:36 Dose: 100 mg Admin: 12/03/19 21:01 Dose: 100 mg Admin: 12/03/19 10:15 Dose: 100 mg Admin: 12/02/19 20:08 Dose: 100 mg Admin: 12/02/19 08:04 Dose: 100 mg Admin: 12/01/19 20:12 Dose: 100 mg Admin: 12/01/19 09:11 Dose: 100 mg Admin: 11/30/19 20:01 Dose: 100 mg Admin: 11/30/19 13:26 Dose: 100 mg Pantoprazole Sodium (Protonix) 40 mg PO DAILY@0600 [facility] Last Admin: 12/04/19 05:12 Dose: 40 mg Admin: 12/03/19 05:27 Dose: 40 mg Admin: 12/02/19 06:09 Dose: 40 mg Admin: 12/01/19 05:35 Dose: 40 mg Admin: 11/30/19 06:25 Dose: 40 mg Admin: 11/29/19 06:09 Dose: 40 mg Admin: 11/28/19 06:03 Dose: 40 mg Prednisone (Prednisone) 10 mg PO DAILY [facility] Stop: 12/06/19 09:01 Last Admin: 12/04/19 09:38 Dose: 10 mg Simethicone (Simethicone) 80 mg PO QIDPCANDBED PRN PRN Reason: Heartburn Sodium Chloride (Saline Flush) 10 ml FLUSH ASDIRECTED PRN PRN Reason: Keep Vein Open Last Admin: 12/04/19 06:51 Dose: 10 ml Admin: 12/04/19 06:33 Dose: 10 ml Admin: 12/04/19 06:24 Dose: 10 ml Admin: 12/03/19 20:55 Dose: 10 ml Admin: 12/03/19 06:48 Dose: 10 ml Admin: 12/01/19 07:21 Dose: 10 ml Admin: 11/30/19 10:44 Dose: 10 ml Admin: 11/30/19 09:01 Dose: 10 ml Admin: 11/29/19 14:31 Dose: 10 ml Admin: 11/29/19 14:01 Dose: 10 ml Admin: 11/27/19 20:16 Dose: 10 ml Admin: 11/27/19 08:21 Dose: 10 ml Admin: 11/27/19 08:17 Dose: 10 ml Admin: 11/27/19 05:18 Dose: 10 ml Admin: 11/26/19 08:44 Dose: 10 ml Admin: 11/25/19 09:22 Dose: 10 ml - Assessment Assessment (Free Text/Narrative):: given the severity of her findings on the flex sig it would appear the taper should be slowed to a decrease on a weekly basis in dosage.
[2019-12-04] MEDS ORDERED: predniSONE 10 MG Tab PO ONE (10:15)
--- NOTE | 2019-12-04 11:14 | PN ---
DATE SEEN: 12/04/2019 SUBJECTIVE: Alicia Bear is a 79-year-old female in swing bed. Had a recent complicated bout of colitis. She is presently on hyperalimentation and IV steroids. Dr. Srivastava consulted, felt that the steroid reduction was more rapid than appropriate, increasing doses indicated. Otherwise stable. Medications on board, reviewed and appropriate. LABORATORY STUDIES: 12/04/2019: Electrolytes satisfactory. GFR greater than 60. Glucose 116. Mildly elevated liver enzymes. ASSESSMENT: Complicated colitis, steroid use, hyperalimentation. PLAN: Nutrition treatment and present care on board. Proceed accordingly. /[id number] [id number] /JOCELYN
[2019-12-04] MEDS: Enoxaparin 30 MG/0.3 ML Syringe SUBCUT SCH (17:29)
[2019-12-04] MEDS: Citalopram 10 MG Tab PO SCH (20:42)
[2019-12-05] MEDS: Pantoprazole 40 MG Tab.CR PO SCH (06:29)
[2019-12-05] MEDS: MVI, Adult with Vitamin K 10 ML in AA 5%/Calcium/D15W/Lytes 1,000 ML IV SCH ×2 (06:38)
[2019-12-05] MEDS: Insulin Lispro 100 Unit/ML 3 ML KwikPen SUBCUT SCH ×3 (09:01→17:48)
[2019-12-05] MEDS: Ferrous Sulfate 325 MG Tab PO SCH ×3 (09:02→17:47)
[2019-12-05] MEDS: predniSONE 20 MG Tab PO SCH (09:03)
[2019-12-05] MEDS: Mupirocin Oint 22 GM Tube TOP SCH ×4 (09:04→20:58)
[2019-12-05] MEDS: Heparin Sodium 10 Units/ML 5 ML Syringe FLUSH SCH ×3 (09:12→09:17)
[2019-12-05] MEDS ORDERED: Nitrofurantoin Monohydrate/Macrocrystalline 100 MG Cap PO SCH (09:15)
[2019-12-05] MEDS: Enoxaparin 30 MG/0.3 ML Syringe SUBCUT SCH (14:37)
[2019-12-05] MEDS: Citalopram 10 MG Tab PO SCH (21:02)
[2019-12-05] MEDS: Fat Emulsion 250 ML IV SCH (21:06)
[2019-12-06] MEDS: Pantoprazole 40 MG Tab.CR PO SCH (05:42)
[2019-12-06] MEDS: MVI, Adult with Vitamin K 10 ML in AA 5%/Calcium/D15W/Lytes 1,000 ML IV SCH ×2 (07:35)
[2019-12-06] MEDS: predniSONE 20 MG Tab PO SCH (08:40)
[2019-12-06] MEDS: Insulin Lispro 100 Unit/ML 3 ML KwikPen SUBCUT SCH ×3 (08:40→19:02)
[2019-12-06] MEDS: Ferrous Sulfate 325 MG Tab PO SCH ×2 (08:40→17:11)
[2019-12-06] MEDS: Mupirocin Oint 22 GM Tube TOP SCH ×4 (08:41→20:41)
[2019-12-06] MEDS: Sodium Chloride 0.9% 10 ML Syringe FLUSH PRN (10:31)
[2019-12-06] MEDS: Heparin Sodium 10 Units/ML 5 ML Syringe FLUSH SCH ×2 (10:32→10:33)
--- NOTE | 2019-12-06 12:14 | PN ---
DATE SEEN: 12/06/2019 HISTORY: Ms. Bear is a 79-year-old woman from [place], [place], who was admitted to acute care at [facility] on 11/24/2019. She had apparently been having abdominal pain for a few weeks and then bloody stools. She is also exhibiting more confusion. She had CT of the abdomen suggesting sigmoid colitis with partial small-bowel obstruction. A subsequent colonoscopy with biopsies came back with lymphocytic colitis. She was started on IV Solu-Medrol and then converted to oral prednisone. Because of her severe malnutrition, TPN was added. The patient has slowly improved with improvement in her abdominal pain and resolution of the hematochezia. She is still having some loose stools. She is currently on prednisone 20 mg daily for the lymphocytic colitis along with her TPN. She states her leg edema has improved. Her partial small-bowel obstruction has resolved. She remains anemic, and last laboratory showed a drop in calcium to 7.1 and a hemoglobin of 8.3. The patient is a quite poor historian, but she denies fever, chills, chest pain, dyspnea, cough, or abdominal pain. PHYSICAL EXAMINATION: GENERAL: She is alert but obviously forgetful and a poor historian. VITAL SIGNS: Blood pressure 106/60, pulse 80 and regular, respirations 16, and temperature 98.2. Weight 135 pounds, this is down from 153 pounds on admission. SKIN: Anicteric. Warm and dry without rash. Mouth is dry. LUNGS: Clear to the bases. HEART: Regular without murmur, rub, or gallop. ABDOMEN: Normal bowel sounds. Soft and nontender. No distention. EXTREMITIES: Show 1+ edema to above the ankles with compression hose in place. ASSESSMENT: 1. Lymphocytic colitis, now on oral steroid. 2. Diarrhea, multifactorial. 3. Malnutrition, now taking oral intake along with total parenteral nutrition. 4. Anemia. 5. Dementia. PLAN: At this time, we will decrease her TPN solution to 21 mL per hour and plan to discontinue it in the a.m., switching slowly to oral supplemented with fat emulsion. I will supplement her calcium orally. Check a vitamin D level, reticulocyte count, and supplement it with oral vitamin D. Anticipate successful conversion to oral intake with hopeful discharge next week. Because of her continued need for prednisone, we will continue her daily pantoprazole as well and add Imodium for her loose stools. We will continue to provide palliative care measures for Ms. Bear who because of her decreased mental status may be a good candidate for longer-term placement. /[id number] 1207 CHARMAINE/JOCELYN
[2019-12-06] MEDS: Enoxaparin 30 MG/0.3 ML Syringe SUBCUT SCH (13:27)
[2019-12-06] MEDS: Calcium Carbonate 500 MG Tablet PO SCH ×2 (13:27→20:59)
[2019-12-06] MEDS: Citalopram 10 MG Tab PO SCH (20:43)
[2019-12-06] MEDS: Cholecalciferol (Vitamin D3) 25 MCG Tab PO SCH (21:08)
[2019-12-07] MEDS: Pantoprazole 40 MG Tab.CR PO SCH (05:04)
[2019-12-07] MEDS: Insulin Lispro 100 Unit/ML 3 ML KwikPen SUBCUT SCH (08:01)
[2019-12-07] MEDS: Mupirocin Oint 22 GM Tube TOP SCH ×4 (08:02→20:33)
[2019-12-07] MEDS: Ferrous Sulfate 325 MG Tab PO SCH ×2 (08:03→17:32)
[2019-12-07] MEDS: predniSONE 20 MG Tab PO SCH (08:03)
[2019-12-07] MEDS: Loperamide 2 MG Cap PO PRN ×2 (08:04→20:43)
[2019-12-07] MEDS: Calcium Carbonate 500 MG Tablet PO SCH ×3 (08:28→20:36)
[2019-12-07] MEDS: Cholecalciferol (Vitamin D3) 25 MCG Tab PO SCH ×2 (08:28→20:36)
[2019-12-07] MEDS: Sodium Chloride 0.9% 10 ML Syringe FLUSH PRN (09:18)
[2019-12-07] MEDS: Heparin Sodium 10 Units/ML 5 ML Syringe FLUSH PRN (09:20)
[2019-12-07] MEDS: Heparin Sodium 10 Units/ML 5 ML Syringe FLUSH SCH ×2 (09:22→09:23)
[2019-12-07] MEDS: Enoxaparin 30 MG/0.3 ML Syringe SUBCUT SCH (13:35)
[2019-12-07] MEDS: Citalopram 10 MG Tab PO SCH (20:34)
[2019-12-07] MEDS: MVI, Adult with Vitamin K 10 ML in AA 5%/Calcium/D15W/Lytes 1,000 ML IV SCH ×2 (21:28)
[2019-12-08] MEDS: Pantoprazole 40 MG Tab.CR PO SCH (06:26)
[2019-12-08] MEDS: Sodium Chloride 0.9% 10 ML Syringe FLUSH PRN (06:27)
[2019-12-08] MEDS: Heparin Sodium 10 Units/ML 5 ML Syringe FLUSH PRN (06:29)
[2019-12-08] MEDS: predniSONE 20 MG Tab PO SCH (09:01)
[2019-12-08] MEDS: Mupirocin Oint 22 GM Tube TOP SCH ×4 (09:01→20:10)
[2019-12-08] MEDS: Ferrous Sulfate 325 MG Tab PO SCH ×2 (09:01→17:39)
[2019-12-08] MEDS: Calcium Carbonate 500 MG Tablet PO SCH ×3 (09:02→20:10)
[2019-12-08] MEDS: Cholecalciferol (Vitamin D3) 25 MCG Tab PO SCH ×2 (09:02→20:10)
--- NOTE | 2019-12-08 09:32 | PN ---
DATE SEEN: 12/07/2019 HISTORY: Alicia is a 79-year-old admitted to [facility] on 11/14/2019 because of dehydration, weakness and abdominal pain with bloody stools. She had colonoscopy that demonstrated lymphocytic colitis, and she has been on tapering steroid since that time. She also has had IV TPN that has been slowly tapered. She is eating, but in incomplete portions. Alicia is feeling better this morning. She says her stools are "normal." She is, however, a poor historian, and she has had no hematochezia. PHYSICAL EXAMINATION: GENERAL: She is alert but obviously forgetful. VITAL SIGNS: Blood pressure 106/60, pulse 88 and regular, respirations normal, O2 saturation 94% on room air, temperature 98.2. MOUTH: Dry. LUNGS: Clear. HEART: Regular. ABDOMEN: Active bowel sounds. Soft. No distention. No tenderness. EXTREMITIES: Show 1+ pitting edema at the right ankle, trace edema at the left ankle. LABORATORY DATA: Glucose, last 124. ASSESSMENT: 1. Lymphocytic colitis with lower gastrointestinal bleed and anemia. Last hemoglobin of 8.3. 2. Malnutrition. 3. Iron-deficiency anemia. 4. Moderately high dose prednisone use. PLAN: Her TPN is now discontinued this morning. She may continue to receive a fat emulsion 3 times a week, but switched to oral nutrition, otherwise. Increase activity as tolerated and continue to work on plans for potential discharge. We will continue to provide Alicia palliative care measures for underlying medical problems and infirmities of aging, and dementia. Recheck labs tomorrow morning. /[id number] [id number] CHARMAINE/JOCELYN
[2019-12-08] MEDS: Heparin Sodium 10 Units/ML 5 ML Syringe FLUSH SCH ×3 (11:16→11:19)
[2019-12-08] MEDS: Enoxaparin 30 MG/0.3 ML Syringe SUBCUT SCH (13:44)
[2019-12-08] MEDS: Citalopram 10 MG Tab PO SCH (20:10)
[2019-12-09] MEDS: Pantoprazole 40 MG Tab.CR PO SCH (06:30)
--- NOTE | 2019-12-09 07:40 | PN ---
DATE SEEN: 12/08/2019 HISTORY: Alicia is a 79-year-old woman who was admitted with weakness and GI bleed. She was found to have a lymphocytic colitis, and she has been on oral prednisone. She was treated with IV steroid and now has been on oral prednisone. Her TPN was discontinued yesterday, and she is eating an estimated 700 to 800 calories, in addition to her nutritional supplements. She is seen this morning in her bed. She is complaining of left lower abdominal discomfort. PHYSICAL EXAMINATION: VITAL SIGNS: Blood pressure 105/67, pulse 92 and regular, respirations normal, temperature 99. SKIN: Shows no rash. Mouth is dry. LUNGS: Clear. HEART: Regular. ABDOMEN: Normal bowel sounds. Soft. Mild tenderness to palpation along the left lower quadrant. No point tenderness. No guarding or rebound tenderness. EXTREMITIES: Show no edema. ASSESSMENT: 1. Lymphocytic colitis, on oral steroid. 2. Malnutrition, now converted to oral nutrition. 3. Iron deficiency anemia with last hemoglobin 11.1. PLAN: Labs are drawn and pending. We will continue her current medications today. Increase diet and activity level as tolerated, and hopefully discharge to home within the next few days. /[id number] [id number] CHARMAINE/JOCELYN
[2019-12-09] MEDS: Mupirocin Oint 22 GM Tube TOP SCH ×4 (08:51→20:26)
[2019-12-09] MEDS: predniSONE 20 MG Tab PO SCH (08:51)
[2019-12-09] MEDS: Ferrous Sulfate 325 MG Tab PO SCH ×2 (08:51→17:16)
[2019-12-09] MEDS: Calcium Carbonate 500 MG Tablet PO SCH (08:51)
[2019-12-09] MEDS: Cholecalciferol (Vitamin D3) 25 MCG Tab PO SCH (08:51)
[2019-12-09] MEDS ORDERED: cefTRIAXone 1 GM in Sodium Chloride 0.9% 50 ML IV ONE (09:19)
[2019-12-09] MEDS ORDERED: cefTRIAXone 1 GM Vial IVPUSH ONE (09:30)
[2019-12-09] MEDS ORDERED: Sodium Chloride 23.4% 154 MEQ in Dextrose 10% in Water 1,000 ML IV SCH ×2 (11:00)
[2019-12-09] MEDS: Heparin Sodium 10 Units/ML 5 ML Syringe FLUSH SCH ×3 (11:28→11:29)
[2019-12-09] MEDS: methylPREDNISolone Sodium Succinate 125 MG/2 ML SDV IVPUSH SCH ×2 (11:28→18:43)
[2019-12-09] MEDS: Calcium Carbonate 250 MG/ML Susp ML PO SCH ×2 (11:29→20:28)
[2019-12-09] MEDS: Sodium Chloride 0.9% 10 ML Syringe FLUSH PRN ×2 (11:29→18:44)
--- NOTE | 2019-12-09 12:37 | PN ---
DATE SEEN: 12/09/2019 HISTORY: Ms. Bear is a 79-year-old woman who came in with a partial small bowel obstruction, bloody stool, and a colonoscopy with biopsy showing lymphocytic colitis. She was placed on IV and then oral steroid, and seemed to be getting better. She received IV TPN. Two days ago, her TPN was discontinued as she had been eating better. Yesterday, she began to complain of left-sided abdominal discomfort, and she states that last night, she could not sleep because of pain in her left lower abdomen. She has not had bloody diarrhea and 3 hemoccult cards done yesterday were all negative. She continues to have a small amount of loose stool each time she voids. PHYSICAL EXAMINATION: VITAL SIGNS: Blood pressure 97/58, pulse 92 and regular, respirations 18, O2 saturation 93% on room air, and temperature 98.3. Weight 135 pounds 5 days ago, down from 153 on 11/24/2019. HEENT: Shows her mouth to be dry. LUNGS: Clear to the bases. HEART: Regular without murmur heard. ABDOMEN: Bowel sounds are quite hypoactive. Abdomen is now distended and tympanitic with tenderness in the left lower quadrant. EXTREMITIES: No edema. ASSESSMENT: 1. Partial small bowel obstruction secondary to lymphocytic colitis. 2. Anemia. Hemoglobin 8.1. 3. Dementia. 4. Hypocalcemia. PLAN: We will cut her back to clear liquids orally. Resume supplemental dextrose IV. Recheck CT of the abdomen and increase her steroid to Solu-Medrol IV. I suspect this will delay her anticipated discharge later this week. /[id number] CHARMAINE/JOCELYN
[2019-12-09] MEDS ORDERED: Diatrizoate Meglumine/Diatrizoate Sodium 37% 30 ML Bottle PO ONE (12:44)
--- NOTE | 2019-12-09 13:37 | CT ---
INDICATION: Followup partial small bowel obstruction. CT ABDOMEN AND PELVIS WITH ORAL CONTRAST ONLY: Spiral 2.5 mm axial sections were obtained through the abdomen and pelvis with oral contrast only with sagittal and coronal reconstructions 12/09/19 and compared with 11/14/19. Total exam DLP was 431.72 mGy-cm. There is some minimal pleuroparenchymal change at both lung bases which could represent fibrosis or possibly minimal pneumonia and pleuritis. The heart is enlarged. No pericardial effusion was seen. Small fixed hiatal hernia is suggested. The uterus and gallbladder are absent compatible their removal. The appendix again appeared normal. Without IV contrast, the wall of the bowel is not well delineated when not filled with oral contrast, which is the case in the majority of the colon on this examination. There does appear to be thickening of the wall of the distal transverse colon and descending colon, as well as possibly the sigmoid colon which is not as well visualized as to the wall thickness. There remains relative distention of the ascending and proximal to distal transverse colon which may be on the basis of a partially obstructive process at the level of the descending colon. There remains gas and stool, however, in the rectosigmoid and rectum. Small bowel loops do not appear grossly distended at this time which appears to be a slight improvement compared with the previous examination. Minimal renal calcinosis is noted at the right kidney. No definite obstructive uropathy is noted. IMPRESSION: 1. Continued abnormality in the left colon, mostly in the distal transverse and especially the descending colon with relative dilatation of the more proximal colon. There is no complete obstructive process suggested since there is gas and stool in the more distal colon including the rectosigmoid and rectum , as well as the sigmoid. A partially obstructive process at the level of the descending colon is suggested. Small bowel loops do not appear as distended as previously. 2. Post hysterectomy/post cholecystectomy. 3. ASHD/ASD. 4. The liver does not appear as fatty as on the previous study - appears to be relatively normal in density at this time. 5. Degenerative changes and disk disease lumbosacral spine seen previously. 6. Bibasilar pleuroparenchymal changes which may represent fibrosis and/or minimal pneumonia and pleuritis. MTDD
[2019-12-09] MEDS: Enoxaparin 30 MG/0.3 ML Syringe SUBCUT SCH (14:22)
[2019-12-09] MEDS: Dextrose 10% in Water 1,000 ML IV SCH (20:22)
[2019-12-09] MEDS: Citalopram 10 MG Tab PO SCH (20:30)
[2019-12-10] MEDS: methylPREDNISolone Sodium Succinate 125 MG/2 ML SDV IVPUSH SCH ×3 (03:52→18:38)
[2019-12-10] MEDS: Dextrose 10% in Water 1,000 ML IV SCH (04:07)
[2019-12-10] MEDS: Pantoprazole 40 MG Tab.CR PO SCH (05:20)
[2019-12-10] MEDS: Sodium Chloride 0.9% 10 ML Syringe FLUSH PRN ×5 (06:18→21:13)
[2019-12-10] MEDS ORDERED: cefTRIAXone 1 GM in Sodium Chloride 0.9% 50 ML IV ONE (08:00)
[2019-12-10] MEDS ORDERED: cefTRIAXone 1 GM Vial IVPUSH ONE (08:00)
[2019-12-10] MEDS ORDERED: Central Total Parenteral Nutrition Bag IV SCH (09:00)
[2019-12-10] MEDS: Ferrous Sulfate 325 MG Tab PO SCH ×2 (09:03→18:38)
[2019-12-10] MEDS: Calcium Carbonate 250 MG/ML Susp ML PO SCH ×2 (09:04→20:51)
[2019-12-10] MEDS: Mupirocin Oint 22 GM Tube TOP SCH ×4 (09:04→20:50)
[2019-12-10] MEDS: Cholecalciferol (Vitamin D3) 25 MCG Tab PO SCH (09:05)
[2019-12-10] MEDS: MVI, Adult with Vitamin K 10 ML in AA 5%/Calcium/D15W/Lytes 1,000 ML IV SCH ×2 (10:06)
--- NOTE | 2019-12-10 10:42 | PN ---
DATE SEEN: 12/10/2019 HISTORY: Alicia is a 79-year-old woman who began to have diarrhea, cramping, and abdominal discomfort around November 01. She subsequently developed bloody diarrhea and was seen in the emergency room and admitted. She underwent colonoscopy by Dr. Srivastava, which showed inflammatory colitis and biopsies came back positive for lymphocytic colitis. Because of symptoms of small bowel obstruction, she was placed n.p.o., given IV steroid, and then switched to oral steroids at 40 mg of prednisone per day. This was fairly rapidly tapered to 20 mg per day after her symptoms started to improve. Starting 3 days ago, her TPN began to be tapered and 2 days ago, it was stopped and replaced with oral nutrition. Within 24 hours, she began to have increasing abdominal discomfort, cramping, distention, and a repeat CT of the abdomen done yesterday showed extensive colon swelling from the distal transverse through the descending colon. She had 3 hemoccults that were negative, but had significant accompanying abdominal discomfort. Yesterday, she was placed back on clear liquids only. Her IV solution was restarted with 10% dextrose and she was switched back to IV steroid with methylprednisolone. Overnight, she states that she had much better night without abdominal pain. She has tolerated a clear liquid breakfast this morning. She was up walking and obviously more comfortable, in good spirits. Her biggest complaint is it is taking too long for her to get better. PHYSICAL EXAMINATION: VITAL SIGNS: Blood pressure 97/58, pulse 92 and regular, respirations 18, O2 saturation 93% on room air. Weight 136 pounds, this compares to 135 pounds 6 days ago. HEENT: Clear. LUNGS: Clear. HEART: Regular. ABDOMEN: Bowel sounds are slightly hypoactive with mild distention. No tenderness to palpation is present. EXTREMITIES: No edema. ASSESSMENT: 1. Inflammatory colitis with biopsy returned as lymphocytic. 2. Partial small-bowel obstruction, now improved again back on high-dose IV steroid. 3. Mild urinary tract infection. 4. Malnutrition. PLAN: She will go back on full-dose TPN today. Continue her IV steroid. Discussion held with her son, Cruzito, on the phone. He had wondered about additional care in [place], so I had a phone consultation with Gastroenterology there who did offer to see her up there if need be. The family will consider this and get back to me. /[id number] CHARMAINE/JOCELYN LARA
[2019-12-10] MEDS: Heparin Sodium 10 Units/ML 5 ML Syringe FLUSH SCH ×4 (12:14→21:13)
[2019-12-10] MEDS ORDERED: Sodium Chloride 0.9% 250 ML IV SCH (15:30)
[2019-12-10] MEDS: Enoxaparin 30 MG/0.3 ML Syringe SUBCUT SCH (16:00)
[2019-12-10] MEDS: Citalopram 10 MG Tab PO SCH (20:52)
[2019-12-10] MEDS: Fat Emulsion 250 ML IV SCH (20:59)
[2019-12-11] MEDS: Sodium Chloride 0.9% 10 ML Syringe FLUSH PRN ×3 (02:02→12:51)
[2019-12-11] MEDS: methylPREDNISolone Sodium Succinate 125 MG/2 ML SDV IVPUSH SCH ×3 (02:02→18:42)
[2019-12-11] MEDS: Heparin Sodium 10 Units/ML 5 ML Syringe FLUSH PRN ×2 (02:03→06:49)
[2019-12-11] MEDS: Pantoprazole 40 MG Tab.CR PO SCH (06:49)
[2019-12-11] MEDS: Ferrous Sulfate 325 MG Tab PO SCH ×2 (07:09→18:42)
[2019-12-11] MEDS: Calcium Carbonate 250 MG/ML Susp ML PO SCH ×2 (08:39→20:15)
[2019-12-11] MEDS: Mupirocin Oint 22 GM Tube TOP SCH ×4 (08:39→20:13)
[2019-12-11] MEDS: Cholecalciferol (Vitamin D3) 25 MCG Tab PO SCH (08:39)
[2019-12-11] MEDS ORDERED: Central Total Parenteral Nutrition Bag IV SCH (09:00)
[2019-12-11] MEDS: HUMAN IV SCH ×3 (10:45)
[2019-12-11] MEDS: MVI IV SCH ×3 (10:45)
[2019-12-11] MEDS: [UNRECOGNIZED DRUG - OTHER] IV SCH ×3 (10:45)
[2019-12-11] MEDS: INSULIN REGULAR IV SCH ×3 (10:45)
[2019-12-11] MEDS: VITAMIN K IV SCH ×3 (10:45)
--- NOTE | 2019-12-11 12:30 | PN ---
DATE SEEN: HISTORY: Alicia is a 79-year-old woman who was admitted with severe colitis on November 13. She was on TPN, gradually tapered and after 2 days of oral diet, she began to have abdominal pain and swelling, and repeat CT evidence of distal transverse and left colon inflammation and swelling with partial SBO. The patient was placed back on TPN, cut back to a clear liquid diet, and has significantly improved in the past 48 hours. She complains of being hungry this morning on just her clear liquid diet. PHYSICAL EXAMINATION: GENERAL: She is alert, comfortable. She does have a right-sided lower greater than upper extremity tremor parkinsonian in appearance. She is mildly forgetful. HEENT: Throat is clear. LUNGS: Clear to the bases. HEART: Regular. ABDOMEN: Mild distention yet. Bowel sounds are hypoactive. No tenderness. EXTREMITIES: Show no edema. ASSESSMENT: 1. Acute colitis. 2. Mild cognitive deficits. 3. Depression. PLAN: She had been on moderate doses of prednisone at the time of the last re- exacerbation, so at this time, she has been back on IV methylprednisolone. We will continue this for another 24 hours and plan to convert to oral prednisone at a dose of 40 mg per day with extremely slow taper over 1 to 2 months followed by gradual reintroduction of bland diet. We will continue to provide palliative care measures for her and anticipate discharge to her home when improved. /[id number] 1221 CHARMAINE/JOCELYN
[2019-12-11] MEDS: MVI, Adult with Vitamin K 10 ML in AA 5%/Calcium/D15W/Lytes 1,000 ML IV SCH ×2 (12:47)
[2019-12-11] MEDS: Heparin Sodium 10 Units/ML 5 ML Syringe FLUSH SCH ×3 (12:48→12:49)
[2019-12-11] MEDS: Enoxaparin 30 MG/0.3 ML Syringe SUBCUT SCH (13:52)
[2019-12-11] MEDS: Citalopram 10 MG Tab PO SCH (20:15)
[2019-12-11] MEDS: Melatonin 3 MG Tab PO PRN (21:34)
[2019-12-12] MEDS: methylPREDNISolone Sodium Succinate 125 MG/2 ML SDV IVPUSH SCH ×3 (02:14→20:13)
[2019-12-12] MEDS: Sodium Chloride 0.9% 10 ML Syringe FLUSH PRN ×6 (02:15→22:00)
[2019-12-12] MEDS: Heparin Sodium 10 Units/ML 5 ML Syringe FLUSH PRN ×3 (02:16→22:03)
[2019-12-12] MEDS: Pantoprazole 40 MG Tab.CR PO SCH (05:33)
[2019-12-12] MEDS: Ferrous Sulfate 325 MG Tab PO SCH ×2 (08:33→18:08)
[2019-12-12] MEDS: Mupirocin Oint 22 GM Tube TOP SCH ×4 (08:33→20:23)
[2019-12-12] MEDS: Calcium Carbonate 250 MG/ML Susp ML PO SCH ×2 (08:34→20:23)
[2019-12-12] MEDS: Cholecalciferol (Vitamin D3) 25 MCG Tab PO SCH (08:35)
[2019-12-12] MEDS: [UNRECOGNIZED DRUG - OTHER] IV SCH ×3 (10:11)
[2019-12-12] MEDS: VITAMIN K IV SCH ×3 (10:11)
[2019-12-12] MEDS: MVI IV SCH ×3 (10:11)
[2019-12-12] MEDS: HUMAN IV SCH ×3 (10:11)
[2019-12-12] MEDS: INSULIN REGULAR IV SCH ×3 (10:11)
[2019-12-12] MEDS: Heparin Sodium 10 Units/ML 5 ML Syringe FLUSH SCH ×3 (11:31→11:32)
[2019-12-12] MEDS: Enoxaparin 30 MG/0.3 ML Syringe SUBCUT SCH (15:19)
[2019-12-12] MEDS: Fat Emulsion 250 ML IV SCH (20:20)
[2019-12-12] MEDS: Citalopram 10 MG Tab PO SCH (20:23)
[2019-12-13] MEDS: Pantoprazole 40 MG Tab.CR PO SCH (05:45)
[2019-12-13] MEDS: Sodium Chloride 0.9% 10 ML Syringe FLUSH PRN ×5 (08:26→22:50)
[2019-12-13] MEDS: methylPREDNISolone Sodium Succinate 125 MG/2 ML SDV IVPUSH SCH ×2 (08:28→20:57)
[2019-12-13] MEDS: Heparin Sodium 10 Units/ML 5 ML Syringe FLUSH PRN ×3 (08:30→22:53)
[2019-12-13] MEDS: Ferrous Sulfate 325 MG Tab PO SCH ×2 (08:34→20:54)
[2019-12-13] MEDS: Mupirocin Oint 22 GM Tube TOP SCH ×3 (08:35→20:52)
[2019-12-13] MEDS: Calcium Carbonate 250 MG/ML Susp ML PO SCH ×2 (08:37→21:01)
[2019-12-13] MEDS: Cholecalciferol (Vitamin D3) 25 MCG Tab PO SCH (08:38)
[2019-12-13] MEDS: INSULIN REGULAR IV SCH ×3 (10:09)
[2019-12-13] MEDS: HUMAN IV SCH ×3 (10:09)
[2019-12-13] MEDS: [UNRECOGNIZED DRUG - OTHER] IV SCH ×3 (10:09)
[2019-12-13] MEDS: MVI IV SCH ×3 (10:09)
[2019-12-13] MEDS: VITAMIN K IV SCH ×3 (10:09)
[2019-12-13] MEDS: Heparin Sodium 10 Units/ML 5 ML Syringe FLUSH SCH ×3 (12:08→12:09)
[2019-12-13] MEDS: Enoxaparin 30 MG/0.3 ML Syringe SUBCUT SCH (13:39)
[2019-12-13] MEDS: Citalopram 10 MG Tab PO SCH (20:55)
[2019-12-14] MEDS: Pantoprazole 40 MG Tab.CR PO SCH (06:07)
[2019-12-14] MEDS: Mupirocin Oint 22 GM Tube TOP SCH ×5 (08:09→21:42)
[2019-12-14] MEDS: Ferrous Sulfate 325 MG Tab PO SCH ×2 (08:09→17:01)
[2019-12-14] MEDS: Calcium Carbonate 250 MG/ML Susp ML PO SCH ×2 (08:10→21:41)
[2019-12-14] MEDS: Cholecalciferol (Vitamin D3) 25 MCG Tab PO SCH (08:11)
[2019-12-14] MEDS: Sodium Chloride 0.9% 10 ML Syringe FLUSH PRN ×4 (08:12→22:56)
[2019-12-14] MEDS: methylPREDNISolone Sodium Succinate 125 MG/2 ML SDV IVPUSH SCH (08:12)
[2019-12-14] MEDS: INSULIN REGULAR IV SCH ×3 (10:16)
[2019-12-14] MEDS: [UNRECOGNIZED DRUG - OTHER] IV SCH ×3 (10:16)
[2019-12-14] MEDS: VITAMIN K IV SCH ×3 (10:16)
[2019-12-14] MEDS: HUMAN IV SCH ×3 (10:16)
[2019-12-14] MEDS: MVI IV SCH ×3 (10:16)
[2019-12-14] MEDS: Heparin Sodium 10 Units/ML 5 ML Syringe FLUSH SCH ×3 (10:22→11:00)
[2019-12-14] MEDS: Enoxaparin 30 MG/0.3 ML Syringe SUBCUT SCH (13:14)
[2019-12-14] MEDS: Citalopram 10 MG Tab PO SCH (21:41)
[2019-12-14] MEDS: Heparin Sodium 10 Units/ML 5 ML Syringe FLUSH PRN (22:57)
[2019-12-15] MEDS: Pantoprazole 40 MG Tab.CR PO SCH (05:33)
[2019-12-15] MEDS: Sodium Chloride 0.9% 10 ML Syringe FLUSH PRN ×3 (06:13→21:35)
[2019-12-15] MEDS: Heparin Sodium 10 Units/ML 5 ML Syringe FLUSH PRN ×2 (06:14→21:35)
[2019-12-15] MEDS: Ferrous Sulfate 325 MG Tab PO SCH ×2 (09:12→18:21)
[2019-12-15] MEDS: Mupirocin Oint 22 GM Tube TOP SCH ×4 (09:12→20:49)
[2019-12-15] MEDS: methylPREDNISolone Sodium Succinate 125 MG/2 ML SDV IVPUSH SCH (09:14)
[2019-12-15] MEDS: Cholecalciferol (Vitamin D3) 25 MCG Tab PO SCH (09:16)
[2019-12-15] MEDS: Calcium Carbonate 250 MG/ML Susp ML PO SCH ×2 (09:17→20:48)
[2019-12-15] MEDS: HUMAN IV SCH ×3 (09:24)
[2019-12-15] MEDS: INSULIN REGULAR IV SCH ×3 (09:24)
[2019-12-15] MEDS: MVI IV SCH ×3 (09:24)
[2019-12-15] MEDS: [UNRECOGNIZED DRUG - OTHER] IV SCH ×3 (09:24)
[2019-12-15] MEDS: VITAMIN K IV SCH ×3 (09:24)
[2019-12-15] MEDS: Heparin Sodium 10 Units/ML 5 ML Syringe FLUSH SCH ×3 (11:00→13:38)
[2019-12-15] MEDS: Enoxaparin 30 MG/0.3 ML Syringe SUBCUT SCH (13:41)
[2019-12-15] MEDS: Citalopram 10 MG Tab PO SCH (20:48)
[2019-12-15] MEDS: Fat Emulsion 250 ML IV SCH (20:58)
[2019-12-15] MEDS: Melatonin 3 MG Tab PO PRN (23:31)
[2019-12-16] MEDS: Pantoprazole 40 MG Tab.CR PO SCH (05:37)
[2019-12-16] MEDS: Calcium Carbonate 250 MG/ML Susp ML PO SCH ×2 (08:07→20:50)
[2019-12-16] MEDS: Mupirocin Oint 22 GM Tube TOP SCH ×4 (08:07→20:48)
[2019-12-16] MEDS: Ferrous Sulfate 325 MG Tab PO SCH ×2 (08:07→18:09)
[2019-12-16] MEDS: Cholecalciferol (Vitamin D3) 25 MCG Tab PO SCH (08:08)
[2019-12-16] MEDS: methylPREDNISolone Sodium Succinate 125 MG/2 ML SDV IVPUSH SCH (08:08)
[2019-12-16] MEDS: Sodium Chloride 0.9% 10 ML Syringe FLUSH PRN ×2 (08:09→21:33)
[2019-12-16] MEDS: VITAMIN K IV SCH ×3 (09:08)
[2019-12-16] MEDS: [UNRECOGNIZED DRUG - OTHER] IV SCH ×3 (09:08)
[2019-12-16] MEDS: HUMAN IV SCH ×3 (09:08)
[2019-12-16] MEDS: MVI IV SCH ×3 (09:08)
[2019-12-16] MEDS: INSULIN REGULAR IV SCH ×3 (09:08)
[2019-12-16] MEDS: Heparin Sodium 10 Units/ML 5 ML Syringe FLUSH SCH ×2 (12:38)
[2019-12-16] MEDS: Enoxaparin 30 MG/0.3 ML Syringe SUBCUT SCH (14:57)
[2019-12-16] MEDS: Citalopram 10 MG Tab PO SCH (20:52)
[2019-12-16] MEDS: Heparin Sodium 10 Units/ML 5 ML Syringe FLUSH PRN (21:35)
[2019-12-17] MEDS: Pantoprazole 40 MG Tab.CR PO SCH (05:13)
[2019-12-17] MEDS: Cholecalciferol (Vitamin D3) 25 MCG Tab PO SCH (08:04)
[2019-12-17] MEDS: Ferrous Sulfate 325 MG Tab PO SCH ×2 (08:04→18:05)
[2019-12-17] MEDS: Calcium Carbonate 250 MG/ML Susp ML PO SCH ×2 (08:04→21:15)
[2019-12-17] MEDS: methylPREDNISolone Sodium Succinate 125 MG/2 ML SDV IVPUSH SCH (08:04)
[2019-12-17] MEDS: Sodium Chloride 0.9% 10 ML Syringe FLUSH PRN (08:05)
[2019-12-17] MEDS: Mupirocin Oint 22 GM Tube TOP SCH ×4 (08:06→21:15)
[2019-12-17] MEDS: [UNRECOGNIZED DRUG - OTHER] IV SCH ×3 (09:33)
[2019-12-17] MEDS: VITAMIN K IV SCH ×3 (09:33)
[2019-12-17] MEDS: MVI IV SCH ×3 (09:33)
[2019-12-17] MEDS: INSULIN REGULAR IV SCH ×3 (09:33)
[2019-12-17] MEDS: HUMAN IV SCH ×3 (09:33)
--- NOTE | 2019-12-17 10:44 | PCM.PN ---
- General Info Date of Service: 12/17/19 Admission Dx/Problem (Free Text): Rosaura is eating about 50-75% of her meals, she is on a bland, gluten-free, lactose protected diet. She is on 1 bag of TPN supplying half of her calories. She denies any abdominal pain, no nausea, soft stools. She tapers down today to Prednisone 60 mg for 1 week, going down by 10 mg weekly for 6 more weeks. She has had a week of SoluMedrol tapered down from q8h to q12h to day. She had been tapered too quickly the end of November/beginning of December and had recurrence of symptoms, TPN had been discontinued but restarted on December 09. GI and Dr Srivastava recommended slow taper over 1-2 months. She is due to see Dr Srivastava in follow up next week. Family would like her to be home this weekend, daughter Giuliana will be staying with her. Care Conference this afternoon. Functional Status: Reports: Pain Controlled, Tolerating Diet, Ambulating, Urinating - Patient Data Vitals - Most Recent: Last Vital Signs Temp 97.5 F 12/16/19 06:48 Pulse 66 12/16/19 06:48 Resp 16 12/16/19 06:48 BP 123/71 12/16/19 06:48 Pulse Ox 98 12/16/19 06:48 Weight - Most Recent: 136 lb 1.6 oz I&O - Last 24 Hours: Intake & Output 12/16/19 12/17/19 12/17/19 22:59 06:59 14:59 Intake Total 1000 Balance 1000 Lab Results Last 24 Hours: Laboratory Results - last 24 hr 12/16/19 Range/Units 17:17 POC Glucose 207 H D (80-116) mg/dL Med Orders - Current: Current Medications Acetaminophen (Tylenol) 650 mg PO Q4H PRN PRN Reason: Pain (Mild 1-3)/fever Last Admin: 11/30/19 08:54 Dose: 650 mg Artificial Tears (Refresh Celluvisc) 1 each EYEBOTH QID PRN PRN Reason: DRY EYES Calcium Carbonate/Glycine (Calcium Carbonate 250 Mg/Ml Susp) 1,000 mg PO BID BRANDYN Last Admin: 12/17/19 08:04 Dose: 1,000 mg Cholecalciferol (Vitamin D3) 25 mcg PO DAILY BRANDYN Last Admin: 12/17/19 08:04 Dose: 25 mcg Citalopram Hydrobromide (Celexa) 10 mg PO BEDTIME [facility] Last Admin: 12/16/19 20:52 Dose: 10 mg Enoxaparin Sodium (Lovenox) 30 mg SUBCUT Q24H [facility] Last Admin: 12/16/19 14:57 Dose: 30 mg Ferrous Sulfate (Ferrous Sulfate) 325 mg PO BIDMEALS [facility] Last Admin: 12/17/19 08:04 Dose: 325 mg Heparin Sodium (Porcine) (Heparin Lock Flush 10 Units/Ml) 50 unit FLUSH ASDIRECTED PRN PRN Reason: per central line protocol Last Admin: 12/16/19 21:35 Dose: 50 unit Heparin Sodium (Porcine) (Heparin Lock Flush 10 Units/Ml) 50 unit FLUSH Q24H [facility] Last Admin: 12/16/19 12:38 Dose: 50 unit Heparin Sodium (Porcine) (Heparin Lock Flush 10 Units/Ml) 50 unit FLUSH Q24H [facility] Last Admin: 12/16/19 12:38 Dose: 50 unit Hydrocortisone (Hydrocortisone 2.5% Crm) 0 gm TOP QID PRN PRN Reason: Red Buttock Fat Emulsion Intravenous (Intralipid 20%) 250 mls @ 20 mls/hr IV [id number] [facility] Last Admin: 12/15/19 20:58 Dose: 20 mls/hr Multivitamins/Minerals 10 ml/Insulin Human Regular 10 unit/Amino Ac/Electrol/ Dextrose/Calcium 1,010.1 mls @ 42 mls/hr IV Q24H [facility] Last Admin: 12/17/19 09:33 Dose: 84.008 mls/hr Loperamide HCl (Imodium) 4 mg PO Q6H PRN PRN Reason: loose stools Last Admin: 12/07/19 20:43 Dose: 4 mg Melatonin (Melatonin) 3 mg PO BEDTIME PRN PRN Reason: Insomnia Last Admin: 12/15/19 23:31 Dose: 3 mg Mupirocin (Bactroban Oint) 0 gm TOP QID [facility] Last Admin: 12/17/19 08:06 Dose: 1 applic Pantoprazole Sodium (Protonix) 40 mg PO DAILY@0600 [facility] Last Admin: 12/17/19 05:13 Dose: 40 mg Prednisone (Prednisone) 60 mg PO DAILY [facility] Stop: 12/24/19 09:01 Prednisone (Prednisone) 50 mg PO DAILY [facility] Stop: 12/31/19 09:01 Prednisone (Prednisone) 40 mg PO DAILY [facility] Stop: 01/07/20 09:01 Prednisone (Prednisone) 30 mg PO DAILY [facility] Stop: 01/14/20 09:01 Prednisone (Prednisone) 20 mg PO DAILY [facility] Stop: 01/21/20 09:01 Prednisone (Prednisone) 10 mg PO DAILY [facility] Stop: 01/28/20 09:01 Simethicone (Simethicone) 80 mg PO QIDPCANDBED PRN PRN Reason: Heartburn Sodium Chloride (Saline Flush) 10 ml FLUSH ASDIRECTED PRN PRN Reason: Keep Vein Open Last Admin: 12/17/19 08:05 Dose: 10 ml Discontinued Medications Calcium Carbonate/Glycine (Oyster Shell Calcium) 1,000 mg PO TID [facility] Last Admin: 12/09/19 08:51 Dose: 1,000 mg Ceftriaxone Sodium (Rocephin) 1 gm IVPUSH ONETIME ONE Stop: 12/09/19 09:31 Last Admin: 12/09/19 11:27 Dose: 1 gm Ceftriaxone Sodium (Rocephin) 1 gm IVPUSH ONETIME ONE Stop: 12/10/19 08:01 Last Admin: 12/10/19 09:04 Dose: 1 gm Cholecalciferol (Vitamin D3) 50 mcg PO BID [facility] Last Admin: 12/09/19 08:51 Dose: 50 mcg Diatrizoate Meglum/Diatrizoate Sod (Gastrografin 37%) 30 ml PO . DIRECTED ONE Stop: 12/09/19 12:45 Last Admin: 12/09/19 14:21 Dose: 30 ml Ferrous Sulfate (Ferrous Sulfate) 325 mg PO DAILY [facility] Last Admin: 12/01/19 09:08 Dose: 325 mg Ferrous Sulfate (Ferrous Sulfate) 325 mg PO TIDMEALS [facility] Last Admin: 12/06/19 08:40 Dose: 325 mg Heparin Sodium (Porcine) (Heparin Lock Flush 10 Units/Ml) 50 unit FLUSH Q8HR [facility] Heparin Sodium (Porcine) (Heparin Lock Flush 10 Units/Ml) 50 unit FLUSH ASDIRECTED [facility] Last Admin: 12/05/19 09:12 Dose: 50 unit Heparin Sodium (Porcine) (Heparin Lock Flush 10 Units/Ml) 50 unit FLUSH DAILY@ 0930 [facility] Last Admin: 12/07/19 09:22 Dose: 50 unit Heparin Sodium (Porcine) (Heparin Lock Flush 10 Units/Ml) 50 unit FLUSH DAILY@ 0930 [facility] Last Admin: 12/07/19 09:23 Dose: 50 unit Heparin Sodium (Porcine) (Heparin Lock Flush 10 Units/Ml) 50 unit FLUSH Q24H [facility] Last Admin: 12/15/19 11:00 Dose: Not Given Hydrocortisone (Hydrocortisone 2.5% Crm) 0 gm TOP QID [facility] Last Admin: 11/29/19 07:59 Dose: Not Given Multivitamins/Minerals 10 ml/Amino Ac/Electrol/Dextrose/Calcium 1,010 mls @ 84 mls/hr IV .BY DURATION [facility] Stop: 12/01/19 07:30 Last Admin: 11/30/19 09:50 Dose: 84 mls/hr Amino Ac/Electrol/Dextrose/Calcium (Clinimix E 5/15) 1,000 mls @ 84 mls/hr IV .BY DURATION [facility] Stop: 12/01/19 07:30 Last Admin: 11/30/19 22:03 Dose: 84 mls/hr Fat Emulsion Intravenous (Intralipid 20%) 250 mls @ 20 mls/hr IV [id number] [facility] Last Admin: 12/05/19 21:06 Dose: 20 mls/hr Multivitamins/Minerals 10 ml/Amino Ac/Electrol/Dextrose/Calcium 1,010 mls @ 21.21 mls/hr IV Q24H [facility] Last Admin: 12/07/19 21:28 Dose: Not Given Prochlorperazine Edisylate 10 (mg/ Sodium Chloride) 52 mls @ 150 mls/hr IV Q6H PRN PRN Reason: Nausea/Vomiting Last Admin: 11/29/19 14:00 Dose: 150 mls/hr Sodium Chloride 154 meq/ (Dextrose/Water) 1,038.5 mls @ 125 mls/hr IV Q8H [facility] Stop: 12/09/19 18:59 Last Admin: 12/09/19 11:27 Dose: 125 mls/hr Dextrose/Water (Dextrose 10% In Water) 1,000 mls @ 125 mls/hr IV ASDIRECTED [facility] Last Admin: 12/10/19 04:07 Dose: 125 mls/hr Multivitamins/Minerals 10 ml/Amino Ac/Electrol/Dextrose/Calcium 1,010 mls @ 84 mls/hr IV Q24H [facility] Last Admin: 12/11/19 12:47 Dose: Not Given Sodium Chloride (Normal Saline) 250 mls @ 100 mls/hr IV ASDIRECTED [facility] Last Admin: 12/10/19 22:25 Dose: 100 mls/hr Insulin Human Lispro (Humalog) 0 unit SUBCUT TIDMEALS [facility]; Protocol Last Admin: 12/07/19 08:01 Dose: Not Given Methylprednisolone Sodium Succinate (Solu-Medrol) 125 mg IVPUSH DAILY [facility] Last Admin: 11/27/19 08:15 Dose: 125 mg Methylprednisolone Sodium Succinate (Solu-Medrol) 125 mg IVPUSH Q8H [facility] Last Admin: 12/12/19 02:14 Dose: 125 mg Methylprednisolone Sodium Succinate (Solu-Medrol) 125 mg IVPUSH DAILY [facility] Stop: 12/17/19 09:01 Last Admin: 12/17/19 08:04 Dose: 125 mg Methylprednisolone Sodium Succinate (Solu-Medrol) 125 mg IVPUSH BID [facility] Stop: 12/13/19 21:01 Last Admin: 12/13/19 20:57 Dose: 125 mg Nitrofurantoin Macrocrystals (Macrobid) 100 mg PO BID [facility] Stop: 12/04/19 21:01 Last Admin: 12/04/19 20:42 Dose: 100 mg Nitrofurantoin Macrocrystals (Macrobid) 100 mg PO BID [facility] Stop: 12/09/19 23:59 Last Admin: 12/05/19 12:15 Dose: Not Given Non-Formulary Medication (Total Parenteral Nutrition, Central) 0 ml IV DAILY [facility]; Protocol Ondansetron HCl (Zofran Odt) 4 mg PO Q6H PRN PRN Reason: Nausea/Vomiting Last Admin: 11/27/19 09:23 Dose: 4 mg Pantoprazole Sodium (Protonix Iv) 40 mg IVPUSH DAILY [facility] Last Admin: 11/27/19 08:21 Dose: 40 mg Prednisone (Prednisone) 40 mg PO DAILY [facility] Stop: 11/30/19 09:01 Last Admin: 11/30/19 08:54 Dose: 40 mg Prednisone (Prednisone) 20 mg PO DAILY [facility] Stop: 12/03/19 09:01 Last Admin: 12/03/19 10:16 Dose: 20 mg Prednisone (Prednisone) 10 mg PO DAILY [facility] Stop: 12/06/19 09:01 Last Admin: 12/04/19 09:38 Dose: 10 mg Prednisone (Prednisone) 30 mg PO ONETIME ONE Stop: 12/04/19 10:16 Last Admin: 12/04/19 10:35 Dose: 30 mg Prednisone (Prednisone) 20 mg PO WITHBREAKFAST [facility] Last Admin: 12/09/19 08:51 Dose: 20 mg - Exam Quality Assessment: Central Line/PICC General: Alert, Oriented (MMS 27/30), Cooperative, No Acute Distress Lungs: Clear to Auscultation, Normal Respiratory Effort Cardiovascular: Regular Rate, Regular Rhythm GI/Abdominal Exam: Normal Bowel Sounds, Soft, Non-Tender, No Distention Peripheral Pulses: 2+: Radial (L), Radial (R) Sepsis Event Note - Evaluation Sepsis Screening Result: No Definite Risk - Problem List & Annotations (1) Colitis SNOMED Code(s): 14289314 Code(s): K52.9 - NONINFECTIVE GASTROENTERITIS AND COLITIS, UNSPECIFIED Status: Acute Current Visit: No Annotation/Comment:: Lymphocytic colitis found on flex sig on November 19, taper off SoluMedrol, prednisone 60 mg daily today x 7 days then 50 mg daily x 7 days then 40 mg daily x 7 days then 30 mg daily x 7 days, then 20 mg daily x 7 days then 10 mg daily x 7 days. If her symptoms start returning, would increase back to dose where she was asymptomatic and do more days at that dose. Dietary recommending advancing diet so she can get more calories, will discuss with patient/family at Care Conference. TPN at 42ml/hr continuous. Follow up with Dr Srivastava in 1 weeks. (2) Hypoalbuminemia due to protein-calorie malnutrition SNOMED Code(s): 58962761234521 Code(s): E88.09 - OTH DISORDERS OF PLASMA-PROTEIN METABOLISM, NEC; E46 - UNSPECIFIED PROTEIN-CALORIE MALNUTRITION Status: Acute Current Visit: No Annotation/Comment:: TPN restarted December 09, repeat labs tomorrow. (3) Edema due to hypoalbuminemia SNOMED Code(s): 060151616 Code(s): R60.9 - EDEMA, UNSPECIFIED; E88.09 - OTH DISORDERS OF PLASMA- PROTEIN METABOLISM, NEC Status: Acute Current Visit: No (4) Partial bowel obstruction SNOMED Code(s): 99324797154019619 Code(s): K56.600 - PARTIAL INTESTINAL OBSTRUCTION, UNSPECIFIED TO CAUSE Status: Acute Current Visit: No Annotation/Comment:: Improved. Advance diet will wean TPN as her oral intake improves. Once TPN discontinued, will monitor for a few days to make sure she is doing well then discharge to home with SLOW prednisone taper over 6 weeks. (5) Depression SNOMED Code(s): 10090425 Code(s): F32.9 - MAJOR DEPRESSIVE DISORDER, SINGLE EPISODE, UNSPECIFIED Status: Chronic Current Visit: No (6) Iron deficiency anemia SNOMED Code(s): 61869275 Code(s): D50.9 - IRON DEFICIENCY ANEMIA, UNSPECIFIED Status: Chronic Current Visit: No Qualifiers: Iron deficiency anemia type: inadequate dietary iron intake Qualified Code( s): D50.8 - Other iron deficiency anemias - Problem List Review Problem List Initiated/Reviewed/Updated: Yes - My Orders Last 24 Hours: My Active Orders 12/18/19 06:00 COMPREHENSIVE METABOLIC PN,CMP [CHEM] MOTH INR,PT,PROTHROMBIN TIME [COAG] Q7D 12/18/19 09:00 predniSONE 60 mg PO DAILY 12/22/19 06:00 CBC WITH AUTO DIFF [HEME] Q7D COMPREHENSIVE METABOLIC PN,CMP [CHEM] MOTH MAGNESIUM [CHEM] Q7D 12/25/19 06:00 COMPREHENSIVE METABOLIC PN,CMP [CHEM] MOTH INR,PT,PROTHROMBIN TIME [COAG] Q7D 12/25/19 09:00 predniSONE 50 mg PO DAILY 12/29/19 06:00 CBC WITH AUTO DIFF [HEME] Q7D COMPREHENSIVE METABOLIC PN,CMP [CHEM] MOTH 01/01/20 09:00 predniSONE 40 mg PO DAILY 01/08/20 09:00 predniSONE 30 mg PO DAILY 01/15/20 09:00 predniSONE 20 mg PO DAILY 01/22/20 09:00 predniSONE 10 mg PO DAILY - Plan Plan:: 1. TPN per pharmacy. CBC, CMP, INR on Sunday & . Magnesium weekly on Sunday. Dietary following. [place], gluten free, lactose controlled diet, discuss advancing diet today at Care Conference. 2. SoluMedrol 7 days completed, start prednisone 60 mg daily for 7 days today then taper down 10 mg weekly until off per surgery & GI. Follow up with Dr Srivastava next week. 3. Up to chair and ambulate, does not require PT/OT services. 4. DVT prophylaxis: Lovenox 30 mg SQ daily.
[2019-12-17] MEDS: Heparin Sodium 10 Units/ML 5 ML Syringe FLUSH SCH ×2 (12:23→12:24)
[2019-12-17] MEDS: Enoxaparin 30 MG/0.3 ML Syringe SUBCUT SCH (14:38)
[2019-12-17] MEDS: Citalopram 10 MG Tab PO SCH (21:17)
[2019-12-17] MEDS: Fat Emulsion 250 ML IV SCH (21:26)
[2019-12-18] MEDS: Pantoprazole 40 MG Tab.CR PO SCH (06:03)
[2019-12-18] MEDS: Sodium Chloride 0.9% 10 ML Syringe FLUSH PRN ×2 (06:42→09:33)
[2019-12-18] MEDS: Heparin Sodium 10 Units/ML 5 ML Syringe FLUSH PRN (06:43)
[2019-12-18] MEDS: Calcium Carbonate 250 MG/ML Susp ML PO SCH ×2 (08:20→20:35)
[2019-12-18] MEDS: predniSONE 20 MG Tab PO SCH (08:20)
[2019-12-18] MEDS: Cholecalciferol (Vitamin D3) 25 MCG Tab PO SCH (08:20)
[2019-12-18] MEDS: Ferrous Sulfate 325 MG Tab PO SCH ×2 (08:21→17:54)
[2019-12-18] MEDS: Mupirocin Oint 22 GM Tube TOP SCH ×4 (08:21→20:35)
[2019-12-18] MEDS ORDERED: predniSONE 10 MG Tab PO SCH (09:00)
[2019-12-18] MEDS: VITAMIN K IV SCH ×3 (09:28)
[2019-12-18] MEDS: HUMAN IV SCH ×3 (09:28)
[2019-12-18] MEDS: INSULIN REGULAR IV SCH ×3 (09:28)
[2019-12-18] MEDS: MVI IV SCH ×3 (09:28)
[2019-12-18] MEDS: [UNRECOGNIZED DRUG - OTHER] IV SCH ×3 (09:28)
[2019-12-18] MEDS: Heparin Sodium 10 Units/ML 5 ML Syringe FLUSH SCH ×2 (11:02→11:03)
[2019-12-18] MEDS: Enoxaparin 30 MG/0.3 ML Syringe SUBCUT SCH (14:17)
[2019-12-18] MEDS: Citalopram 10 MG Tab PO SCH (20:35)
[2019-12-18] MEDS ORDERED: Ondansetron 4 MG/2 ML SDV IVPUSH PRN (21:13)
[2019-12-19] MEDS: Pantoprazole 40 MG Tab.CR PO SCH (06:04)
[2019-12-19] MEDS: Ferrous Sulfate 325 MG Tab PO SCH ×2 (08:01→17:57)
[2019-12-19] MEDS: Mupirocin Oint 22 GM Tube TOP SCH ×4 (08:02→21:14)
[2019-12-19] MEDS: predniSONE 20 MG Tab PO SCH (08:03)
[2019-12-19] MEDS: Calcium Carbonate 250 MG/ML Susp ML PO SCH ×2 (08:31→21:15)
[2019-12-19] MEDS: Cholecalciferol (Vitamin D3) 25 MCG Tab PO SCH (08:31)
[2019-12-19] MEDS: MVI IV SCH ×3 (09:53)
[2019-12-19] MEDS: HUMAN IV SCH ×3 (09:53)
[2019-12-19] MEDS: INSULIN REGULAR IV SCH ×3 (09:53)
[2019-12-19] MEDS: [UNRECOGNIZED DRUG - OTHER] IV SCH ×3 (09:53)
[2019-12-19] MEDS: VITAMIN K IV SCH ×3 (09:53)
[2019-12-19] MEDS: Heparin Sodium 10 Units/ML 5 ML Syringe FLUSH SCH ×2 (10:00→10:02)
--- NOTE | 2019-12-19 12:35 | PN ---
DATE SEEN: 12/19/2019 SUBJECTIVE: Alicia Bear is a 79-year-old female, long-term inpatient and swing bed care. Completing a course of intervention. She has been here since the 23 of November. Completing hyperalimentation over the weekend, prednisone fixed dose 60 mg started this week Sunday, reducing 10 mg q. week until goal. Followup with Dr. Srivastava, upcoming and planned. Anxious, weepy, anxious to sleep in her own bed. PHYSICAL EXAMINATION: VITAL SIGNS: 36.8, 118/62, 16, and 96. Weight 61.734 kg. GENERAL: Weepy, but appropriate. NECK: Benign. Thyroid small. CHEST: Clear in all lung [facility]. HEART: No ectopy or murmur. ABDOMEN: Benign. ASSESSMENT: Complicated abdominal pain and colitis. PLAN: Treatment and plans in place. /[id number] 1221 SHOAIB/JOCELYN LARA
[2019-12-19] MEDS: Enoxaparin 30 MG/0.3 ML Syringe SUBCUT SCH (13:16)
[2019-12-19] MEDS: Fat Emulsion 250 ML IV SCH (21:07)
[2019-12-19] MEDS: Citalopram 10 MG Tab PO SCH (21:15)
[2019-12-20] MEDS: Pantoprazole 40 MG Tab.CR PO SCH ×2 (07:52→08:43)
[2019-12-20] MEDS: Ferrous Sulfate 325 MG Tab PO SCH ×2 (09:54→17:59)
[2019-12-20] MEDS: hydrOXYzine HCl 25 MG Tab PO SCH ×3 (09:54→21:23)
[2019-12-20] MEDS: predniSONE 20 MG Tab PO SCH (09:55)
[2019-12-20] MEDS: Cholecalciferol (Vitamin D3) 25 MCG Tab PO SCH (09:55)
[2019-12-20] MEDS: Calcium Carbonate 250 MG/ML Susp ML PO SCH ×2 (10:10→21:23)
[2019-12-20] MEDS: Sodium Chloride 0.9% 10 ML Syringe FLUSH PRN (10:16)
[2019-12-20] MEDS: Heparin Sodium 10 Units/ML 5 ML Syringe FLUSH PRN (10:16)
[2019-12-20] MEDS: Heparin Sodium 10 Units/ML 5 ML Syringe FLUSH SCH ×2 (10:17)
[2019-12-20] MEDS: Enoxaparin 30 MG/0.3 ML Syringe SUBCUT SCH (14:31)
[2019-12-20] MEDS: Citalopram 10 MG Tab PO SCH (21:23)
[2019-12-21] MEDS: Pantoprazole 40 MG Tab.CR PO SCH (07:31)
[2019-12-21] MEDS: predniSONE 20 MG Tab PO SCH (08:21)
[2019-12-21] MEDS: Calcium Carbonate 250 MG/ML Susp ML PO SCH (08:21)
[2019-12-21] MEDS: Ferrous Sulfate 325 MG Tab PO SCH (08:21)
[2019-12-21] MEDS: Cholecalciferol (Vitamin D3) 25 MCG Tab PO SCH (08:22)
[2019-12-21] MEDS: hydrOXYzine HCl 25 MG Tab PO SCH (08:22)
[2019-12-21 08:31] VITALS: BP 110/56; PULSE 90
[2019-12-21] MEDS ORDERED: Pantoprazole 40 MG Tab.CR PO ONE (10:40)
[2019-12-21] MEDS ORDERED: Ferrous Sulfate 325 MG Tab PO ONE (10:40)
--- NOTE | 2019-12-21 11:08 | DISCH ---
DISCHARGE DATE: 12/21/2019 REASON FOR VISIT: Complicated lymphocytic colitis requiring hyperalimentation and aggressive medical intervention. HISTORY: Alicia Bear is a 79-year-old female, admitted to [place] with severe GI related symptoms. History of abdominal pain, complicated diarrhea, blood, complicated pain, and reduced well-being. Workup during her hospital stay includes an abdominal CT, which revealed inflammatory changes. Laboratory studies were reasonably stable, being in swing bed status. She was provided during her course hyperalimentation and lipids, adequate nutrition, ongoing medical care, variable adjustments, and finally high-dose need for prednisone. At the time of discharge, she was up ambulating, doing well, little anxious. Stools have been soft but forgiving in nature. We will plan discharge home. DISCHARGE MEDICATIONS: Please see medication reconciliation list. SURGICAL PROCEDURES: None. CONSULTATION: Tony Srivastava MD, [facility] Surgery. 45 minutes planning and care for discharge. /[id number] [id number] /JOCELYN
--- NOTE | 2019-12-21 12:04 | PN ---
DATE SEEN: 12/20/2019 SUBJECTIVE: Alicia Bear is a delightful 79-year-old female, has been in long- term care for complicated colitis. Seems to be on board. Abdominal pain, stools, and indifference have improved. On large doses of prednisone 40 mg daily. She has had some agitation, irritability, and a sense of unsettledness. She just wants to get home. OBJECTIVE: VITAL SIGNS: 36.4, 95, 91/45, 16 is the respiration, and 100% on room air. GENERAL: As always in good spirits. A little bit unsettled. NECK: Benign. Thyroid small. CHEST: On auscultation, clear all lung [facility]. HEART: On auscultation, no ectopy or murmur. ABDOMEN: Benign. ASSESSMENT: Complicated colitis. PLAN: Planned discharge home on 12/21/2019. Intervention and care as appropriate. We will have Home Health. Daughter will be staying with her. She will be seeing Dr. Srivastava in 1 weeks' time. /[id number] [id number] /JOCELYN
[2019-12-25] MEDS ORDERED: predniSONE 10 MG Tab PO SCH (09:00)
[2020-01-01] MEDS ORDERED: predniSONE 20 MG Tab PO SCH (09:00)
[2020-01-08] MEDS ORDERED: predniSONE 10 MG Tab PO SCH (09:00)
[2020-01-15] MEDS ORDERED: predniSONE 20 MG Tab PO SCH (09:00)
[2020-01-22] MEDS ORDERED: predniSONE 10 MG Tab PO SCH (09:00)
== END 2019-12-21 13:45 | disposition home health service (06) | DRG 392 ==
LOC: FB.MS 13:30
PROVIDERS: ADMIT Family Medicine; ATTEND Family Medicine
DX: K52.832 Lymphocytic colitis (principal); E46 Unspecified protein-calorie malnutrition; K56.600 Partial intestinal obstruction, unspecified as to cause; N39.0 Urinary tract infection, site not specified; R63.2 Polyphagia; H91.90 Unspecified hearing loss, unspecified ear; H54.7 Unspecified visual loss; K21.9 Gastro-esophageal reflux disease without esophagitis; R32 Unspecified urinary incontinence; F03.90 Unspecified dementia, unspecified severity, without behavioral disturbance, psychotic disturbance, mood disturbance, and anxiety; E66.9 Obesity, unspecified; D50.8 Other iron deficiency anemias; E87.6 Hypokalemia; E83.42 Hypomagnesemia; E86.0 Dehydration; N81.0 Urethrocele; F32.9 Major depressive disorder, single episode, unspecified; Z79.82 Long term (current) use of aspirin; Z88.2 Allergy status to sulfonamides; Z79.899 Other long term (current) drug therapy; Z90.49 Acquired absence of other specified parts of digestive tract; Z90.710 Acquired absence of both cervix and uterus; Z68.25 Body mass index [BMI] 25.0-25.9, adult
CPT/HCPCS: 36415; 36430; 74176; 80053; 80069; 81001; 82270; 82306; 82962; 83735; 85025; 85027; 85045; 85610; 86850; 86900; 86901; 86920; 86922; 87040; 87086; 87088; 87186; 87230; 94760; 97165-GO; A9270-GY; C9113; J0696; J0780; J1642; J1650; J1815; J1815-GY; J2405; J2930; J3490; J7050; J7060; J7131; P9016; Q9963

== ENCOUNTER 2020-04-02 13:30 | Observation (INO) | payer MEDICARE, OTHER ==
--- NOTE | 2020-04-02 14:09 | EDM.PDOC ---
ED HPI GENERAL MEDICAL PROBLEM - General Chief Complaint: General Stated Complaint: CHECK POTASSIUM AND SOD Time Seen by Provider: 04/02/20 14:02 Source of Information: Reports: Patient History Limitations: Reports: No Limitations - History of Present Illness INITIAL COMMENTS - FREE TEXT/NARRATIVE: Was advised by [employer] to come to the ED due to low K (2. 7) and Na (130) found on yesterday's blood work. Patient complains of feeling fatigued "for a long time" and has had diarrhea for several months. Diagnosed with lymphocytic colitis 12/2019, was on steroid taper. History of monoclonal gammopathy, depression, and GERD. Denies abdominal pain or N/V. - Related Data Allergies Allergy/AdvReac Type Severity Reaction Status Date / Time Sulfa (Sulfonamide Allergy Rash Verified 11/14/19 11:45 Antibiotics) Home Meds: Home Meds Aspirin [Halfprin] 81 mg PO BEDTIME 06/23/13 [History] Cyanocobalamin (Vitamin B-12) [Cyanocobalamin] 1 gm PO DAILY 06/23/13 [History] Flaxseed Oil [Flax Oil] 1,000 mg PO DAILY 06/23/13 [History] Lutein 20 mg PO DAILY 06/23/13 [History] Omeprazole [Prilosec] 20 mg PO BEDTIME 06/23/13 [History] Polyvinyl Alcohol/Povidone [Refresh] 1 each EYEBOTH ASDIRECTED PRN 06/23/13 [History] Triamcinolone Acetonide [Kenalog 0.1% Crm] 15 gm TOP BID PRN 06/23/13 [History] cycloSPORINE [Restasis] 1 drop EYEBOTH BID PRN 06/23/13 [History] Cholecalciferol (Vitamin D3) [Vitamin D3] 1,000 units PO DAILY 06/24/13 [History] Citalopram Hydrobromide [Celexa] 10 mg PO BEDTIME 06/24/13 [History] Fish Oil/[place]-3 Fatty Acids [Fish Oil 1,000 MG] 1,000 mg PO BID 06/24/13 [History] Multivitamin [Multi-Vitamin Daily] 1 each PO DAILY 06/24/13 [History] Alendronate Sodium [Fosamax] 70 mg PO Q7D 05/06/19 [History] Calcium Carbonate/Vitamin D3 [Os-Meng 500+D] 1 each PO BID 05/06/19 [History] Ferrous Sulfate [Iron] 325 mg PO DAILY 05/06/19 [History] Glucosamine Sulfate/Msm [Glucosamine-MSM 500-400 MG] 2 cap PO DAILY 05/06/19 [History] Vitamin E 400 unit PO DAILY 05/06/19 [History] Acetaminophen [Tylenol] 650 mg PO Q4H PRN tablet 12/21/19 [Rx] Carboxymethylcellulose Sodium [Refresh Celluvisc] 1 each EYEBOTH QID PRN cont 12/21/19 [Rx] Ferrous Sulfate 325 mg PO BIDMEALS #60 tablet 12/21/19 [Rx] Loperamide [Imodium] 4 mg PO Q6H PRN cap 12/21/19 [Rx] Melatonin 3 mg PO BEDTIME PRN tablet 12/21/19 [Rx] Pantoprazole [ProTONIX] 40 mg PO DAILY@0600 #30 tab.cr 12/21/19 [Rx] hydrOXYzine HCL [hydrOXYzine] 25 mg PO TID PRN #30 tablet 12/21/19 [Rx] predniSONE 60 mg PO DAILY #180 tablet 12/21/19 [Rx] Past Medical History HEENT History: Reports: Cataract, Hard of Hearing, Impaired Vision, Other (See Below) Other HEENT History: dry eyes Cardiovascular History: Reports: None, Other (See Below) Other Cardiovascular History: 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 CARPAL TUNNEL SYNDROME Psychiatric History: Reports: Depression Endocrine/Metabolic History: Reports: Obesity/BMI 30+ Hematologic History: Reports: None Immunologic History: Reports: None Oncologic (Cancer) History: Reports: None Dermatologic History: Reports: Eczema, Other (See Below) Other Dermatologic History: CONTACT DERMATITIS - Infectious Disease History Infectious Disease History: Reports: Chicken Pox, Measles, Mumps - Past Surgical History Head Surgeries/Procedures: Reports: None HEENT Surgical History: Reports: Cataract Surgery Cardiovascular Surgical History: Reports: None Respiratory Surgical History: Reports: None GI Surgical History: Reports: Appendectomy, Cholecystectomy, Colonoscopy Female Surgical History: Reports: Hysterectomy Endocrine Surgical History: Reports: None Neurological Surgical History: Reports: Discectomy, Laminectomy, Other (See Below) Other Neurological Surgeries/Procedures: L3-4 Musculoskeletal Surgical History: Reports: Other (See Below) Other Musculoskeletal Surgeries/Procedures:: TRIGGER FINGER RELEASE, TRIGGER FINGER INJECTION Oncologic Surgical History: Reports: None Social & Family History - Family History Family Medical History: Noncontributory - Caffeine Use Caffeine Use: Reports: Coffee - Living Situation & Occupation Living situation: Reports: , Alone Occupation: Retired ED ROS GENERAL - Review of Systems Review Of Systems: Comprehensive ROS is negative, except as noted in HPI. ED EXAM, GENERAL - Physical Exam Exam: See Below Exam Limited By: No Limitations General Appearance: Alert, WD/WN, No Apparent Distress Throat/Mouth: No Airway Compromise Head: Atraumatic, Normocephalic Neck: Full Range of Motion Respiratory/Chest: No Respiratory Distress, Lungs Clear, Normal Breath Sounds Cardiovascular: Regular Rate, Rhythm, No Murmur GI/Abdominal: Normal Bowel Sounds, Soft, Non-Tender, No Distention Back Exam: Full Range of Motion Extremities: Normal Range of Motion Neurological: Alert, Oriented, Normal Cognition, No Motor/Sensory Deficits Psychiatric: Flat Affect Skin Exam: Warm, Dry, Intact EKG INTERPRETATION EKG Date: 04/02/20 Time: 14:26 Rhythm: NSR Rate (Beats/Min): 93 [place]: LAD-Left [place] Deviation P-Wave: Present QRS: Normal ST-T: Normal QT: Normal Comparison: NA - No Prior EKG Course - Vital Signs Last Recorded V/S: Last Vital Signs Temp 36.6 C 04/02/20 13:48 Pulse 106 H 04/02/20 13:48 Resp 14 04/02/20 13:48 BP 90/47 L 04/02/20 13:48 Pulse Ox 100 04/02/20 13:48 - Orders/Labs/Meds Orders: Active Orders 24 hr Category Date Time Status Admission Status [Patient Status] [ADT] Routine ADT 04/02/20 15:07 Ordered EKG Documentation Completion [RC] ASDIRECTED Care 04/02/20 13:51 Active CULTURE BLOOD [BC] Urgent Lab 04/02/20 14:17 Received CULTURE BLOOD [BC] Urgent Lab 04/02/20 14:21 Received THYROXINE (T4) FREE, DIRECT, S Stat Lab 04/02/20 15:07 Ordered UA W/MICROSCOPIC [URIN] Stat Lab 04/02/20 13:50 Ordered Potassium Chloride [KCL 20 MEQ in Water 100 ML] 20 meq Med 04/02/20 14:48 Active Premix Bag 1 bag IV ONETIME Sodium Chloride 0.9% [Normal Saline] 500 ml Med 04/02/20 14:10 Active IV .BOLUS Sodium Chloride 0.9% [Saline Flush] Med 04/02/20 13:46 Active 10 ml FLUSH ASDIRECTED PRN Blood Culture x2 Reflex Set [OM.PC] Urgent Oth 04/02/20 13:50 Ordered Saline Lock Insert [OM.PC] Routine Oth 04/02/20 13:46 Ordered EKG 12 Lead [EK] Stat Ther 04/02/20 13:51 Ordered Medication Orders Sodium Chloride (Normal Saline) 500 mls @ 500 mls/hr IV .BOLUS ONE Stop: 04/02/20 15:09 Last Admin: 04/02/20 14:17 Dose: 500 mls/hr Documented by: ABENA Potassium Chloride 20 meq/ (Premix) 100 mls @ 50 mls/hr IV ONETIME ONE Stop: 04/02/20 16:47 Sodium Chloride (Saline Flush) 10 ml FLUSH ASDIRECTED PRN PRN Reason: Keep Vein Open Last Admin: 04/02/20 14:17 Dose: 10 ml Documented by: ABENA Labs: Laboratory Tests 04/02/20 04/02/20 04/02/20 Range/Units 14:17 14:17 14:17 WBC 10.5 (4.5-12.0) X10-3/uL RBC 3.48 (3.23-5.20) x10(6)uL Hgb 10.5 L (11.5-15.5) g/dL Hct 31.4 (30.0-51.3) % MCV 90.2 (80-96) fL MCH 30.3 (27.7-33.6) pg MCHC 33.6 (32.2-35.4) g/dL RDW 13.2 (11.5-15.5) % Plt Count 343 (125-369) X10(3)uL MPV 6.3 L (7.4-10.4) fL Neut % (Auto) 61.0 (46-82) % Lymph % (Auto) 31.1 (13-37) % [place] % (Auto) 5.0 (4-12) % Eos % (Auto) 2 (1.0-5.0) % Baso % (Auto) 1 (0-2) % Neut # (Auto) 6.4 (1.6-8.3) # Lymph # (Auto) 3.3 (0.6-5.0) # [place] # (Auto) 0.5 (0.0-1.3) # Eos # (Auto) 0.2 (0.0-0.8) # Baso # (Auto) 0.1 (0.0-0.2) # Sodium 131 L (135-145) mmol/L Potassium 2.3 L* D (3.5-5.3) mmol/L Chloride 96 L D (100-110) mmol/L Carbon Dioxide 25 (21-32) mmol/L BUN 9 (7-18) mg/dL Creatinine 1.0 (0.55-1.02) mg/dL Est Cr Clr Drug Dosing TNP Estimated GFR (MDRD) 54 L (>60) BUN/Creatinine Ratio 9.0 (9-20) Glucose 124 H (80-116) mg/dL Lactic Acid (0.4-2.0) mmol/L Calcium 8.5 L (8.6-10.2) mg/dL Magnesium 1.8 (1.8-2.5) mg/dL Total Bilirubin 0.2 (0.1-1.3) mg/dL AST 31 H D (5-25) IU/L ALT 33 D (12-36) U/L Alkaline Phosphatase 127 H (56-112) IU/L Troponin I (4.0-60.3) pg/mL Total Protein 6.0 (6.0-8.0) g/dL Albumin 1.9 L (3.2-4.6) g/dL Globulin 4.1 g/dL Albumin/Globulin Ratio 0.5 TSH, Ultra Sensitive (0.36-3.74) IU/mL 04/02/20 04/02/20 04/02/20 Range/Units 14:17 14:17 14:17 WBC (4.5-12.0) X10-3/uL RBC (3.23-5.20) x10(6)uL Hgb (11.5-15.5) g/dL Hct (30.0-51.3) % MCV (80-96) fL MCH (27.7-33.6) pg MCHC (32.2-35.4) g/dL RDW (11.5-15.5) % Plt Count (125-369) X10(3)uL MPV (7.4-10.4) fL Neut % (Auto) (46-82) % Lymph % (Auto) (13-37) % [place] % (Auto) (4-12) % Eos % (Auto) (1.0-5.0) % Baso % (Auto) (0-2) % Neut # (Auto) (1.6-8.3) # Lymph # (Auto) (0.6-5.0) # [place] # (Auto) (0.0-1.3) # Eos # (Auto) (0.0-0.8) # Baso # (Auto) (0.0-0.2) # Sodium (135-145) mmol/L Potassium (3.5-5.3) mmol/L Chloride (100-110) mmol/L Carbon Dioxide (21-32) mmol/L BUN (7-18) mg/dL Creatinine (0.55-1.02) mg/dL Est Cr Clr Drug Dosing Estimated GFR (MDRD) (>60) BUN/Creatinine Ratio (9-20) Glucose (80-116) mg/dL Lactic Acid 1.8 (0.4-2.0) mmol/L Calcium (8.6-10.2) mg/dL Magnesium (1.8-2.5) mg/dL Total Bilirubin (0.1-1.3) mg/dL AST (5-25) IU/L ALT (12-36) U/L Alkaline Phosphatase (56-112) IU/L Troponin I 6.4 (4.0-60.3) pg/mL Total Protein (6.0-8.0) g/dL Albumin (3.2-4.6) g/dL Globulin g/dL Albumin/Globulin Ratio TSH, Ultra Sensitive 3.95 H (0.36-3.74) IU/mL Meds: Medications Generic Name Dose Route Start Last Admin Trade Name Freq PRN Reason Stop Dose Admin Sodium Chloride 500 mls @ 500 mls/hr 04/02/20 14:10 04/02/20 14:17 Normal Saline IV 04/02/20 15:09 500 mls/hr .BOLUS ONE Administration Potassium Chloride 20 meq/ 100 mls @ 50 mls/hr 04/02/20 14:48 Premix IV 04/02/20 16:47 ONETIME ONE Sodium Chloride 10 ml 04/02/20 13:46 04/02/20 14:17 Saline Flush FLUSH 10 ml ASDIRECTED PRN Administration Keep Vein Open - Re-Assessments/Exams Free Text/Narrative Re-Assessment/Exam: 04/02/20 15:11 Patient care discussed with Dr. Srivastava, he recommends Prednisone taper to treat lymphocytic colitis. Departure - Departure Time of Disposition: 15:12 Disposition: Refer to Observation Condition: Good Clinical Impression: Hypokalemia Diarrhea Qualifiers: Diarrhea type: unspecified type Qualified Code(s): R19.7 - Diarrhea, unspecified - Discharge Information Referrals: Isidoro Flores MD [Primary Care Provider] - Forms: ED Department Discharge Sepsis Event Note (ED) - Evaluation Sepsis Screening Result: No Definite Risk - Focused Exam Vital Signs: Vital Signs Temp Pulse Resp BP Pulse Ox 04/02/20 13:48 36.6 C 106 H 14 90/47 L 100 - My Orders Last 24 Hours: My Active Orders 04/02/20 13:46 Sodium Chloride 0.9% [Saline Flush] 10 ml FLUSH ASDIRECTED PRN Saline Lock Insert [OM.PC] Routine 04/02/20 13:50 UA W/MICROSCOPIC [URIN] Stat Blood Culture x2 Reflex Set [OM.PC] Urgent 04/02/20 13:51 EKG Documentation Completion [RC] ASDIRECTED EKG 12 Lead [EK] Stat 04/02/20 14:10 Sodium Chloride 0.9% [Normal Saline] 500 ml IV .BOLUS 04/02/20 14:17 CULTURE BLOOD [BC] Urgent 04/02/20 14:21 CULTURE BLOOD [BC] Urgent 04/02/20 14:48 Potassium Chloride [KCL 20 MEQ in Water 100 ML] 20 meq Premix Bag 1 bag IV ONETIME 04/02/20 15:07 Admission Status [Patient Status] [ADT] Routine THYROXINE (T4) FREE, DIRECT, S Stat - Assessment/Plan Last 24 Hours: My Active Orders 04/02/20 13:46 Sodium Chloride 0.9% [Saline Flush] 10 ml FLUSH ASDIRECTED PRN Saline Lock Insert [OM.PC] Routine 04/02/20 13:50 UA W/MICROSCOPIC [URIN] Stat Blood Culture x2 Reflex Set [OM.PC] Urgent 04/02/20 13:51 EKG Documentation Completion [RC] ASDIRECTED EKG 12 Lead [EK] Stat 04/02/20 14:10 Sodium Chloride 0.9% [Normal Saline] 500 ml IV .BOLUS 04/02/20 14:17 CULTURE BLOOD [BC] Urgent 04/02/20 14:21 CULTURE BLOOD [BC] Urgent 04/02/20 14:48 Potassium Chloride [KCL 20 MEQ in Water 100 ML] 20 meq Premix Bag 1 bag IV ONETIME 04/02/20 15:07 Admission Status [Patient Status] [ADT] Routine THYROXINE (T4) FREE, DIRECT, S Stat
[2020-04-02] MEDS ORDERED: Sodium Chloride 0.9% 500 ML IV ONE (14:10)
[2020-04-02] MEDS: Sodium Chloride 0.9% 10 ML Syringe FLUSH PRN ×3 (14:17→18:15)
[2020-04-02] MEDS ORDERED: Potassium Chloride 20 MEQ in Premix Bag 1 BAG IV ONE (14:48)
--- NOTE | 2020-04-02 16:56 | PCM.HP.2 ---
H&P History of Present Illness - General Date of Service: 04/02/20 Admit Problem/Dx: Admission Diagnosis/Problem Admission Diagnosis/Problem Hypokalemia Source of Information: Patient, EMS Notes Reviewed - History of Present Illness Initial Comments - Free Text/Narative: Rosaura came in today for low potassium that was found on a lab draw yesterday for her [employer] from [place](that she has been seeing via virtual visits). She was discharged the end of December for Leukocytic colitis found on colonoscopy in November. She had a prolonged stay as she was severely malnourished, requiring TPN as she was not eating well, was on a long prednisone taper. She is not on Prednisone now, has been taking Pepto Bismuth 3 cap tid, which has helped. Had a flare up of diarrhea past few weeks, gradually feeling weaker, fatigued. Denies any fevers, chills, sore throat, cough, chest pain, shortness of breath, abdominal pain, nausea or vomiting. No dysuria, frequency, hematuria. No rashes, easily bleeding or bruising. Still having some bloody stools with the diarrhea, has not changed since she was here in November/December. Wears bilateral hearing aids, lives alone in her own home in [place], her son matthew ayala close by and daughter Giuliana lives in [place]. - Related Data Allergies/Adverse Reactions: Allergies Allergy/AdvReac Type Severity Reaction Status Date / Time Sulfa (Sulfonamide Allergy Rash Verified 11/14/19 11:45 Antibiotics) Home Medications: Home Meds Flaxseed Oil [Flax Oil] 1,000 mg PO DAILY 06/23/13 [History] Lutein 20 mg PO DAILY 06/23/13 [History] Omeprazole [Prilosec] 20 mg PO BEDTIME 06/23/13 [History] cycloSPORINE [Restasis] 1 drop EYEBOTH BID PRN 06/23/13 [History] Cholecalciferol (Vitamin D3) [Vitamin D3] 1,000 units PO DAILY 06/24/13 [History] Citalopram Hydrobromide [Celexa] 10 mg PO BEDTIME 06/24/13 [History] Fish Oil/[place]-3 Fatty Acids [Fish Oil 1,000 MG] 1,000 mg PO DAILY 06/24/13 [History] Multivitamin [Multi-Vitamin Daily] 1 each PO DAILY 06/24/13 [History] Alendronate Sodium [Fosamax] 70 mg PO FERNANDEZ 05/06/19 [History] Calcium Carbonate/Vitamin D3 [Os-Meng 500+D] 1 each PO BID 05/06/19 [History] Ferrous Sulfate [Iron] 325 mg PO BID 05/06/19 [History] Glucosamine Sulfate/Msm [Glucosamine-MSM 500-400 MG] 1 cap PO DAILY 05/06/19 [History] Vitamin E 400 unit PO DAILY 05/06/19 [History] Acetaminophen [Tylenol] 325 mg PO Q4H PRN 04/02/20 [History] Bismuth Subsalicylate [Pepto Bismol] 524 mg PO TID 04/02/20 [History] Carboxymethylcellulose Sodium [Refresh Tears] 1 drop EYEBOTH DAILY 04/02/20 [History] Cyanocobalamin (Vitamin B-12) [Vitamin B-12] 1,000 mcg PO DAILY 04/02/20 [History] Past Medical History HEENT History: Reports: Cataract, Hard of Hearing, Impaired Vision, Other (See Below) Other HEENT History: dry eyes Cardiovascular History: Reports: None, Other (See Below) Other Cardiovascular History: 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 CARPAL TUNNEL SYNDROME Psychiatric History: Reports: Depression Endocrine/Metabolic History: Reports: Obesity/BMI 30+ Hematologic History: Reports: None Immunologic History: Reports: None Oncologic (Cancer) History: Reports: None Dermatologic History: Reports: Eczema, Other (See Below) Other Dermatologic History: CONTACT DERMATITIS - Infectious Disease History Infectious Disease History: Reports: Chicken Pox, Measles, Mumps - Past Surgical History Head Surgeries/Procedures: Reports: None HEENT Surgical History: Reports: Cataract Surgery Cardiovascular Surgical History: Reports: None Respiratory Surgical History: Reports: None GI Surgical History: Reports: Appendectomy, Cholecystectomy, Colonoscopy Female Surgical History: Reports: Hysterectomy Endocrine Surgical History: Reports: None Neurological Surgical History: Reports: Discectomy, Laminectomy, Other (See Below) Other Neurological Surgeries/Procedures: L3-4 Musculoskeletal Surgical History: Reports: Other (See Below) Other Musculoskeletal Surgeries/Procedures:: TRIGGER FINGER RELEASE, TRIGGER FINGER INJECTION Oncologic Surgical History: Reports: None Social & Family History - Family History Family Medical History: Noncontributory - Tobacco Use Smoking Status *Q: Never Smoker - Caffeine Use Caffeine Use: Reports: Coffee - Recreational Drug Use Recreational Drug Use: No - Living Situation & Occupation Living situation: Reports: , Alone Occupation: Retired H&P Review of Systems - Review of Systems: Review Of Systems: Comprehensive ROS is negative, except as noted in HPI. Exam - Exam Exam: See Below - Vital Signs Vital Signs: Last Vital Signs Temp 98 F 04/02/20 13:48 Pulse 106 H 04/02/20 13:48 Resp 14 04/02/20 13:48 BP 90/47 L 04/02/20 13:48 Pulse Ox 100 04/02/20 13:48 Weight: 127 lb - Exam General: Alert, Oriented, Cooperative. No: Mild Distress HEENT: PERRLA, Mucosa Moist & [place], Glasses. No: Hearing Intact (bilateral hearing aids in place) Lungs: Clear to Auscultation, Normal Respiratory Effort Cardiovascular: Regular Rate, Regular Rhythm GI/Abdominal Exam: Normal Bowel Sounds, Soft, Non-Tender, No Distention. No: Guarding, Rigid, Rebound (Female) Exam: Deferred Rectal (Female) Exam: Deferred Back Exam: Normal Inspection Extremities: Normal Inspection, Pedal Edema (2+ feet to knees), Pallor. No: Increased Warmth Peripheral Pulses: 2+: Radial (L), Radial (R) Skin: Warm, Dry, Intact - Patient Data Lab Results Last 24 hrs: Laboratory Results - last 24 hr 04/02/20 04/02/20 04/02/20 Range/Units 14:17 14:17 14:17 WBC 10.5 (4.5-12.0) X10-3/uL RBC 3.48 (3.23-5.20) x10(6)uL Hgb 10.5 L (11.5-15.5) g/dL Hct 31.4 (30.0-51.3) % MCV 90.2 (80-96) fL MCH 30.3 (27.7-33.6) pg MCHC 33.6 (32.2-35.4) g/dL RDW 13.2 (11.5-15.5) % Plt Count 343 (125-369) X10(3)uL MPV 6.3 L (7.4-10.4) fL Neut % (Auto) 61.0 (46-82) % Lymph % (Auto) 31.1 (13-37) % [place] % (Auto) 5.0 (4-12) % Eos % (Auto) 2 (1.0-5.0) % Baso % (Auto) 1 (0-2) % Neut # (Auto) 6.4 (1.6-8.3) # Lymph # (Auto) 3.3 (0.6-5.0) # [place] # (Auto) 0.5 (0.0-1.3) # Eos # (Auto) 0.2 (0.0-0.8) # Baso # (Auto) 0.1 (0.0-0.2) # Sodium 131 L (135-145) mmol/L Potassium 2.3 L* D (3.5-5.3) mmol/L Chloride 96 L D (100-110) mmol/L Carbon Dioxide 25 (21-32) mmol/L BUN 9 (7-18) mg/dL Creatinine 1.0 (0.55-1.02) mg/dL Est Cr Clr Drug Dosing TNP Estimated GFR (MDRD) 54 L (>60) BUN/Creatinine Ratio 9.0 (9-20) Glucose 124 H (80-116) mg/dL Lactic Acid (0.4-2.0) mmol/L Calcium 8.5 L (8.6-10.2) mg/dL Magnesium 1.8 (1.8-2.5) mg/dL Total Bilirubin 0.2 (0.1-1.3) mg/dL AST 31 H D (5-25) IU/L ALT 33 D (12-36) U/L Alkaline Phosphatase 127 H (56-112) IU/L Troponin I (4.0-60.3) pg/mL Total Protein 6.0 (6.0-8.0) g/dL Albumin 1.9 L (3.2-4.6) g/dL Globulin 4.1 g/dL Albumin/Globulin Ratio 0.5 TSH, Ultra Sensitive (0.36-3.74) IU/mL 04/02/20 04/02/20 04/02/20 Range/Units 14:17 14:17 14:17 WBC (4.5-12.0) X10-3/uL RBC (3.23-5.20) x10(6)uL Hgb (11.5-15.5) g/dL Hct (30.0-51.3) % MCV (80-96) fL MCH (27.7-33.6) pg MCHC (32.2-35.4) g/dL RDW (11.5-15.5) % Plt Count (125-369) X10(3)uL MPV (7.4-10.4) fL Neut % (Auto) (46-82) % Lymph % (Auto) (13-37) % [place] % (Auto) (4-12) % Eos % (Auto) (1.0-5.0) % Baso % (Auto) (0-2) % Neut # (Auto) (1.6-8.3) # Lymph # (Auto) (0.6-5.0) # [place] # (Auto) (0.0-1.3) # Eos # (Auto) (0.0-0.8) # Baso # (Auto) (0.0-0.2) # Sodium (135-145) mmol/L Potassium (3.5-5.3) mmol/L Chloride (100-110) mmol/L Carbon Dioxide (21-32) mmol/L BUN (7-18) mg/dL Creatinine (0.55-1.02) mg/dL Est Cr Clr Drug Dosing Estimated GFR (MDRD) (>60) BUN/Creatinine Ratio (9-20) Glucose (80-116) mg/dL Lactic Acid 1.8 (0.4-2.0) mmol/L Calcium (8.6-10.2) mg/dL Magnesium (1.8-2.5) mg/dL Total Bilirubin (0.1-1.3) mg/dL AST (5-25) IU/L ALT (12-36) U/L Alkaline Phosphatase (56-112) IU/L Troponin I 6.4 (4.0-60.3) pg/mL Total Protein (6.0-8.0) g/dL Albumin (3.2-4.6) g/dL Globulin g/dL Albumin/Globulin Ratio TSH, Ultra Sensitive 3.95 H (0.36-3.74) IU/mL Result Diagrams: 04/02/20 14:17 04/02/20 14:17 Sepsis Event Note - Evaluation Sepsis Screening Result: No Definite Risk - Focused Exam Vital Signs: Vital Signs Temp Pulse Resp BP Pulse Ox 04/02/20 13:48 98 F 106 H 14 90/47 L 100 Date Exam was Performed: 04/02/20 Time Exam was Performed: 16:49 *Q Meaningful Use (ADM) - VTE Risk Assess *Q Each Risk Factor Represents 1 Point: Swollen Legs, Current Total Score 1 Point Risk Factors: 1 Each Risk Factor Represents 3 Points: Age 75 Years or Greater Total Score 3 Point Risk Factors: 3 - Problem List (1) Hypokalemia SNOMED Code(s): 42357339 ICD Code: E87.6 - HYPOKALEMIA Status: Acute Current Visit: Yes Problem Details: improving. (2) Diarrhea SNOMED Code(s): 20001409 ICD Code: R19.7 - DIARRHEA, UNSPECIFIED Status: Acute Current Visit: Yes Qualifiers: Diarrhea type: unspecified type Qualified Code(s): R19.7 - Diarrhea, unspecified (3) Edema due to hypoalbuminemia SNOMED Code(s): 026240307 ICD Code: R60.9 - EDEMA, UNSPECIFIED; E88.09 - OTH DISORDERS OF PLASMA- PROTEIN METABOLISM, NEC Status: Acute Current Visit: No (4) Lymphocytic colitis SNOMED Code(s): 12419794 ICD Code: K52.832 - LYMPHOCYTIC COLITIS Status: Chronic Current Visit: No (5) Osteoporosis SNOMED Code(s): 05586254 ICD Code: M81.0 - AGE-RELATED OSTEOPOROSIS W/O CURRENT PATHOLOGICAL FRACTURE Status: Chronic Current Visit: No Problem List Initiated/Reviewed/Updated: Yes Orders Last 24hrs: Active Orders 24 hr Category Date Time Status Admission Status [Patient Status] [ADT] Routine ADT 04/02/20 15:07 Active Antiembolic Devices [RC] .Routine Care 04/02/20 15:43 Active Cardiac Monitoring [RC] .As Directed Care 04/02/20 15:43 Active EKG Documentation Completion [RC] ASDIRECTED Care 04/02/20 13:51 Active Oxygen Therapy [RC] PRN Care 04/02/20 15:43 Active Up ad Mini [RC] ASDIRECTED Care 04/02/20 15:43 Active VTE/DVT Education [RC] Per Unit Routine Care 04/02/20 15:43 Active Vital Signs [RC] Q4H Care 04/02/20 15:43 Active Regular Diet [DIET] Diet 04/02/20 Dinner Active BASIC METABOLIC PANEL,BMP [CHEM] Routine Lab 04/03/20 06:00 Ordered CULTURE BLOOD [BC] Urgent Lab 04/02/20 14:17 Received CULTURE BLOOD [BC] Urgent Lab 04/02/20 14:21 Received THYROXINE (T4) FREE, DIRECT, S Stat Lab 04/02/20 15:07 Ordered UA W/MICROSCOPIC [URIN] Stat Lab 04/02/20 13:50 Ordered Alendronate Sodium [Fosamax] Med 04/04/20 16:45 Ordered 70 mg PO FERNANDEZ Bismuth Subsalicylate [Pepto Bismol] Med 04/02/20 21:00 Ordered 524 mg PO TID Carboxymethylcellulose Sodium [Refresh Tears] Med 04/03/20 09:00 Ordered 1 drop EYEBOTH DAILY Citalopram Hydrobromide [Celexa] Med 04/02/20 21:00 Ordered 10 mg PO BEDTIME Ferrous Sulfate [Iron] Med 04/02/20 21:00 Ordered 325 mg PO BID Omeprazole [Prilosec] Med 04/02/20 21:00 Ordered 20 mg PO BEDTIME Potassium Chloride [KCL 20 MEQ in Water 100 ML] 100 ml Med 04/02/20 17:00 Ordered IV Q2H Potassium Chloride [Klor-Con M20] Med 04/02/20 21:00 Active 20 meq PO TID Sodium Chloride 0.9% [Saline Flush] Med 04/02/20 13:46 Active 10 ml FLUSH ASDIRECTED PRN Antiembolic Hose [OM.PC] Per Unit Routine Oth 04/02/20 15:44 Ordered Blood Culture x2 Reflex Set [OM.PC] Urgent Oth 04/02/20 13:50 Ordered Saline Lock Insert [OM.PC] Routine Oth 04/02/20 13:46 Ordered Code Status [Resuscitation Status] Routine Resus Stat 04/02/20 16:07 Ordered EKG 12 Lead [EK] Stat Ther 04/02/20 13:51 Ordered Medication Orders Potassium Chloride (Kcl 20 Meq In Water 100 Ml) 100 mls @ 50 mls/hr IV Q2H BRANDYN Stop: 04/02/20 20:59 Non-Formulary Medication (Alendronate Sodium [Fosamax]) 70 mg PO FERNANDEZ BRANDYN Non-Formulary Medication (Citalopram Hydrobromide [Celexa]) 10 mg PO BEDTIME BRANDYN Non-Formulary Medication (Carboxymethylcellulose Sodium [Refresh Tears]) 1 drop EYEBOTH DAILY BRANDYN Non-Formulary Medication (Ferrous Sulfate [Iron]) 325 mg PO BID BRANDYN Non-Formulary Medication (Omeprazole [Prilosec]) 20 mg PO BEDTIME BRANDYN Potassium Chloride (Klor-Con M20) 20 meq PO TID BRANDYN Sodium Chloride (Saline Flush) 10 ml FLUSH ASDIRECTED PRN PRN Reason: Keep Vein Open Last Admin: 04/02/20 14:17 Dose: 10 ml Documented by: ABENA Assessment/Plan Comment:: 1. Admit for observation for IV fluids and potassium replacement for hypokalemia. 2. Received NS 500 ml bolus in ER, KCL 20mEq ordered in ER but not given; KCL 20 mEq q2h for 2 bags ordered on admission to floor. KCL 20 mEq po tid in addition as she was slow to correct during admission in November/December until she was given both IV & oral supplementation. Repeat labs in AM. Cardiac monitoring. 3. NS at 100 ml/hr. 4. Regular diet. 5. DVT prophylaxis: TEDS BLE. Lovenox 40 mg SQ daily. Ambulate, up ad mini. 6. FULL CODE. 7. - Mortality Measure Prognosis:: Good
[2020-04-02] MEDS: Potassium Chloride 100 ML IV SCH ×2 (16:58→19:45)
[2020-04-02] MEDS: Sodium Chloride 0.9% 1,000 ML IV SCH (17:30)
[2020-04-02] MEDS: Enoxaparin 40 MG/0.4 ML Syringe SUBCUT SCH (18:08)
[2020-04-02] MEDS: cefTRIAXone 1 GM Vial IVPUSH SCH (18:15)
[2020-04-02] MEDS: Potassium Chloride 20 MEQ Tab.ER PO SCH (20:02)
[2020-04-02] MEDS ORDERED: BISMUTH SUBSALICYLATE 524 MG PO SCH (21:00)
[2020-04-02] MEDS: BISMUTH SUBSALICYLATE 262 MG PO SCH (21:38)
[2020-04-02] MEDS: CITALOPRAM HYDROBROMIDE 10 MG PO SCH (21:41)
[2020-04-02] MEDS: OMEPRAZOLE 20 MG PO SCH (21:48)
[2020-04-03] MEDS: Sodium Chloride 0.9% 1,000 ML IV SCH ×2 (04:10→14:39)
[2020-04-03] MEDS: BISMUTH SUBSALICYLATE 262 MG PO SCH ×3 (08:34→20:12)
[2020-04-03] MEDS: Potassium Chloride 20 MEQ Tab.ER PO SCH ×3 (08:35→20:15)
[2020-04-03] MEDS: RESTASIS OPTH EYEBOTH SCH (08:36)
[2020-04-03] MEDS: Potassium Chloride 100 ML IV SCH ×2 (10:27→12:53)
[2020-04-03] MEDS: Non-Formulary Medication 1 Each (Ferrous Sulfate [Iron] 325 MG) PO SCH (11:22)
--- NOTE | 2020-04-03 11:40 | PCM.PN ---
- General Info Date of Service: 04/03/20 Admission Dx/Problem (Free Text): Rosaura had bloody diarrhea, which is not new for her, currently being treated by GI in [place] for lymphocytic colitis, she states diarrhea is improving. Blood pressures low this morning but she is not dizzy or lightheaded, no shortness of breath, or abdominal pain. No nausea or vomiting. UA positive nitrites last night, started on Rocephin, Urine culture growing gram negative rods. Potassium has come up to 2.8 today. Normal sinus rhythm overnight. - Patient Data Vitals - Most Recent: Last Vital Signs Temp 97.4 F 04/03/20 08:38 Pulse 88 04/03/20 08:38 Resp 20 04/03/20 08:38 BP 88/55 L 04/03/20 08:38 Pulse Ox 96 04/03/20 08:38 Weight - Most Recent: 127 lb I&O - Last 24 Hours: Intake & Output 04/02/20 04/03/20 04/03/20 22:59 06:59 14:59 Intake Total 100 Balance 100 Lab Results Last 24 Hours: Laboratory Results - last 24 hr 04/02/20 04/02/20 04/02/20 Range/Units 14:17 14:17 14:17 WBC 10.5 (4.5-12.0) X10-3/uL RBC 3.48 (3.23-5.20) x10(6)uL Hgb 10.5 L (11.5-15.5) g/dL Hct 31.4 (30.0-51.3) % MCV 90.2 (80-96) fL MCH 30.3 (27.7-33.6) pg MCHC 33.6 (32.2-35.4) g/dL RDW 13.2 (11.5-15.5) % Plt Count 343 (125-369) X10(3)uL MPV 6.3 L (7.4-10.4) fL Neut % (Auto) 61.0 (46-82) % Lymph % (Auto) 31.1 (13-37) % [place] % (Auto) 5.0 (4-12) % Eos % (Auto) 2 (1.0-5.0) % Baso % (Auto) 1 (0-2) % Neut # (Auto) 6.4 (1.6-8.3) # Lymph # (Auto) 3.3 (0.6-5.0) # [place] # (Auto) 0.5 (0.0-1.3) # Eos # (Auto) 0.2 (0.0-0.8) # Baso # (Auto) 0.1 (0.0-0.2) # Sodium 131 L (135-145) mmol/L Potassium 2.3 L* D (3.5-5.3) mmol/L Chloride 96 L D (100-110) mmol/L Carbon Dioxide 25 (21-32) mmol/L BUN 9 (7-18) mg/dL Creatinine 1.0 (0.55-1.02) mg/dL Est Cr Clr Drug Dosing TNP Estimated GFR (MDRD) 54 L (>60) BUN/Creatinine Ratio 9.0 (9-20) Glucose 124 H (80-116) mg/dL Lactic Acid (0.4-2.0) mmol/L Calcium 8.5 L (8.6-10.2) mg/dL Magnesium 1.8 (1.8-2.5) mg/dL Total Bilirubin 0.2 (0.1-1.3) mg/dL AST 31 H D (5-25) IU/L ALT 33 D (12-36) U/L Alkaline Phosphatase 127 H (56-112) IU/L Troponin I (4.0-60.3) pg/mL Total Protein 6.0 (6.0-8.0) g/dL Albumin 1.9 L (3.2-4.6) g/dL Globulin 4.1 g/dL Albumin/Globulin Ratio 0.5 TSH, Ultra Sensitive (0.36-3.74) IU/mL Urine Color (YELLOW) Urine Appearance (CLEAR) Urine pH (5.0-6.5) Ur Specific [place] (1.010-1.025) Urine Protein (NEGATIVE) mg/dL Urine Glucose (UA) (NORMAL) mg/dL Urine Ketones (NEGATIVE) mg/dL Urine Occult Blood (NEGATIVE) Urine Nitrite (NEGATIVE) Urine Bilirubin (NEGATIVE) Urine Urobilinogen (NEGATIVE) mg/dL Ur Leukocyte Esterase (NEGATIVE) Urine RBC (0-5) Urine WBC (0-5) Ur Squamous Epith Cells (NS,R,O) Urine Bacteria (NS) 04/02/20 04/02/20 04/02/20 Range/Units 14:17 14:17 14:17 WBC (4.5-12.0) X10-3/uL RBC (3.23-5.20) x10(6)uL Hgb (11.5-15.5) g/dL Hct (30.0-51.3) % MCV (80-96) fL MCH (27.7-33.6) pg MCHC (32.2-35.4) g/dL RDW (11.5-15.5) % Plt Count (125-369) X10(3)uL MPV (7.4-10.4) fL Neut % (Auto) (46-82) % Lymph % (Auto) (13-37) % [place] % (Auto) (4-12) % Eos % (Auto) (1.0-5.0) % Baso % (Auto) (0-2) % Neut # (Auto) (1.6-8.3) # Lymph # (Auto) (0.6-5.0) # [place] # (Auto) (0.0-1.3) # Eos # (Auto) (0.0-0.8) # Baso # (Auto) (0.0-0.2) # Sodium (135-145) mmol/L Potassium (3.5-5.3) mmol/L Chloride (100-110) mmol/L Carbon Dioxide (21-32) mmol/L BUN (7-18) mg/dL Creatinine (0.55-1.02) mg/dL Est Cr Clr Drug Dosing Estimated GFR (MDRD) (>60) BUN/Creatinine Ratio (9-20) Glucose (80-116) mg/dL Lactic Acid 1.8 (0.4-2.0) mmol/L Calcium (8.6-10.2) mg/dL Magnesium (1.8-2.5) mg/dL Total Bilirubin (0.1-1.3) mg/dL AST (5-25) IU/L ALT (12-36) U/L Alkaline Phosphatase (56-112) IU/L Troponin I 6.4 (4.0-60.3) pg/mL Total Protein (6.0-8.0) g/dL Albumin (3.2-4.6) g/dL Globulin g/dL Albumin/Globulin Ratio TSH, Ultra Sensitive 3.95 H (0.36-3.74) IU/mL Urine Color (YELLOW) Urine Appearance (CLEAR) Urine pH (5.0-6.5) Ur Specific [place] (1.010-1.025) Urine Protein (NEGATIVE) mg/dL Urine Glucose (UA) (NORMAL) mg/dL Urine Ketones (NEGATIVE) mg/dL Urine Occult Blood (NEGATIVE) Urine Nitrite (NEGATIVE) Urine Bilirubin (NEGATIVE) Urine Urobilinogen (NEGATIVE) mg/dL Ur Leukocyte Esterase (NEGATIVE) Urine RBC (0-5) Urine WBC (0-5) Ur Squamous Epith Cells (NS,R,O) Urine Bacteria (NS) 04/02/20 04/03/20 Range/Units 16:00 06:35 WBC (4.5-12.0) X10-3/uL RBC (3.23-5.20) x10(6)uL Hgb (11.5-15.5) g/dL Hct (30.0-51.3) % MCV (80-96) fL MCH (27.7-33.6) pg MCHC (32.2-35.4) g/dL RDW (11.5-15.5) % Plt Count (125-369) X10(3)uL MPV (7.4-10.4) fL Neut % (Auto) (46-82) % Lymph % (Auto) (13-37) % [place] % (Auto) (4-12) % Eos % (Auto) (1.0-5.0) % Baso % (Auto) (0-2) % Neut # (Auto) (1.6-8.3) # Lymph # (Auto) (0.6-5.0) # [place] # (Auto) (0.0-1.3) # Eos # (Auto) (0.0-0.8) # Baso # (Auto) (0.0-0.2) # Sodium 136 (135-145) mmol/L Potassium 2.8 L* (3.5-5.3) mmol/L Chloride 105 D (100-110) mmol/L Carbon Dioxide 23 (21-32) mmol/L BUN 7 (7-18) mg/dL Creatinine 0.9 (0.55-1.02) mg/dL Est Cr Clr Drug Dosing 38.87 Estimated GFR (MDRD) > 60 (>60) BUN/Creatinine Ratio 7.8 L (9-20) Glucose 82 (80-116) mg/dL Lactic Acid (0.4-2.0) mmol/L Calcium 7.7 L (8.6-10.2) mg/dL Magnesium (1.8-2.5) mg/dL Total Bilirubin (0.1-1.3) mg/dL AST (5-25) IU/L ALT (12-36) U/L Alkaline Phosphatase (56-112) IU/L Troponin I (4.0-60.3) pg/mL Total Protein (6.0-8.0) g/dL Albumin (3.2-4.6) g/dL Globulin g/dL Albumin/Globulin Ratio TSH, Ultra Sensitive (0.36-3.74) IU/mL Urine Color Yellow (YELLOW) Urine Appearance Slightly cloudy (CLEAR) Urine pH 6.0 (5.0-6.5) Ur Specific [place] 1.015 (1.010-1.025) Urine Protein Negative (NEGATIVE) mg/dL Urine Glucose (UA) Normal (NORMAL) mg/dL Urine Ketones Negative (NEGATIVE) mg/dL Urine Occult Blood Moderate H (NEGATIVE) Urine Nitrite Positive H (NEGATIVE) Urine Bilirubin Negative (NEGATIVE) Urine Urobilinogen Normal (NEGATIVE) mg/dL Ur Leukocyte Esterase Large H (NEGATIVE) Urine RBC 5-10 H (0-5) Urine WBC 40-50 H (0-5) Ur Squamous Epith Cells Few H (NS,R,O) Urine Bacteria Many H (NS) Rodolfo Results Last 24 Hours: Microbiology 04/02/20 16:00 Urine Culture - Preliminary Urine, Clean Catch Gram Negative Rods Med Orders - Current: Current Medications Ceftriaxone Sodium (Rocephin) 1 gm IVPUSH Q24H [facility] Last Admin: 04/02/20 18:15 Dose: 1 gm Documented by: Enoxaparin Sodium (Lovenox) 40 mg SUBCUT Q24H [facility] Last Admin: 04/02/20 18:08 Dose: 40 mg Documented by: Sodium Chloride (Normal Saline) 1,000 mls @ 100 mls/hr IV ASDIRECTED [facility] Last Admin: 04/03/20 04:10 Dose: 100 mls/hr Documented by: Potassium Chloride (Kcl 20 Meq In Water 100 Ml) 100 mls @ 50 mls/hr IV Q2H [facility] Stop: 04/03/20 13:59 Last Admin: 04/03/20 10:27 Dose: 50 mls/hr Documented by: Non-Formulary Medication (Alendronate Sodium [Fosamax]) 70 mg PO FERNANDEZ [facility] Citalopram Hydrobromide [Celexa ] 10 MgPt Own 10 mg PO BEDTIME [facility] Last Admin: 04/02/20 21:41 Dose: 10 mg Documented by: Restasis Opth Soln 1 drop EYEBOTH DAILY [facility] Last Admin: 04/03/20 08:36 Dose: 1 drop Documented by: Omeprazole [Prilosec (] 20 MgPt Own) 20 mg PO BEDTIME [facility] Last Admin: 04/02/20 21:48 Dose: 20 mg Documented by: Bismuth Subsalicylate [Pepto Bismol] 262mg Pt Own 786 mg PO TID [facility] Last Admin: 04/03/20 08:34 Dose: 786 mg Documented by: Potassium Chloride (Klor-Con M20) 20 meq PO TID [facility] Last Admin: 04/03/20 08:35 Dose: 20 meq Documented by: Sodium Chloride (Saline Flush) 10 ml FLUSH ASDIRECTED PRN PRN Reason: Keep Vein Open Last Admin: 04/02/20 18:15 Dose: 10 ml Documented by: Discontinued Medications Sodium Chloride (Normal Saline) 500 mls @ 500 mls/hr IV .BOLUS ONE Stop: 04/02/20 15:09 Last Admin: 04/02/20 14:17 Dose: 500 mls/hr Documented by: Potassium Chloride (Kcl 20 Meq In Water 100 Ml) 100 mls @ 50 mls/hr IV Q2H [facility] Stop: 04/02/20 20:59 Last Admin: 04/02/20 19:45 Dose: 50 mls/hr Documented by: Non-Formulary Medication (Ferrous Sulfate [Iron]) 325 mg PO BID [facility] Last Admin: 04/03/20 11:22 Dose: Not Given Documented by: Non-Formulary Medication (Bismuth Subsalicylate [Pepto Bismol]) 524 mg PO TID BRANDYN - Exam General: Alert, Oriented, Cooperative, No Acute Distress Lungs: Clear to Auscultation, Normal Respiratory Effort Cardiovascular: Regular Rate, Regular Rhythm GI/Abdominal Exam: Normal Bowel Sounds, Soft, Non-Tender, No Distention Extremities: No Pedal Edema Sepsis Event Note - Evaluation Sepsis Screening Result: No Definite Risk - Focused Exam Vital Signs: Vital Signs Temp Pulse Resp BP Pulse Ox 04/03/20 08:38 97.4 F 88 20 88/55 L 96 04/03/20 04:00 97.1 F 90 18 95/60 98 04/03/20 00:00 96.9 F 95 18 101/65 100 Date Exam was Performed: 04/03/20 Time Exam was Performed: 11:34 - Problem List & Annotations (1) Hypokalemia SNOMED Code(s): 24205385 Code(s): E87.6 - HYPOKALEMIA Status: Acute Current Visit: Yes Annotation/Comment:: improving to 2.8. Will give 40 mEq IV and 20 mEq tid, daily total 100 mEq, recheck tomorrow. (2) Diarrhea SNOMED Code(s): 72961002 Code(s): R19.7 - DIARRHEA, UNSPECIFIED Status: Acute Current Visit: Yes Qualifiers: Diarrhea type: unspecified type Qualified Code(s): R19.7 - Diarrhea, unspecified (3) Edema due to hypoalbuminemia SNOMED Code(s): 635743051 Code(s): R60.9 - EDEMA, UNSPECIFIED; E88.09 - OTH DISORDERS OF PLASMA-PROTEIN METABOLISM, NEC Status: Acute Current Visit: No (4) Lymphocytic colitis SNOMED Code(s): 31640421 Code(s): K52.832 - LYMPHOCYTIC COLITIS Status: Chronic Current Visit: No (5) Osteoporosis SNOMED Code(s): 86350941 Code(s): M81.0 - AGE-RELATED OSTEOPOROSIS W/O CURRENT PATHOLOGICAL FRACTURE Status: Chronic Current Visit: No - Problem List Review Problem List Initiated/Reviewed/Updated: Yes - My Orders Last 24 Hours: My Active Orders 04/02/20 15:43 Antiembolic Devices [RC] .Routine Cardiac Monitoring [RC] 08,16,00 Oxygen Therapy [RC] PRN Up ad Carolyn [RC] ASDIRECTED Vital Signs [RC] Q4H 04/02/20 15:44 Antiembolic Hose [OM.PC] Per Unit Routine 04/02/20 16:07 Code Status [Resuscitation Status] Routine 04/02/20 Dinner Regular Diet [DIET] 04/02/20 17:15 Sodium Chloride 0.9% [Normal Saline] 1,000 ml IV ASDIRECTED 04/02/20 18:00 Enoxaparin [Lovenox] 40 mg SUBCUT Q24H 04/02/20 21:00 Citalopram Hydrobromide [Celexa] 10 mg PO BEDTIME Omeprazole [Prilosec] 20 mg PO BEDTIME Potassium Chloride [Klor-Con M20] 20 meq PO TID 04/03/20 09:00 Carboxymethylcellulose Sodium [Refresh Tears] 1 drop EYEBOTH DAILY 04/03/20 10:00 Potassium Chloride [KCL 20 MEQ in Water 100 ML] 100 ml IV Q2H 04/04/20 06:00 BASIC METABOLIC PANEL,BMP [CHEM] Routine 04/04/20 16:45 Alendronate Sodium [Fosamax] 70 mg PO FERNANDEZ - Plan Plan:: 1. Potassium replacing IV & oral, cardiac monitoring, repeat labs tomorrow. 2. UTI on admission: gram negative rods on culture, positive nitrates. Rocephin started last night, continue daily while waiting for culture results. 3. Hypotensive but asymptomatic. Continue NS at 100 ml/hr, monitor for fluid overload. 4. Possibly home tomorrow on oral antibiotics once we get culture results. P otassium rich diet.
[2020-04-03] MEDS: Enoxaparin 40 MG/0.4 ML Syringe SUBCUT SCH (17:40)
[2020-04-03] MEDS: cefTRIAXone 1 GM Vial IVPUSH SCH (17:40)
[2020-04-03] MEDS: CITALOPRAM HYDROBROMIDE 10 MG PO SCH (20:13)
[2020-04-03] MEDS: OMEPRAZOLE 20 MG PO SCH (20:14)
[2020-04-04] MEDS: Sodium Chloride 0.9% 1,000 ML IV SCH (03:05)
[2020-04-04] MEDS: RESTASIS OPTH EYEBOTH SCH (09:03)
[2020-04-04] MEDS: Potassium Chloride 20 MEQ Tab.ER PO SCH (09:03)
[2020-04-04] MEDS: BISMUTH SUBSALICYLATE 262 MG PO SCH (09:04)
--- NOTE | 2020-04-04 11:40 | PCM.DCSUM1 ---
Discharge Summary - Hospital Course HPI Initial Comments: Rosaura came in today for low potassium that was found on a lab draw yesterday for her [facility] from [place](that she has been seeing via virtual visits). She was discharged the end of December for Leukocytic colitis found on colonoscopy in November. She had a prolonged stay as she was severely malnourished, requiring TPN as she was not eating well, was on a long prednisone taper. She is not on Prednisone now, has been taking Pepto Bismuth 3 cap tid, which has helped. Had a flare up of diarrhea past few weeks, gradually feeling weaker, fatigued. Denies any fevers, chills, sore throat, cough, chest pain, shortness of breath, abdominal pain, nausea or vomiting. No dysuria, frequency, hematuria. No rashes, easily bleeding or bruising. Still having some bloody stools with the diarrhea, has not changed since she was here in November/December. Wears bilateral hearing aids, lives alone in her own home in [place], her son lives close by and daughter Giuliana lives in [place]. Diagnosis: Stroke: No - Discharge Data Discharge Date: 04/04/20 Discharge Disposition: Home, Self-Care 01 Condition: Good - Referral to Home Health Primary Care Physician: Isidoro Flores MD - Discharge Diagnosis/Problem(s) (1) Hypokalemia SNOMED Code(s): 55727712 ICD Code: E87.6 - HYPOKALEMIA Status: Resolved Current Visit: Yes Problem Details: 3.7 today, potassium containing food list given to patient. Recheck potassium with Dr Flores at end of week. (2) UTI (urinary tract infection) SNOMED Code(s): 08822474 ICD Code: N39.0 - URINARY TRACT INFECTION, SITE NOT SPECIFIED Status: Resolved Current Visit: No Problem Details: E. coli, sensitive to ceftriaxone. Received 2 doses, will go home with Cefdinir 300 mg bid for 3 more days. Qualifiers: Urinary tract infection type: acute cystitis (3) Diarrhea SNOMED Code(s): 49320803 ICD Code: R19.7 - DIARRHEA, UNSPECIFIED Status: Acute Current Visit: Yes Qualifiers: Diarrhea type: unspecified type Qualified Code(s): R19.7 - Diarrhea, unspecified (4) Edema due to hypoalbuminemia SNOMED Code(s): 048903235 ICD Code: R60.9 - EDEMA, UNSPECIFIED; E88.09 - OTH DISORDERS OF PLASMA- PROTEIN METABOLISM, NEC Status: Acute Current Visit: No (5) Lymphocytic colitis SNOMED Code(s): 25305112 ICD Code: K52.832 - LYMPHOCYTIC COLITIS Status: Chronic Current Visit: No (6) Osteoporosis SNOMED Code(s): 25482721 ICD Code: M81.0 - AGE-RELATED OSTEOPOROSIS W/O CURRENT PATHOLOGICAL FRACTURE Status: Chronic Current Visit: No - Patient Summary/Data Hospital Course: Found to UTI on admission, started on Rocephin, Urine culture grew E. Coli, sensitive to Ceftriaxone. She received 2 doses during admission, will go home on Cefdinir 300 mg bid for 3 more days, will start dose tonight as she got Rocephin at 1800 last night. Her diarrhea has slowed down, continue her Pepto-Bismuth 3 tabs tid as directed by her GI doctor. She received two 40 mEq IV potassium infusions with oral potassium 20 mEq tid during hospitalization, came up to 2.8 on Sunday and then 3.7 on Sunday. Reviewed potassium rich food list with her. Her edema also went down with use of TEDs hose, advised to use at home on during day and off at night. Blood pressure was low during hospital stay, received IV fluids, remained unchanged; she was asymptomatic, no dizziness or lightheadedness or tachycardia. Slowly improved at discharge. Repeat potassium on Sunday with Dr Flores. Follow up with Gastroenterology as previously scheduled. - Patient Instructions Diet: Regular Diet as Tolerated Activity: As Tolerated Driving: May Drive Today Showering/Bathing: May Shower Notify Provider of: Fever, Increased Pain, Nausea and/or Vomiting Other/Special Instructions: Follow up with Dr Flores at end of this week for recheck of your potassium. Follow up with your Gastroenterology(GI) doctor as previously scheduled. - Discharge Plan *PRESCRIPTION DRUG MONITORING PROGRAM REVIEWED*: No *COPY OF PRESCRIPTION DRUG MONITORING REPORT IN PATIENT KATI: No Prescriptions/Med Rec: Cefdinir 300 mg PO BID 3 Days #6 capsule Home Medications: Home Meds Flaxseed Oil [Flax Oil] 1,000 mg PO DAILY 06/23/13 [History] Lutein 20 mg PO DAILY 06/23/13 [History] Omeprazole [Prilosec] 20 mg PO BEDTIME 06/23/13 [History] cycloSPORINE [Restasis] 1 drop EYEBOTH BID PRN 06/23/13 [History] Cholecalciferol (Vitamin D3) [Vitamin D3] 1,000 units PO DAILY 06/24/13 [History] Citalopram Hydrobromide [Celexa] 10 mg PO BEDTIME 06/24/13 [History] Fish Oil/[place]-3 Fatty Acids [Fish Oil 1,000 MG] 1,000 mg PO DAILY 06/24/13 [History] Multivitamin [Multi-Vitamin Daily] 1 each PO DAILY 06/24/13 [History] Alendronate Sodium [Fosamax] 70 mg PO FERNANDEZ 05/06/19 [History] Calcium Carbonate/Vitamin D3 [Os-Meng 500+D] 1 each PO BID 05/06/19 [History] Ferrous Sulfate [Iron] 325 mg PO BID 05/06/19 [History] Glucosamine Sulfate/Msm [Glucosamine-MSM 500-400 MG] 1 cap PO DAILY 05/06/19 [History] Vitamin E 400 unit PO DAILY 05/06/19 [History] Acetaminophen [Tylenol] 325 mg PO Q4H PRN 04/02/20 [History] Carboxymethylcellulose Sodium [Refresh Tears] 1 drop EYEBOTH DAILY 04/02/20 [History] Cyanocobalamin (Vitamin B-12) [Vitamin B-12] 1,000 mcg PO DAILY 04/02/20 [History] Bismuth Subsalicylate [Pepto Bismol] 3 tab.chew PO TID #90 04/04/20 [Rx] Cefdinir 300 mg PO BID 3 Days #6 capsule 04/04/20 [Rx] Patient Handouts: Hypokalemia, Potassium Content of Foods, Fall Prevention in Hospitals, Adult, Iron-Rich Diet, Venous Thromboembolism Prevention Forms: ED Department Discharge Referrals: Isidoro Flores MD [Primary Care Provider] - - Discharge Summary/Plan Comment DC Time >30 min.: No - General Info Date of Service: 04/04/20 Subjective Update: Rosaura is feeling better today, no diarrhea stools since yesterday afternoon. Tolerating her diet well. Asymptomatic with low blood pressures, coming up with decreasing IVF. No abdominal pain, nausea. No shortness of breath. Functional Status: Reports: Tolerating Diet, Ambulating, Urinating. Denies: New Symptoms - Patient Data Vitals - Most Recent: Last Vital Signs Temp 97 F 04/04/20 04:00 Pulse 76 04/04/20 04:00 Resp 16 04/04/20 04:00 BP 93/59 L 04/04/20 04:00 Pulse Ox 99 04/04/20 04:00 Weight - Most Recent: 127 lb I&O - Last 24 hours: Intake & Output 04/03/20 04/04/20 04/04/20 22:59 06:59 14:59 Intake Total 97 Balance 97 Lab Results - Last 24 hrs: Laboratory Results - last 24 hr 04/04/20 Range/Units 06:30 Sodium 138 (135-145) mmol/L Potassium 3.7 (3.5-5.3) mmol/L Chloride 108 (100-110) mmol/L Carbon Dioxide 22 (21-32) mmol/L BUN 7 (7-18) mg/dL Creatinine 0.8 (0.55-1.02) mg/dL Est Cr Clr Drug Dosing 43.73 mL/min Estimated GFR (MDRD) > 60 (>60) BUN/Creatinine Ratio 8.8 L (9-20) Glucose 78 L (80-116) mg/dL Calcium 7.5 L (8.6-10.2) mg/dL DONG Results - Last 24 hrs: Microbiology 04/02/20 16:00 Urine Culture - Final Urine, Clean Catch Escherichia Coli 04/02/20 14:17 Aerobic Blood Culture - Preliminary Blood - Venous NO GROWTH AFTER 1 DAY Anaerobic Blood Culture - Preliminary NO GROWTH AFTER 1 DAY 04/02/20 14:21 Aerobic Blood Culture - Preliminary Blood - Venous - Lab Draw NO GROWTH AFTER 1 DAY Anaerobic Blood Culture - Preliminary NO GROWTH AFTER 1 DAY Med Orders - Current: Current Medications Ceftriaxone Sodium (Rocephin) 1 gm IVPUSH Q24H [facility] Last Admin: 04/03/20 17:40 Dose: 1 gm Documented by: Enoxaparin Sodium (Lovenox) 40 mg SUBCUT Q24H [facility] Last Admin: 04/03/20 17:40 Dose: 40 mg Documented by: Non-Formulary Medication (Alendronate Sodium [Fosamax]) 70 mg PO FERNANDEZ [facility] Citalopram Hydrobromide [Celexa ] 10 MgPt Own 10 mg PO BEDTIME [facility] Last Admin: 04/03/20 20:13 Dose: 10 mg Documented by: Restasis Opth Soln 1 drop EYEBOTH DAILY [facility] Last Admin: 04/04/20 09:03 Dose: 1 drop Documented by: Omeprazole [Prilosec (] 20 MgPt Own) 20 mg PO BEDTIME [facility] Last Admin: 04/03/20 20:14 Dose: 20 mg Documented by: Bismuth Subsalicylate [Pepto Bismol] 262mg Pt Own 786 mg PO TID [facility] Last Admin: 04/04/20 09:04 Dose: 786 mg Documented by: Potassium Chloride (Klor-Con M20) 20 meq PO TID [facility] Last Admin: 04/04/20 09:03 Dose: 20 meq Documented by: Sodium Chloride (Saline Flush) 10 ml FLUSH ASDIRECTED PRN PRN Reason: Keep Vein Open Last Admin: 04/02/20 18:15 Dose: 10 ml Documented by: Discontinued Medications Sodium Chloride (Normal Saline) 500 mls @ 500 mls/hr IV .BOLUS ONE Stop: 04/02/20 15:09 Last Admin: 04/02/20 14:17 Dose: 500 mls/hr Documented by: Potassium Chloride (Kcl 20 Meq In Water 100 Ml) 100 mls @ 50 mls/hr IV Q2H [facility] Stop: 04/02/20 20:59 Last Admin: 04/02/20 19:45 Dose: 50 mls/hr Documented by: Sodium Chloride (Normal Saline) 1,000 mls @ 75 mls/hr IV ASDIRECTED [facility] Last Admin: 04/04/20 03:05 Dose: 75 mls/hr Documented by: Potassium Chloride (Kcl 20 Meq In Water 100 Ml) 100 mls @ 50 mls/hr IV Q2H [facility] Stop: 04/03/20 13:59 Last Admin: 04/03/20 12:53 Dose: 50 mls/hr Documented by: Non-Formulary Medication (Ferrous Sulfate [Iron]) 325 mg PO BID [facility] Last Admin: 04/03/20 11:22 Dose: Not Given Documented by: Non-Formulary Medication (Bismuth Subsalicylate [Pepto Bismol]) 524 mg PO TID BRANDYN - Exam General: Reports: Alert, Oriented, Cooperative, No Acute Distress Lungs: Reports: Clear to Auscultation, Normal Respiratory Effort Cardiovascular: Reports: Regular Rate, Regular Rhythm GI/Abdominal Exam: Normal Bowel Sounds, Soft, Non-Tender, No Distention Extremities: No Pedal Edema (TEDs on BLE) Skin: Reports: Warm, Dry, Intact
[2020-04-04 12:03] VITALS: BP 94/61; PULSE 81
[2020-04-04] MEDS ORDERED: Non-Formulary Medication 1 Each (Alendronate Sodium [Fosamax] 70 MG) PO SCH (16:45)
== END 2020-04-04 13:15 | disposition home or self-care (01) ==
LOC: FB.ED 13:30 → FB.MS 15:11
PROVIDERS: ADMIT Family Medicine; ATTEND Family Medicine
DX: E87.6 Hypokalemia (principal); N30.00 Acute cystitis without hematuria; B96.20 Unspecified Escherichia coli [E. coli] as the cause of diseases classified elsewhere; F32.9 Major depressive disorder, single episode, unspecified; E66.9 Obesity, unspecified; R19.7 Diarrhea, unspecified; K21.9 Gastro-esophageal reflux disease without esophagitis; R60.9 Edema, unspecified; E88.09 Other disorders of plasma-protein metabolism, not elsewhere classified; M81.0 Age-related osteoporosis without current pathological fracture; K52.832 Lymphocytic colitis; I95.9 Hypotension, unspecified; Z16.39 Resistance to other specified antimicrobial drug; Z88.2 Allergy status to sulfonamides; Z79.82 Long term (current) use of aspirin; Z79.899 Other long term (current) drug therapy; Z68.24 Body mass index [BMI] 24.0-24.9, adult
CPT/HCPCS: 36415; 80048; 80053; 81001; 83605; 83735; 84439; 84443; 84484; 85025; 87040; 87086; 87088; 87186; 93005; 96361; 96365; 96366; 96372; 96375; 96376; 99285; A9270; G0378; J0696; J1650; J3480; J7030; J7040; 99217; 99218; 99225